=== PATIENT | female | born 1945 | race Caucasian/White ===

== ENCOUNTER 2025-01-26 15:32 | Inpatient (IN) | payer MEDICARE, MEDICAID, SELFPAY ==
[2025-01-26] VITALS (88 sets, daily range): BP systolic 68–176; BP diastolic 39–86; PULSE 76–119; RESP 11–24; TEMP 36.3–37.1; O2SAT 71–100; BMI 31.5
--- NOTE | ~2025-01-26 | CT_ITS ---
EXAMINATION: CT brain wo silke, 01/26/2025 17:35 ANALYTICAL SCIENTIST HISTORY: AMS COMPARISON: No comparisons available. Technique: Axial images obtained of the brain without contrast. One or more of the following dose reduction techniques were used: automated exposure control, adjustment of the mA and/or kV according to patient size, use of iterative reconstruction technique. Findings: Remote left basal ganglial lacunar infarct. Remote left occipital infarct. Remote right cerebellar lacunar infarct. No acute infarct or hemorrhage is identified. No midline shift or mass effect. No extra-axial fluid collections. Mastoid air cells unremarkable. Sinuses and orbits unremarkable. No acute fracture. No significant facial or scalp soft tissue swelling evident. No radiopaque foreign body is seen. Impression: 1.No acute intracranial abnormality. Reviewed, dictated and finalized at location P. YTICAL SCIENTIST Impression: 1.No acute intracranial abnormality.
--- NOTE | ~2025-01-26 | XR_ITS ---
EXAM/PROCEDURE: XR barium swallow modified HISTORY: rule out aspiration COMPARISON: None available. TECHNIQUE: Modified barium swallow DAP: 0.806 cornell per square centimeter Fluoroscopy time: 1 minute Number of images: 1 IMPRESSION: No aspiration observed. See speech therapist's report for complete details. Reviewed, dictated and finalized at location A. ALLER HELPER
--- NOTE | ~2025-01-26 | US_ITS ---
BILATERAL LOWER EXTREMITY VENOUS DUPLEX Clinical History: Leg pain . Comparison: None. Technique: Grayscale, color, duplex/spectral Doppler sonography bilateral lower extremities. Findings: Bilateral common femoral, femoral, popliteal, and calf veins compressible and color Doppler patent. Normal augmentation with distal compression. No internal echoes. IMPRESSION: 1. No DVT either leg. Reviewed, dictated and finalized at location R. ALING OVEN OPERATOR IMPRESSION: 1. No DVT either leg.
--- NOTE | ~2025-01-26 | XR_ITS ---
Examination: XR chest 1V portable Clinical History: evaluate CVC Comparison: Chest x-ray and CT chest one day prior Technique: Portable AP Findings: Right neck central line with catheter retrograde into left innominate vein. Right ICD. Heart size normal. Left basilar atelectasis from leftward mediastinal shift. Small left pleural effusion not excluded. No acute bony abnormality. IMPRESSION: 1. No significant change. 2. Right neck central line with catheter retrogradely into left innominate vein. 3. Left basilar atelectasis. Reviewed, dictated and finalized at location R. E MASTER IMPRESSION: 1. No significant change. 2. Right neck central line with catheter retrogradely into left innominate vei n. 3. Left basilar atelectasis.
--- NOTE | ~2025-01-26 | XR_ITS ---
EXAMINATION: XR chest 1V portable COMPARISON: No comparisons available. HISTORY: pneumonia? low BP, AMS FINDINGS: Moderate pulmonary venous congestion. Moderate left basilar infiltrate and. No pneumothorax. Moderate cardiomegaly. Mediastinal and hilar contours are within normal limits. Bony thorax no acute abnormality. Miscellaneous: Left pacemaker. Impression: CHF. Superimposed probable left lower lobe pneumonia Reviewed, dictated and finalized at location P. TRUCTION ADMINISTRATIVE ASSISTANT Impression: CHF. Superimposed probable left lower lobe pneumonia
--- NOTE | ~2025-01-26 | XR_ITS ---
EXAMINATION: XR chest port-a-cath/central COMPARISON: No comparisons available. HISTORY: central line placement FINDINGS: Moderate pulmonary venous congestion. Basilar infiltrates are noted. Small left effusion. No pneumothorax. Moderate cardiomegaly. Mediastinal and hilar contours are within normal limits. Bony thorax no acute abnormality. Miscellaneous: Endovascular stent noted. There is a right central line, the tip terminates to the left of midline possibly within an internal mammary vein or the proximal left brachiocephalic vein. Impression: CHF. Superimposed probable pneumonia. Central line placement as above. CT suggested to assess exact location as clinically warranted Reviewed, dictated and finalized at location P. TEACHER Impression: CHF. Superimposed probable pneumonia. Central line placement as above. CT sugge sted to assess exact location as clinically warranted
--- NOTE | ~2025-01-26 | US_ITS ---
EXAMINATION: US pelvic complete DATE: 01/28/2025 17:54 INDICATION: Endometrial hyperplasia. TECHNIQUE: Multiple transabdominal sonographic images of the pelvis were obtained. COMPARISON: None. FINDINGS: The uterus and ovaries are not visualized. There is no ascites. IMPRESSION: 1. Uterus and ovaries not visualized. Transvaginal imaging was not performed due to the patient's altered mental status. Reviewed, dictated and finalized at location E. CLOTH EXAMINER IMPRESSION: 1. Uterus and ovaries not visualized. Transvaginal imaging was not performed du e to the patient's altered mental status.
--- NOTE | ~2025-01-26 | XR_ITS ---
Examination: XR chest PICC line Clinical History: PICC line placement. Comparison: 2 hours prior Technique: Portable AP Findings: Right PICC placed but tip not identified. No other change. IMPRESSION: 1. Right PICC placed but tip not identified. 2. Right neck central line unchanged with catheter retrograde into left innominate vein. 3. No cardiopulmonary change. Reviewed, dictated and finalized at location R. DE SALES REPRESENTATIVE IMPRESSION: 1. Right PICC placed but tip not identified. 2. Right neck central line unchanged with catheter retrograde into left innomi cadence vein. 3. No cardiopulmonary change.
--- NOTE | ~2025-01-26 | CT_ITS ---
EXAMINATION: CT chest abdomen pelvis wo con DATE: 01/28/2025 10:09 INDICATION: Abdominal pain. Sepsis. TECHNIQUE: Computed tomography (CT) of the chest, abdomen, and pelvis was performed without intravenous contrast. Automated exposure control and iterative reconstruction technique were employed. The dose-length product was 1335.86 mGy-cm. COMPARISON: CT 01/26/2025 FINDINGS: CHEST CT: The lungs demonstrate mild atelectasis. A calcified left lung nodule and calcified left hilar lymph nodes are consistent with old granulomatous disease. There are small pleural effusions. The heart size is normal. There are coronary artery calcifications. No pericardial effusion. There are changes of aortic valve replacement. There is a left chest pacer with leads in right atrium, right ventricle, and coronary sinus. The central pulmonary arteries are enlarged, consistent with pulmonary arterial hypertension. There is fluid in the esophagus. There is severe cervical and thoracic spondylosis. 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 A right upper extremity peripherally inserted central venous catheter (PICC) is seen with tip in the superior vena cava. ABDOMEN/PELVIS CT: The liver is normal. The gallbladder is distended. Calcifications in the spleen are consistent with old granulomatous disease. The pancreas, adrenal glands, and kidneys are normal. There is no urolithiasis. The bladder is decompressed by a Patterson catheter. The endometrial complex is thickened to 12 mm. There is diverticulosis of the colon without evidence of diverticulitis. There is wall thickening of the distal ileum and right colon. The appendix is normal. There is a gastrostomy tube in expected position. There is a small volume of ascites. There is calcified atherosclerosis of the aorta and many of the other arteries. There are changes of anterior and posterior fusion procedures from L4 to S1 with pedicle screws. There is severe lumbar spondylosis. IMPRESSION: 1. Small pleural effusions. 2. New gallbladder distention, which may be secondary to fasting. Correlate with physical exam to exclude acute cholecystitis. 3. Thickened endometrial complex, which may be secondary to endometrial hyperplasia, polyp, or carcinoma. Consider pelvic ultrasound. 4. Worsened wall thickening of the distal ileum and right colon, consistent with edema versus enterocolitis. 5. Small volume of ascites. Reviewed, dictated and finalized at location E. IC INFORMATION RELATIONS MANAGER IMPRESSION: 1. Small pleural effusions. 2. New gallbladder distention, which may be secondary to fasting. Correlate wit h physical exam to exclude acute cholecystitis. 3. Thickened endometrial complex, which may be secondary to endometrial hyperpl trevin, polyp, or carcinoma. Consider pelvic ultrasound. 4. Worsened wall thickening of the distal ileum and right colon, consistent wit h edema versus enterocolitis. 5. Small volume of ascites.
--- NOTE | ~2025-01-26 | US_ITS ---
EXAMINATION: US arterial ankle brachial ind DATE: 01/27/2025 12:22 INDICATION: Peripheral arterial disease. TECHNIQUE: Segmental pressures and plethysmographic and Doppler waveforms of the brachial and lower extremity arteries were obtained. COMPARISON: None. FINDINGS: The right brachial artery pressure was not measured due to catheters. The left brachial artery pressure is 91 mm Hg. The right ankle-brachial index (HIREN) is 1.19 (normal >= 0.9-1.0). The right great toe-brachial index (TBI) is 0.33 (normal >= 0.65). Arterial Doppler waveforms are biphasic in posterior tibial artery and monophasic in dorsalis pedis. The left HIREN is 0.97. The dorsalis pedis signal is not identified. The left great toe arterial signal is not identified. Arterial Doppler waveforms are monophasic in posterior tibial artery. IMPRESSION: 1. Normal right HIREN and decreased right TBI, consistent with right-sided arterial occlusive disease. 2. Borderline-decreased left HIREN and lack of detectable arterial flow in the left great toe, consistent with left-sided arterial occlusive disease. Reviewed, dictated and finalized at location E. TRICAL TECHNOLOGY INSTRUCTOR IMPRESSION: 1. Normal right HIREN and decreased right TBI, consistent with right-sided arteri al occlusive disease. 2. Borderline-decreased left HIREN and lack of detectable arterial flow in the le ft great toe, consistent with left-sided arterial occlusive disease.
--- NOTE | ~2025-01-26 | US_ITS ---
EXAMINATION: US venous doppler UE , 01/28/2025 15:15 [employer]ING HISTORY: worsening edema Comparison: None Technique: Multiple aguila scale and color Doppler sonographic images were obtained of the internal jugular, subclavian, axillary, brachial, basilar, radial and ulnar veins. Findings: Venous System:Normal flow, augmentation and compressibility. No echogenic thrombus identified. Soft tissues: Soft tissues are unremarkable. Impression: Negative for DVT. Reviewed, dictated and finalized at location P. SCIENCE AND PLANNING Impression: Negative for DVT.
--- NOTE | ~2025-01-26 | CT_ITS ---
EXAMINATION: CT, chest, abdomen and pelvis without contrast: DATE: 01/26/2025. INDICATION: 79 year-old with abdominal pain, nausea vomiting, septic shock. Pneumonia or congestive heart failure. TECHNIQUE: CT scan through chest, abdomen and pelvis were obtained without administration of oral contrast or IV contrast. Radiation dose 993 MG Y C.M. COMPARISON: Portable chest x-ray dated 01/26/2025 FINDINGS: No segmental consolidation or atelectasis of the lungs. Postsurgical changes with severe cardiomegaly and endograft placement of ascending aorta. Pacemaker in place. Prominent central pulmonary arteries due to pulmonary hypertension. No pericardial effusion. Within the upper abdomen, normal size liver and spleen. Gallbladder shows no acute findings. There is evidence small bowel drops of air noted in the peripheral portal veins in the left lobe of the liver. The pancreas shows no acute findings. Kidneys do not show calculi are obstruction. Severe calcific changes at the origin of celiac axis and superior mesenteric artery. No evidence of small bowel obstruction. G-tube is noted in place in the stomach. No free air in the peritoneal cavity. No inflammatory changes in the pelvis. Postoperative changes of lumbar spine. No calculi of the kidneys and bladder. IMPRESSION: 1. No evidence of pulmonary consolidation are atelectasis. Mild vascular congestion of lungs severe cardiomegaly and postoperative changes as described above. 2. Within the abdomen, there is significant finding of small drops of air in the peripheral portal veins within the left lobe of the liver. This would raise a concern for ischemic bowel disease. 3. Significant Calcific changes at the proximal celiac axis and superior mesenteric artery and right renal artery. 4. Normal bowel obstruction or bowel wall thickening. No evidence of fluid or free air in the peritoneal cavity. 5. Critical findings conveyed to attending physician by telephone call at 6:07 PM. Reviewed, dictated and finalized at location T. R IMPRESSION: 1. No evidence of pulmonary consolidation are atelectasis. Mild vascular conges tion of lungs severe cardiomegaly and postoperative changes as described above. 2. Within the abdomen, there is significant finding of small drops of air in th e peripheral portal veins within the left lobe of the liver. This would raise a concern for ischemic bowel disease. 3. Significant Calcific changes at the proximal celiac axis and superior mesent demetria artery and right renal artery. 4. Normal bowel obstruction or bowel wall thickening. No evidence of fluid or f ree air in the peritoneal cavity. 5. Critical findings conveyed to attending physician by telephone call at 6:07 PM.
--- NOTE | 2025-01-26 15:45 | ECG_ITS ---
Test Date: 2025-01-26 16:03:26 Measurements Intervals [place] Rate: 81 P: 0 NE: 0 QRS: -26 QRSD: 140 T: 64 QT: 457 QTc: 533 Interpretive Statements ELECTRONIC VENTRICULAR PACEMAKER WITH PSEUDO FUSION. ABNORMAL RHYTHM ECG No previous ECG available for comparison Electronically Signed On 01-27-2025 08:02:17 PULPING MACHINE OPERATOR by Saman Rivera M.D.
[2025-01-26] MEDS: NOREPINEPHRINE 8 MG/D5W 250 ML 8 MG/250 ML BAG 9.38 MG IV CONT (16:20)
--- NOTE | 2025-01-26 16:48 | ED.AMS ---
HPI - Altered Mental Status General Chief Complaint: Altered Mental Status Stated Complaint: AMS Time Seen by Provider: 01/26/25 15:45 History of Present Illness HPI narrative: Patient presenting here after being diagnosed with pneumonia, started on antibiotics, her custodial found she seemed more confused and tired and sleepy with low blood pressure so sent her to the emergency room. She is reporting she feels terrible, with abdominal pain Related Data Allergies Allergy/AdvReac Type Severity Reaction Status Date / Time No Known Allergies Allergy Verified 01/26/25 15:59 Review of Systems Review of Systems: All systems reviewed & are unremarkable except as noted in HPI and below Exam Narrative: EXAMINATION OF ORGAN SYSTEMS/BODY AREAS: Constitutional: Vital signs per nursing GENERAL: Appears very tired HEAD: Normal with no signs of head trauma. EYES: EOMI, conjunctiva normal ENT: Hearing grossly intact LUNGS: Nonlabored breathing. HEART: [Regular rate and rhythm] ABD: [Soft], some diffuse tenderness to palpation, G-tube in place, non peritonitic EXT: Normal range of motion SKIN: Decubitus ulcer sacrum that does not appear infected NEURO: [Alert. No gross focal sensory or strength deficits.] PSYCH: Normal affect Course Vital Signs Vital signs: Vital Signs Temperature 97.4 F L 01/26/25 15:34 Pulse Rate 82 01/26/25 15:34 Respiratory Rate 18 01/26/25 15:34 Blood Pressure 89/56 L 01/26/25 15:34 Pulse Oximetry 96 01/26/25 15:34 Oxygen Delivery Room Air 01/26/25 15:34 Temperature 97.4 F L 01/26/25 15:34 Pulse Rate 100 01/26/25 18:45 Respiratory Rate 13 01/26/25 18:45 Blood Pressure 94/69 L 01/26/25 18:31 Pulse Oximetry 94 01/26/25 17:05 Oxygen Delivery Room Air 01/26/25 17:05 Procedures Central Line Placement Right IJ: Central Line Date: 01/26/25 Central Line Time: 16:10 Discussed w/ the patient/family/POA,the placement of a central venous catheter, including its clinical necessity/indication & associated potential risks, benifits and alternatives.: Yes The patient/family/POA understand(s) and acknowledge(s) the need to proceed with central venous catheter insertion as an important element of the patient's clinical management.: Yes Time Out Performed: Yes Patient Placed on Monitor/Pulse Ox: Yes Max. Sterile Barrier Technique: Caps, large sterile sheet and hand hygiene Central Line Prep: 2% chlorhexidine scrub and sterile drapes applied Technique: US-Guided Local Anesthetic: lidocaine 1% Amount of anesthesia used (mL): 2 Ultrasound Used for Placement: Yes Central Line Lumen Inserted: triple Post Procedure: sutured in place, good blood return, all ports aspirated, flushed, capped and sterile dressing applied Post Procedure X-Ray: no pneumothorax seen Patient Tolerated Procedure: well and no complications MDM - Altered Mental Status MDM Narrative Medical decision making narrative: Patient presents here from custodial, being treated for pneumonia, found to be hypotensive. On exam here she appears very tired, blood pressure is low, she is complaining of abdominal pain. Abdomen is soft but diffusely tender, not rigid. Full sepsis workup initiated, since she has history of CHF and chest x-ray showing possible fluid overload, I did not order more IV fluids at this time I did feel we needed to start pressors orally. I discussed this with the patient and her daughter, both of whom 1 her to be full code and have everything done. She has had central line before and they would like this done. A central line placed, norepinephrine started, she does have a elevated white count, thankfully negative lactic. Radiologist called me to tell me CT showing possible signs of ischemic bowel. Central line going from right brachiocephalic to left brachiocephalic, still central and safe for use for pressors. I did immediately call General surgery, they will be consulting on the patient. I did discuss this with the ICU, Dr Juares, who will take care for the patient in ICU. Discussed with hospitalist. Updated patient and family on plan Lab Data 01/26/25 18:08 01/26/25 18:08 Labs: Lab Results 01/26/25 Range/Units 18:08 WBC 18.4 H (4.5-10.0) K/mm3 RBC 3.65 L (4.2-5.4) M/mm3 Hgb 10.3 L (12.0-15.0) g/dL Hct 33.4 L (37.0-47.0) % MCV 91.5 (80-100) fl MCH 28.2 (26-34) pg MCHC 30.8 L (32-36) g/dl RDW 17.2 H (11.5-14.5) % Plt Count 438 H (150-375) k/mm3 MPV 9.0 (7.4-10.4) fl Immature Gran % (Auto) Not Reportable Neut % (Auto) Not Reportable Lymph % (Auto) Not Reportable Cherry % (Auto) Not Reportable Eos % (Auto) Not Reportable Baso % (Auto) Not Reportable Lymph # (Auto) Not Reportable Cherry # (Auto) Not Reportable Eos # (Auto) Not Reportable Baso # (Auto) Not Reportable Abs Immat Gran (auto) Not Reportable Absolute Neuts (auto) Not Reportable Absolute Nucleated RBC Not Reportable Total Counted 100 Neutrophils % (Manual) 90 H (46-73) % Band Neutrophils % 0 (0-6) % Lymphocytes % (Manual) 6.0 L (18-44) % Monocytes % (Manual) 4 (3-9) % Nucleated RBC % Not Reportable Abs Neuts (Manual) 16.56 H (1.3-6.7) K/mm3 Abs Lymphs (Manual) 1.10 (1.1-4.5) K/mm3 Abs Monocytes (Manual) 0.73 (0.1-0.90) K/mm3 Platelet Estimate Increased (Adequate) Clumped Platelets Present Hypochromasia 1+ Anisocytosis 2+ Schistocytes None seen PT 18.7 H (11.1-14.7) Seconds INR 1.6 APTT 46.3 H (22.3-36.8) Seconds Sodium 129 L (137-145) mmol/L Potassium 4.0 (3.4-5.0) mmol/L Chloride 95 L (98-107) mmol/L Carbon Dioxide 29 (22-30) mmol/L Anion Gap 5 (4-12) mmol/L BUN 64 H (7-17) mg/dL Creatinine 0.96 (0.7-1.0) mg/dL Estim Creat Clear Calc Not Reportable Estimated GFR 56 L (59 - ) Glucose 184 H (65-110) mg/dL Lactic Acid 1.4 (0.7-2.0) mmol/L Calcium 8.9 (8.4-10.2) mg/dL Total Bilirubin 0.4 (0.2-1.3) mg/dL AST 29 (14-36) U/L ALT 17 (6-35) U/L Alkaline Phosphatase 84 (38-126) U/L C-Reactive Protein 1.0 (<1.0) mg/dL NT-Pro-B Natriuret Pep 1910 H (19.9-100) pg/mL Total Protein 6.3 (6.3-8.2) g/dL Albumin 3.3 L (3.5-5.1) g/dL Critical Care Time Critical Care Time Critical Care Time: Yes Total Critical Care Time: 45 Discharge Plan Discharge Clinical Impression: Altered mental status, Septic shock Patient Disposition: Still a Patient Condition: Serious Patient Language: Ghanaian Follow-up/Referrals: Marquis Ramirez [Other]
[2025-01-26] MEDS: LACTATED RINGERS 1,000 ML 999 ML IV CONT (17:00)
[2025-01-26] MEDS: ONDANSETRON INJ 4 MG/2 ML VIAL IV PUSH (17:11)
--- NOTE | 2025-01-26 17:21 | PC.NURSE ---
multiple attempts made to obtain lab and blood cultures. central line place. Waiting for okay to use order
[2025-01-26 18:16] LABS: Hematocrit 33.4 % (37.0-47.0); Hemoglobin 10.3 g/dL (12.0-15.0); Mean Corpuscular HGB Conc 30.8 g/dl (32-36); Mean Corpuscular Hemoglobin 28.2 pg (26-34); Mean Corpuscular Volume 91.5 fl (80-100); Platelet Count Result 438 k/mm3 (150-375); Red Blood Count 3.65 M/mm3 (4.2-5.4); White Blood Count 18.4 K/mm3 (4.5-10.0)
[2025-01-26 18:27] LABS: INR 1.6; Prothrombin Time 18.7 Seconds (11.1-14.7)
[2025-01-26 18:28] LABS: Partial Thromboplastin Time 46.3 Seconds (22.3-36.8)
[2025-01-26 18:54] LABS: Lymphocytes Absolute Manual 1.10 K/mm3 (1.1-4.5); Lymphocytes Percent Manual 6.0 % (18-44); Monocytes Absolute Manual 0.73 K/mm3 (0.1-0.90); Monocytes Percent Manual 4 % (3-9); Neutrophils Percent Manual 90 % (46-73); Total Cells Counted 100
[2025-01-26 18:55] LABS: Hypochromasia 1+; Schistocytes None Seen
[2025-01-26 18:56] LABS: Anisocytosis 2+
[2025-01-26 19:01] LABS: Alanine Aminotransferase 17 U/L (6-35); Albumin Level 3.3 g/dL (3.5-5.1); Alkaline Phosphatase 84 U/L (38-126); Anion Gap 5 mmol/L (4-12); Aspartate Amino Transferase 29 U/L (14-36); Bilirubin,Total 0.4 mg/dL (0.2-1.3); Blood Urea Nitrogen 64 mg/dL (7-17); CRP 1.0 mg/dL (<1.0); Calcium 8.9 mg/dL (8.4-10.2); Carbon Dioxide 29 mmol/L (22-30); Chloride 95 mmol/L (98-107); Estimated Glomerular Filt Rate 56; Glucose 184 mg/dL (65-110); Potassium 4.0 mmol/L (3.4-5.0); Sodium 129 mmol/L (137-145); Total Protein 6.3 g/dL (6.3-8.2)
[2025-01-26 19:04] LABS: Band Neutrophils Percent 0 % (0-6); Neutrophils Absolute Manual 16.56 K/mm3 (1.3-6.7)
[2025-01-26 19:07] LABS: NT Pro B Type Natriuretic Pept 1910 pg/mL (19.9-100)
[2025-01-26] MEDS: PIPERACILLIN/TAZOBACTAM SOD 3.375 GM in SODIUM CHLORIDE 0.9% IV 50 ML 100 ML IVPB (20:23)
[2025-01-26] MEDS: MORPHINE SULFATE (*CRX) 4 MG/ML INJ 2 MG IV PUSH (20:23)
[2025-01-26 20:26] LABS: Add Urine Microscopic? YES; Appearance Urine Turbid (Clear); Glucose Urine UA Negative (Negative); Leukocyte Esterase Ur 3+ LEU/UL (Negative); Need Manual Microscopic Reviewed; Nitrate Urine Negative (Negative); Non Pathogenic Casts >20; Specific Grav Ur 1.013 (1.001-1.035)
--- NOTE | 2025-01-26 20:39 | WPCEDHO ---
ED Hand Off Checklist All vitals saved:Y IV Site documented:Y All med administrations documented:Y Triage Note Triage Note pt to ed via [facility] 01/26/25 15:34 from [facility] with c/o hypotension, lethargic, altered mental status. pt bs 227, pt being treated for pneumonia. family at bedside states that she was normal and a/o x 3-4 yesterday Allergies No Known Allergies Allergy (Verified 01/26/25 15:59) Active Medications including assessments/comments Norepinephrine Bitartrate (Levophed 8 Mg/D5w 250 Ml) 8 mg in 250 mls @ 11.25 mls/hr IV CONT .[id number] STA; Protocol Stop: 01/27/25 14:23 Last Titration: 01/26/25 20:30 Dose: 6 mcg/min, 11.25 mls/hr Documented By: [facility] Infusion/Titration Document 01/26/25 20:30 [facility] (Rec: 01/26/25 20:30 [facility] [id number]) Intake IV Site Central Catheter, Triple Lumen Right Jugular, Internal Intake 49.8 Cumulative Intake ( 59.7 bag) Cumulative Intake ( 59.7 Rx) Container Volume 190.3 Waste Amount 0 Dosing Dose Rate 6 Infusion Rate 11.25 Cumulative Dose 1.9104 Increase/Decrease Decreased Elapsed Time Elapsed Time ( 4h 10m minutes) Norepinephrine Infusion Assess Document 01/26/25 20:30 [facility] (Rec: 01/26/25 20:30 [facility] [id number]) Infusion Action Norepinephrine Titrated/Rate Changed Infusion Action Pulse Pulse Rate (60-100) 109 H Blood Pressure Blood Pressure (100/ 114/75 60-140/90) Blood Pressure Mean 88 (mmHg) Titration: 01/26/25 17:11 Dose: 8 mcg/min, 15 mls/hr Documented By: PRIMITIVOW Infusion/Titration Document 01/26/25 17:11 AJW (Rec: 01/26/25 17:12 [facility] [id number]) Intake Intake 3.8 Cumulative Intake ( 9.9 bag) Cumulative Intake ( 9.9 Rx) Container Volume 240.1 Waste Amount 0 Dosing Dose Rate 8 Infusion Rate 15 Cumulative Dose 0.3168 Increase/Decrease Decreased Elapsed Time Elapsed Time ( 51m minutes) Norepinephrine Infusion Assess Document 01/26/25 17:11 AJW (Rec: 01/26/25 17:12 AJW [id number]) Infusion Action Norepinephrine Titrated/Rate Changed Infusion Action Pulse Pulse Rate (60-100) 97 Blood Pressure Blood Pressure (100/ 176/81 H 60-140/90) Blood Pressure Mean 112 (mmHg) Titration: 01/26/25 16:59 Dose: 10 mcg/min, 18.75 mls/hr Documented By: NILSON Infusion/Titration Document 01/26/25 16:59 NILSON (Rec: 01/26/25 16:59 NILSON [id number]) Intake Intake 6.1 Cumulative Intake ( 6.1 bag) Cumulative Intake ( 6.1 Rx) Container Volume 243.9 Waste Amount 0 Dosing Dose Rate 10 Infusion Rate 18.75 Cumulative Dose 0.1952 Increase/Decrease Increased Elapsed Time Elapsed Time ( 39m minutes) Norepinephrine Infusion Assess Document 01/26/25 16:59 NILSON (Rec: 01/26/25 16:59 PRIMITIVO [id number]) Infusion Action Norepinephrine Titrated/Rate Changed Infusion Action Pulse Pulse Rate (60-100) 87 Blood Pressure Blood Pressure (100/ 83/61 L 60-140/90) Blood Pressure Mean 68 (mmHg) Admin: 01/26/25 16:20 Dose: 5 mcg/min, 9.38 mls/hr Documented By: NILSON Infusion/Titration Document 01/26/25 16:20 NILSON (Rec: 01/26/25 16:21 NILSON [id number]) Intake IV Site Peripheral Access Right Wrist Container Volume 250 Waste Amount 0 Dosing Dose Rate 5 Infusion Rate 9.38 Increase/Decrease Started Elapsed Time Elapsed Time ( 0m minutes) Norepinephrine Infusion Assess Document 01/26/25 16:20 NILSON (Rec: 01/26/25 16:21 PRIMITIVO [id number]) Infusion Action Norepinephrine Initiated Infusion Action Pulse Pulse Rate (60-100) 86 Blood Pressure Blood Pressure (100/ 71/48 L 60-140/90) Blood Pressure Mean 55 (mmHg) Administered/Completed Medications Discontinued Medications Piperacillin Sod/Tazobactam (Sod 3.375 gm/ Sodium Chloride) 50 mls @ 100 mls/hr IVPB ONCE STA Stop: 01/26/25 16:39 Last Admin: 01/26/25 20:23 Dose: 100 mls/hr Documented By: BOB Norepinephrine Bitartrate (Levophed 8 Mg/D5w 250 Ml) Confirm Administered Dose 8 mg in 250 mls @ as directed .ROUTE .STK-MED ONE Stop: 01/26/25 16:10 Last Admin: 01/26/25 16:17 Dose: Not Given Documented By: NILSON Non-Admin Reason: Duplicate Dose Lactated Ringer's (Lr - Lactated Ringers Iv) 1,000 mls @ 999 mls/hr IV CONT .Q1H1M STA Stop: 01/26/25 17:40 Last Infusion: 01/26/25 19:30 Dose: Infused Documented By: Admin: 01/26/25 17:00 Dose: 999 mls/hr Documented By: NILSON Sodium Chloride (Normal Saline Iv) Confirm Administered Dose 100 mls @ as directed .ROUTE .STK-MED ONE Stop: 01/26/25 20:21 Last Admin: 01/26/25 20:24 Dose: Not Given Documented By: BOB Non-Admin Reason: Removed in Error, Returned to Pyxis Sodium Chloride (Normal Saline Iv) Confirm Administered Dose 50 mls @ as directed .ROUTE .STK-MED ONE Stop: 01/26/25 20:24 Last Admin: 01/26/25 20:31 Dose: Not Given Documented By: BOB Non-Admin Reason: Duplicate Dose Miscellaneous Information (Please Add Drug Allergy Info To Patient Profile.) 1 each XX CLARIFY MERCEDES Stop: 02/25/25 00:00 Last Admin: 01/26/25 16:00 Dose: Not Given Documented By: NILSON Non-Admin Reason: Order Discontinued Morphine Sulfate (Morphine Sulfate (*Crx) 4 Mg/Ml Inj) 2 mg IV PUSH ONCE ONE Stop: 01/26/25 19:45 Last Admin: 01/26/25 20:23 Dose: 2 mg Documented By: BOB Ondansetron HCl (Ondansetron Inj 4 Mg/2 Ml Vial) 4 mg IV PUSH ONCE STA Stop: 01/26/25 16:01 Last Admin: 01/26/25 17:11 Dose: 4 mg Documented By: NILSON Piperacillin Sod/Tazobactam Sod (Piperacillin/Tazobactam Sodium 3.375 Gm Vial) Confirm Administered Dose 3.375 gm .ROUTE .STK-MED ONE Stop: 01/26/25 20:21 Last Admin: 01/26/25 20:24 Dose: Not Given Documented By: BOB Non-Admin Reason: Duplicate Dose Notes 01/26/25 17:21 Nurse Note by Micheline Doe multiple attempts made to obtain lab and blood cultures. central line place. Waiting for okay to use order Initialized on 01/26/25 17:21 - END OF NOTE Interventions/Assessments IV / Saline Lock, Insert Start: 01/26/25 15:46 Freq: STAT Status: Active Protocol: Document 01/26/25 17:05 AJW (Rec: 01/26/25 17:07 [facility] [id number]) IV Assessment Central Catheter, Triple Lumen Right Jugular, Internal IV Catheter Access Initiated IV Insertion Date 01/26/25 IV Insertion Time 14:40 IV Site Assessment WNL IV Care and Access Locked,Dressing Applied, Dated, Timed, and Maintenance Initialed PA: Cardiovascular Assessment Start: 01/26/25 15:46 Freq: Status: Active Protocol: Document 01/26/25 17:05 AJW (Rec: 01/26/25 17:07 AJ [id number]) Cardiovascular Assessment Cardiovascular None Symptoms PA: Neurological Assessment Start: 01/26/25 15:46 Freq: Status: Active Protocol: Document 01/26/25 17:05 AJW (Rec: 01/26/25 17:07 [facility] [id number]) Neurological Assessment Level of Sleeping Consciousness Arousable to Light Pain Orientation Oriented to Person,Disoriented to Place,Disoriented to Time Neurological Confusion,Weakness, General Symptoms Behavior Passive Memory Description Traffic Engineer Intact,Short Term Impaired Ability to Maintain Unable to Assess Balance Facial Symmetry Unable to Assess Speech Pattern Delayed,Garbled [place] Coma Scale Eyes To Pain Verbal Disoriented Motor Localizes Pain [place] Coma Total 11 Score PA: Respiratory Assessment Start: 01/26/25 15:46 Freq: Status: Active Protocol: Document 01/26/25 17:05 AJW (Rec: 01/26/25 17:07 [facility] [id number]) Respiratory Assessment Symptoms None Effort Normal Oxygen Delivery Oxygen Delivery Room Air Pulse Oximetry (90- 94 100) Last Vital Signs Temperature 97.4 F L 01/26/25 15:34 Pulse Rate 94 01/26/25 20:36 Respiratory Rate 14 01/26/25 20:36 Pulse Oximetry 94 01/26/25 20:36 Blood Pressure 79/57 L 01/26/25 20:36 Blood Pressure Mean 65 01/26/25 20:36 Oxygen Delivery Room Air 01/26/25 17:05 Weight 66.3 kg 01/26/25 15:34 Last Result - Abnormals Only WBC 18.4 K/mm3 (4.5-10.0) H 01/26/25 18:08 RBC 3.65 M/mm3 (4.2-5.4) L 01/26/25 18:08 Hgb 10.3 g/dL (12.0-15.0) L 01/26/25 18:08 Hct 33.4 % (37.0-47.0) L 01/26/25 18:08 MCHC 30.8 g/dl (32-36) L 01/26/25 18:08 RDW 17.2 % (11.5-14.5) H 01/26/25 18:08 Plt Count 438 k/mm3 (150-375) H 01/26/25 18:08 Neutrophils % (Manual) 90 % (46-73) H 01/26/25 18:08 Lymphocytes % (Manual) 6.0 % (18-44) L 01/26/25 18:08 Abs Neuts (Manual) 16.56 K/mm3 (1.3-6.7) H 01/26/25 18:08 PT 18.7 Seconds (11.1-14.7) H 01/26/25 18:08 APTT 46.3 Seconds (22.3-36.8) H 01/26/25 18:08 Sodium 129 mmol/L (137-145) L 01/26/25 18:08 Chloride 95 mmol/L (98-107) L 01/26/25 18:08 BUN 64 mg/dL (7-17) H 01/26/25 18:08 Estimated GFR 56 (59-) L 01/26/25 18:08 Glucose 184 mg/dL (65-110) H 01/26/25 18:08 NT-Pro-B Natriuret Pep 1910 pg/mL (19.9-100) H 01/26/25 18:08 Albumin 3.3 g/dL (3.5-5.1) L 01/26/25 18:08 Urine Appearance Turbid (Clear) H 01/26/25 20:03 Urine Protein 1+ mg/dL (Negative) H 01/26/25 20:03 Ur Blood (Man) 2+ (Negative) H 01/26/25 20:03 Leukocyte Esterase Rfl 3+ MADAN/UL (Negative) H 01/26/25 20:03 Urine WBC >100 /hpf (0-3) H 01/26/25 20:03 Urine Bacteria 4+ /hpf H 01/26/25 20:03 Most Recent Suicide Severity Rating Suicide Severity Rating NO RISK INDICATED 01/26/25 15:34
--- NOTE | 2025-01-26 21:07 | PM.IMHP ---
H&P: HPI History of Present Illness Date/Time: 01/26/25 21:07 Chief Complaint: Altered mental status Narrative: This is a 79-year-old female patient who is currently in rehab at [facility]. She was recently diagnosed with pneumonia and has been on oral antibiotics. She also has tube feedings that supplements her oral intake. However the patient was found to be more confused and left the were [place] with a low blood pressure at the rehab facility. The patient was complaining of some abdominal pain. Her white count was noted to be 18.4. Her H&H is 10.4 in 33.4. Her sodium was low at 129. Her glucose is 184. Her BNP was noted to be 1910. Her urine is turbid with 1+ protein, 2+ blood, leukocyte esterase 3+, urine wbc's greater than 100, urine bacteria 4+. MRSA was detected in her nares. Chest abdomen pelvis CT was read as a followingIMPRESSION: 1. No evidence of pulmonary consolidation are atelectasis. Mild vascular congestion of lungs severe cardiomegaly and postoperative changes as described above. 2. Within the abdomen, there is significant finding of small drops of air in the peripheral portal veins within the left lobe of the liver. This would raise a concern for ischemic bowel disease. 3. Significant Calcific changes at the proximal celiac axis and superior mesenteric artery and right renal artery. 4. Normal bowel obstruction or bowel wall thickening. No evidence of fluid or free air in the peritoneal cavity. 5. Critical findings conveyed to attending physician by telephone call at 6:07 PM. Surgery consult was placed per ED provider. The patient was given a dose of zosynin in the er. Head CT was read as no acute and cranial abnormality. Chest x-ray was read as CHF superimposed probable left lower lobe pneumonia. A central line was placed in the emergency room. Repeat chest x-ray shows central line placement. The blood pressures have gotten as low as 70/50 prior to have vasopressors. A Patterson catheter was also placed as well. Surgery has been consulted as well as the general repairer. The patient was admitted to inpatient ICU on the date of service of 01/26/2025. Review of Systems Review of Systems: ROS unobtainable: Yes unobtainable due to medical condition and unobtainable due to mental status [facility] Past Medical History Medical History Generalized anxiety disorder Left bundle branch block Hypertension Spinal stenosis Aortic valve stenosis Gastrointestinal tube in situ Hypothyroidism Chronic kidney disease Anemia DM2 (diabetes mellitus, type 2) Rheumatoid arthritis CAD (coronary artery disease) Depression Dementia CVA (cerebral vascular accident) Per head CT on 01/26/2025 Remote left basal ganglial lacunar infarct. Remote left occipital infarct. Remote right cerebellar lacunar infarct Dysphagia Ischemic bowel disease Congestive heart failure Combined diastolic and systolic. Pneumonia Surgical History Surgical History AICD (automatic cardioverter/defibrillator) present H/O endovascular stent graft for abdominal aortic aneurysm H/O neck surgery Previous back surgery Family History Family History Other Unknown family medical history Social History Social History Social History: She is currently at [facility]. Her daughter Dee was at the bedside stating that she is the durable power family law attorney for healthcare. She is . She is retired. Code status: Full code Smoking status: Never smoker Second hand tobacco smoke exposure: No Alcohol intake: never Substance use: never Lack of Transportation: No Lack of Food: Never True Current Housing: I Have Housing Concerned About Future Housing: No Difficulty Paying Gas/Electric Bills: No Difficulty Paying for Meds: No Currently Unemployed: No Education: Master's Degree or Higher Difficulty w/ Childcare or Family Care: No Spiritual care concerns: No Meds Home Medications and Allergies Home Medications ?Medication ?Instructions ?Recorded ?Confirmed ?Type Saccharomyces boulardii 250 mg 250 mg PO DAILY 01/26/25 01/26/25 History capsule (Daily Probiotic (S. boulardii)) acetaminophen 325 mg capsule 650 mg PO Q8H PRN pain 01/26/25 01/26/25 History amiodarone 200 mg tablet 200 mg feeding tube BID 01/26/25 01/26/25 History arginine 7 gram-glutamine 7 1 ea PO BID 01/26/25 01/26/25 History gram-calcium HMB 1.5 gram oral powder pack (Boris) aspirin 81 mg tablet,delayed 81 mg feeding tube DAILY 01/26/25 01/26/25 History release atorvastatin 80 mg tablet 80 mg PO QPM 01/26/25 01/26/25 History banana [id number] 5 gram-45 1 ml feeding tube BID 01/26/25 01/26/25 History kcal/60 mL tube feed liquid packet bisacodyl 10 mg rectal suppository 10 mg RECTAL DAILY PRN constipation 01/26/25 01/26/25 History buspirone 10 mg tablet 5 mg feeding tube TID 01/26/25 01/26/25 History calcium carbonate (Calcium Antacid) 200 mg PO Q6H PRN indigestion 01/26/25 01/26/25 History conjugated estrogens 0.625 mg/gram 0.3125 mg vaginal DAILY 01/26/25 01/26/25 History vaginal cream (Premarin) dabigatran etexilate 75 mg capsule 75 mg PO BID 01/26/25 01/26/25 History dapagliflozin propanediol 10 mg 10 mg feeding tube DAILY 01/26/25 01/26/25 History tablet (Farxiga) diclofenac sodium 1 % topical gel 2 g topical Q6H PRN pain 01/26/25 01/26/25 History dimethicone 1 %-zinc oxide 10 1 applic topical QSHIFT PRN 01/26/25 01/26/25 History %-vit A and D-aloe vera topical incontinence cream (A and D Diaper Rash Cream) docusate sodium 100 mg capsule 100 mg PO BID 01/26/25 01/26/25 History (Colace) donepezil 5 mg tablet (Aricept) 5 mg PO BID 01/26/25 01/26/25 History ergocalciferol (vitamin D2) 1,250 50,000 unit feeding tube DAILY 01/26/25 01/26/25 History mcg (50,000 unit) capsule famotidine 20 mg tablet 20 mg PO DAILY 01/26/25 01/26/25 History fenofibrate nanocrystallized 48 mg 48 mg PO DAILY 01/26/25 01/26/25 History tablet furosemide 40 mg tablet 40 mg PO BID 01/26/25 01/26/25 History gabapentin 100 mg capsule 100 mg feeding tube BID 01/26/25 01/26/25 History insulin glargine 100 unit/mL (3 25 unit subcut QPM 01/26/25 01/26/25 History mL) subcutaneous pen (Lantus Solostar U-100 Insulin) ketorolac 0.5 % eye drops (Acular) 1 drp EACH EYE Q6H 01/26/25 01/26/25 History levofloxacin 500 mg tablet 500 mg feeding tube DAILY 01/26/25 01/26/25 History levothyroxine 125 mcg tablet 125 mcg feeding tube DAILY 01/26/25 01/26/25 History lidocaine 5 % topical patch 1 patch topical Q24H PRN pain 01/26/25 01/26/25 History (Lidoderm) magnesium citrate (Citroma oral 296 ml PO ONCE PRN constipation 01/26/25 01/26/25 History solution) magnesium hydroxide 400 mg/5 mL 400 mg PO DAILY PRN constipation 01/26/25 01/26/25 History oral suspension (Milk of Magnesia) melatonin 3 mg capsule 6 mg PO HS 01/26/25 01/26/25 History miconazole nitrate 2 % topical 1 applic topical .hourly PRN 01/26/25 01/26/25 History cream (Antifungal (miconazole)) fungal infection mirtazapine 7.5 mg tablet 7.5 mg PO HS 01/26/25 01/26/25 History montelukast 10 mg tablet 10 mg feeding tube QPM 01/26/25 01/26/25 History naloxone 4 mg/actuation nasal 1 spray intranasal ONCE PRN opioid 01/26/25 01/26/25 History spray (Narcan) overdose nystatin 100,000 unit/gram topical 1 applic topical BID 01/26/25 01/26/25 History powder omeprazole 20 mg capsule,delayed 20 mg PO DAILY 01/26/25 01/26/25 History release sacubitril 97 mg-valsartan 103 mg 1 tablet PO BID 01/26/25 01/26/25 History tablet (Entresto) sertraline 50 mg tablet 50 mg feeding tube DAILY 01/26/25 01/26/25 History sodium phosphates 19 gram-7 118 ml RECTAL ONCE PRN constipation 01/26/25 01/26/25 History gram/118 mL enema (Enema) spironolactone 25 mg/5 mL oral 10 mg feeding tube DAILY 01/26/25 01/26/25 History suspension tramadol 50 mg tablet 50 mg feeding tube Q6H PRN pain 01/26/25 01/26/25 History Allergies Allergy/AdvReac Type Severity Reaction Status Date / Time No Known Allergies Allergy Verified 01/26/25 22:05 Vital Signs Vital Signs - 24 hr 01/26/25 15:34 01/26/25 15:43 01/26/25 15:47 Temperature 97.4 F L Pulse Rate 82 86 80 Respiratory Rate 18 16 17 Blood Pressure 89/56 L Pulse Oximetry 96 Oxygen Delivery Room Air 01/26/25 15:56 01/26/25 16:00 01/26/25 16:01 Temperature Pulse Rate 91 77 79 Respiratory Rate 16 17 16 Blood Pressure 81/49 L Pulse Oximetry Oxygen Delivery 01/26/25 16:05 01/26/25 16:07 01/26/25 16:10 Temperature Pulse Rate 85 87 80 Respiratory Rate 17 15 16 Blood Pressure 70/50 L Pulse Oximetry Oxygen Delivery 01/26/25 16:15 01/26/25 16:16 01/26/25 16:20 Temperature Pulse Rate 87 81 86 Respiratory Rate 20 16 Blood Pressure 71/48 L 71/48 L Pulse Oximetry Oxygen Delivery 01/26/25 16:20 01/26/25 16:21 01/26/25 16:25 Temperature Pulse Rate 97 90 80 Respiratory Rate 24 H 19 18 Blood Pressure 73/50 L Pulse Oximetry Oxygen Delivery 01/26/25 16:26 01/26/25 16:30 01/26/25 16:31 Temperature Pulse Rate 99 87 83 Respiratory Rate 16 17 16 Blood Pressure 92/54 L 97/64 L Pulse Oximetry Oxygen Delivery 01/26/25 16:43 01/26/25 16:45 01/26/25 16:46 Temperature Pulse Rate 85 76 82 Respiratory Rate 16 15 16 Blood Pressure 100/57 L Pulse Oximetry Oxygen Delivery 01/26/25 16:59 01/26/25 17:05 01/26/25 17:11 Temperature Pulse Rate 87 97 Respiratory Rate Blood Pressure 83/61 L 176/81 H Pulse Oximetry 94 Oxygen Delivery Room Air 01/26/25 17:21 01/26/25 17:26 01/26/25 17:50 Temperature Pulse Rate 84 86 91 Respiratory Rate 13 13 13 Blood Pressure 120/64 119/64 Pulse Oximetry Oxygen Delivery 01/26/25 17:52 01/26/25 17:55 01/26/25 17:56 Temperature Pulse Rate 86 93 87 Respiratory Rate 14 14 15 Blood Pressure 149/74 H 122/65 Pulse Oximetry Oxygen Delivery 01/26/25 18:00 01/26/25 18:01 01/26/25 18:05 Temperature Pulse Rate 83 83 88 Respiratory Rate 13 15 13 Blood Pressure 158/69 H Pulse Oximetry Oxygen Delivery 01/26/25 18:06 01/26/25 18:10 01/26/25 18:11 Temperature Pulse Rate 96 98 89 Respiratory Rate 15 13 14 Blood Pressure 112/71 130/77 Pulse Oximetry Oxygen Delivery 01/26/25 18:15 01/26/25 18:16 01/26/25 18:20 Temperature Pulse Rate 92 89 89 Respiratory Rate 13 14 15 Blood Pressure 115/86 Pulse Oximetry Oxygen Delivery 01/26/25 18:21 01/26/25 18:25 01/26/25 18:26 Temperature Pulse Rate 90 84 83 Respiratory Rate 14 12 13 Blood Pressure 110/75 119/57 L Pulse Oximetry Oxygen Delivery 01/26/25 18:30 01/26/25 18:31 01/26/25 18:35 Temperature Pulse Rate 87 98 95 Respiratory Rate 16 15 20 Blood Pressure 94/69 L Pulse Oximetry Oxygen Delivery 01/26/25 18:40 01/26/25 18:45 01/26/25 19:20 Temperature Pulse Rate 82 100 93 Respiratory Rate 11 L 13 19 Blood Pressure 92/75 L Pulse Oximetry 71 L Oxygen Delivery 01/26/25 19:37 01/26/25 19:40 01/26/25 19:41 Temperature Pulse Rate Respiratory Rate 18 Blood Pressure 101/84 Pulse Oximetry 93 92 98 Oxygen Delivery 01/26/25 19:45 01/26/25 19:46 01/26/25 19:50 Temperature Pulse Rate Respiratory Rate 15 14 15 Blood Pressure 72/62 L Pulse Oximetry 95 93 Oxygen Delivery 01/26/25 19:51 01/26/25 19:55 01/26/25 19:56 Temperature Pulse Rate 109 H 114 H Respiratory Rate 14 15 16 Blood Pressure 68/39 L 76/50 L Pulse Oximetry 95 93 94 Oxygen Delivery 01/26/25 20:00 01/26/25 20:01 01/26/25 20:05 Temperature Pulse Rate 100 100 119 H Respiratory Rate 13 14 18 Blood Pressure 78/53 L 109/78 Pulse Oximetry 96 95 92 Oxygen Delivery 01/26/25 20:06 01/26/25 20:10 01/26/25 20:11 Temperature Pulse Rate 107 H 109 H 99 Respiratory Rate 15 16 15 Blood Pressure 88/76 L Pulse Oximetry 94 92 92 Oxygen Delivery 01/26/25 20:15 01/26/25 20:16 01/26/25 20:20 Temperature Pulse Rate 108 H 110 H 101 H Respiratory Rate 16 14 13 Blood Pressure 105/65 Pulse Oximetry 95 92 95 Oxygen Delivery 01/26/25 20:21 01/26/25 20:25 01/26/25 20:26 Temperature Pulse Rate 104 H 105 H 95 Respiratory Rate 15 15 14 Blood Pressure 113/72 114/75 Pulse Oximetry 93 95 93 Oxygen Delivery 01/26/25 20:30 01/26/25 20:30 01/26/25 20:31 Temperature Pulse Rate 109 H 104 H 112 H Respiratory Rate 14 14 Blood Pressure 114/75 87/64 L Pulse Oximetry 90 89 L Oxygen Delivery 01/26/25 20:35 01/26/25 20:36 Temperature Pulse Rate 94 94 Respiratory Rate 14 14 Blood Pressure 79/57 L Pulse Oximetry 91 94 Oxygen Delivery Exam Const: General: cooperative, no acute distress, well developed, awake and Physically active Orientation/consciousness: oriented to person HENMT: Head: normal to inspection, No palpable skull fracture present and normocephalic Eyes: General: appearance normal, both eyes and all related structures Alignment and Position: alignment normal Eyelids: eyelids normal Pupils: Equal, round and reactive pupils present Neck: Neck: normal visual inspection, full ROM and no lymphadenopathy Other: Central line to right neck intact. Chest: Chest palpation & inspection: normal inspection of the chest Resp: Effort & Inspection: normal respiratory effort Cardio: Palpation: normal PMI Rate: tachycardic GI: Inspection: normal to inspection Percussion: Yes normal to percussion Auscultation: normal bowel sounds Rectal Exam: deferred Other: G-tube intact to left upper abdomen Urinary Catheter: Urinary Catheter: urine clear Skin: General skin exam: normal color Hair: brittle Other: The patient has multiple bruising all over her body. She has a bruise to her left chin and multiple bruising to her chest. She has several abraded areas of both arms. She has bruises to her abdomen. She has several abraded areas to her lower extremities and the toes on her right foot. Pressure ulcer noted to her sacrum. Please see wound pictures Neuro: General: oriented to person Extrem: General: normal to inspection Right upper extremity: normal to inspection and shoulder/upper arm Left upper extremity: normal to inspection and shoulder/upper arm Right lower extremity: normal to inspection Left lower extremity: normal to inspection Psych: Appearance: grossly normal Mental Status: mental status grossly normal Speech and movement: Normal speech and movement present H&P: Results Labs Labs: Short CBC 01/26/25 Range/Units 18:08 WBC 18.4 H (4.5-10.0) K/mm3 Hgb 10.3 L (12.0-15.0) g/dL Hct 33.4 L (37.0-47.0) % Plt Count 438 H (150-375) k/mm3 BMP 01/26/25 18:08 Sodium 129 L Potassium 4.0 Chloride 95 L Carbon Dioxide 29 BUN 64 H Creatinine 0.96 Glucose 184 H Calcium 8.9 Liver Function 01/26/25 Range/Units 18:08 Total Bilirubin 0.4 (0.2-1.3) mg/dL AST 29 (14-36) U/L ALT 17 (6-35) U/L Alkaline Phosphatase 84 (38-126) U/L Albumin 3.3 L (3.5-5.1) g/dL Urine 01/26/25 Range/Units 20:03 Urine Color Yellow (Yellow) Urine Appearance Turbid H (Clear) Urine pH 5.5 (5.0-9.0) Ur Specific [place] 1.013 (1.001-1.035) Urine Protein 1+ H (Negative) mg/dL Urine Glucose (UA) Negative (Negative) mg/dL ECG Interpretation: ELECTRONIC VENTRICULAR PACEMAKER ABNORMAL RHYTHM ECG No previous ECG available for comparison Imaging CT scan - abdomen: Radiologist's impression: Impressions Chest X-Ray 01/26/25 15:56 Impression: CHF. Superimposed probable left lower lobe pneumonia Chest X-Ray 01/26/25 16:45 Impression: CHF. Superimposed probable pneumonia. Central line placement as above. CT suggested to assess exact location as clinically warranted Head CT 01/26/25 17:46 Impression: 1.No acute intracranial abnormality. Chest/Abdomen/Pelvis CT 01/26/25 17:53 IMPRESSION: 1. No evidence of pulmonary consolidation are atelectasis. Mild vascular congestion of lungs severe cardiomegaly and postoperative changes as described above. 2. Within the abdomen, there is significant finding of small drops of air in the peripheral portal veins within the left lobe of the liver. This would raise a concern for ischemic bowel disease. 3. Significant Calcific changes at the proximal celiac axis and superior mesenteric artery and right renal artery. 4. Normal bowel obstruction or bowel wall thickening. No evidence of fluid or free air in the peritoneal cavity. 5. Critical findings conveyed to attending physician by telephone call at 6:07 PM. Assessment and Plan Assessment and plan (1) Septic shock: Code(s): A41.9 - Sepsis, unspecified organism; R65.21 - Severe sepsis with septic shock Status: Acute Assessment and Plan: -patient is being supported with vasopressors. Titrate vasopressors to keep a map greater than 60 mm Hg. Please adjust accordingly. The patient has a central line and the repeat chest x-ray confirms placement. -the patient possibly has ischemic bowel and pneumonia. -blood cultures are pending -she also has cellulitis to the right toes -she had been on Levaquin outpatient for pneumonia. -she also has multiple wounds including a sacral wound ulcer. -she also has a UTI. -the patient was given a L of IV fluids in the emergency room. -I did continue with IV fluids although at a slower rate because she has a history of congestive heart failure and some mild pulmonary edema. Please monitor closely for fluid overload. -CT of the abdomen was read as a concern for ischemic bowel disease. -surgery and general repairer have been consulted they were both notified in the ER. -her white count was noted to be 18.4. -she also has tachycardia with heart rate in the lower 100s. -monitor daily labs. -check lactic levels - (2) Ischemic bowel disease: Code(s): K55.9 - Vascular disorder of intestine, unspecified Status: Acute Assessment and Plan: -the patient is on Zosyn. -blood cultures are pending. -CT was read asMPRESSION: 1. No evidence of pulmonary consolidation are atelectasis. Mild vascular congestion of lungs severe cardiomegaly and postoperative changes as described above. 2. Within the abdomen, there is significant finding of small drops of air in the peripheral portal veins within the left lobe of the liver. This would raise a concern for ischemic bowel disease. 3. Significant Calcific changes at the proximal celiac axis and superior mesenteric artery and right renal artery. 4. Normal bowel obstruction or bowel wall thickening. No evidence of fluid or free air in the peritoneal cavity. 5. Critical findings conveyed to attending physician by telephone call at 6:07 PM. -surgery has been consulted. (3) Pneumonia: Code(s): J18.9 - Pneumonia, unspecified organism Status: Acute Assessment and Plan: -the patient was on Levaquin outpatient. -blood in sputum cultures are pending. -the patient was placed on vancomycin, and Zosyn. This is possible Hcap. Patient appears to have a failed outpatient antibiotic therapy. -please wean off of antibiotics when feasible. 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 -mupirocin nasal as prescribed (5) CAD (coronary artery disease): Code(s): I25.10 - Atherosclerotic heart disease of [place] coronary artery without angina pectoris Status: Acute Assessment and Plan: -the patient is NPO at this time and no oral medications were started. (6) Congestive heart failure: Code(s): I50.9 - Heart failure, unspecified Status: Acute Assessment and Plan: -diuretics are on hold at this time due to sepsis. -imaging shows mild pulmonary edema. Plus cardiomegaly on the imaging. -BNP is 1910. -per records she has combination diastolic and systolic. (7) Hypertension: Code(s): I10 - Essential (primary) hypertension Status: Acute Assessment and Plan: -all antihypertensive medication are on hold due to sepsis. (8) Depression: Code(s): F32.A - Depression, unspecified Status: Acute Assessment and Plan: The patient is NPO and all home medications are on hold. (9) DM2 (diabetes mellitus, type 2): Code(s): E11.9 - Type 2 diabetes mellitus without complications Status: Acute Assessment and Plan: -Accu-Cheks every 6 hours with sliding scale insulin. -hypoglycemic protocol p.r.n. -check A1c. (10) Hypothyroidism: Code(s): E03.9 - Hypothyroidism, unspecified Status: Acute Assessment and Plan: -the patient is NPO at this time. -if the patient continues to be NPO for any length of time, we will need to decrease the levothyroxine to half the dose and given IV. -checking thyroid levels when she is acutely ill not be accurate. Plan Hyponatremia. Monitor sodium levels closely. May be related to the sepsis and dehydration. This may be related to congestive heart failure. Patient has multiple wounds all over her body including a sacral ulcer, Wound Care has been consulted. She is also on vanco and Zosyn. Quality VTE Prophylaxis VTE prophylaxis: mechanical ordered
--- NOTE | 2025-01-26 21:32 | WNDPHOTO ---
PHOTO ONLY - See Nursing Notes and/ or assessments for documentation.
--- NOTE | 2025-01-26 21:45 | ADMGEN ---
This patient, Keira Baron, was admitted to Intensive Care Unit-3. Patient/family oriented to hospital policies and general routines including ID bracelet, bed and alarms, visiting hours, pain management, procedures, bathroom and other care routines, personal items, smoking policy, room service/diet, and visiting hours. Information on how to activate the Rapid Response Team has been discussed. Patient/Family are encouraged to report perceived risks to care and to ask questions if they do not understand what they are told or what they should do.
[2025-01-26 22:22] LABS: MRSA (PCR) DETECTED (NOT DETECTE)
[2025-01-27] VITALS (95 sets, daily range): BP systolic 53–136; BP diastolic 41–115; PULSE 81–126; RESP 11–21; TEMP 36.6–37.4; O2SAT 88–100
--- NOTE | 2025-01-27 | ECHO_ITS ---
Patient Info Name: Keira Baron Age: 79 years : 1945 Gender: Female Ht: 57 in Wt: 159 lbs BSA: 1.74 m2 HR: 103 bpm BP: 172 / 145 mmHg Heart Rhythm: Atrial Fibrillation Technical Quality: Poor Exam Date: 01/27/2025 8:32 AM Patient Status: I Admit Date: 01/26/2025 Exam Type: CA echo dop color flow w con Complete two-dimensional, color flow and Doppler transthoracic echocardiogram is performed with contrast to opacify the left ventricle and to improve the deliniation of the left ventricle endocardial borders. Staff Referring Physician: Regi Young NP Locks Inspector: Carrie Mathias Attending Provider: Maxx Robb Contrast/Agitated Saline Contrast/Ag. Saline: Definity Amount: 2.00 ml Reason for Poor Study: poor echocardiographic windows Summary 1. Technically difficult exam. 2. Definity contrast utilized to improve visualization. 3. Contrast imaging appears to show preserved left ventricular systolic function. 4. Right ventricular hypertrophy with reduced contractility noted on contrast imaging. 5. Left atrial enlargement. 6. Mild MR. 7. Atrial fibrillation. 8. Pacemaker lead noted. Left Ventricle Left ventricular chamber dimension is normal. Left ventricular systolic function is normal, estimated at 50-55. The left ventricular diastolic function is indeterminate. Right Ventricle Right ventricular chamber dimension is mildly enlarged. Right ventricular systolic function is reduced. Linear artifact in right ventricle suggestive of catheter(s), pacemaker lead(s), or ICD lead(s). Left Atria Left atrial chamber dimension is mildly enlarged. Right Atria Right atrial chamber dimension is mildly enlarged. Aortic Valve The aortic valve is trileaflet. There is mild aortic valve sclerosis. Pulmonic Valve The pulmonic valve is not well visualized. Mitral Valve The mitral valve has normal leaflets. There is mild mitral valve regurgitation. The mitral valve annulus is moderately calcified. Tricuspid Valve The tricuspid valve leaflets are normal. Pericardium/Pleural The pericardium appears normal. Aorta The aortic root size at the sinus of Valsalva is normal. Left Ventricular Outflow Tract Name Value Normal LVOT Doppler LVOT Peak Velocity 70 cm/s LVOT Peak Gradient 2 mmHg LVOT Mean Gradient 1 mmHg LVOT VTI 15 cm LVOT VTI/AV VTI Ratio 0.2 Pulmonic Valve Name Value Normal RVOT Doppler RVOT Peak Velocity 61 cm/s RVOT Peak Gradient 1 mmHg PV Doppler PV Peak Velocity 87 cm/s PV Peak Gradient 3 mmHg Mitral Valve Name Value Normal MV Diastolic Function MV E Peak Velocity 87 cm/s MV A Peak Velocity 26 cm/s MV E/A 3.4 MV Decel Time (PW) 191 ms MV Annular TDI MV E/e' (Septal) 26.4 MV E/e' (Lateral) 9.6 MV E/e' (Average) 18.0 Tricuspid Valve Name Value Normal TV Regurgitation Doppler TR Peak Velocity 340 cm/s TR Peak Gradient 46 mmHg Aortic Valve Name Value Normal AV Doppler AV Peak Velocity 237 cm/s AV Peak Gradient 23 mmHg AV Mean Gradient 13 mmHg AV VTI 63 cm AV DI (Cole) 0.29 Ventricles Name Value Normal LV Dimensions 2D/MM IVS Diastolic Thickness (2D) 0.8 cm 0.6-1.0 LVID Diastole (2D) 3.9 cm 3.8-5.2 LVIW Diastolic Thickness (2D) 1.1 cm 0.6-0.9 LVID Systole (2D) 3.3 cm 2.2-3.5 LV Mass (2D Cubed) 108.71 g 67.00-162.00 LV Mass Index (2D Cubed) 62 g/m2 43-95 Relative Wall Thickness (2D) 0.54 <=0.42 LV Fractional Shortening/Ejection Fraction 2D/MM LV Fractional Shortening (2D) 17 % 27-45 LV EF (2D Teichholz) 35 % LV Diastolic Volume (4C MOD) 61 ml LV EF (4C MOD) 42 % LV Diastolic Volume (2C MOD) 47 ml LV EF (2C MOD) 14 % LV Diastolic Volume (BP MOD) 57 ml 46-106 LV Diastolic Volume Index (BP MOD) 33 ml/m2 29-61 LV Systolic Volume (BP MOD) 37 ml 14-42 LV Systolic Volume Index (BP MOD) 21 ml/m2 8-24 LV EF (BP MOD) 34 % 54-74 LV Diastolic Length (4C) 6.3 cm LV Systolic Length (4C) 6.0 cm LV Stroke Volume (4C MOD) 26 ml Atria Name Value Normal LA Dimensions LA Volume (4C A-L) 68 ml LA Volume (BP A-L) 61 ml RA Dimensions RA Systolic [employer] Length (4C) 4.8 cm 2.2-2.8 RA Area (4C) 14.9 cm2 <=18.0 Report Signatures
[2025-01-27] MEDS: LACTATED RINGERS 1,000 ML 50 ML IV CONT (02:02)
[2025-01-27] MEDS: PIPERACILLIN/TAZOBACTAM SOD 2.25 GM in SODIUM CHLORIDE 0.9% IV 50 ML 100 ML IVPB ×4 (02:19→20:18)
[2025-01-27 02:24] LABS: Sodium 130 mmol/L (137-145)
[2025-01-27] MEDS: VANCOMYCIN 1,750 MG/NS 500 ML 1,750 MG/500 ML BAG 250 MG IVPB (03:49)
[2025-01-27] MEDS: KETOROLAC 0.5% OP SOLN 5 ML BOTTLE 1 DROP EACH EYE ×3 (05:37→17:20)
[2025-01-27] MEDS: ALBUMIN HUMAN 25% 25 GM/100 ML 100 ML IVPB ×3 (09:51→20:17)
[2025-01-27] MEDS: PANTOPRAZOLE SODIUM IV 40 MG VIAL IV PUSH ×2 (09:52→20:18)
[2025-01-27] MEDS: MUPIROCIN 2% OINT 22 GM TUBE 1 APPLIC EACH NARE ×2 (09:52→20:24)
[2025-01-27 09:56] LABS: Hematocrit 32.9 % (37.0-47.0); Hemoglobin 10.1 g/dL (12.0-15.0); Mean Corpuscular HGB Conc 30.7 g/dl (32-36); Mean Corpuscular Hemoglobin 28.5 pg (26-34); Mean Corpuscular Volume 92.7 fl (80-100); Platelet Count Result 324 k/mm3 (150-375); Red Blood Count 3.55 M/mm3 (4.2-5.4); White Blood Count 18.8 K/mm3 (4.5-10.0)
[2025-01-27 10:07] LABS: Alanine Aminotransferase 15 U/L (6-35); Albumin Level 2.9 g/dL (3.5-5.1); Alkaline Phosphatase 64 U/L (38-126); Anion Gap 6 mmol/L (4-12); Aspartate Amino Transferase 21 U/L (14-36); Band Neutrophils Percent 0 % (0-6); Basophils Absolute Manual 0.00 K/mm3 (0.0-0.1); Basophils Percent Manual 0 % (0-1); Bilirubin,Total 0.3 mg/dL (0.2-1.3); Blood Urea Nitrogen 67 mg/dL (7-17); Calcium 8.7 mg/dL (8.4-10.2); Carbon Dioxide 26 mmol/L (22-30); Chloride 99 mmol/L (98-107); Eosinophils Absolute Manual 0.00 K/mm3 (0.02-0.50); Eosinophils Percent Manual 0 % (0-4); Estimated Glomerular Filt Rate 51; Glucose 121 mg/dL (65-110); INR 1.7; Lymphocytes Absolute Manual 2.25 K/mm3 (1.1-4.5); Lymphocytes Percent Manual 12 % (18-44); Magnesium 2.1 mg/dL (1.6-2.3); Monocytes Absolute Manual 0.94 K/mm3 (0.1-0.90); Monocytes Percent Manual 5 % (3-9); Neutrophils Absolute Manual 17.48 K/mm3 (1.3-6.7); Neutrophils Percent Manual 93 % (46-73); Potassium 4.5 mmol/L (3.4-5.0); Prothrombin Time 19.2 Seconds (11.1-14.7); Sodium 131 mmol/L (137-145); Total Cells Counted 100; Total Protein 5.8 g/dL (6.3-8.2)
[2025-01-27 10:08] LABS: Anisocytosis 1+; Hypochromasia 1+; Partial Thromboplastin Time 46.9 Seconds (22.3-36.8)
[2025-01-27 10:09] LABS: Schistocytes None Seen
[2025-01-27] MEDS: LACTATED RINGERS 500 ML 999 ML IV CONT (10:25)
[2025-01-27] MEDS: LIDOCAINE 1% PF INJ 5 ML VIAL INFILTRATE (10:30)
--- NOTE | 2025-01-27 10:49 | PM.CNGS ---
Assessment and Plan Assessment and plan (1) Septic shock: Code(s): A41.9 - Sepsis, unspecified organism; R65.21 - Severe sepsis with septic shock Status: Acute Assessment and Plan: Significant leukocytosis, continue broad-spectrum antibiotics, await cultures, off all pressors at this time (2) Ischemic bowel disease: Code(s): K55.9 - Vascular disorder of intestine, unspecified Status: Acute Assessment and Plan: no overt peritoneal signs on exam, continue serial exams, continue gentle resuscitation, lactic acid within normal limits, extremely poor surgical candidate given comorbid conditions, off all pressors at this time (3) Congestive heart failure: Code(s): I50.9 - Heart failure, unspecified Status: Acute Assessment and Plan: management per salvage engineering technician team, gentle resuscitation History of Present Illness Consult details Consult date: 01/27/25 Reason for consult: abdominal pain Requesting physician: Regi Young APRN Narrative: The patient is a 79-year-old female with multiple medical issues presenting from rehab facility complaining of mental status change, weakness, abdominal pain over the last few days. The patient had recently been admitted for pneumonia and now at rehab. Workup in the emergency department, including imaging, significant for CHF exacerbation, sepsis, bowel ischemia. History is difficult to obtain as patient is somewhat confused. Review of Systems Review of Systems: ROS unobtainable: Yes unobtainable due to medical condition and unobtainable due to mental status PMFSH Past Medical History Medical History Generalized anxiety disorder Left bundle branch block Hypertension Spinal stenosis Aortic valve stenosis Gastrointestinal tube in situ Hypothyroidism Chronic kidney disease Anemia DM2 (diabetes mellitus, type 2) Rheumatoid arthritis CAD (coronary artery disease) Depression Dementia CVA (cerebral vascular accident) Per head CT on 01/26/2025 Remote left basal ganglial lacunar infarct. Remote left occipital infarct. Remote right cerebellar lacunar infarct Dysphagia Ischemic bowel disease Congestive heart failure Combined diastolic and systolic. Pneumonia Surgical History Surgical History AICD (automatic cardioverter/defibrillator) present H/O endovascular stent graft for abdominal aortic aneurysm H/O neck surgery Previous back surgery Family History Family History Other Unknown family medical history Social History Social History Social History: She is currently at [facility]. Her daughter Dee was at the bedside stating that she is the durable power estate planning attorney for healthcare. She is . She is retired. Code status: Full code Smoking status: Never smoker Second hand tobacco smoke exposure: No Alcohol intake: never Substance use: never Lack of Transportation: No Lack of Food: Never True Current Housing: I Have Housing Concerned About Future Housing: No Difficulty Paying Gas/Electric Bills: No Difficulty Paying for Meds: No Currently Unemployed: No Education: Master's Degree or Higher Difficulty w/ Childcare or Family Care: No Spiritual care concerns: No Meds Home Medications and Allergies Home Medications ?Medication ?Instructions ?Recorded ?Confirmed ?Type Saccharomyces boulardii 250 mg 250 mg PO DAILY 01/26/25 01/26/25 History capsule (Daily Probiotic (S. boulardii)) acetaminophen 325 mg capsule 650 mg PO Q8H PRN pain 01/26/25 01/26/25 History amiodarone 200 mg tablet 200 mg feeding tube BID 01/26/25 01/26/25 History arginine 7 gram-glutamine 7 1 ea PO BID 01/26/25 01/26/25 History gram-calcium HMB 1.5 gram oral powder pack (Boris) aspirin 81 mg tablet,delayed 81 mg feeding tube DAILY 01/26/25 01/26/25 History release atorvastatin 80 mg tablet 80 mg PO QPM 01/26/25 01/26/25 History banana [id number]-[id number] 5 gram-45 1 ml feeding tube BID 01/26/25 01/26/25 History kcal/60 mL tube feed liquid packet bisacodyl 10 mg rectal suppository 10 mg RECTAL DAILY PRN constipation 01/26/25 01/26/25 History buspirone 10 mg tablet 5 mg feeding tube TID 01/26/25 01/26/25 History calcium carbonate (Calcium Antacid) 200 mg PO Q6H PRN indigestion 01/26/25 01/26/25 History conjugated estrogens 0.625 mg/gram 0.3125 mg vaginal DAILY 01/26/25 01/26/25 History vaginal cream (Premarin) dabigatran etexilate 75 mg capsule 75 mg PO BID 01/26/25 01/26/25 History dapagliflozin propanediol 10 mg 10 mg feeding tube DAILY 01/26/25 01/26/25 History tablet (Farxiga) diclofenac sodium 1 % topical gel 2 g topical Q6H PRN pain 01/26/25 01/26/25 History dimethicone 1 %-zinc oxide 10 1 applic topical QSHIFT PRN 01/26/25 01/26/25 History %-vit A and D-aloe vera topical incontinence cream (A and D Diaper Rash Cream) docusate sodium 100 mg capsule 100 mg PO BID 01/26/25 01/26/25 History (Colace) donepezil 5 mg tablet (Aricept) 5 mg PO BID 01/26/25 01/26/25 History ergocalciferol (vitamin D2) 1,250 50,000 unit feeding tube DAILY 01/26/25 01/26/25 History mcg (50,000 unit) capsule famotidine 20 mg tablet 20 mg PO DAILY 01/26/25 01/26/25 History fenofibrate nanocrystallized 48 mg 48 mg PO DAILY 01/26/25 01/26/25 History tablet furosemide 40 mg tablet 40 mg PO BID 01/26/25 01/26/25 History gabapentin 100 mg capsule 100 mg feeding tube BID 01/26/25 01/26/25 History insulin glargine 100 unit/mL (3 25 unit subcut QPM 01/26/25 01/26/25 History mL) subcutaneous pen (Lantus Solostar U-100 Insulin) ketorolac 0.5 % eye drops (Acular) 1 drp EACH EYE Q6H 01/26/25 01/26/25 History levofloxacin 500 mg tablet 500 mg feeding tube DAILY 01/26/25 01/26/25 History levothyroxine 125 mcg tablet 125 mcg feeding tube DAILY 01/26/25 01/26/25 History lidocaine 5 % topical patch 1 patch topical Q24H PRN pain 01/26/25 01/26/25 History (Lidoderm) magnesium citrate (Citroma oral 296 ml PO ONCE PRN constipation 01/26/25 01/26/25 History solution) magnesium hydroxide 400 mg/5 mL 400 mg PO DAILY PRN constipation 01/26/25 01/26/25 History oral suspension (Milk of Magnesia) melatonin 3 mg capsule 6 mg PO HS 01/26/25 01/26/25 History miconazole nitrate 2 % topical 1 applic topical .hourly PRN 01/26/25 01/26/25 History cream (Antifungal (miconazole)) fungal infection mirtazapine 7.5 mg tablet 7.5 mg PO HS 01/26/25 01/26/25 History montelukast 10 mg tablet 10 mg feeding tube QPM 01/26/25 01/26/25 History naloxone 4 mg/actuation nasal 1 spray intranasal ONCE PRN opioid 01/26/25 01/26/25 History spray (Narcan) overdose nystatin 100,000 unit/gram topical 1 applic topical BID 01/26/25 01/26/25 History powder omeprazole 20 mg capsule,delayed 20 mg PO DAILY 01/26/25 01/26/25 History release sacubitril 97 mg-valsartan 103 mg 1 tablet PO BID 01/26/25 01/26/25 History tablet (Entresto) sertraline 50 mg tablet 50 mg feeding tube DAILY 01/26/25 01/26/25 History sodium phosphates 19 gram-7 118 ml RECTAL ONCE PRN constipation 01/26/25 01/26/25 History gram/118 mL enema (Enema) spironolactone 25 mg/5 mL oral 10 mg feeding tube DAILY 01/26/25 01/26/25 History suspension tramadol 50 mg tablet 50 mg feeding tube Q6H PRN pain 01/26/25 01/26/25 History Allergies Allergy/AdvReac Type Severity Reaction Status Date / Time No Known Allergies Allergy Verified 01/26/25 22:05 Vital Signs Vital Signs - 24 hr 01/26/25 15:34 01/26/25 15:43 01/26/25 15:47 Temperature 36.3 C L Pulse Rate 82 86 80 Respiratory Rate 18 16 17 Blood Pressure 89/56 L Pulse Oximetry 96 Oxygen Delivery Room Air Oxygen Flow Rate 01/26/25 15:56 01/26/25 16:00 01/26/25 16:01 Temperature Pulse Rate 91 77 79 Respiratory Rate 16 17 16 Blood Pressure 81/49 L Pulse Oximetry Oxygen Delivery Oxygen Flow Rate 01/26/25 16:05 01/26/25 16:07 01/26/25 16:10 Temperature Pulse Rate 85 87 80 Respiratory Rate 17 15 16 Blood Pressure 70/50 L Pulse Oximetry Oxygen Delivery Oxygen Flow Rate 01/26/25 16:15 01/26/25 16:16 01/26/25 16:20 Temperature Pulse Rate 87 81 86 Respiratory Rate 20 16 Blood Pressure 71/48 L 71/48 L Pulse Oximetry Oxygen Delivery Oxygen Flow Rate 01/26/25 16:20 01/26/25 16:21 01/26/25 16:25 Temperature Pulse Rate 97 90 80 Respiratory Rate 24 H 19 18 Blood Pressure 73/50 L Pulse Oximetry Oxygen Delivery Oxygen Flow Rate 01/26/25 16:26 01/26/25 16:30 01/26/25 16:31 Temperature Pulse Rate 99 87 83 Respiratory Rate 16 17 16 Blood Pressure 92/54 L 97/64 L Pulse Oximetry Oxygen Delivery Oxygen Flow Rate 01/26/25 16:43 01/26/25 16:45 01/26/25 16:46 Temperature Pulse Rate 85 76 82 Respiratory Rate 16 15 16 Blood Pressure 100/57 L Pulse Oximetry Oxygen Delivery Oxygen Flow Rate 01/26/25 16:59 01/26/25 17:05 01/26/25 17:11 Temperature Pulse Rate 87 97 Respiratory Rate Blood Pressure 83/61 L 176/81 H Pulse Oximetry 94 Oxygen Delivery Room Air Oxygen Flow Rate 01/26/25 17:21 01/26/25 17:26 01/26/25 17:50 Temperature Pulse Rate 84 86 91 Respiratory Rate 13 13 13 Blood Pressure 120/64 119/64 Pulse Oximetry Oxygen Delivery Oxygen Flow Rate 01/26/25 17:52 01/26/25 17:55 01/26/25 17:56 Temperature Pulse Rate 86 93 87 Respiratory Rate 14 14 15 Blood Pressure 149/74 H 122/65 Pulse Oximetry Oxygen Delivery Oxygen Flow Rate 01/26/25 18:00 01/26/25 18:01 01/26/25 18:05 Temperature Pulse Rate 83 83 88 Respiratory Rate 13 15 13 Blood Pressure 158/69 H Pulse Oximetry Oxygen Delivery Oxygen Flow Rate 01/26/25 18:06 01/26/25 18:10 01/26/25 18:11 Temperature Pulse Rate 96 98 89 Respiratory Rate 15 13 14 Blood Pressure 112/71 130/77 Pulse Oximetry Oxygen Delivery Oxygen Flow Rate 01/26/25 18:15 01/26/25 18:16 01/26/25 18:20 Temperature Pulse Rate 92 89 89 Respiratory Rate 13 14 15 Blood Pressure 115/86 Pulse Oximetry Oxygen Delivery Oxygen Flow Rate 01/26/25 18:21 01/26/25 18:25 01/26/25 18:26 Temperature Pulse Rate 90 84 83 Respiratory Rate 14 12 13 Blood Pressure 110/75 119/57 L Pulse Oximetry Oxygen Delivery Oxygen Flow Rate 01/26/25 18:30 01/26/25 18:31 01/26/25 18:35 Temperature Pulse Rate 87 98 95 Respiratory Rate 16 15 20 Blood Pressure 94/69 L Pulse Oximetry Oxygen Delivery Oxygen Flow Rate 01/26/25 18:40 01/26/25 18:45 01/26/25 19:20 Temperature Pulse Rate 82 100 93 Respiratory Rate 11 L 13 19 Blood Pressure 92/75 L Pulse Oximetry 71 L Oxygen Delivery Oxygen Flow Rate 01/26/25 19:37 01/26/25 19:40 01/26/25 19:41 Temperature Pulse Rate Respiratory Rate 18 Blood Pressure 101/84 Pulse Oximetry 93 92 98 Oxygen Delivery Oxygen Flow Rate 01/26/25 19:45 01/26/25 19:46 01/26/25 19:50 Temperature Pulse Rate Respiratory Rate 15 14 15 Blood Pressure 72/62 L Pulse Oximetry 95 93 Oxygen Delivery Oxygen Flow Rate 01/26/25 19:51 01/26/25 19:55 01/26/25 19:56 Temperature Pulse Rate 109 H 114 H Respiratory Rate 14 15 16 Blood Pressure 68/39 L 76/50 L Pulse Oximetry 95 93 94 Oxygen Delivery Oxygen Flow Rate 01/26/25 20:00 01/26/25 20:01 01/26/25 20:05 Temperature Pulse Rate 100 100 119 H Respiratory Rate 13 14 18 Blood Pressure 78/53 L 109/78 Pulse Oximetry 96 95 92 Oxygen Delivery Oxygen Flow Rate 01/26/25 20:06 01/26/25 20:10 01/26/25 20:11 Temperature Pulse Rate 107 H 109 H 99 Respiratory Rate 15 16 15 Blood Pressure 88/76 L Pulse Oximetry 94 92 92 Oxygen Delivery Oxygen Flow Rate 01/26/25 20:15 01/26/25 20:16 01/26/25 20:20 Temperature Pulse Rate 108 H 110 H 101 H Respiratory Rate 16 14 13 Blood Pressure 105/65 Pulse Oximetry 95 92 95 Oxygen Delivery Oxygen Flow Rate 01/26/25 20:21 01/26/25 20:25 01/26/25 20:26 Temperature Pulse Rate 104 H 105 H 95 Respiratory Rate 15 15 14 Blood Pressure 113/72 114/75 Pulse Oximetry 93 95 93 Oxygen Delivery Oxygen Flow Rate 01/26/25 20:30 01/26/25 20:30 01/26/25 20:31 Temperature Pulse Rate 109 H 104 H 112 H Respiratory Rate 14 14 Blood Pressure 114/75 87/64 L Pulse Oximetry 90 89 L Oxygen Delivery Oxygen Flow Rate 01/26/25 20:35 01/26/25 20:36 01/26/25 20:37 Temperature Pulse Rate 94 94 90 Respiratory Rate 14 14 15 Blood Pressure 79/57 L Pulse Oximetry 91 94 94 Oxygen Delivery Oxygen Flow Rate 01/26/25 20:40 01/26/25 20:41 01/26/25 20:45 Temperature Pulse Rate 100 98 97 Respiratory Rate 14 15 13 Blood Pressure 83/59 L Pulse Oximetry 88 L 89 L 92 Oxygen Delivery Oxygen Flow Rate 01/26/25 20:50 01/26/25 20:51 01/26/25 20:55 Temperature Pulse Rate 97 98 101 H Respiratory Rate 15 14 14 Blood Pressure 72/46 L Pulse Oximetry 86 L 88 L 87 L Oxygen Delivery Oxygen Flow Rate 01/26/25 20:56 01/26/25 21:00 01/26/25 21:01 Temperature Pulse Rate 107 H 89 93 Respiratory Rate 14 14 14 Blood Pressure 78/55 L 82/53 L Pulse Oximetry 88 L 93 91 Oxygen Delivery Oxygen Flow Rate 01/26/25 21:05 01/26/25 21:06 01/26/25 22:00 Temperature Pulse Rate 98 101 H 95 Respiratory Rate 13 15 Blood Pressure 93/62 L Pulse Oximetry 91 92 Oxygen Delivery Oxygen Flow Rate 01/26/25 22:45 01/26/25 22:56 01/26/25 23:00 Temperature 37.1 C Pulse Rate 103 H 103 H 97 Respiratory Rate 16 Blood Pressure 113/85 95/73 L Pulse Oximetry 97 100 Oxygen Delivery Nasal Cannula Oxygen Flow Rate 2 01/27/25 00:00 01/27/25 00:00 01/27/25 00:00 Temperature Pulse Rate 104 H 104 H 102 H Respiratory Rate Blood Pressure 104/57 L Pulse Oximetry 100 Oxygen Delivery Nasal Cannula Oxygen Flow Rate 2 01/27/25 00:00 01/27/25 01:00 01/27/25 02:00 Temperature 36.9 C Pulse Rate 102 H 106 H 101 H Respiratory Rate 20 20 Blood Pressure 92/70 L 87/71 L Pulse Oximetry 99 98 Oxygen Delivery Oxygen Flow Rate 01/27/25 02:00 01/27/25 02:20 01/27/25 03:00 Temperature 37.2 C 37.2 C Pulse Rate 101 H 105 H 106 H Respiratory Rate 20 18 Blood Pressure 99/63 L 99/63 L 109/66 Pulse Oximetry 100 100 Oxygen Delivery Oxygen Flow Rate 01/27/25 03:49 01/27/25 04:00 01/27/25 04:00 Temperature Pulse Rate 97 100 96 Respiratory Rate 18 Blood Pressure 114/89 Pulse Oximetry 100 Oxygen Delivery Nasal Cannula Oxygen Flow Rate 2 01/27/25 04:00 01/27/25 04:10 01/27/25 05:00 Temperature 37.4 C 37.3 C Pulse Rate 96 100 105 H Respiratory Rate 15 14 Blood Pressure 116/97 H 116/90 92/65 L Pulse Oximetry 100 100 Oxygen Delivery Oxygen Flow Rate 01/27/25 06:00 01/27/25 06:00 01/27/25 07:00 Temperature 37.3 C 37.3 C Pulse Rate 92 92 100 Respiratory Rate 15 15 Blood Pressure 89/59 L 85/67 L Pulse Oximetry 100 100 Oxygen Delivery Oxygen Flow Rate 01/27/25 08:00 01/27/25 09:00 01/27/25 10:00 Temperature 37.3 C 37.3 C 37.1 C Pulse Rate 99 100 99 Respiratory Rate 15 14 21 H Blood Pressure 89/55 L 89/73 L 94/77 L Pulse Oximetry 100 100 100 Oxygen Delivery Oxygen Flow Rate Exam Const: General: confusion, ill appearing, uncomfortable and obese HENMT: Head: normal to inspection, normocephalic and atraumatic Eyes: General: appearance normal, both eyes and all related structures Neck: Neck: normal visual inspection, full ROM and no lymphadenopathy Resp: Auscultation: diminished lung sounds Cardio: Rate: tachycardic Rhythm: regular rhythm GI: Inspection: normal to inspection and distended GI Palp: Yes abdominal tenderness, Yes Soft to palpation, Yes Tenderness to palpation present (GI), No Guarding due to palpation present (GI) and No Rigid due to palpation Skin: General skin exam: normal color and no rashes or lesions noted Neuro: General: oriented to person and CN's II-XI intact bilaterally Extrem: General: normal to inspection and full ROM Results Labs 01/27/25 09:47 01/27/25 09:47 Labs: Abnormal lab results 01/26/25 01/26/25 01/26/25 Range/Units 18:08 20:03 20:30 WBC 18.4 H (4.5-10.0) K/mm3 RBC 3.65 L (4.2-5.4) M/mm3 Hgb 10.3 L (12.0-15.0) g/dL Hct 33.4 L (37.0-47.0) % MCHC 30.8 L (32-36) g/dl RDW 17.2 H (11.5-14.5) % Plt Count 438 H (150-375) k/mm3 Neutrophils % (Manual) 90 H (46-73) % Lymphocytes % (Manual) 6.0 L (18-44) % Abs Neuts (Manual) 16.56 H (1.3-6.7) K/mm3 Abs Monocytes (Manual) (0.1-0.90) K/mm3 Absolute Eos (Manual) (0.02-0.50) K/mm3 PT 18.7 H (11.1-14.7) Seconds APTT 46.3 H (22.3-36.8) Seconds Sodium 129 L (137-145) mmol/L Chloride 95 L (98-107) mmol/L BUN 64 H (7-17) mg/dL Creatinine (0.7-1.0) mg/dL Estimated GFR 56 L (59 - ) Glucose 184 H (65-110) mg/dL POC Capillary Glucose (65-105) mg/dl NT-Pro-B Natriuret Pep 1910 H (19.9-100) pg/mL Total Protein (6.3-8.2) g/dL Albumin 3.3 L (3.5-5.1) g/dL Urine Appearance Turbid H (Clear) Urine Protein 1+ H (Negative) mg/dL Ur Blood (Man) 2+ H (Negative) Leukocyte Esterase Rfl 3+ H (Negative) MADAN/UL Urine WBC >100 H (0-3) /hpf Urine Bacteria 4+ H /hpf Nasal MRSA (PCR) Detected A* (NOT DETECTE) 01/27/25 01/27/25 01/27/25 Range/Units 01:59 05:36 09:47 WBC 18.8 H (4.5-10.0) K/mm3 RBC 3.55 L (4.2-5.4) M/mm3 Hgb 10.1 L (12.0-15.0) g/dL Hct 32.9 L (37.0-47.0) % MCHC 30.7 L (32-36) g/dl RDW 17.3 H (11.5-14.5) % Plt Count (150-375) k/mm3 Neutrophils % (Manual) 93 H (46-73) % Lymphocytes % (Manual) 12 L (18-44) % Abs Neuts (Manual) 17.48 H (1.3-6.7) K/mm3 Abs Monocytes (Manual) 0.94 H (0.1-0.90) K/mm3 Absolute Eos (Manual) 0.00 L (0.02-0.50) K/mm3 PT 19.2 H (11.1-14.7) Seconds APTT 46.9 H (22.3-36.8) Seconds Sodium 130 L 131 L (137-145) mmol/L Chloride (98-107) mmol/L BUN 67 H (7-17) mg/dL Creatinine 1.05 H (0.7-1.0) mg/dL Estimated GFR 51 L (59 - ) Glucose 121 H (65-110) mg/dL POC Capillary Glucose 173 H (65-105) mg/dl NT-Pro-B Natriuret Pep (19.9-100) pg/mL Total Protein 5.8 L (6.3-8.2) g/dL Albumin 2.9 L (3.5-5.1) g/dL Urine Appearance (Clear) Urine Protein (Negative) mg/dL Ur Blood (Man) (Negative) Leukocyte Esterase Rfl (Negative) MADAN/UL Urine WBC (0-3) /hpf Urine Bacteria /hpf Nasal MRSA (PCR) (NOT DETECTE) Diabetes panel 01/26/25 01/27/25 01/27/25 Range/Units 18:08 01:59 09:47 Sodium 129 L 130 L 131 L (137-145) mmol/L Potassium 4.0 4.5 (3.4-5.0) mmol/L Chloride 95 L 99 (98-107) mmol/L Carbon Dioxide 29 26 (22-30) mmol/L BUN 64 H 67 H (7-17) mg/dL Creatinine 0.96 1.05 H (0.7-1.0) mg/dL Glucose 184 H 121 H (65-110) mg/dL Calcium 8.9 8.7 (8.4-10.2) mg/dL AST 29 21 (14-36) U/L ALT 17 15 (6-35) U/L Alkaline Phosphatase 84 64 (38-126) U/L Total Protein 6.3 5.8 L (6.3-8.2) g/dL Albumin 3.3 L 2.9 L (3.5-5.1) g/dL Calcium panel 01/26/25 01/27/25 Range/Units 18:08 09:47 Calcium 8.9 8.7 (8.4-10.2) mg/dL Phosphorus 4.2 (2.5-4.5) mg/dL Albumin 3.3 L 2.9 L (3.5-5.1) g/dL Pituitary panel 01/26/25 01/27/25 01/27/25 Range/Units 18:08 01:59 09:47 Sodium 129 L 130 L 131 L (137-145) mmol/L Potassium 4.0 4.5 (3.4-5.0) mmol/L Chloride 95 L 99 (98-107) mmol/L Carbon Dioxide 29 26 (22-30) mmol/L BUN 64 H 67 H (7-17) mg/dL Creatinine 0.96 1.05 H (0.7-1.0) mg/dL Glucose 184 H 121 H (65-110) mg/dL Calcium 8.9 8.7 (8.4-10.2) mg/dL Adrenal panel 01/26/25 01/27/25 01/27/25 Range/Units 18:08 01:59 09:47 Sodium 129 L 130 L 131 L (137-145) mmol/L Potassium 4.0 4.5 (3.4-5.0) mmol/L Chloride 95 L 99 (98-107) mmol/L Carbon Dioxide 29 26 (22-30) mmol/L BUN 64 H 67 H (7-17) mg/dL Creatinine 0.96 1.05 H (0.7-1.0) mg/dL Glucose 184 H 121 H (65-110) mg/dL Calcium 8.9 8.7 (8.4-10.2) mg/dL Total Bilirubin 0.4 0.3 (0.2-1.3) mg/dL AST 29 21 (14-36) U/L ALT 17 15 (6-35) U/L Alkaline Phosphatase 84 64 (38-126) U/L Total Protein 6.3 5.8 L (6.3-8.2) g/dL Albumin 3.3 L 2.9 L (3.5-5.1) g/dL All other labs normal. Imaging Abdomen CT scan report/results: report reviewed and image reviewed
--- NOTE | 2025-01-27 10:55 | WPDCNINT ---
Assessment and Plan Assessment and plan (1) Septic shock: Code(s): A41.9 - Sepsis, unspecified organism; R65.21 - Severe sepsis with septic shock Status: Acute Assessment and Plan: 01/26: Patient presented with altered mental status, hypotension, feeling tired and more sleepy at the [facility] -normal lactic acid at 1.4 -in the ER patient was given 1 L IV fluid bolus since she has a history of CHF -right IJ central line was inserted and started on Levophed, -Levophed was turned off earlier this morning -continue cefepime and vancomycin (01/26) -01/26: Blood cultures have been obtained -01/27: Urine cultures have been obtained -will give additional fluid this morning has patient's mucosa membranes are significant and skin turgor is poor - will also give albumin for intravascular volume expansion 01/27: Bilateral lower extremity venous Dopplers were negative for DVT (2) Ischemic bowel disease: Code(s): K55.9 - Vascular disorder of intestine, unspecified Status: Acute Assessment and Plan: Some concerns for ischemic bowel disease on CT scan is under -lactic acid is 1.4, repeat lactic acid was also 1.4 -appreciate surgery evaluation recommendations, -currently off Levophed, if patient's condition worsens, will obtain another noncontrast CT abdomen and pelvis per surgeon -NPO for now 01/26: CT chest abdomen and pelvis IMPRESSION: 1. No evidence of pulmonary consolidation are atelectasis. Mild vascular congestion of lungs severe cardiomegaly and postoperative changes as described above. 2. Within the abdomen, there is significant finding of small drops of air in the peripheral portal veins within the left lobe of the liver. This would raise a concern for ischemic bowel disease. 3. Significant Calcific changes at the proximal celiac axis and superior mesenteric artery and right renal artery. 4. Normal bowel obstruction or bowel wall thickening. No evidence of fluid or free air in the peritoneal cavity. 5. Critical findings conveyed to attending physician by telephone call at 6:07 PM. (3) Acute UTI: Code(s): N39.0 - Urinary tract infection, site not specified Status: Acute Assessment and Plan: UA reflective of UTI, continue antibiotics, cultures have been obtained (4) Altered mental status: Code(s): R41.82 - Altered mental status, unspecified Status: Acute Assessment and Plan: Altered mental status seems to have resolved, patient is more awake after volume resuscitation and antibiotics (5) Congestive heart failure: Code(s): I50.9 - Heart failure, unspecified Status: Acute Assessment and Plan: History of heart failure -patient does not know where she gets her treatment -no previous notes or echocardiogram in the chart at [facility] -will obtain echocardiogram -patient does take aspirin, Farxiga, furosemide, Entresto, spironolactone, amiodarone, atorvastatin, Dabigatran at home which are all currently on hold (6) Gastrointestinal tube in situ: Code(s): Z93.1 - Gastrostomy status Status: Acute Assessment and Plan: Patient does have a PEG tube, according to the nurses the family states that she does take p.o. diet but the PEG tube is for supplementation (7) Hypothyroidism: Code(s): E03.9 - Hypothyroidism, unspecified Status: Acute Assessment and Plan: Will switch to IV levothyroxine since patient is NPO (8) Hypertension: Code(s): I10 - Essential (primary) hypertension Status: Acute Assessment and Plan: Hold all antihypertensives as above since patient is NPO since patient presented with hypotension/septic shock. Currently off Levophed since early this morning (9) DM2 (diabetes mellitus, type 2): Code(s): E11.9 - Type 2 diabetes mellitus without complications Status: Acute Assessment and Plan: Continue sliding scale insulin and Accu-Chek Plan DVT prophylaxis: Lovenox Stress ulcer prophylaxis: Protonix Nutrition: NPO Code Status: Full code Critical Care Time Spent: 47 minutes Discussed with surgery Due to a high probability of clinically significant, life threatening deterioration, the patient required my highest level of preparedness to intervene emergently and I personally spent this critical care time directly and personally managing the patient. This critical care time included obtaining a history; examining the patient; pulse oximetry; ordering and review of studies; arranging urgent treatment with development of a management plan; evaluation of patient's response to treatment; frequent reassessment; and discussions with other providers. It was exclusive of separately billable procedures and treating other patients and teaching time. Please see Assessment and Plan section and the rest of the note for further information on patient assessment and treatment This dictation may have been done utilizing a voice recognition system. Attempts have been made to correct errors. However, there may be uncorrected grammatical, spelling, and recognitions errors present. [employer] Jump [employer] Consult Note Consult date: 01/27/25 Reason for consult: Altered mental status, septic shock, pneumonia, UTI, abdominal pain, possible ischemic bowel HPI: Keira Baron is a 79 year old female with past medical history of essential hypertension, aortic valve stenosis, spinal stenosis, peg tube in place, hypothyroidism, chronic kidney disease, diabetes type 2, rheumatoid arthritis, coronary artery disease, history of dementia, depression, CVA, congestive heart failure, pneumonia presented the ED on 01/26/2025 with complaints of confusion, more tired and sleepy. She also reported abdominal pain. In the ER, patient was hypotensive, was given 1 L IV fluid bolus given history of CHF, despite that her blood pressures remained low, right IJ central line was inserted and patient was started on norepinephrine. WBC count 18.4, hemoglobin 10.3, platelets 438, sodium 129, potassium 4.0, CO2 29, BUN 64, creatinine 0.96, blood sugars 184. Lactic acid was 1.4, LFTs are within normal limits, proBNP 1910. UA was positive for leukocyte esterase, increased urine wbc's and 4+ bacteria. 01/27: Bilateral lower extremity venous Dopplers were negative for DVT 01/26: CT scan of the chest abdomen and pelvis showed no evidence of pulmonary consolidation, mild vascular congestion of lungs, severe cardiomegaly. Concern for ischemic bowel disease Patient was given cefepime and vancomycin and transferred to the ICU for further management 01/27/2025: Patient seen and examined the ICU, patient is awake, alert common oriented to place and was able to tell me her date of . Has been off Levophed, on 2 L nasal cannula with adequate O2 sats. Patient complains of abdominal pain, denies any nausea, vomiting. Also denies any chest pain, or shortness. Currently hemodynamically stable, low urine output, afebrile Review of Systems Review of Systems: All systems reviewed & are unremarkable except as noted in HPI and below PMFSH Past Medical History Medical History Generalized anxiety disorder Left bundle branch block Hypertension Spinal stenosis Aortic valve stenosis Gastrointestinal tube in situ Hypothyroidism Chronic kidney disease Anemia DM2 (diabetes mellitus, type 2) Rheumatoid arthritis CAD (coronary artery disease) Depression Dementia CVA (cerebral vascular accident) Per head CT on 01/26/2025 Remote left basal ganglial lacunar infarct. Remote left occipital infarct. Remote right cerebellar lacunar infarct Dysphagia Ischemic bowel disease Congestive heart failure Combined diastolic and systolic. Pneumonia Surgical History Surgical History AICD (automatic cardioverter/defibrillator) present H/O endovascular stent graft for abdominal aortic aneurysm H/O neck surgery Previous back surgery Family History Family History Other Unknown family medical history Social History Social History Social History: She [facility]. Her daughter Dee was at the bedside stating that she is the durable power document review attorney for healthcare. She is . She is retired. Code status: Full code Smoking status: Never smoker Second hand tobacco smoke exposure: No Alcohol intake: never Substance use: never Lack of Transportation: No Lack of Food: Never True Current Housing: I Have Housing Concerned About Future Housing: No Difficulty Paying Gas/Electric Bills: No Difficulty Paying for Meds: No Currently Unemployed: No Education: Master's Degree or Higher Difficulty w/ Childcare or Family Care: No Spiritual care concerns: No Meds Home Medications and Allergies Home Medications ?Medication ?Instructions ?Recorded ?Confirmed ?Type Saccharomyces boulardii 250 mg 250 mg PO DAILY 01/26/25 01/26/25 History capsule (Daily Probiotic (S. boulardii)) acetaminophen 325 mg capsule 650 mg PO Q8H PRN pain 01/26/25 01/26/25 History amiodarone 200 mg tablet 200 mg feeding tube BID 01/26/25 01/26/25 History arginine 7 gram-glutamine 7 1 ea PO BID 01/26/25 01/26/25 History gram-calcium HMB 1.5 gram oral powder pack (Boris) aspirin 81 mg tablet,delayed 81 mg feeding tube DAILY 01/26/25 01/26/25 History release atorvastatin 80 mg tablet 80 mg PO QPM 01/26/25 01/26/25 History banana [id number] 5 gram-45 1 ml feeding tube BID 01/26/25 01/26/25 History kcal/60 mL tube feed liquid packet bisacodyl 10 mg rectal suppository 10 mg RECTAL DAILY PRN constipation 01/26/25 01/26/25 History buspirone 10 mg tablet 5 mg feeding tube TID 01/26/25 01/26/25 History calcium carbonate (Calcium Antacid) 200 mg PO Q6H PRN indigestion 01/26/25 01/26/25 History conjugated estrogens 0.625 mg/gram 0.3125 mg vaginal DAILY 01/26/25 01/26/25 History vaginal cream (Premarin) dabigatran etexilate 75 mg capsule 75 mg PO BID 01/26/25 01/26/25 History dapagliflozin propanediol 10 mg 10 mg feeding tube DAILY 01/26/25 01/26/25 History tablet (Farxiga) diclofenac sodium 1 % topical gel 2 g topical Q6H PRN pain 01/26/25 01/26/25 History dimethicone 1 %-zinc oxide 10 1 applic topical QSHIFT PRN 01/26/25 01/26/25 History %-vit A and D-aloe vera topical incontinence cream (A and D Diaper Rash Cream) docusate sodium 100 mg capsule 100 mg PO BID 01/26/25 01/26/25 History (Colace) donepezil 5 mg tablet (Aricept) 5 mg PO BID 01/26/25 01/26/25 History ergocalciferol (vitamin D2) 1,250 50,000 unit feeding tube DAILY 01/26/25 01/26/25 History mcg (50,000 unit) capsule famotidine 20 mg tablet 20 mg PO DAILY 01/26/25 01/26/25 History fenofibrate nanocrystallized 48 mg 48 mg PO DAILY 01/26/25 01/26/25 History tablet furosemide 40 mg tablet 40 mg PO BID 01/26/25 01/26/25 History gabapentin 100 mg capsule 100 mg feeding tube BID 01/26/25 01/26/25 History insulin glargine 100 unit/mL (3 25 unit subcut QPM 01/26/25 01/26/25 History mL) subcutaneous pen (Lantus Solostar U-100 Insulin) ketorolac 0.5 % eye drops (Acular) 1 drp EACH EYE Q6H 01/26/25 01/26/25 History levofloxacin 500 mg tablet 500 mg feeding tube DAILY 01/26/25 01/26/25 History levothyroxine 125 mcg tablet 125 mcg feeding tube DAILY 01/26/25 01/26/25 History lidocaine 5 % topical patch 1 patch topical Q24H PRN pain 01/26/25 01/26/25 History (Lidoderm) magnesium citrate (Citroma oral 296 ml PO ONCE PRN constipation 01/26/25 01/26/25 History solution) magnesium hydroxide 400 mg/5 mL 400 mg PO DAILY PRN constipation 01/26/25 01/26/25 History oral suspension (Milk of Magnesia) melatonin 3 mg capsule 6 mg PO HS 01/26/25 01/26/25 History miconazole nitrate 2 % topical 1 applic topical .hourly PRN 01/26/25 01/26/25 History cream (Antifungal (miconazole)) fungal infection mirtazapine 7.5 mg tablet 7.5 mg PO HS 01/26/25 01/26/25 History montelukast 10 mg tablet 10 mg feeding tube QPM 01/26/25 01/26/25 History naloxone 4 mg/actuation nasal 1 spray intranasal ONCE PRN opioid 01/26/25 01/26/25 History spray (Narcan) overdose nystatin 100,000 unit/gram topical 1 applic topical BID 01/26/25 01/26/25 History powder omeprazole 20 mg capsule,delayed 20 mg PO DAILY 01/26/25 01/26/25 History release sacubitril 97 mg-valsartan 103 mg 1 tablet PO BID 01/26/25 01/26/25 History tablet (Entresto) sertraline 50 mg tablet 50 mg feeding tube DAILY 01/26/25 01/26/25 History sodium phosphates 19 gram-7 118 ml RECTAL ONCE PRN constipation 01/26/25 01/26/25 History gram/118 mL enema (Enema) spironolactone 25 mg/5 mL oral 10 mg feeding tube DAILY 01/26/25 01/26/25 History suspension tramadol 50 mg tablet 50 mg feeding tube Q6H PRN pain 01/26/25 01/26/25 History Allergies Allergy/AdvReac Type Severity Reaction Status Date / Time No Known Allergies Allergy Verified 01/26/25 22:05 Vital Signs Vital Signs - 24 hr 01/26/25 15:34 01/26/25 15:43 01/26/25 15:47 Temperature 97.4 F L Pulse Rate 82 86 80 Respiratory Rate 18 16 17 Blood Pressure 89/56 L Pulse Oximetry 96 Oxygen Delivery Room Air Oxygen Flow Rate 01/26/25 15:56 01/26/25 16:00 01/26/25 16:01 Temperature Pulse Rate 91 77 79 Respiratory Rate 16 17 16 Blood Pressure 81/49 L Pulse Oximetry Oxygen Delivery Oxygen Flow Rate 01/26/25 16:05 01/26/25 16:07 01/26/25 16:10 Temperature Pulse Rate 85 87 80 Respiratory Rate 17 15 16 Blood Pressure 70/50 L Pulse Oximetry Oxygen Delivery Oxygen Flow Rate 01/26/25 16:15 01/26/25 16:16 01/26/25 16:20 Temperature Pulse Rate 87 81 86 Respiratory Rate 20 16 Blood Pressure 71/48 L 71/48 L Pulse Oximetry Oxygen Delivery Oxygen Flow Rate 01/26/25 16:20 01/26/25 16:21 01/26/25 16:25 Temperature Pulse Rate 97 90 80 Respiratory Rate 24 H 19 18 Blood Pressure 73/50 L Pulse Oximetry Oxygen Delivery Oxygen Flow Rate 01/26/25 16:26 01/26/25 16:30 01/26/25 16:31 Temperature Pulse Rate 99 87 83 Respiratory Rate 16 17 16 Blood Pressure 92/54 L 97/64 L Pulse Oximetry Oxygen Delivery Oxygen Flow Rate 01/26/25 16:43 01/26/25 16:45 01/26/25 16:46 Temperature Pulse Rate 85 76 82 Respiratory Rate 16 15 16 Blood Pressure 100/57 L Pulse Oximetry Oxygen Delivery Oxygen Flow Rate 01/26/25 16:59 01/26/25 17:05 01/26/25 17:11 Temperature Pulse Rate 87 97 Respiratory Rate Blood Pressure 83/61 L 176/81 H Pulse Oximetry 94 Oxygen Delivery Room Air Oxygen Flow Rate 01/26/25 17:21 01/26/25 17:26 01/26/25 17:50 Temperature Pulse Rate 84 86 91 Respiratory Rate 13 13 13 Blood Pressure 120/64 119/64 Pulse Oximetry Oxygen Delivery Oxygen Flow Rate 01/26/25 17:52 01/26/25 17:55 01/26/25 17:56 Temperature Pulse Rate 86 93 87 Respiratory Rate 14 14 15 Blood Pressure 149/74 H 122/65 Pulse Oximetry Oxygen Delivery Oxygen Flow Rate 01/26/25 18:00 01/26/25 18:01 01/26/25 18:05 Temperature Pulse Rate 83 83 88 Respiratory Rate 13 15 13 Blood Pressure 158/69 H Pulse Oximetry Oxygen Delivery Oxygen Flow Rate 01/26/25 18:06 01/26/25 18:10 01/26/25 18:11 Temperature Pulse Rate 96 98 89 Respiratory Rate 15 13 14 Blood Pressure 112/71 130/77 Pulse Oximetry Oxygen Delivery Oxygen Flow Rate 01/26/25 18:15 01/26/25 18:16 01/26/25 18:20 Temperature Pulse Rate 92 89 89 Respiratory Rate 13 14 15 Blood Pressure 115/86 Pulse Oximetry Oxygen Delivery Oxygen Flow Rate 01/26/25 18:21 01/26/25 18:25 01/26/25 18:26 Temperature Pulse Rate 90 84 83 Respiratory Rate 14 12 13 Blood Pressure 110/75 119/57 L Pulse Oximetry Oxygen Delivery Oxygen Flow Rate 01/26/25 18:30 01/26/25 18:31 01/26/25 18:35 Temperature Pulse Rate 87 98 95 Respiratory Rate 16 15 20 Blood Pressure 94/69 L Pulse Oximetry Oxygen Delivery Oxygen Flow Rate 01/26/25 18:40 01/26/25 18:45 01/26/25 19:20 Temperature Pulse Rate 82 100 93 Respiratory Rate 11 L 13 19 Blood Pressure 92/75 L Pulse Oximetry 71 L Oxygen Delivery Oxygen Flow Rate 01/26/25 19:37 01/26/25 19:40 01/26/25 19:41 Temperature Pulse Rate Respiratory Rate 18 Blood Pressure 101/84 Pulse Oximetry 93 92 98 Oxygen Delivery Oxygen Flow Rate 01/26/25 19:45 01/26/25 19:46 01/26/25 19:50 Temperature Pulse Rate Respiratory Rate 15 14 15 Blood Pressure 72/62 L Pulse Oximetry 95 93 Oxygen Delivery Oxygen Flow Rate 01/26/25 19:51 01/26/25 19:55 01/26/25 19:56 Temperature Pulse Rate 109 H 114 H Respiratory Rate 14 15 16 Blood Pressure 68/39 L 76/50 L Pulse Oximetry 95 93 94 Oxygen Delivery Oxygen Flow Rate 01/26/25 20:00 01/26/25 20:01 01/26/25 20:05 Temperature Pulse Rate 100 100 119 H Respiratory Rate 13 14 18 Blood Pressure 78/53 L 109/78 Pulse Oximetry 96 95 92 Oxygen Delivery Oxygen Flow Rate 01/26/25 20:06 01/26/25 20:10 01/26/25 20:11 Temperature Pulse Rate 107 H 109 H 99 Respiratory Rate 15 16 15 Blood Pressure 88/76 L Pulse Oximetry 94 92 92 Oxygen Delivery Oxygen Flow Rate 01/26/25 20:15 01/26/25 20:16 01/26/25 20:20 Temperature Pulse Rate 108 H 110 H 101 H Respiratory Rate 16 14 13 Blood Pressure 105/65 Pulse Oximetry 95 92 95 Oxygen Delivery Oxygen Flow Rate 01/26/25 20:21 01/26/25 20:25 01/26/25 20:26 Temperature Pulse Rate 104 H 105 H 95 Respiratory Rate 15 15 14 Blood Pressure 113/72 114/75 Pulse Oximetry 93 95 93 Oxygen Delivery Oxygen Flow Rate 01/26/25 20:30 01/26/25 20:30 01/26/25 20:31 Temperature Pulse Rate 109 H 104 H 112 H Respiratory Rate 14 14 Blood Pressure 114/75 87/64 L Pulse Oximetry 90 89 L Oxygen Delivery Oxygen Flow Rate 01/26/25 20:35 01/26/25 20:36 01/26/25 20:37 Temperature Pulse Rate 94 94 90 Respiratory Rate 14 14 15 Blood Pressure 79/57 L Pulse Oximetry 91 94 94 Oxygen Delivery Oxygen Flow Rate 01/26/25 20:40 01/26/25 20:41 01/26/25 20:45 Temperature Pulse Rate 100 98 97 Respiratory Rate 14 15 13 Blood Pressure 83/59 L Pulse Oximetry 88 L 89 L 92 Oxygen Delivery Oxygen Flow Rate 01/26/25 20:50 01/26/25 20:51 01/26/25 20:55 Temperature Pulse Rate 97 98 101 H Respiratory Rate 15 14 14 Blood Pressure 72/46 L Pulse Oximetry 86 L 88 L 87 L Oxygen Delivery Oxygen Flow Rate 01/26/25 20:56 01/26/25 21:00 01/26/25 21:01 Temperature Pulse Rate 107 H 89 93 Respiratory Rate 14 14 14 Blood Pressure 78/55 L 82/53 L Pulse Oximetry 88 L 93 91 Oxygen Delivery Oxygen Flow Rate 01/26/25 21:05 01/26/25 21:06 01/26/25 22:00 Temperature Pulse Rate 98 101 H 95 Respiratory Rate 13 15 Blood Pressure 93/62 L Pulse Oximetry 91 92 Oxygen Delivery Oxygen Flow Rate 01/26/25 22:45 01/26/25 22:56 01/26/25 23:00 Temperature 98.8 F Pulse Rate 103 H 103 H 97 Respiratory Rate 16 Blood Pressure 113/85 95/73 L Pulse Oximetry 97 100 Oxygen Delivery Nasal Cannula Oxygen Flow Rate 2 01/27/25 00:00 01/27/25 00:00 01/27/25 00:00 Temperature Pulse Rate 104 H 104 H 102 H Respiratory Rate Blood Pressure 104/57 L Pulse Oximetry 100 Oxygen Delivery Nasal Cannula Oxygen Flow Rate 2 01/27/25 00:00 01/27/25 01:00 01/27/25 02:00 Temperature 98.4 F Pulse Rate 102 H 106 H 101 H Respiratory Rate 20 20 Blood Pressure 92/70 L 87/71 L Pulse Oximetry 99 98 Oxygen Delivery Oxygen Flow Rate 01/27/25 02:00 01/27/25 02:20 01/27/25 03:00 Temperature 99 F 99 F Pulse Rate 101 H 105 H 106 H Respiratory Rate 20 18 Blood Pressure 99/63 L 99/63 L 109/66 Pulse Oximetry 100 100 Oxygen Delivery Oxygen Flow Rate 01/27/25 03:49 01/27/25 04:00 01/27/25 04:00 Temperature Pulse Rate 97 100 96 Respiratory Rate 18 Blood Pressure 114/89 Pulse Oximetry 100 Oxygen Delivery Nasal Cannula Oxygen Flow Rate 2 01/27/25 04:00 01/27/25 04:10 01/27/25 05:00 Temperature 99.3 F 99.2 F Pulse Rate 96 100 105 H Respiratory Rate 15 14 Blood Pressure 116/97 H 116/90 92/65 L Pulse Oximetry 100 100 Oxygen Delivery Oxygen Flow Rate 01/27/25 06:00 01/27/25 06:00 01/27/25 07:00 Temperature 99.1 F 99.2 F Pulse Rate 92 92 100 Respiratory Rate 15 15 Blood Pressure 89/59 L 85/67 L Pulse Oximetry 100 100 Oxygen Delivery Oxygen Flow Rate 01/27/25 08:00 01/27/25 09:00 01/27/25 10:00 Temperature 99.2 F 99.2 F 98.8 F Pulse Rate 99 100 99 Respiratory Rate 15 14 21 H Blood Pressure 89/55 L 89/73 L 94/77 L Pulse Oximetry 100 100 100 Oxygen Delivery Oxygen Flow Rate Exam Narrative: General: Awake, alert, no acute distress HEENT:? Pupils equal and reactive, sclera is clear, dry oral mucosa Neck:? Supple Respiratory:? Decreased air entry at bases, otherwise clear to auscultation bilaterally Cardiac:? Irregularly irregular rhythm, rate controlled Abdomen:? Soft, tenderness in the right lower and left lower quadrants, hypoactive bowel sounds, obese, nondistended Extremities:? Bilateral upper and lower extremity edema,. Palpable pedal pulse Neuro:? Patient is awake, alert, oriented to place and date of , has history of dementia, follows simple commands in all extremities, able to answer question Skin:? Multiple bruising noted on bilateral upper and lower extremities, Psych:? Depressed affect Results Labs 01/27/25 09:47 01/27/25 09:47 Labs: Short CBC 01/26/25 01/27/25 Range/Units 18:08 09:47 WBC 18.4 H 18.8 H (4.5-10.0) K/mm3 Hgb 10.3 L 10.1 L (12.0-15.0) g/dL Hct 33.4 L 32.9 L (37.0-47.0) % Plt Count 438 H 324 (150-375) k/mm3 BMP 01/26/25 01/27/25 01/27/25 18:08 01:59 09:47 Sodium 129 L 130 L 131 L Potassium 4.0 4.5 Chloride 95 L 99 Carbon Dioxide 29 26 BUN 64 H 67 H Creatinine 0.96 1.05 H Glucose 184 H 121 H Calcium 8.9 8.7 Liver Function 01/26/25 01/27/25 Range/Units 18:08 09:47 Total Bilirubin 0.4 0.3 (0.2-1.3) mg/dL AST 29 21 (14-36) U/L ALT 17 15 (6-35) U/L Alkaline Phosphatase 84 64 (38-126) U/L Albumin 3.3 L 2.9 L (3.5-5.1) g/dL Urine 01/26/25 Range/Units 20:03 Urine Color Yellow (Yellow) Urine Appearance Turbid H (Clear) Urine pH 5.5 (5.0-9.0) Ur Specific [place] 1.013 (1.001-1.035) Urine Protein 1+ H (Negative) mg/dL Urine Glucose (UA) Negative (Negative) mg/dL Quality VTE Prophylaxis VTE prophylaxis: pharmacologic ordered Hospitalist MIPS Advance Care Plan I have confirmed that the patient's Advanced Care Plan is present, code status is documented, or surrogate decision maker is listed in patient medical record.: Yes Medication Reconciliation I have utilized all available resources to obtain, update and review the patients current medications (includes all prescriptions, OTC, herbals, cannabis, and nutritional supplements).: Yes
[2025-01-27] MEDS: LACTATED RINGERS 250 ML 999 ML IV CONT ×2 (11:27→12:41)
[2025-01-27] MEDS: ENOXAPARIN 40 MG/0.4 ML SYRINGE SUB-Q (11:28)
[2025-01-27] MEDS: PERFLUTREN LIPID MICROSPHERES 1.5 ML VIAL DILUTED TO 10 ML TOTAL VOLUME IV PUSH (11:31)
--- NOTE | 2025-01-27 11:31 | IVDEFINITY ---
Prior to administration of IV Definity the patient was educated on the risks and benefits of the imaging enhancing agent including potential adverse side effects. The patient verbalized understanding. Allergies were verified. No exclusion criteria were identified and at least one of the following inclusion criteria were met: 1) physician request, 2) patient technically difficult to image (per the [place] [employer] guidelines of two or more segments not discernable within the apical view), or 3) questionable left ventricular function. ?
[2025-01-27] MEDS: LEVOTHYROXINE SODIUM INJ 100 MCG/5 ML VIAL 62.5 MCG IV PUSH (12:41)
[2025-01-27] MEDS: CENTRAL LINE FLUSH 10 ML IV PUSH ×4 (13:49→20:20)
[2025-01-27] MEDS: NOREPINEPHRINE 8 MG/D5W 250 ML 8 MG/250 ML BAG 9.38 MG IV CONT (14:56)
[2025-01-27 15:12] LABS: Lipase 26 U/L (23-300)
--- NOTE | 2025-01-27 17:30 | P.PNIM_ITS ---
Progress Note: A&P Assessment and Plan (1) Septic shock: Code(s): A41.9 - Sepsis, unspecified organism; R65.21 - Severe sepsis with septic shock Status: Acute Assessment and Plan: 01/26: Patient presented with altered mental status, hypotension, feeling tired and more sleepy at the [facility] -normal lactic acid at 1.4 -in the ER patient was given 1 L IV fluid bolus since she has a history of CHF -right IJ central line was inserted and started on Levophed, -Levophed was turned off earlier this morning -continue cefepime and vancomycin (01/26) -01/26: Blood cultures have been obtained -01/27: Urine cultures have been obtained -will give additional fluid this morning has patient's mucosa membranes are significant and skin turgor is poor - will also give albumin for intravascular volume expansion 01/27: Bilateral lower extremity venous Dopplers were negative for DVT (2) Ischemic bowel disease: Code(s): K55.9 - Vascular disorder of intestine, unspecified Status: Acute Assessment and Plan: Some concerns for ischemic bowel disease on CT scan -lactic acid is 1.4, repeat lactic acid was also 1.4 -appreciate surgery evaluation recommendations, poor surgical candidate -currently off Levophed, if patient's condition worsens, will obtain another noncontrast CT abdomen and pelvis per surgeon -NPO for now (3) Acute UTI: Code(s): N39.0 - Urinary tract infection, site not specified Status: Acute Assessment and Plan: UA reflective of UTI, continue antibiotics, cultures have been obtained (4) Altered mental status: Code(s): R41.82 - Altered mental status, unspecified Status: Acute Assessment and Plan: Altered mental status seems to have resolved, patient is more awake after volume resuscitation and antibiotics (5) Congestive heart failure: Code(s): I50.9 - Heart failure, unspecified Status: Acute Assessment and Plan: History of heart failure -patient does not know where she gets her treatment -no previous notes or echocardiogram in the chart at [facility] -will obtain echocardiogram -patient does take aspirin, Farxiga, furosemide, Entresto, spironolactone, amiodarone, atorvastatin, Dabigatran at home which are all currently on hold (6) Gastrointestinal tube in situ: Code(s): Z93.1 - Gastrostomy status Status: Acute Assessment and Plan: Patient does have a PEG tube, according to the nurses the family states that she does take p.o. diet but the PEG tube is for supplementation (7) Hypothyroidism: Code(s): E03.9 - Hypothyroidism, unspecified Status: Acute Assessment and Plan: IV levothyroxine since patient is NPO (8) Hypertension: Code(s): I10 - Essential (primary) hypertension Status: Acute Assessment and Plan: Hold all antihypertensives as above since patient is NPO since patient presented with hypotension/septic shock. Currently off Levophed since early this morning (9) DM2 (diabetes mellitus, type 2): Code(s): E11.9 - Type 2 diabetes mellitus without complications Status: Acute Assessment and Plan: Continue sliding scale insulin and Accu-Chek Plan DVT prophylaxis: Lovenox Stress ulcer prophylaxis: Protonix Nutrition: NPO Code Status: Full code Subjective Date/time seen: 01/27/25 17:30 Interval history: This is a 79-year-old female patient who is currently in rehab at [facility]. She was recently diagnosed with pneumonia and has been on oral antibiotics. She also has tube feedings that supplements her oral intake. However the patient was found to be more confused and left the were [place] with a low blood pressure at the rehab facility. The patient was complaining of some abdominal pain. Her white count was noted to be 18.4. Her H&H is 10.4 in 33.4. Her sodium was low at 129. Her glucose is 184. Her BNP was noted to be 1910. Her urine is turbid with 1+ protein, 2+ blood, leukocyte esterase 3+, urine wbc's greater than 100, urine bacteria 4+. MRSA was detected in her nares. Chest abdomen pelvis CT was read as a followin. No evidence of pulmonary consolidation are atelectasis. Mild vascular congestion of lungs severe cardiomegaly and postoperative changes as described above. 2. Within the abdomen, there is significant finding of small drops of air in the peripheral portal veins within the left lobe of the liver. This would raise a concern for ischemic bowel disease. 3. Significant Calcific changes at the proximal celiac axis and superior mesenteric artery and right renal artery. 4. Normal bowel obstruction or bowel wall thickening. No evidence of fluid or free air in the peritoneal cavity. Surgery consult was placed per ED provider. The patient was given a dose of zosyn in the er. Head CT was read as no acute and cranial abnormality. Chest x-ray was read as CHF superimposed probable left lower lobe pneumonia. A central line was placed in the emergency room. Repeat chest x-ray shows central line placement. The blood pressures have gotten as low as 70/50 prior to have vasopressors. A Patterson catheter was also placed as well. Surgery has been consulted as well as the activities coordinator. Review of Systems Review of Systems: All systems reviewed & are unremarkable except as noted in HPI and below Exam Narrative: General: Awake, alert, no acute distress HEENT:? Pupils equal and reactive, sclera is clear, dry oral mucosa Neck:? Supple Respiratory:? Decreased air entry at bases, otherwise clear to auscultation bilaterally Cardiac:? Irregularly irregular rhythm, rate controlled Abdomen:? Soft, tenderness in the right lower and left lower quadrants, hypoactive bowel sounds, obese, nondistended Extremities:? Bilateral upper and lower extremity edema,. Palpable pedal pulse Neuro:? Patient is awake, alert, oriented to place and date of , has history of dementia, follows simple commands in all extremities, able to answer question Skin:? Multiple bruising noted on bilateral upper and lower extremities, Psych:? Depressed affect Objective Data Vital Signs Vital Signs: Vital Signs - 24 hr 01/26/25 17:50 01/26/25 17:52 01/26/25 17:55 Temperature Pulse Rate 91 86 93 Respiratory Rate 13 14 14 Blood Pressure 149/74 H Pulse Oximetry Oxygen Delivery Oxygen Flow Rate 01/26/25 17:56 01/26/25 18:00 01/26/25 18:01 Temperature Pulse Rate 87 83 83 Respiratory Rate 15 13 15 Blood Pressure 122/65 158/69 H Pulse Oximetry Oxygen Delivery Oxygen Flow Rate 01/26/25 18:05 01/26/25 18:06 01/26/25 18:10 Temperature Pulse Rate 88 96 98 Respiratory Rate 13 15 13 Blood Pressure 112/71 Pulse Oximetry Oxygen Delivery Oxygen Flow Rate 01/26/25 18:11 01/26/25 18:15 01/26/25 18:16 Temperature Pulse Rate 89 92 89 Respiratory Rate 14 13 14 Blood Pressure 130/77 115/86 Pulse Oximetry Oxygen Delivery Oxygen Flow Rate 01/26/25 18:20 11/28/25 18:21 01/26/25 18:25 Temperature Pulse Rate 89 90 84 Respiratory Rate 15 14 12 Blood Pressure 110/75 Pulse Oximetry Oxygen Delivery Oxygen Flow Rate 01/26/25 18:26 01/26/25 18:30 01/26/25 18:31 Temperature Pulse Rate 83 87 98 Respiratory Rate 13 16 15 Blood Pressure 119/57 L 94/69 L Pulse Oximetry Oxygen Delivery Oxygen Flow Rate 01/26/25 18:35 01/26/25 18:40 01/26/25 18:45 Temperature Pulse Rate 95 82 100 Respiratory Rate 20 11 L 13 Blood Pressure Pulse Oximetry Oxygen Delivery Oxygen Flow Rate 01/26/25 19:20 01/26/25 19:37 01/26/25 19:40 Temperature Pulse Rate 93 Respiratory Rate 19 Blood Pressure 92/75 L 101/84 Pulse Oximetry 71 L 93 92 Oxygen Delivery Oxygen Flow Rate 01/26/25 19:41 01/26/25 19:45 01/26/25 19:46 Temperature Pulse Rate Respiratory Rate 18 15 14 Blood Pressure 72/62 L Pulse Oximetry 98 95 93 Oxygen Delivery Oxygen Flow Rate 01/26/25 19:50 01/26/25 19:51 01/26/25 19:55 Temperature Pulse Rate 109 H Respiratory Rate 15 14 15 Blood Pressure 68/39 L Pulse Oximetry 95 93 Oxygen Delivery Oxygen Flow Rate 01/26/25 19:56 01/26/25 20:00 01/26/25 20:01 Temperature Pulse Rate 114 H 100 100 Respiratory Rate 16 13 14 Blood Pressure 76/50 L 78/53 L Pulse Oximetry 94 96 95 Oxygen Delivery Oxygen Flow Rate 01/26/25 20:05 01/26/25 20:06 01/26/25 20:10 Temperature Pulse Rate 119 H 107 H 109 H Respiratory Rate 18 15 16 Blood Pressure 109/78 Pulse Oximetry 92 94 92 Oxygen Delivery Oxygen Flow Rate 01/26/25 20:11 01/26/25 20:15 01/26/25 20:16 Temperature Pulse Rate 99 108 H 110 H Respiratory Rate 15 16 14 Blood Pressure 88/76 L 105/65 Pulse Oximetry 92 95 92 Oxygen Delivery Oxygen Flow Rate 01/26/25 20:20 01/26/25 20:21 01/26/25 20:25 Temperature Pulse Rate 101 H 104 H 105 H Respiratory Rate 13 15 15 Blood Pressure 113/72 Pulse Oximetry 95 93 95 Oxygen Delivery Oxygen Flow Rate 01/26/25 20:26 01/26/25 20:30 01/26/25 20:30 Temperature Pulse Rate 95 109 H 104 H Respiratory Rate 14 14 Blood Pressure 114/75 114/75 Pulse Oximetry 93 90 Oxygen Delivery Oxygen Flow Rate 01/26/25 20:31 01/26/25 20:35 01/26/25 20:36 Temperature Pulse Rate 112 H 94 94 Respiratory Rate 14 14 14 Blood Pressure 87/64 L 79/57 L Pulse Oximetry 89 L 91 94 Oxygen Delivery Oxygen Flow Rate 01/26/25 20:37 01/26/25 20:40 01/26/25 20:41 Temperature Pulse Rate 90 100 98 Respiratory Rate 15 14 15 Blood Pressure 83/59 L Pulse Oximetry 94 88 L 89 L Oxygen Delivery Oxygen Flow Rate 01/26/25 20:45 01/26/25 20:50 01/26/25 20:51 Temperature Pulse Rate 97 97 98 Respiratory Rate 13 15 14 Blood Pressure 72/46 L Pulse Oximetry 92 86 L 88 L Oxygen Delivery Oxygen Flow Rate 01/26/25 20:55 01/26/25 20:56 01/26/25 21:00 Temperature Pulse Rate 101 H 107 H 89 Respiratory Rate 14 14 14 Blood Pressure 78/55 L Pulse Oximetry 87 L 88 L 93 Oxygen Delivery Oxygen Flow Rate 01/26/25 21:01 01/26/25 21:05 01/26/25 21:06 Temperature Pulse Rate 93 98 101 H Respiratory Rate 14 13 15 Blood Pressure 82/53 L 93/62 L Pulse Oximetry 91 91 92 Oxygen Delivery Oxygen Flow Rate 01/26/25 22:00 01/26/25 22:45 01/26/25 22:56 Temperature Pulse Rate 95 103 H 103 H Respiratory Rate Blood Pressure 113/85 Pulse Oximetry 97 Oxygen Delivery Nasal Cannula Oxygen Flow Rate 2 01/26/25 23:00 01/27/25 00:00 01/27/25 00:00 Temperature 98.8 F Pulse Rate 97 104 H 104 H Respiratory Rate 16 Blood Pressure 95/73 L 104/57 L Pulse Oximetry 100 100 Oxygen Delivery Nasal Cannula Oxygen Flow Rate 2 01/27/25 00:00 01/27/25 00:00 01/27/25 01:00 Temperature 98.4 F Pulse Rate 102 H 102 H 106 H Respiratory Rate 20 20 Blood Pressure 92/70 L 87/71 L Pulse Oximetry 99 98 Oxygen Delivery Oxygen Flow Rate 01/27/25 02:00 01/27/25 02:00 01/27/25 02:20 Temperature 99 F Pulse Rate 101 H 101 H 105 H Respiratory Rate 20 Blood Pressure 99/63 L 99/63 L Pulse Oximetry 100 Oxygen Delivery Oxygen Flow Rate 01/27/25 03:00 01/27/25 03:49 01/27/25 04:00 Temperature 99 F Pulse Rate 106 H 97 100 Respiratory Rate 18 18 Blood Pressure 109/66 114/89 Pulse Oximetry 100 100 Oxygen Delivery Nasal Cannula Oxygen Flow Rate 2 01/27/25 04:00 01/27/25 04:00 01/27/25 04:10 Temperature 99.3 F Pulse Rate 96 96 100 Respiratory Rate 15 Blood Pressure 116/97 H 116/90 Pulse Oximetry 100 Oxygen Delivery Oxygen Flow Rate 01/27/25 05:00 01/27/25 06:00 01/27/25 06:00 Temperature 99.2 F 99.1 F Pulse Rate 105 H 92 92 Respiratory Rate 14 15 Blood Pressure 92/65 L 89/59 L Pulse Oximetry 100 100 Oxygen Delivery Oxygen Flow Rate 01/27/25 07:00 01/27/25 08:00 01/27/25 08:00 Temperature 99.2 F 99.2 F Pulse Rate 100 99 Respiratory Rate 15 15 Blood Pressure 85/67 L 89/55 L Pulse Oximetry 100 100 100 Oxygen Delivery Nasal Cannula Oxygen Flow Rate 2 01/27/25 08:00 01/27/25 09:00 01/27/25 10:00 Temperature 99.2 F 98.8 F Pulse Rate 88 100 99 Respiratory Rate 14 21 H Blood Pressure 89/73 L 94/77 L Pulse Oximetry 100 100 Oxygen Delivery Oxygen Flow Rate 01/27/25 10:00 01/27/25 11:00 01/27/25 12:00 Temperature 98.7 F 98.4 F Pulse Rate 93 98 94 Respiratory Rate 16 13 Blood Pressure 92/55 L 96/67 L Pulse Oximetry 100 100 Oxygen Delivery Oxygen Flow Rate 01/27/25 12:00 01/27/25 12:00 01/27/25 13:00 Temperature 98.1 F Pulse Rate 96 85 Respiratory Rate 13 Blood Pressure 105/67 Pulse Oximetry 100 100 Oxygen Delivery Nasal Cannula Oxygen Flow Rate 2 01/27/25 14:00 01/27/25 14:00 01/27/25 14:56 Temperature 98.2 F Pulse Rate 81 108 H 93 Respiratory Rate 14 Blood Pressure 78/43 L 77/47 L Pulse Oximetry 100 Oxygen Delivery Oxygen Flow Rate 01/27/25 15:00 01/27/25 15:45 01/27/25 16:00 Temperature 98.1 F 98.2 F Pulse Rate 92 93 94 Respiratory Rate 12 16 Blood Pressure 71/41 L 95/53 L 99/65 L Pulse Oximetry 100 100 Oxygen Delivery Oxygen Flow Rate 01/27/25 16:00 01/27/25 16:00 01/27/25 16:00 Temperature Pulse Rate 94 107 H Respiratory Rate Blood Pressure 99/65 L Pulse Oximetry 100 Oxygen Delivery Room Air Oxygen Flow Rate 01/27/25 16:30 01/27/25 17:00 01/27/25 17:20 Temperature 98.3 F Pulse Rate 102 H 104 H 102 H Respiratory Rate 13 Blood Pressure 126/99 H 119/106 H 119/106 H Pulse Oximetry 95 Oxygen Delivery Oxygen Flow Rate Intake/Output Intake/Output: Intake & Output 01/24/25 01/25/25 01/26/25 01/27/25 23:59 23:59 23:59 23:59 Intake Total 1135.0 403.5 Output Total 575 Balance 1135.0 -171.5 Meds/Results Medications: Active Medications Generic Name Dose Route Start Last Admin Trade Name Freq PRN Reason Stop Dose Admin Dextrose 12.5 gm 01/27/25 01:22 Dextrose 50% 25 Gm/50 Ml Syringe IV PUSH PRN PRN Hypoglycemia Protocol Enoxaparin Sodium 40 mg 01/27/25 10:15 01/27/25 11:28 Enoxaparin 40 Mg/0.4 Ml Syringe SUB-Q 40 mg DAILY MERCEDES Administration Glucagon 1 mg 01/27/25 01:22 Glucagon For Inj 1 Mg Vial IM PRN PRN Hypoglycemia Protocol Lactated Ringer's 1,000 mls @ 50 mls/hr 01/27/25 01:20 01/27/25 02:02 Lr - Lactated Ringers Iv IV CONT 01/27/25 21:19 50 mls/hr .Q20H MERCEDES Administration Dextrose 1,000 mls @ 100 mls/hr 01/27/25 01:22 Dextrose 5% 1,000 Ml IVPB PRN PRN Hypoglycemia Protocol Piperacillin Sod/Tazobactam 50 mls @ 100 mls/hr 01/27/25 03:00 01/27/25 15:26 Sod 2.25 gm/ Sodium Chloride IVPB Infused Q6H MER[facility] Infusion Vancomycin HCl 1,250 mg in 250 mls @ 166.667 mls/hr 01/28/25 15:00 Vancomycin 1,250 Mg/Ns 250 Ml IVPB Q36H MERCEDES Albumin Human 100 mls @ 60 mls/hr 01/27/25 08:00 01/27/25 15:40 Albutein IVPB 01/28/25 03:39 Infused Q6H MERCEDES Infusion Norepinephrine Bitartrate 8 mg in 250 mls @ 1.875 mls/hr 01/27/25 14:55 01/27/25 17:20 Levophed 8 Mg/D5w 250 Ml IV CONT 1 mcg/min .Q24H MERCEDES 1.88 mls/hr Protocol Titration 1 MCG/MIN Insulin Aspart 3 - 6 units 01/27/25 12:00 01/27/25 17:19 Insulin Aspart (*Bkc) 100 Units/Ml SUB-Q Not Given Q6HR [facility] Protocol Ketorolac Tromethamine 1 drop 01/27/25 06:00 01/27/25 17:20 Ketorolac 0.5% Op Soln 5 Ml Bottle EACH EYE 1 drop Q6HR MER[facility]EDES Administration Levothyroxine Sodium 62.5 mcg 01/27/25 11:25 01/27/25 12:41 Levothyroxine Sodium Inj 100 Mcg/5 Ml Vial IV PUSH 62.5 mcg DAILY@0630 [facility] Administration Lidocaine 1 patch 01/27/25 01:24 Lidocaine 5% Patch TOPICAL Q24H PRN Pain Miscellaneous Information 0 each 01/27/25 02:40 Nystatin 100,000 Unit/Gram Powder -Autosub To Miconazole & Is Not A Pharmacy Item. Please XX 01/28/25 02:39 PRN PRN Informational Mupirocin 1 applic 01/27/25 09:00 01/27/25 09:52 Mupirocin 2% Oint 22 Gm Tube EACH NARE 01/31/25 21:01 1 applic Q12HR MER[facility]EDES Administration Arginine-Glutamine- 1 each 01/27/25 08:02 Calcium Hmb [Boris] XX 01/28/25 08:01 PRN PRN PROTOCOL Pantoprazole Sodium 40 mg 01/27/25 09:00 01/27/25 09:52 Pantoprazole Sodium Iv 40 Mg Vial IV PUSH 40 mg Q12HR [facility] Administration Sodium Chloride 10 ml 01/27/25 14:00 01/27/25 13:49 Central Line Flush IV PUSH 10 ml Q8HR [facility] Administration Sodium Chloride 10 ml 01/27/25 11:07 Central Line Flush IV PUSH PRN PRN with TPN bag changes Sodium Chloride 20 ml 01/27/25 11:07 Central Line Flush IV PUSH PRN PRN after blood draws Sodium Chloride 10 ml 01/27/25 14:00 01/27/25 13:49 Central Line Flush IV PUSH 10 ml Q8HR [place] Administration Sodium Chloride 10 ml 01/27/25 11:11 Central Line Flush IV PUSH PRN PRN with TPN bag changes Sodium Chloride 20 ml 01/27/25 11:11 Central Line Flush IV PUSH PRN PRN after blood draws Radiology Results: ITS Impressions Head CT 01/26/25 17:46 Impression: 1.No acute intracranial abnormality. Chest/Abdomen/Pelvis CT 01/26/25 17:53 IMPRESSION: 1. No evidence of pulmonary consolidation are atelectasis. Mild vascular congestion of lungs severe cardiomegaly and postoperative changes as described above. 2. Within the abdomen, there is significant finding of small drops of air in the peripheral portal veins within the left lobe of the liver. This would raise a concern for ischemic bowel disease. 3. Significant Calcific changes at the proximal celiac axis and superior mesenteric artery and right renal artery. 4. Normal bowel obstruction or bowel wall thickening. No evidence of fluid or free air in the peritoneal cavity. 5. Critical findings conveyed to attending physician by telephone call at 6:07 PM. Venous Doppler Study 01/27/25 10:15 IMPRESSION: 1. No DVT either leg. Chest X-Ray 01/27/25 11:19 IMPRESSION: 1. Right PICC placed but tip not identified. 2. Right neck central line unchanged with catheter retrograde into left innominate vein. 3. No cardiopulmonary change. Labs Labs: Laboratory Results - last 24 hr 01/26/25 01/26/25 01/26/25 18:08 20:03 20:30 WBC 18.4 H RBC 3.65 L Hgb 10.3 L Hct 33.4 L MCV 91.5 MCH 28.2 MCHC 30.8 L RDW 17.2 H Plt Count 438 H MPV 9.0 Immature Gran % (Auto) Not Reportable Neut % (Auto) Not Reportable Lymph % (Auto) Not Reportable Peach % (Auto) Not Reportable Eos % (Auto) Not Reportable Baso % (Auto) Not Reportable Lymph # (Auto) Not Reportable Peach # (Auto) Not Reportable Eos # (Auto) Not Reportable Baso # (Auto) Not Reportable Abs Immat Gran (auto) Not Reportable Absolute Neuts (auto) Not Reportable Absolute Nucleated RBC Not Reportable Total Counted 100 Neutrophils % (Manual) 90 H Band Neutrophils % 0 Lymphocytes % (Manual) 6.0 L Monocytes % (Manual) 4 Eosinophils % (Manual) Basophils % (Manual) Nucleated RBC % Not Reportable Abs Neuts (Manual) 16.56 H Abs Lymphs (Manual) 1.10 Abs Monocytes (Manual) 0.73 Absolute Eos (Manual) Abs Basophils (Manual) Atypical Lymphocytes Platelet Estimate Increased Clumped Platelets Present Hypochromasia 1+ Anisocytosis 2+ Schistocytes None seen PT 18.7 H INR 1.6 APTT 46.3 H Sodium 129 L Potassium 4.0 Chloride 95 L Carbon Dioxide 29 Anion Gap 5 BUN 64 H Creatinine 0.96 Estim Creat Clear Calc Not Reportable Estimated GFR 56 L Glucose 184 H POC Capillary Glucose Lactic Acid 1.4 Calcium 8.9 Phosphorus Magnesium Total Bilirubin 0.4 AST 29 ALT 17 Alkaline Phosphatase 84 C-Reactive Protein 1.0 NT-Pro-B Natriuret Pep 1910 H Total Protein 6.3 Albumin 3.3 L Lipase Urine Color Yellow Urine Appearance Turbid H Urine pH 5.5 Ur Specific [place] 1.013 Urine Protein 1+ H Urine Glucose (UA) Negative Urine Ketones Negative Ur Blood (Man) 2+ H Urine Nitrate Negative Urine Bilirubin Negative Urine Urobilinogen 0.2 Add Ur Microanalysis Reviewed Leukocyte Esterase Rfl 3+ H Urine RBC 0-2 Urine WBC >100 H Ur Squamous Epith Cells Few Urine Bacteria 4+ H Urine Casts >20 Ur Random Sodium Nasal MRSA (PCR) Detected A* 01/27/25 01/27/25 01/27/25 01:59 05:36 09:42 WBC RBC Hgb Hct MCV MCH MCHC RDW Plt Count MPV Immature Gran % (Auto) Neut % (Auto) Lymph % (Auto) Peach % (Auto) Eos % (Auto) Baso % (Auto) Lymph # (Auto) Peach # (Auto) Eos # (Auto) Baso # (Auto) Abs Immat Gran (auto) Absolute Neuts (auto) Absolute Nucleated RBC Total Counted Neutrophils % (Manual) Band Neutrophils % Lymphocytes % (Manual) Monocytes % (Manual) Eosinophils % (Manual) Basophils % (Manual) Nucleated RBC % Abs Neuts (Manual) Abs Lymphs (Manual) Abs Monocytes (Manual) Absolute Eos (Manual) Abs Basophils (Manual) Atypical Lymphocytes Platelet Estimate Clumped Platelets Hypochromasia Anisocytosis Schistocytes PT INR APTT Sodium 130 L Potassium Chloride Carbon Dioxide Anion Gap BUN Creatinine Estim Creat Clear Calc Estimated GFR Glucose POC Capillary Glucose 173 H Lactic Acid Calcium Phosphorus Magnesium Total Bilirubin AST ALT Alkaline Phosphatase C-Reactive Protein NT-Pro-B Natriuret Pep Total Protein Albumin Lipase Urine Color Urine Appearance Urine pH Ur Specific [place] Urine Protein Urine Glucose (UA) Urine Ketones Ur Blood (Man) Urine Nitrate Urine Bilirubin Urine Urobilinogen Add Ur Microanalysis Leukocyte Esterase Rfl Urine RBC Urine WBC Ur Squamous Epith Cells Urine Bacteria Urine Casts Ur Random Sodium < 5 Nasal MRSA (PCR) 01/27/25 01/27/25 09:47 11:46 WBC 18.8 H RBC 3.55 L Hgb 10.1 L Hct 32.9 L MCV 92.7 MCH 28.5 MCHC 30.7 L RDW 17.3 H Plt Count 324 MPV 9.0 Immature Gran % (Auto) Not Reportable Neut % (Auto) Not Reportable Lymph % (Auto) Not Reportable Peach % (Auto) Not Reportable Eos % (Auto) Not Reportable Baso % (Auto) Not Reportable Lymph # (Auto) Not Reportable Peach # (Auto) Not Reportable Eos # (Auto) Not Reportable Baso # (Auto) Not Reportable Abs Immat Gran (auto) Not Reportable Absolute Neuts (auto) Not Reportable Absolute Nucleated RBC Not Reportable Total Counted 100 Neutrophils % (Manual) 93 H Band Neutrophils % 0 Lymphocytes % (Manual) 12 L Monocytes % (Manual) 5 Eosinophils % (Manual) 0 Basophils % (Manual) 0 Nucleated RBC % Not Reportable Abs Neuts (Manual) 17.48 H Abs Lymphs (Manual) 2.25 Abs Monocytes (Manual) 0.94 H Absolute Eos (Manual) 0.00 L Abs Basophils (Manual) 0.00 Atypical Lymphocytes Present Platelet Estimate Adequate Clumped Platelets Hypochromasia 1+ Anisocytosis 1+ Schistocytes None seen PT 19.2 H INR 1.7 APTT 46.9 H Sodium 131 L Potassium 4.5 Chloride 99 Carbon Dioxide 26 Anion Gap 6 BUN 67 H Creatinine 1.05 H Estim Creat Clear Calc Not Reportable Estimated GFR 51 L Glucose 121 H POC Capillary Glucose 114 H Lactic Acid 1.4 Calcium 8.7 Phosphorus 4.2 Magnesium 2.1 Total Bilirubin 0.3 AST 21 ALT 15 Alkaline Phosphatase 64 C-Reactive Protein NT-Pro-B Natriuret Pep Total Protein 5.8 L Albumin 2.9 L Lipase 26 Urine Color Urine Appearance Urine pH Ur Specific [place] Urine Protein Urine Glucose (UA) Urine Ketones Ur Blood (Man) Urine Nitrate Urine Bilirubin Urine Urobilinogen Add Ur Microanalysis Leukocyte Esterase Rfl Urine RBC Urine WBC Ur Squamous Epith Cells Urine Bacteria Urine Casts Ur Random Sodium Nasal MRSA (PCR) Hospitalist MIPS Advance Care Plan I have confirmed that the patient's Advanced Care Plan is present, code status is documented, or surrogate decision maker is listed in patient medical record.: Yes Medication Reconciliation I have utilized all available resources to obtain, update and review the patients current medications (includes all prescriptions, OTC, herbals, cannabis, and nutritional supplements).: Yes
[2025-01-28] VITALS (134 sets, daily range): BP systolic 82–148; BP diastolic 54–113; PULSE 75–116; RESP 11–27; TEMP 35.7–36.8; O2SAT 83–100
[2025-01-28] MEDS: ALBUMIN HUMAN 25% 25 GM/100 ML 100 ML IVPB (01:15)
[2025-01-28] MEDS: PIPERACILLIN/TAZOBACTAM SOD 2.25 GM in SODIUM CHLORIDE 0.9% IV 50 ML 100 ML IVPB ×4 (02:56→20:36)
[2025-01-28 05:10] LABS: Hematocrit 27.8 % (37.0-47.0); Hemoglobin 8.5 g/dL (12.0-15.0); Immature Granulocyte Percent A 0.4 % (0-0.5); Lymphocytes Absolute Auto 0.96 K/mm3 (0.9-3.2); Mean Corpuscular HGB Conc 30.6 g/dl (32-36); Mean Corpuscular Hemoglobin 28.1 pg (26-34); Mean Corpuscular Volume 92.1 fl (80-100); Nucleated Red Blood Cells Absolute Auto 0.000 K/mm3 (0.0-0.012); Nucleated Red Blood Cells Perc 0.0 % (0.0-0.2); Platelet Count Result 242 k/mm3 (150-375); Red Blood Count 3.02 M/mm3 (4.2-5.4); White Blood Count 14.7 K/mm3 (4.5-10.0)
[2025-01-28 05:27] LABS: Alanine Aminotransferase 12 U/L (6-35); Albumin Level 3.0 g/dL (3.5-5.1); Alkaline Phosphatase 55 U/L (38-126); Anion Gap 5 mmol/L (4-12); Aspartate Amino Transferase 20 U/L (14-36); Bilirubin,Total 0.5 mg/dL (0.2-1.3); Blood Urea Nitrogen 48 mg/dL (7-17); Calcium 8.8 mg/dL (8.4-10.2); Carbon Dioxide 27 mmol/L (22-30); Chloride 104 mmol/L (98-107); Estimated Glomerular Filt Rate > 60; Glucose 96 mg/dL (65-110); Magnesium 1.9 mg/dL (1.6-2.3); Potassium 3.5 mmol/L (3.4-5.0); Sodium 136 mmol/L (137-145); Total Protein 5.7 g/dL (6.3-8.2)
[2025-01-28 05:41] LABS: CRP 19.6 mg/dL (<1.0)
[2025-01-28] MEDS: LEVOTHYROXINE SODIUM INJ 100 MCG/5 ML VIAL 62.5 MCG IV PUSH (05:55)
[2025-01-28] MEDS: CENTRAL LINE FLUSH 10 ML IV PUSH ×6 (05:56→20:35)
--- NOTE | 2025-01-28 06:07 | PC.NURSE ---
0600 am 01/28/25 dose of Acular given to patient.
--- NOTE | 2025-01-28 09:02 | P.PNINT_ITS ---
Progress Note: A&P Assessment and Plan (1) Septic shock: Code(s): A41.9 - Sepsis, unspecified organism; R65.21 - Severe sepsis with septic shock Status: Acute Assessment and Plan: 01/26: Patient presented with altered mental status, hypotension, feeling tired and more sleepy at the [facility] -normal lactic acid at 1.4 -in the ER patient was given 1 L IV fluid bolus since she has a history of CHF -right IJ central line was inserted and started on Levophed, Vasopressors weaned off He was suggestive UTI. Cultures are negative at this time Continue Zosyn but will discontinue vancomycin depending on the repeat CT scan results -01/26: Blood cultures have been obtained -01/27: Urine cultures have been obtained 01/27: Bilateral lower extremity venous Dopplers were negative for DVT CT scan admission concerning of seeming bowel disease. Will repeat CT scan of the abdomen without contrast (2) Ischemic bowel disease: Code(s): K55.9 - Vascular disorder of intestine, unspecified Status: Acute Assessment and Plan: Some concerns for ischemic bowel disease on CT scan is under -lactic acid is 1.4 lactic acid level has normalized -appreciate surgery evaluation recommendations, -currently off Levophed, if patient's condition worsens, will obtain another noncontrast CT abdomen and pelvis per surgeon -NPO for now 01/26: CT chest abdomen and pelvis IMPRESSION: 1. No evidence of pulmonary consolidation are atelectasis. Mild vascular congestion of lungs severe cardiomegaly and postoperative changes as described above. 2. Within the abdomen, there is significant finding of small drops of air in the peripheral portal veins within the left lobe of the liver. This would raise a concern for ischemic bowel disease. 3. Significant Calcific changes at the proximal celiac axis and superior mesenteric artery and right renal artery. 4. Normal bowel obstruction or bowel wall thickening. No evidence of fluid or free air in the peritoneal cavity. 5. Critical findings conveyed to attending physician by telephone call at 6:07 PM. Due to abdominal tenderness and unreliable history will obtain CT scan of the abdomen pelvis and chest contrast (3) Acute UTI: Code(s): N39.0 - Urinary tract infection, site not specified Status: Acute Assessment and Plan: UA reflective of UTI, continue antibiotics, cultures have been obtained (4) Altered mental status: Code(s): R41.82 - Altered mental status, unspecified Status: Acute Assessment and Plan: Altered mental status seems to have resolved, patient is more awake after volume resuscitation and antibiotics She appears to be at baseline. She is alert awake but not oriented (5) Congestive heart failure: Code(s): I50.9 - Heart failure, unspecified Status: Acute Assessment and Plan: History of heart failure -patient does not know where she gets her treatment -no previous notes or echocardiogram in the chart at [facility] Echocardiogram shows Summary 1. Technically difficult exam. 2. Definity contrast utilized to improve visualization. 3. Contrast imaging appears to show preserved left ventricular systolic function. 4. Right ventricular hypertrophy with reduced contractility noted on contrast imaging. 5. Left atrial enlargement. 6. Mild MR. 7. Atrial fibrillation. 8. Pacemaker lead noted. -patient does take aspirin, Farxiga, furosemide, Entresto, spironolactone, amiodarone, atorvastatin, Dabigatran at home which are all currently on hold (6) Gastrointestinal tube in situ: Code(s): Z93.1 - Gastrostomy status Status: Acute Assessment and Plan: Patient does have a PEG tube, according to the nurses the family states that she does take p.o. diet but the PEG tube is for supplementation (7) Hypothyroidism: Code(s): E03.9 - Hypothyroidism, unspecified Status: Acute Assessment and Plan: Continue IV levothyroxine since patient is NPO (8) Hypertension: Code(s): I10 - Essential (primary) hypertension Status: Acute Assessment and Plan: Hold all antihypertensives as above since patient is NPO since patient presented with hypotension/septic shock. Currently off Levophed since early this morning (9) DM2 (diabetes mellitus, type 2): Code(s): E11.9 - Type 2 diabetes mellitus without complications Status: Acute Assessment and Plan: Continue sliding scale insulin and Accu-Chek (10) Electrolyte abnormality: Code(s): E87.8 - Other disorders of electrolyte and fluid balance, not elsewhere classified Status: Acute Assessment and Plan: Potassium replacement ordered (11) Atrial fibrillation: Code(s): I48.91 - Unspecified atrial fibrillation Status: Acute Assessment and Plan: Permanent AFib. Patient is currently rate controlled. Systemic therapeutic Anticoagulation is on hold Plan DVT prophylaxis: Lovenox Stress ulcer prophylaxis: Protonix Nutrition: NPO Code Status: Full code Critical Care Time Spent: 30 minutes Due to a high probability of clinically significant, life threatening deterioration, the patient required my highest level of preparedness to intervene emergently and I personally spent this critical care time directly and personally managing the patient. This critical care time included obtaining a history; examining the patient; pulse oximetry; ordering and review of studies; arranging urgent treatment with development of a management plan; evaluation of patient's response to treatment; frequent reassessment; and discussions with other providers. It was exclusive of separately billable procedures and treating other patients and teaching time. Please see Assessment and Plan section and the rest of the note for further information on patient assessment and treatment This dictation may have been done utilizing a voice recognition system. Attempts have been made to correct errors. However, there may be uncorrected grammatical, spelling, and recognitions errors present. Subjective Date/time seen: 01/28/25 Overnight events reviewed. Patient afebrile. Levophed weaned off. Patient is pleasantly confused. History is limited. She complains of pain in her bottom from laying. When asked if she was having abdominal pain she said on and off. She was not able to tell me exactly whether she was having any abdominal pain at this time. She denied any nausea vomiting chest pain shortness a breath. She was alert but not oriented. She did follow commands. She is off of all IV infusions. Urine output is marginal. She is NPO. Interval history: This is a 79-year-old female patient who is currently in rehab at [facility]. She was recently diagnosed with pneumonia and has been on oral antibiotics. She also has tube feedings that supplements her oral intake. However the patient was found to be more confused and left the were [place] with a low blood pressure at the rehab facility. The patient was complaining of some abdominal pain. Her white count was noted to be 18.4. Her H&H is 10.4 in 33.4. Her sodium was low at 129. Her glucose is 184. Her BNP was noted to be 1910. Her urine is turbid with 1+ protein, 2+ blood, leukocyte esterase 3+, urine wbc's greater than 100, urine bacteria 4+. MRSA was detected in her nares. Chest abdomen pelvis CT was read as a followin. No evidence of pulmonary consolidation are atelectasis. Mild vascular congestion of lungs severe cardiomegaly and postoperative changes as described above. 2. Within the abdomen, there is significant finding of small drops of air in the peripheral portal veins within the left lobe of the liver. This would raise a concern for ischemic bowel disease. 3. Significant Calcific changes at the proximal celiac axis and superior mesenteric artery and right renal artery. 4. Normal bowel obstruction or bowel wall thickening. No evidence of fluid or free air in the peritoneal cavity. Surgery consult was placed per ED provider. The patient was given a dose of zosyn in the er. Head CT was read as no acute and cranial abnormality. Chest x-ray was read as CHF superimposed probable left lower lobe pneumonia. A central line was placed in the emergency room. PICC line placed in the ICU Review of Systems Review of Systems: All systems reviewed & are unremarkable except as noted in HPI and below Exam Narrative: General: Awake, alert, no acute distress HEENT:? Pupils equal and reactive, sclera is clear, dry oral mucosa Neck:? Supple Respiratory:? Decreased air entry at bases, otherwise clear to auscultation bilaterally Cardiac:? Irregularly irregular rhythm, rate controlled Abdomen:? Soft, diffuse mild tenderness, no guarding rigidity, hypoactive bowel sounds, obese, nondistended Extremities:? Bilateral upper and lower extremity edema,. Palpable pedal pulse Neuro:? Patient is awake, alert, oriented to place and date of , has history of dementia, follows simple commands in all extremities, able to answer question Skin:? Multiple bruising noted on bilateral upper and lower extremities, Psych:? Depressed affect Objective Data Vital Signs Vital Signs: Vital Signs - 24 hr 01/27/25 10:00 01/27/25 10:00 01/27/25 11:00 Temperature 37.1 C 37.1 C Pulse Rate 99 93 98 Respiratory Rate 21 H 16 Blood Pressure 94/77 L 92/55 L Pulse Oximetry 100 100 Oxygen Delivery Oxygen Flow Rate 01/27/25 12:00 01/27/25 12:00 01/27/25 12:00 Temperature 36.9 C Pulse Rate 94 96 Respiratory Rate 13 Blood Pressure 96/67 L Pulse Oximetry 100 100 Oxygen Delivery Nasal Cannula Oxygen Flow Rate 2 01/27/25 13:00 01/27/25 14:00 01/27/25 14:00 Temperature 36.7 C 36.8 C Pulse Rate 85 81 108 H Respiratory Rate 13 14 Blood Pressure 105/67 78/43 L Pulse Oximetry 100 100 Oxygen Delivery Oxygen Flow Rate 01/27/25 14:56 01/27/25 15:00 01/27/25 15:45 Temperature 36.7 C Pulse Rate 93 92 93 Respiratory Rate 12 Blood Pressure 77/47 L 71/41 L 95/53 L Pulse Oximetry 100 Oxygen Delivery Oxygen Flow Rate 01/27/25 16:00 01/27/25 16:00 01/27/25 16:00 Temperature 36.8 C Pulse Rate 94 94 Respiratory Rate 16 Blood Pressure 99/65 L 99/65 L Pulse Oximetry 100 100 Oxygen Delivery Room Air Oxygen Flow Rate 01/27/25 16:00 01/27/25 16:30 01/27/25 17:00 Temperature 36.8 C Pulse Rate 107 H 102 H 104 H Respiratory Rate 13 Blood Pressure 126/99 H 119/106 H Pulse Oximetry 95 Oxygen Delivery Oxygen Flow Rate 01/27/25 17:20 01/27/25 17:38 01/27/25 18:00 Temperature Pulse Rate 102 H 100 107 H Respiratory Rate Blood Pressure 119/106 H 81/42 L Pulse Oximetry Oxygen Delivery Oxygen Flow Rate 01/27/25 18:00 01/27/25 18:07 01/27/25 19:00 Temperature 36.9 C Pulse Rate 103 H 98 95 Respiratory Rate 14 13 Blood Pressure 92/56 L 76/50 L 74/53 L Pulse Oximetry 98 93 Oxygen Delivery Oxygen Flow Rate 01/27/25 19:00 01/27/25 19:01 01/27/25 19:15 Temperature 36.9 C 36.9 C 37.0 C Pulse Rate 104 H 96 94 Respiratory Rate 13 13 12 Blood Pressure 95/53 L Pulse Oximetry 92 88 L 94 Oxygen Delivery Oxygen Flow Rate 01/27/25 19:20 01/27/25 19:23 01/27/25 19:30 Temperature 37.0 C 37.0 C Pulse Rate 97 95 100 Respiratory Rate 13 13 Blood Pressure 74/53 L 74/53 L 86/47 L Pulse Oximetry 95 94 Oxygen Delivery Oxygen Flow Rate 01/27/25 19:31 01/27/25 19:45 01/27/25 19:46 Temperature 37.0 C 36.9 C 36.9 C Pulse Rate 92 89 98 Respiratory Rate 13 12 12 Blood Pressure 87/50 L Pulse Oximetry 94 95 95 Oxygen Delivery Oxygen Flow Rate 01/27/25 20:00 01/27/25 20:00 01/27/25 20:00 Temperature 36.9 C Pulse Rate 102 H 96 Respiratory Rate 12 Blood Pressure 131/96 H Pulse Oximetry 96 Oxygen Delivery Room Air Oxygen Flow Rate 01/27/25 20:01 01/27/25 20:15 01/27/25 20:16 Temperature 36.9 C 36.9 C 36.9 C Pulse Rate 100 118 H 109 H Respiratory Rate 13 13 11 L Blood Pressure 121/99 H Pulse Oximetry 94 97 97 Oxygen Delivery Oxygen Flow Rate 01/27/25 20:20 01/27/25 20:30 01/27/25 20:31 Temperature 36.9 C 36.9 C Pulse Rate 111 H 121 H 110 H Respiratory Rate 13 18 Blood Pressure 121/99 H 136/115 H 53/43 L Pulse Oximetry 95 97 Oxygen Delivery Oxygen Flow Rate 01/27/25 20:32 01/27/25 20:36 01/27/25 20:45 Temperature 36.9 C 36.9 C 36.9 C Pulse Rate 110 H 126 H 117 H Respiratory Rate 15 14 15 Blood Pressure 93/77 L 131/86 Pulse Oximetry 96 97 97 Oxygen Delivery Oxygen Flow Rate 01/27/25 20:46 01/27/25 20:58 01/27/25 21:00 Temperature 36.9 C 36.9 C Pulse Rate 108 H 103 H Respiratory Rate 16 12 Blood Pressure 117/88 Pulse Oximetry 94 96 95 Oxygen Delivery Room Air Oxygen Flow Rate 01/27/25 21:01 01/27/25 21:15 01/27/25 21:16 Temperature 36.9 C 36.9 C 36.9 C Pulse Rate 104 H 99 93 Respiratory Rate 12 11 L 12 Blood Pressure 107/93 H Pulse Oximetry 95 95 94 Oxygen Delivery Oxygen Flow Rate 01/27/25 21:30 01/27/25 21:30 01/27/25 21:31 Temperature 36.9 C 36.9 C Pulse Rate 109 H 95 95 Respiratory Rate 12 13 Blood Pressure 120/104 H 120/104 H Pulse Oximetry 95 93 Oxygen Delivery Oxygen Flow Rate 01/27/25 21:35 01/27/25 21:40 01/27/25 21:45 Temperature 36.9 C 36.9 C 36.9 C Pulse Rate 100 108 H 103 H Respiratory Rate 12 12 13 Blood Pressure Pulse Oximetry 93 94 97 Oxygen Delivery Oxygen Flow Rate 01/27/25 21:46 01/27/25 21:50 01/27/25 21:55 Temperature 36.9 C 36.9 C 36.8 C Pulse Rate 95 105 H 95 Respiratory Rate 11 L 12 12 Blood Pressure 136/109 H Pulse Oximetry 98 93 93 Oxygen Delivery Oxygen Flow Rate 01/27/25 22:00 01/27/25 22:00 01/27/25 22:00 Temperature 36.8 C Pulse Rate 97 97 96 Respiratory Rate 15 Blood Pressure 130/90 Pulse Oximetry 96 Oxygen Delivery Oxygen Flow Rate 01/27/25 22:01 01/27/25 22:05 01/27/25 22:10 Temperature 36.8 C 36.8 C 36.8 C Pulse Rate 93 95 104 H Respiratory Rate 12 12 15 Blood Pressure 130/90 Pulse Oximetry 94 95 96 Oxygen Delivery Oxygen Flow Rate 01/27/25 22:15 01/27/25 22:16 01/27/25 22:20 Temperature 36.8 C 36.8 C 36.8 C Pulse Rate 97 96 95 Respiratory Rate 12 12 12 Blood Pressure 129/73 Pulse Oximetry 97 95 95 Oxygen Delivery Oxygen Flow Rate 01/27/25 22:25 01/27/25 22:30 01/27/25 22:31 Temperature 36.8 C 36.8 C 36.8 C Pulse Rate 88 95 93 Respiratory Rate 12 12 12 Blood Pressure 126/82 Pulse Oximetry 94 96 95 Oxygen Delivery Oxygen Flow Rate 01/27/25 22:35 01/27/25 22:40 01/27/25 22:45 Temperature 36.8 C 36.8 C 36.7 C Pulse Rate 105 H 92 101 H Respiratory Rate 13 13 12 Blood Pressure 112/94 H Pulse Oximetry 96 96 96 Oxygen Delivery Oxygen Flow Rate 01/27/25 22:46 01/27/25 22:50 01/27/25 22:55 Temperature 36.7 C 36.7 C 36.7 C Pulse Rate 93 101 H 89 Respiratory Rate 12 12 12 Blood Pressure Pulse Oximetry 97 97 96 Oxygen Delivery Oxygen Flow Rate 01/27/25 23:00 01/27/25 23:01 01/27/25 23:05 Temperature 36.7 C 36.7 C 36.7 C Pulse Rate 97 91 100 Respiratory Rate 12 11 L 12 Blood Pressure 107/62 Pulse Oximetry 97 Oxygen Delivery Oxygen Flow Rate 01/27/25 23:10 01/27/25 23:15 01/27/25 23:16 Temperature 36.7 C 36.7 C 36.7 C Pulse Rate 92 90 102 H Respiratory Rate 12 12 14 Blood Pressure 67/46 L Pulse Oximetry 97 97 98 Oxygen Delivery Oxygen Flow Rate 01/27/25 23:17 01/27/25 23:20 01/27/25 23:25 Temperature 36.7 C 36.7 C 36.7 C Pulse Rate 95 98 83 Respiratory Rate 12 12 12 Blood Pressure 106/67 Pulse Oximetry 97 97 97 Oxygen Delivery Oxygen Flow Rate 01/27/25 23:30 01/27/25 23:31 01/27/25 23:35 Temperature 36.7 C 36.7 C 36.7 C Pulse Rate 107 H 97 96 Respiratory Rate 12 11 L 11 L Blood Pressure 116/102 H Pulse Oximetry 99 97 95 Oxygen Delivery Oxygen Flow Rate 01/27/25 23:39 01/27/25 23:40 01/27/25 23:45 Temperature 36.7 C 36.6 C Pulse Rate 109 H 93 91 Respiratory Rate 15 12 Blood Pressure 116/102 H 112/80 Pulse Oximetry 97 99 Oxygen Delivery Oxygen Flow Rate 01/27/25 23:46 01/27/25 23:50 01/27/25 23:55 Temperature 36.6 C 36.6 C 36.6 C Pulse Rate 93 93 94 Respiratory Rate 12 12 12 Blood Pressure Pulse Oximetry 97 97 98 Oxygen Delivery Oxygen Flow Rate 01/28/25 00:00 01/28/25 00:00 01/28/25 00:00 Temperature 36.6 C Pulse Rate 114 H 97 Respiratory Rate 12 Blood Pressure 91/70 L Pulse Oximetry 96 Oxygen Delivery Room Air Oxygen Flow Rate 01/28/25 00:01 01/28/25 00:05 01/28/25 00:10 Temperature 36.6 C 36.6 C 36.6 C Pulse Rate 103 H 104 H 113 H Respiratory Rate 14 13 13 Blood Pressure Pulse Oximetry 97 Oxygen Delivery Oxygen Flow Rate 01/28/25 00:15 01/28/25 00:16 01/28/25 00:20 Temperature 36.6 C 36.6 C 36.6 C Pulse Rate 106 H 110 H 115 H Respiratory Rate 27 H 23 H 20 Blood Pressure 129/83 Pulse Oximetry 94 83 L Oxygen Delivery Oxygen Flow Rate 01/28/25 00:22 01/28/25 00:25 01/28/25 00:30 Temperature 36.6 C 36.6 C Pulse Rate 105 H 101 H 116 H Respiratory Rate 12 15 Blood Pressure 129/83 Pulse Oximetry 98 98 Oxygen Delivery Oxygen Flow Rate 01/28/25 00:31 01/28/25 00:35 01/28/25 00:40 Temperature 36.6 C 36.6 C 36.6 C Pulse Rate 101 H 105 H 94 Respiratory Rate 12 20 17 Blood Pressure 102/74 Pulse Oximetry 96 98 94 Oxygen Delivery Oxygen Flow Rate 01/28/25 00:45 01/28/25 00:47 01/28/25 00:50 Temperature 36.6 C 36.6 C 36.6 C Pulse Rate 96 101 H 98 Respiratory Rate 17 14 12 Blood Pressure 108/93 H Pulse Oximetry 97 96 Oxygen Delivery Oxygen Flow Rate 01/28/25 00:55 01/28/25 01:00 01/28/25 01:01 Temperature 36.6 C 36.6 C 36.6 C Pulse Rate 105 H 97 94 Respiratory Rate 12 13 13 Blood Pressure 92/76 L Pulse Oximetry 97 96 95 Oxygen Delivery Oxygen Flow Rate 01/28/25 01:05 01/28/25 01:10 01/28/25 01:15 Temperature 36.6 C 36.6 C 36.6 C Pulse Rate 92 101 H 100 Respiratory Rate 13 13 13 Blood Pressure 98/69 L Pulse Oximetry 95 97 96 Oxygen Delivery Oxygen Flow Rate 01/28/25 01:16 01/28/25 01:20 01/28/25 01:25 Temperature 36.6 C 36.6 C 36.5 C Pulse Rate 95 107 H 97 Respiratory Rate 17 13 13 Blood Pressure Pulse Oximetry 93 95 Oxygen Delivery Oxygen Flow Rate 01/28/25 01:30 01/28/25 01:31 01/28/25 01:35 Temperature 36.5 C 36.5 C 36.5 C Pulse Rate 96 96 89 Respiratory Rate 13 13 14 Blood Pressure 82/55 L Pulse Oximetry 97 97 96 Oxygen Delivery Oxygen Flow Rate 01/28/25 01:40 01/28/25 01:45 01/28/25 01:46 Temperature 36.5 C 36.5 C 36.5 C Pulse Rate 98 90 81 Respiratory Rate 13 13 14 Blood Pressure 83/67 L 100/67 Pulse Oximetry 95 98 96 Oxygen Delivery Oxygen Flow Rate 01/28/25 01:47 01/28/25 01:50 01/28/25 01:55 Temperature 36.5 C 36.5 C 36.5 C Pulse Rate 93 87 87 Respiratory Rate 13 14 13 Blood Pressure Pulse Oximetry 98 96 Oxygen Delivery Oxygen Flow Rate 01/28/25 02:00 01/28/25 02:00 01/28/25 02:00 Temperature 36.5 C Pulse Rate 88 91 89 Respiratory Rate 13 Blood Pressure 104/65 91/70 L Pulse Oximetry Oxygen Delivery Oxygen Flow Rate 01/28/25 02:01 01/28/25 02:05 01/28/25 02:10 Temperature 36.5 C 36.5 C 36.5 C Pulse Rate 91 85 88 Respiratory Rate 14 13 13 Blood Pressure Pulse Oximetry 98 97 Oxygen Delivery Oxygen Flow Rate 01/28/25 02:15 01/28/25 02:16 01/28/25 02:20 Temperature 36.5 C 36.5 C 36.5 C Pulse Rate 87 81 86 Respiratory Rate 12 12 14 Blood Pressure 108/66 Pulse Oximetry 97 Oxygen Delivery Oxygen Flow Rate 01/28/25 02:25 01/28/25 02:30 01/28/25 02:31 Temperature 36.5 C 36.5 C 36.5 C Pulse Rate 90 99 89 Respiratory Rate 14 13 13 Blood Pressure 93/54 L Pulse Oximetry 100 99 Oxygen Delivery Oxygen Flow Rate 01/28/25 02:35 01/28/25 02:40 01/28/25 02:45 Temperature 36.5 C 36.5 C 36.5 C Pulse Rate 87 91 91 Respiratory Rate 13 14 14 Blood Pressure 102/60 Pulse Oximetry 96 Oxygen Delivery Oxygen Flow Rate 01/28/25 02:46 01/28/25 02:50 01/28/25 02:55 Temperature 36.5 C 36.5 C 36.5 C Pulse Rate 79 84 103 H Respiratory Rate 13 13 12 Blood Pressure Pulse Oximetry 98 Oxygen Delivery Oxygen Flow Rate 01/28/25 03:00 01/28/25 03:01 01/28/25 03:05 Temperature 36.5 C 36.5 C 36.5 C Pulse Rate 86 96 92 Respiratory Rate 14 15 16 Blood Pressure 111/73 Pulse Oximetry 97 99 Oxygen Delivery Oxygen Flow Rate 01/28/25 03:10 01/28/25 03:15 01/28/25 03:16 Temperature 36.5 C 36.5 C 36.5 C Pulse Rate 89 89 85 Respiratory Rate 13 13 13 Blood Pressure 105/74 Pulse Oximetry 98 98 Oxygen Delivery Oxygen Flow Rate 01/28/25 03:20 01/28/25 03:25 01/28/25 03:30 Temperature 36.5 C 36.5 C 36.5 C Pulse Rate 94 80 90 Respiratory Rate 15 13 25 H Blood Pressure 91/72 L Pulse Oximetry 95 91 Oxygen Delivery Oxygen Flow Rate 01/28/25 03:31 01/28/25 03:35 01/28/25 03:40 Temperature 36.5 C 36.5 C 36.5 C Pulse Rate 96 80 110 H Respiratory Rate 22 H 19 14 Blood Pressure Pulse Oximetry Oxygen Delivery Oxygen Flow Rate 01/28/25 03:45 01/28/25 03:46 01/28/25 03:50 Temperature 36.5 C 36.5 C 36.5 C Pulse Rate 90 93 98 Respiratory Rate 17 14 18 Blood Pressure 106/94 H Pulse Oximetry 97 Oxygen Delivery Oxygen Flow Rate 01/28/25 03:55 01/28/25 04:00 01/28/25 04:00 Temperature 36.5 C Pulse Rate 94 107 H 96 Respiratory Rate 18 Blood Pressure 115/75 Pulse Oximetry 96 Oxygen Delivery Oxygen Flow Rate 01/28/25 04:00 01/28/25 04:00 01/28/25 04:01 Temperature 36.6 C 36.6 C Pulse Rate 95 95 Respiratory Rate 17 16 Blood Pressure 115/75 Pulse Oximetry 94 93 Oxygen Delivery Room Air Oxygen Flow Rate 01/28/25 04:05 01/28/25 04:10 01/28/25 04:15 Temperature 36.6 C 36.6 C 36.6 C Pulse Rate 92 104 H 104 H Respiratory Rate 14 17 12 Blood Pressure 137/113 H Pulse Oximetry 99 Oxygen Delivery Oxygen Flow Rate 01/28/25 04:16 01/28/25 04:20 01/28/25 04:25 Temperature 36.6 C 36.6 C 36.6 C Pulse Rate 89 92 104 H Respiratory Rate 14 20 17 Blood Pressure Pulse Oximetry 100 Oxygen Delivery Oxygen Flow Rate 01/28/25 04:30 01/28/25 04:30 01/28/25 04:31 Temperature 36.6 C 36.6 C Pulse Rate 101 H 114 H 91 Respiratory Rate 14 15 Blood Pressure 122/100 H 125/100 H Pulse Oximetry 98 95 Oxygen Delivery Oxygen Flow Rate 01/28/25 04:35 01/28/25 04:40 01/28/25 04:45 Temperature 36.7 C 36.7 C 36.7 C Pulse Rate 94 85 98 Respiratory Rate 15 15 18 Blood Pressure Pulse Oximetry 100 98 Oxygen Delivery Oxygen Flow Rate 01/28/25 04:47 01/28/25 04:50 01/28/25 04:55 Temperature 36.7 C 36.7 C 36.7 C Pulse Rate 100 100 92 Respiratory Rate 20 16 16 Blood Pressure 141/105 H Pulse Oximetry 99 98 100 Oxygen Delivery Oxygen Flow Rate 01/28/25 05:00 01/28/25 05:01 01/28/25 05:05 Temperature 36.7 C 36.7 C 36.7 C Pulse Rate 86 98 97 Respiratory Rate 16 14 14 Blood Pressure 113/74 Pulse Oximetry 95 95 94 Oxygen Delivery Oxygen Flow Rate 01/28/25 05:10 01/28/25 05:15 01/28/25 05:16 Temperature 36.7 C 36.7 C 36.7 C Pulse Rate 91 92 92 Respiratory Rate 13 18 14 Blood Pressure 100/87 Pulse Oximetry 94 100 93 Oxygen Delivery Oxygen Flow Rate 01/28/25 05:20 01/28/25 05:25 01/28/25 05:30 Temperature 36.7 C 36.7 C 36.7 C Pulse Rate 87 98 94 Respiratory Rate 13 14 15 Blood Pressure Pulse Oximetry 96 95 Oxygen Delivery Oxygen Flow Rate 01/28/25 05:32 01/28/25 05:35 01/28/25 05:40 Temperature 36.7 C 36.7 C 36.7 C Pulse Rate 87 96 96 Respiratory Rate 13 12 14 Blood Pressure 112/83 Pulse Oximetry 100 96 100 Oxygen Delivery Oxygen Flow Rate 01/28/25 05:45 01/28/25 05:49 01/28/25 05:50 Temperature 36.7 C 36.7 C 36.7 C Pulse Rate 83 90 87 Respiratory Rate 13 15 13 Blood Pressure 116/65 Pulse Oximetry 97 99 95 Oxygen Delivery Oxygen Flow Rate 01/28/25 05:55 01/28/25 06:00 01/28/25 06:00 Temperature 36.7 C 36.7 C Pulse Rate 97 86 91 Respiratory Rate 12 13 Blood Pressure Pulse Oximetry 95 99 Oxygen Delivery Oxygen Flow Rate 01/28/25 06:02 01/28/25 06:03 01/28/25 06:05 Temperature 36.7 C 36.7 C Pulse Rate 85 85 92 Respiratory Rate 13 13 Blood Pressure 134/109 H 117/54 L Pulse Oximetry 97 99 Oxygen Delivery Oxygen Flow Rate 01/28/25 06:05 01/28/25 06:06 01/28/25 06:10 Temperature 36.7 C 36.7 C 36.7 C Pulse Rate 92 94 85 Respiratory Rate 13 16 13 Blood Pressure 117/54 L Pulse Oximetry 97 93 99 Oxygen Delivery Oxygen Flow Rate 01/28/25 06:15 01/28/25 06:17 01/28/25 06:20 Temperature 36.7 C 36.7 C 36.7 C Pulse Rate 109 H 100 89 Respiratory Rate 18 16 14 Blood Pressure 129/60 Pulse Oximetry 93 Oxygen Delivery Oxygen Flow Rate 01/28/25 06:25 01/28/25 06:30 01/28/25 06:35 Temperature 36.7 C 36.7 C 36.8 C Pulse Rate 100 101 H 85 Respiratory Rate 14 14 17 Blood Pressure Pulse Oximetry Oxygen Delivery Oxygen Flow Rate 01/28/25 06:42 01/28/25 06:45 01/28/25 07:00 Temperature 36.8 C 36.8 C 36.8 C Pulse Rate 91 92 84 Respiratory Rate 12 11 L 14 Blood Pressure 135/75 122/54 L Pulse Oximetry 97 100 97 Oxygen Delivery Oxygen Flow Rate 01/28/25 08:00 Temperature 36.8 C Pulse Rate 80 Respiratory Rate 13 Blood Pressure 125/66 Pulse Oximetry 99 Oxygen Delivery Oxygen Flow Rate Intake/Output Intake/Output: Intake & Output 01/25/25 01/26/25 01/27/25 01/28/25 23:59 23:59 23:59 23:59 Intake Total 1135.0 609.2 60.5 Output Total 575 425 Balance 1135.0 34.2 -364.5 Meds/Results Medications: Active Medications Generic Name Dose Route Start Last Admin Trade Name Freq PRN Reason Stop Dose Admin Dextrose 12.5 gm 01/27/25 01:22 Dextrose 50% 25 Gm/50 Ml Syringe IV PUSH PRN PRN Hypoglycemia Protocol Enoxaparin Sodium 40 mg 01/27/25 10:15 01/27/25 11:28 Enoxaparin 40 Mg/0.4 Ml Syringe SUB-Q 40 mg DAILY [facility] Administration Glucagon 1 mg 01/27/25 01:22 Glucagon For Inj 1 Mg Vial IM PRN PRN Hypoglycemia Protocol Dextrose 1,000 mls @ 100 mls/hr 01/27/25 01:22 Dextrose 5% 1,000 Ml IVPB PRN PRN Hypoglycemia Protocol Piperacillin Sod/Tazobactam 50 mls @ 100 mls/hr 01/27/25 03:00 01/28/25 05:14 Sod 2.25 gm/ Sodium Chloride IVPB Infused Q6H [facility] Infusion Vancomycin HCl 1,250 mg in 250 mls @ 166.667 mls/hr 01/28/25 15:00 Vancomycin 1,250 Mg/Ns 250 Ml IVPB Q36H [facility] Norepinephrine Bitartrate 8 mg in 250 mls @ 0 mls/hr 01/27/25 14:55 01/28/25 06:05 Levophed 8 Mg/D5w 250 Ml IV CONT 0 mcg/min .Q0M [facility] 0 mls/hr Protocol Titration 0 MCG/MIN Potassium Chloride 100 mls @ 25 mls/hr 01/28/25 08:15 Kcl 40 Meq/Water 100 Ml IVPB 01/28/25 12:14 ONCE ONE Insulin Aspart 3 - 6 units 01/27/25 12:00 01/28/25 05:48 Insulin Aspart (*Bkc) 100 Units/Ml SUB-Q Not Given Q6HR [facility] Protocol Ketorolac Tromethamine 1 drop 01/27/25 06:00 01/28/25 05:56 Ketorolac 0.5% Op Soln 5 Ml Bottle EACH EYE Not Given Q6HR [facility] Levothyroxine Sodium 62.5 mcg 01/27/25 11:25 01/28/25 05:55 Levothyroxine Sodium Inj 100 Mcg/5 Ml Vial IV PUSH 62.5 mcg DAILY@0630 [facility] Administration Lidocaine 1 patch 01/27/25 01:24 Lidocaine 5% Patch TOPICAL Q24H PRN Pain Mupirocin 1 applic 01/27/25 09:00 01/27/25 20:24 Mupirocin 2% Oint 22 Gm Tube EACH NARE 01/31/25 21:01 1 applic Q12HR [facility] Administration Pantoprazole Sodium 40 mg 01/27/25 09:00 01/27/25 20:18 Pantoprazole Sodium Iv 40 Mg Vial IV PUSH 40 mg Q12HR [facility] Administration Sodium Chloride 10 ml 01/27/25 14:00 01/28/25 05:56 Central Line Flush IV PUSH 10 ml Q8HR [facility] Administration Sodium Chloride 10 ml 01/27/25 11:07 Central Line Flush IV PUSH PRN PRN with TPN bag changes Sodium Chloride 20 ml 01/27/25 11:07 Central Line Flush IV PUSH PRN PRN after blood draws Sodium Chloride 10 ml 01/27/25 14:00 01/28/25 05:56 Central Line Flush IV PUSH 10 ml Q8HR [facility] Administration Sodium Chloride 10 ml 01/27/25 11:11 Central Line Flush IV PUSH PRN PRN with TPN bag changes Sodium Chloride 20 ml 01/27/25 11:11 Central Line Flush IV PUSH PRN PRN after blood draws Radiology Results: ITS Impressions Head CT 01/26/25 17:46 Impression: 1.No acute intracranial abnormality. Chest/Abdomen/Pelvis CT 01/26/25 17:53 IMPRESSION: 1. No evidence of pulmonary consolidation are atelectasis. Mild vascular congestion of lungs severe cardiomegaly and postoperative changes as described above. 2. Within the abdomen, there is significant finding of small drops of air in the peripheral portal veins within the left lobe of the liver. This would raise a concern for ischemic bowel disease. 3. Significant Calcific changes at the proximal celiac axis and superior mesenteric artery and right renal artery. 4. Normal bowel obstruction or bowel wall thickening. No evidence of fluid or free air in the peritoneal cavity. 5. Critical findings conveyed to attending physician by telephone call at 6:07 PM. Venous Doppler Study 01/27/25 10:15 IMPRESSION: 1. No DVT either leg. Chest X-Ray 01/27/25 11:19 IMPRESSION: 1. Right PICC placed but tip not identified. 2. Right neck central line unchanged with catheter retrograde into left innominate vein. 3. No cardiopulmonary change. Labs Labs: Laboratory Results - last 24 hr 01/27/25 01/27/25 01/27/25 09:42 09:47 11:46 WBC 18.8 H RBC 3.55 L Hgb 10.1 L Hct 32.9 L MCV 92.7 MCH 28.5 MCHC 30.7 L RDW 17.3 H Plt Count 324 MPV 9.0 Immature Gran % (Auto) Not Reportable Neut % (Auto) Not Reportable Lymph % (Auto) Not Reportable Mineral % (Auto) Not Reportable Eos % (Auto) Not Reportable Baso % (Auto) Not Reportable Lymph # (Auto) Not Reportable Mineral # (Auto) Not Reportable Eos # (Auto) Not Reportable Baso # (Auto) Not Reportable Abs Immat Gran (auto) Not Reportable Absolute Neuts (auto) Not Reportable Absolute Nucleated RBC Not Reportable Total Counted 100 Neutrophils % (Manual) 93 H Band Neutrophils % 0 Lymphocytes % (Manual) 12 L Monocytes % (Manual) 5 Eosinophils % (Manual) 0 Basophils % (Manual) 0 Nucleated RBC % Not Reportable Abs Neuts (Manual) 17.48 H Abs Lymphs (Manual) 2.25 Abs Monocytes (Manual) 0.94 H Absolute Eos (Manual) 0.00 L Abs Basophils (Manual) 0.00 Atypical Lymphocytes Present Platelet Estimate Adequate Hypochromasia 1+ Anisocytosis 1+ Schistocytes None seen PT 19.2 H INR 1.7 APTT 46.9 H Sodium 131 L Potassium 4.5 Chloride 99 Carbon Dioxide 26 Anion Gap 6 BUN 67 H Creatinine 1.05 H Estim Creat Clear Calc Not Reportable Estimated GFR 51 L Glucose 121 H POC Capillary Glucose 114 H Lactic Acid 1.4 Calcium 8.7 Phosphorus 4.2 Magnesium 2.1 Total Bilirubin 0.3 AST 21 ALT 15 Alkaline Phosphatase 64 C-Reactive Protein Total Protein 5.8 L Albumin 2.9 L Lipase 26 Ur Random Sodium < 5 01/27/25 01/28/25 01/28/25 17:17 00:03 04:51 WBC 14.7 H RBC 3.02 L Hgb 8.5 L Hct 27.8 L MCV 92.1 MCH 28.1 MCHC 30.6 L RDW 17.3 H Plt Count 242 MPV 8.8 Immature Gran % (Auto) 0.4 Neut % (Auto) 88.3 H Lymph % (Auto) 6.5 L Mineral % (Auto) 4.3 Eos % (Auto) 0.3 Baso % (Auto) 0.2 Lymph # (Auto) 0.96 Mineral # (Auto) 0.6 Eos # (Auto) 0.1 Baso # (Auto) 0.0 Abs Immat Gran (auto) 0.06 H Absolute Neuts (auto) 13.0 H Absolute Nucleated RBC 0.000 Total Counted Neutrophils % (Manual) Band Neutrophils % Lymphocytes % (Manual) Monocytes % (Manual) Eosinophils % (Manual) Basophils % (Manual) Nucleated RBC % 0.0 Abs Neuts (Manual) Abs Lymphs (Manual) Abs Monocytes (Manual) Absolute Eos (Manual) Abs Basophils (Manual) Atypical Lymphocytes Platelet Estimate Hypochromasia Anisocytosis Schistocytes PT INR APTT Sodium 136 L Potassium 3.5 Chloride 104 Carbon Dioxide 27 Anion Gap 5 BUN 48 H D Creatinine 0.82 Estim Creat Clear Calc Not Reportable Estimated GFR > 60 Glucose 96 POC Capillary Glucose 110 H 118 H Lactic Acid 0.8 Calcium 8.8 Phosphorus 3.0 Magnesium 1.9 Total Bilirubin 0.5 AST 20 ALT 12 Alkaline Phosphatase 55 C-Reactive Protein 19.6 H Total Protein 5.7 L Albumin 3.0 L Lipase Ur Random Sodium Quality VTE Prophylaxis VTE prophylaxis: pharmacologic ordered
[2025-01-28] MEDS: ENOXAPARIN 40 MG/0.4 ML SYRINGE SUB-Q (09:27)
[2025-01-28] MEDS: KCL 40 MEQ/WATER 100 ML 100 ML 25 ML IVPB (09:27)
[2025-01-28] MEDS: PANTOPRAZOLE SODIUM IV 40 MG VIAL IV PUSH ×2 (09:27→20:35)
[2025-01-28] MEDS: MUPIROCIN 2% OINT 22 GM TUBE 1 APPLIC EACH NARE ×2 (10:00→20:35)
--- NOTE | 2025-01-28 10:23 | P.PNGS_ITS ---
Progress Note: A&P Assessment and Plan (1) Septic shock: Code(s): A41.9 - Sepsis, unspecified organism; R65.21 - Severe sepsis with septic shock Status: Acute Assessment and Plan: seems to be improving, continue broad-spectrum antibiotics, off all pressors this morning, leukocytosis improving (2) Ischemic bowel disease: Code(s): K55.9 - Vascular disorder of intestine, unspecified Status: Acute Assessment and Plan: no peritoneal signs on exam, repeat CT ordered for today, lactate continues to be normal Subjective Subjective Date/Time Seen: 01/28/25 10:23 Interval history: no acute issues overnight, seems to be a little bit more coherent today Review of Systems Review of Systems: ROS unobtainable: Yes unobtainable due to medical condition and unobtainable due to mental status Exam Const: General: cooperative, no acute distress, ill appearing and uncomfortable Resp: Auscultation: diminished lung sounds Cardio: Rate: tachycardic Rhythm: regular rhythm GI: Inspection: normal to inspection and distended GI Palp: Yes abdominal tenderness, Yes Soft to palpation, Yes Tenderness to palpation present (GI), No Guarding due to palpation present (GI) and No Rigid due to palpation Objective Data Vital Signs Vital Signs: Vital Signs - 24 hr 01/27/25 11:00 01/27/25 12:00 01/27/25 12:00 Temperature 37.1 C 36.9 C Pulse Rate 98 94 Respiratory Rate 16 13 Blood Pressure 92/55 L 96/67 L Pulse Oximetry 100 100 100 Oxygen Delivery Nasal Cannula Oxygen Flow Rate 2 01/27/25 12:00 01/27/25 13:00 01/27/25 14:00 Temperature 36.7 C Pulse Rate 96 85 81 Respiratory Rate 13 Blood Pressure 105/67 Pulse Oximetry 100 Oxygen Delivery Oxygen Flow Rate 01/27/25 14:00 01/27/25 14:56 01/27/25 15:00 Temperature 36.8 C 36.7 C Pulse Rate 108 H 93 92 Respiratory Rate 14 12 Blood Pressure 78/43 L 77/47 L 71/41 L Pulse Oximetry 100 100 Oxygen Delivery Oxygen Flow Rate 01/27/25 15:45 01/27/25 16:00 01/27/25 16:00 Temperature 36.8 C Pulse Rate 93 94 94 Respiratory Rate 16 Blood Pressure 95/53 L 99/65 L 99/65 L Pulse Oximetry 100 Oxygen Delivery Oxygen Flow Rate 01/27/25 16:00 01/27/25 16:00 01/27/25 16:30 Temperature Pulse Rate 107 H 102 H Respiratory Rate Blood Pressure 126/99 H Pulse Oximetry 100 Oxygen Delivery Room Air Oxygen Flow Rate 01/27/25 17:00 01/27/25 17:20 01/27/25 17:38 Temperature 36.8 C Pulse Rate 104 H 102 H 100 Respiratory Rate 13 Blood Pressure 119/106 H 119/106 H 81/42 L Pulse Oximetry 95 Oxygen Delivery Oxygen Flow Rate 01/27/25 18:00 01/27/25 18:00 01/27/25 18:07 Temperature 36.9 C Pulse Rate 107 H 103 H 98 Respiratory Rate 14 Blood Pressure 92/56 L 76/50 L Pulse Oximetry 98 Oxygen Delivery Oxygen Flow Rate 01/27/25 19:00 01/27/25 19:00 01/27/25 19:01 Temperature 36.9 C 36.9 C Pulse Rate 95 104 H 96 Respiratory Rate 13 13 13 Blood Pressure 74/53 L 95/53 L Pulse Oximetry 93 92 88 L Oxygen Delivery Oxygen Flow Rate 01/27/25 19:15 01/27/25 19:20 01/27/25 19:23 Temperature 37.0 C 37.0 C Pulse Rate 94 97 95 Respiratory Rate 12 13 Blood Pressure 74/53 L 74/53 L Pulse Oximetry 94 95 Oxygen Delivery Oxygen Flow Rate 01/27/25 19:30 01/27/25 19:31 01/27/25 19:45 Temperature 37.0 C 37.0 C 36.9 C Pulse Rate 100 92 89 Respiratory Rate 13 13 12 Blood Pressure 86/47 L 87/50 L Pulse Oximetry 94 94 95 Oxygen Delivery Oxygen Flow Rate 01/27/25 19:46 01/27/25 20:00 01/27/25 20:00 Temperature 36.9 C Pulse Rate 98 102 H Respiratory Rate 12 Blood Pressure Pulse Oximetry 95 Oxygen Delivery Room Air Oxygen Flow Rate 01/27/25 20:00 01/27/25 20:01 01/27/25 20:15 Temperature 36.9 C 36.9 C 36.9 C Pulse Rate 96 100 118 H Respiratory Rate 12 13 13 Blood Pressure 131/96 H 121/99 H Pulse Oximetry 96 94 97 Oxygen Delivery Oxygen Flow Rate 01/27/25 20:16 01/27/25 20:20 01/27/25 20:30 Temperature 36.9 C 36.9 C Pulse Rate 109 H 111 H 121 H Respiratory Rate 11 L 13 Blood Pressure 121/99 H 136/115 H Pulse Oximetry 97 95 Oxygen Delivery Oxygen Flow Rate 01/27/25 20:31 01/27/25 20:32 01/27/25 20:36 Temperature 36.9 C 36.9 C 36.9 C Pulse Rate 110 H 110 H 126 H Respiratory Rate 18 15 14 Blood Pressure 53/43 L 93/77 L Pulse Oximetry 97 96 97 Oxygen Delivery Oxygen Flow Rate 01/27/25 20:45 01/27/25 20:46 01/27/25 20:58 Temperature 36.9 C 36.9 C Pulse Rate 117 H 108 H Respiratory Rate 15 16 Blood Pressure 131/86 Pulse Oximetry 97 94 96 Oxygen Delivery Room Air Oxygen Flow Rate 01/27/25 21:00 01/27/25 21:01 01/27/25 21:15 Temperature 36.9 C 36.9 C 36.9 C Pulse Rate 103 H 104 H 99 Respiratory Rate 12 12 11 L Blood Pressure 117/88 107/93 H Pulse Oximetry 95 95 95 Oxygen Delivery Oxygen Flow Rate 01/27/25 21:16 01/27/25 21:30 01/27/25 21:30 Temperature 36.9 C 36.9 C Pulse Rate 93 109 H 95 Respiratory Rate 12 12 Blood Pressure 120/104 H 120/104 H Pulse Oximetry 94 95 Oxygen Delivery Oxygen Flow Rate 01/27/25 21:31 01/27/25 21:35 01/27/25 21:40 Temperature 36.9 C 36.9 C 36.9 C Pulse Rate 95 100 108 H Respiratory Rate 13 12 12 Blood Pressure Pulse Oximetry 93 93 94 Oxygen Delivery Oxygen Flow Rate 01/27/25 21:45 01/27/25 21:46 01/27/25 21:50 Temperature 36.9 C 36.9 C 36.9 C Pulse Rate 103 H 95 105 H Respiratory Rate 13 11 L 12 Blood Pressure 136/109 H Pulse Oximetry 97 98 93 Oxygen Delivery Oxygen Flow Rate 01/27/25 21:55 01/27/25 22:00 01/27/25 22:00 Temperature 36.8 C Pulse Rate 95 97 97 Respiratory Rate 12 Blood Pressure 130/90 Pulse Oximetry 93 Oxygen Delivery Oxygen Flow Rate 01/27/25 22:00 01/27/25 22:01 01/27/25 22:05 Temperature 36.8 C 36.8 C 36.8 C Pulse Rate 96 93 95 Respiratory Rate 15 12 12 Blood Pressure 130/90 Pulse Oximetry 96 94 95 Oxygen Delivery Oxygen Flow Rate 01/27/25 22:10 01/27/25 22:15 01/27/25 22:16 Temperature 36.8 C 36.8 C 36.8 C Pulse Rate 104 H 97 96 Respiratory Rate 15 12 12 Blood Pressure 129/73 Pulse Oximetry 96 97 95 Oxygen Delivery Oxygen Flow Rate 01/27/25 22:20 01/27/25 22:25 01/27/25 22:30 Temperature 36.8 C 36.8 C 36.8 C Pulse Rate 95 88 95 Respiratory Rate 12 12 12 Blood Pressure 126/82 Pulse Oximetry 95 94 96 Oxygen Delivery Oxygen Flow Rate 01/27/25 22:31 01/27/25 22:35 01/27/25 22:40 Temperature 36.8 C 36.8 C 36.8 C Pulse Rate 93 105 H 92 Respiratory Rate 12 13 13 Blood Pressure Pulse Oximetry 95 96 96 Oxygen Delivery Oxygen Flow Rate 01/27/25 22:45 01/27/25 22:46 01/27/25 22:50 Temperature 36.7 C 36.7 C 36.7 C Pulse Rate 101 H 93 101 H Respiratory Rate 12 12 12 Blood Pressure 112/94 H Pulse Oximetry 96 97 97 Oxygen Delivery Oxygen Flow Rate 01/27/25 22:55 01/27/25 23:00 01/27/25 23:01 Temperature 36.7 C 36.7 C 36.7 C Pulse Rate 89 97 91 Respiratory Rate 12 12 11 L Blood Pressure 107/62 Pulse Oximetry 96 Oxygen Delivery Oxygen Flow Rate 01/27/25 23:05 01/27/25 23:10 01/27/25 23:15 Temperature 36.7 C 36.7 C 36.7 C Pulse Rate 100 92 90 Respiratory Rate 12 12 12 Blood Pressure Pulse Oximetry 97 97 97 Oxygen Delivery Oxygen Flow Rate 01/27/25 23:16 01/27/25 23:17 01/27/25 23:20 Temperature 36.7 C 36.7 C 36.7 C Pulse Rate 102 H 95 98 Respiratory Rate 14 12 12 Blood Pressure 67/46 L 106/67 Pulse Oximetry 98 97 97 Oxygen Delivery Oxygen Flow Rate 01/27/25 23:25 01/27/25 23:30 01/27/25 23:31 Temperature 36.7 C 36.7 C 36.7 C Pulse Rate 83 107 H 97 Respiratory Rate 12 12 11 L Blood Pressure 116/102 H Pulse Oximetry 97 99 97 Oxygen Delivery Oxygen Flow Rate 01/27/25 23:35 01/27/25 23:39 01/27/25 23:40 Temperature 36.7 C 36.7 C Pulse Rate 96 109 H 93 Respiratory Rate 11 L 15 Blood Pressure 116/102 H Pulse Oximetry 95 97 Oxygen Delivery Oxygen Flow Rate 01/27/25 23:45 01/27/25 23:46 01/27/25 23:50 Temperature 36.6 C 36.6 C 36.6 C Pulse Rate 91 93 93 Respiratory Rate 12 12 12 Blood Pressure 112/80 Pulse Oximetry 99 97 97 Oxygen Delivery Oxygen Flow Rate 01/27/25 23:55 01/28/25 00:00 01/28/25 00:00 Temperature 36.6 C Pulse Rate 94 114 H Respiratory Rate 12 Blood Pressure Pulse Oximetry 98 Oxygen Delivery Room Air Oxygen Flow Rate 01/28/25 00:00 01/28/25 00:01 01/28/25 00:05 Temperature 36.6 C 36.6 C 36.6 C Pulse Rate 97 103 H 104 H Respiratory Rate 12 14 13 Blood Pressure 91/70 L Pulse Oximetry 96 97 Oxygen Delivery Oxygen Flow Rate 01/28/25 00:10 01/28/25 00:15 01/28/25 00:16 Temperature 36.6 C 36.6 C 36.6 C Pulse Rate 113 H 106 H 110 H Respiratory Rate 13 27 H 23 H Blood Pressure 129/83 Pulse Oximetry 94 83 L Oxygen Delivery Oxygen Flow Rate 01/28/25 00:20 01/28/25 00:22 01/28/25 00:25 Temperature 36.6 C 36.6 C Pulse Rate 115 H 105 H 101 H Respiratory Rate 20 12 Blood Pressure 129/83 Pulse Oximetry 98 Oxygen Delivery Oxygen Flow Rate 01/28/25 00:30 01/28/25 00:31 01/28/25 00:35 Temperature 36.6 C 36.6 C 36.6 C Pulse Rate 116 H 101 H 105 H Respiratory Rate 15 12 20 Blood Pressure 102/74 Pulse Oximetry 98 96 98 Oxygen Delivery Oxygen Flow Rate 01/28/25 00:40 01/28/25 00:45 01/28/25 00:47 Temperature 36.6 C 36.6 C 36.6 C Pulse Rate 94 96 101 H Respiratory Rate 17 17 14 Blood Pressure 108/93 H Pulse Oximetry 94 97 Oxygen Delivery Oxygen Flow Rate 01/28/25 00:50 01/28/25 00:55 01/28/25 01:00 Temperature 36.6 C 36.6 C 36.6 C Pulse Rate 98 105 H 97 Respiratory Rate 12 12 13 Blood Pressure 92/76 L Pulse Oximetry 96 97 96 Oxygen Delivery Oxygen Flow Rate 01/28/25 01:01 01/28/25 01:05 01/28/25 01:10 Temperature 36.6 C 36.6 C 36.6 C Pulse Rate 94 92 101 H Respiratory Rate 13 13 13 Blood Pressure Pulse Oximetry 95 95 97 Oxygen Delivery Oxygen Flow Rate 01/28/25 01:15 01/28/25 01:16 01/28/25 01:20 Temperature 36.6 C 36.6 C 36.6 C Pulse Rate 100 95 107 H Respiratory Rate 13 17 13 Blood Pressure 98/69 L Pulse Oximetry 96 93 Oxygen Delivery Oxygen Flow Rate 01/28/25 01:25 01/28/25 01:30 01/28/25 01:31 Temperature 36.5 C 36.5 C 36.5 C Pulse Rate 97 96 96 Respiratory Rate 13 13 13 Blood Pressure 82/55 L Pulse Oximetry 95 97 97 Oxygen Delivery Oxygen Flow Rate 01/28/25 01:35 01/28/25 01:40 01/28/25 01:45 Temperature 36.5 C 36.5 C 36.5 C Pulse Rate 89 98 90 Respiratory Rate 14 13 13 Blood Pressure 83/67 L Pulse Oximetry 96 95 98 Oxygen Delivery Oxygen Flow Rate 01/28/25 01:46 01/28/25 01:47 01/28/25 01:50 Temperature 36.5 C 36.5 C 36.5 C Pulse Rate 81 93 87 Respiratory Rate 14 13 14 Blood Pressure 100/67 Pulse Oximetry 96 98 Oxygen Delivery Oxygen Flow Rate 01/28/25 01:55 01/28/25 02:00 01/28/25 02:00 Temperature 36.5 C 36.5 C Pulse Rate 87 88 91 Respiratory Rate 13 13 Blood Pressure 104/65 Pulse Oximetry 96 Oxygen Delivery Oxygen Flow Rate 01/28/25 02:00 01/28/25 02:01 01/28/25 02:05 Temperature 36.5 C 36.5 C Pulse Rate 89 91 85 Respiratory Rate 14 13 Blood Pressure 91/70 L Pulse Oximetry 98 97 Oxygen Delivery Oxygen Flow Rate 01/28/25 02:10 01/28/25 02:15 01/28/25 02:16 Temperature 36.5 C 36.5 C 36.5 C Pulse Rate 88 87 81 Respiratory Rate 13 12 12 Blood Pressure 108/66 Pulse Oximetry 97 Oxygen Delivery Oxygen Flow Rate 01/28/25 02:20 01/28/25 02:25 01/28/25 02:30 Temperature 36.5 C 36.5 C 36.5 C Pulse Rate 86 90 99 Respiratory Rate 14 14 13 Blood Pressure 93/54 L Pulse Oximetry 100 Oxygen Delivery Oxygen Flow Rate 01/28/25 02:31 01/28/25 02:35 01/28/25 02:40 Temperature 36.5 C 36.5 C 36.5 C Pulse Rate 89 87 91 Respiratory Rate 13 13 14 Blood Pressure Pulse Oximetry 99 96 Oxygen Delivery Oxygen Flow Rate 01/28/25 02:45 01/28/25 02:46 01/28/25 02:50 Temperature 36.5 C 36.5 C 36.5 C Pulse Rate 91 79 84 Respiratory Rate 14 13 13 Blood Pressure 102/60 Pulse Oximetry 98 Oxygen Delivery Oxygen Flow Rate 01/28/25 02:55 01/28/25 03:00 01/28/25 03:01 Temperature 36.5 C 36.5 C 36.5 C Pulse Rate 103 H 86 96 Respiratory Rate 12 14 15 Blood Pressure 111/73 Pulse Oximetry 97 Oxygen Delivery Oxygen Flow Rate 01/28/25 03:05 01/28/25 03:10 01/28/25 03:15 Temperature 36.5 C 36.5 C 36.5 C Pulse Rate 92 89 89 Respiratory Rate 16 13 13 Blood Pressure 105/74 Pulse Oximetry 99 98 Oxygen Delivery Oxygen Flow Rate 01/28/25 03:16 01/28/25 03:20 01/28/25 03:25 Temperature 36.5 C 36.5 C 36.5 C Pulse Rate 85 94 80 Respiratory Rate 13 15 13 Blood Pressure Pulse Oximetry 98 95 Oxygen Delivery Oxygen Flow Rate 01/28/25 03:30 01/28/25 03:31 01/28/25 03:35 Temperature 36.5 C 36.5 C 36.5 C Pulse Rate 90 96 80 Respiratory Rate 25 H 22 H 19 Blood Pressure 91/72 L Pulse Oximetry 91 Oxygen Delivery Oxygen Flow Rate 01/28/25 03:40 01/28/25 03:45 01/28/25 03:46 Temperature 36.5 C 36.5 C 36.5 C Pulse Rate 110 H 90 93 Respiratory Rate 14 17 14 Blood Pressure 106/94 H Pulse Oximetry Oxygen Delivery Oxygen Flow Rate 01/28/25 03:50 01/28/25 03:55 01/28/25 04:00 Temperature 36.5 C 36.5 C Pulse Rate 98 94 107 H Respiratory Rate 18 18 Blood Pressure 115/75 Pulse Oximetry 97 96 Oxygen Delivery Oxygen Flow Rate 01/28/25 04:00 01/28/25 04:00 01/28/25 04:00 Temperature 36.6 C Pulse Rate 96 95 Respiratory Rate 17 Blood Pressure 115/75 Pulse Oximetry 94 93 Oxygen Delivery Room Air Oxygen Flow Rate 01/28/25 04:01 01/28/25 04:05 01/28/25 04:10 Temperature 36.6 C 36.6 C 36.6 C Pulse Rate 95 92 104 H Respiratory Rate 16 14 17 Blood Pressure Pulse Oximetry 99 Oxygen Delivery Oxygen Flow Rate 01/28/25 04:15 01/28/25 04:16 01/28/25 04:20 Temperature 36.6 C 36.6 C 36.6 C Pulse Rate 104 H 89 92 Respiratory Rate 12 14 20 Blood Pressure 137/113 H Pulse Oximetry Oxygen Delivery Oxygen Flow Rate 01/28/25 04:25 01/28/25 04:30 01/28/25 04:30 Temperature 36.6 C 36.6 C Pulse Rate 104 H 101 H 114 H Respiratory Rate 17 14 Blood Pressure 122/100 H Pulse Oximetry 100 98 Oxygen Delivery Oxygen Flow Rate 01/28/25 04:31 01/28/25 04:35 01/28/25 04:40 Temperature 36.6 C 36.7 C 36.7 C Pulse Rate 91 94 85 Respiratory Rate 15 15 15 Blood Pressure 125/100 H Pulse Oximetry 95 100 98 Oxygen Delivery Oxygen Flow Rate 01/28/25 04:45 01/28/25 04:47 01/28/25 04:50 Temperature 36.7 C 36.7 C 36.7 C Pulse Rate 98 100 100 Respiratory Rate 18 20 16 Blood Pressure 141/105 H Pulse Oximetry 99 98 Oxygen Delivery Oxygen Flow Rate 01/28/25 04:55 01/28/25 05:00 01/28/25 05:01 Temperature 36.7 C 36.7 C 36.7 C Pulse Rate 92 86 98 Respiratory Rate 16 16 14 Blood Pressure 113/74 Pulse Oximetry 100 95 95 Oxygen Delivery Oxygen Flow Rate 01/28/25 05:05 01/28/25 05:10 01/28/25 05:15 Temperature 36.7 C 36.7 C 36.7 C Pulse Rate 97 91 92 Respiratory Rate 14 13 18 Blood Pressure Pulse Oximetry 94 94 100 Oxygen Delivery Oxygen Flow Rate 01/28/25 05:16 01/28/25 05:20 01/28/25 05:25 Temperature 36.7 C 36.7 C 36.7 C Pulse Rate 92 87 98 Respiratory Rate 14 13 14 Blood Pressure 100/87 Pulse Oximetry 93 96 Oxygen Delivery Oxygen Flow Rate 01/28/25 05:30 01/28/25 05:32 01/28/25 05:35 Temperature 36.7 C 36.7 C 36.7 C Pulse Rate 94 87 96 Respiratory Rate 15 13 12 Blood Pressure 112/83 Pulse Oximetry 95 100 96 Oxygen Delivery Oxygen Flow Rate 01/28/25 05:40 01/28/25 05:45 01/28/25 05:49 Temperature 36.7 C 36.7 C 36.7 C Pulse Rate 96 83 90 Respiratory Rate 14 13 15 Blood Pressure 116/65 Pulse Oximetry 100 97 99 Oxygen Delivery Oxygen Flow Rate 01/28/25 05:50 01/28/25 05:55 01/28/25 06:00 Temperature 36.7 C 36.7 C Pulse Rate 87 97 86 Respiratory Rate 13 12 Blood Pressure Pulse Oximetry 95 95 Oxygen Delivery Oxygen Flow Rate 01/28/25 06:00 01/28/25 06:02 01/28/25 06:03 Temperature 36.7 C 36.7 C 36.7 C Pulse Rate 91 85 85 Respiratory Rate 13 13 13 Blood Pressure 134/109 H Pulse Oximetry 99 97 99 Oxygen Delivery Oxygen Flow Rate 01/28/25 06:05 01/28/25 06:05 01/28/25 06:06 Temperature 36.7 C 36.7 C Pulse Rate 92 92 94 Respiratory Rate 13 16 Blood Pressure 117/54 L 117/54 L Pulse Oximetry 97 93 Oxygen Delivery Oxygen Flow Rate 01/28/25 06:10 01/28/25 06:15 01/28/25 06:17 Temperature 36.7 C 36.7 C 36.7 C Pulse Rate 85 109 H 100 Respiratory Rate 13 18 16 Blood Pressure 129/60 Pulse Oximetry 99 93 Oxygen Delivery Oxygen Flow Rate 01/28/25 06:20 01/28/25 06:25 01/28/25 06:30 Temperature 36.7 C 36.7 C 36.7 C Pulse Rate 89 100 101 H Respiratory Rate 14 14 14 Blood Pressure Pulse Oximetry Oxygen Delivery Oxygen Flow Rate 01/28/25 06:35 01/28/25 06:42 01/28/25 06:45 Temperature 36.8 C 36.8 C 36.8 C Pulse Rate 85 91 92 Respiratory Rate 17 12 11 L Blood Pressure 135/75 Pulse Oximetry 97 100 Oxygen Delivery Oxygen Flow Rate 01/28/25 07:00 01/28/25 08:00 01/28/25 08:00 Temperature 36.8 C 36.8 C Pulse Rate 84 80 98 Respiratory Rate 14 13 Blood Pressure 122/54 L 125/66 125/66 Pulse Oximetry 97 99 Oxygen Delivery Oxygen Flow Rate 01/28/25 09:00 01/28/25 10:00 01/28/25 10:00 Temperature 36.8 C 36.6 C Pulse Rate 83 94 105 H Respiratory Rate 14 15 Blood Pressure 143/105 H 148/69 H Pulse Oximetry 100 90 Oxygen Delivery Oxygen Flow Rate Intake/Output Intake/Output: Intake & Output 01/25/25 01/26/25 01/27/25 01/28/25 23:59 23:59 23:59 23:59 Intake Total 1135.0 609.2 60.5 Output Total 575 425 Balance 1135.0 34.2 -364.5 Meds/Results Medications: Active Medications Generic Name Dose Route Start Last Admin Trade Name Freq PRN Reason Stop Dose Admin Dextrose 12.5 gm 01/27/25 01:22 Dextrose 50% 25 Gm/50 Ml Syringe IV PUSH PRN PRN Hypoglycemia Protocol Enoxaparin Sodium 40 mg 01/27/25 10:15 01/28/25 09:27 Enoxaparin 40 Mg/0.4 Ml Syringe SUB-Q 40 mg DAILY [facility] Administration Glucagon 1 mg 01/27/25 01:22 Glucagon For Inj 1 Mg Vial IM PRN PRN Hypoglycemia Protocol Dextrose 1,000 mls @ 100 mls/hr 01/27/25 01:22 Dextrose 5% 1,000 Ml IVPB PRN PRN Hypoglycemia Protocol Piperacillin Sod/Tazobactam 50 mls @ 100 mls/hr 01/27/25 03:00 01/28/25 09:27 Sod 2.25 gm/ Sodium Chloride IVPB 100 mls/hr Q6H [facility] Administration Vancomycin HCl 1,250 mg in 250 mls @ 166.667 mls/hr 01/28/25 15:00 Vancomycin 1,250 Mg/Ns 250 Ml IVPB Q36H [facility] Norepinephrine Bitartrate 8 mg in 250 mls @ 0 mls/hr 01/27/25 14:55 01/28/25 10:00 Levophed 8 Mg/D5w 250 Ml IV CONT 0 mcg/min .Q0M [facility] 0 mls/hr Protocol Titration 0 MCG/MIN Potassium Chloride 100 mls @ 25 mls/hr 01/28/25 08:15 01/28/25 09:27 Kcl 40 Meq/Water 100 Ml IVPB 01/28/25 12:14 25 mls/hr ONCE ONE Administration Insulin Aspart 3 - 6 units 01/27/25 12:00 01/28/25 05:48 Insulin Aspart (*Bkc) 100 Units/Ml SUB-Q Not Given Q6HR [facility] Protocol Ketorolac Tromethamine 1 drop 01/27/25 06:00 01/28/25 05:56 Ketorolac 0.5% Op Soln 5 Ml Bottle EACH EYE Not Given Q6HR [facility] Levothyroxine Sodium 62.5 mcg 01/27/25 11:25 01/28/25 05:55 Levothyroxine Sodium Inj 100 Mcg/5 Ml Vial IV PUSH 62.5 mcg DAILY@0630 [facility] Administration Lidocaine 1 patch 01/27/25 01:24 Lidocaine 5% Patch TOPICAL Q24H PRN Pain Mupirocin 1 applic 01/27/25 09:00 01/27/25 20:24 Mupirocin 2% Oint 22 Gm Tube EACH NARE 01/31/25 21:01 1 applic Q12HR [facility] Administration Pantoprazole Sodium 40 mg 01/27/25 09:00 01/28/25 09:27 Pantoprazole Sodium Iv 40 Mg Vial IV PUSH 40 mg Q12HR [facility] Administration Sodium Chloride 10 ml 01/27/25 14:00 01/28/25 05:56 Central Line Flush IV PUSH 10 ml Q8HR [facility] Administration Sodium Chloride 10 ml 01/27/25 11:07 Central Line Flush IV PUSH PRN PRN with TPN bag changes Sodium Chloride 20 ml 01/27/25 11:07 Central Line Flush IV PUSH PRN PRN after blood draws Sodium Chloride 10 ml 01/27/25 14:00 01/28/25 05:56 Central Line Flush IV PUSH 10 ml Q8HR [facility] Administration Sodium Chloride 10 ml 01/27/25 11:11 Central Line Flush IV PUSH PRN PRN with TPN bag changes Sodium Chloride 20 ml 01/27/25 11:11 Central Line Flush IV PUSH PRN PRN after blood draws Radiology Results: ITS Impressions Head CT 01/26/25 17:46 Impression: 1.No acute intracranial abnormality. Venous Doppler Study 01/27/25 10:15 IMPRESSION: 1. No DVT either leg. Chest X-Ray 01/27/25 11:19 IMPRESSION: 1. Right PICC placed but tip not identified. 2. Right neck central line unchanged with catheter retrograde into left innominate vein. 3. No cardiopulmonary change. Labs Labs: Laboratory Results - last 24 hr 01/27/25 01/27/25 01/27/25 09:42 09:47 11:46 WBC RBC Hgb Hct MCV MCH MCHC RDW Plt Count MPV Immature Gran % (Auto) Neut % (Auto) Lymph % (Auto) [place] % (Auto) Eos % (Auto) Baso % (Auto) Lymph # (Auto) [place] # (Auto) Eos # (Auto) Baso # (Auto) Abs Immat Gran (auto) Absolute Neuts (auto) Absolute Nucleated RBC Nucleated RBC % Sodium Potassium Chloride Carbon Dioxide Anion Gap BUN Creatinine Estim Creat Clear Calc Estimated GFR Glucose POC Capillary Glucose 114 H Lactic Acid Calcium Phosphorus Magnesium Total Bilirubin AST ALT Alkaline Phosphatase C-Reactive Protein Total Protein Albumin Lipase 26 Ur Random Sodium < 5 01/27/25 01/28/25 01/28/25 17:17 00:03 04:51 WBC 14.7 H RBC 3.02 L Hgb 8.5 L Hct 27.8 L MCV 92.1 MCH 28.1 MCHC 30.6 L RDW 17.3 H Plt Count 242 MPV 8.8 Immature Gran % (Auto) 0.4 Neut % (Auto) 88.3 H Lymph % (Auto) 6.5 L [place] % (Auto) 4.3 Eos % (Auto) 0.3 Baso % (Auto) 0.2 Lymph # (Auto) 0.96 [place] # (Auto) 0.6 Eos # (Auto) 0.1 Baso # (Auto) 0.0 Abs Immat Gran (auto) 0.06 H Absolute Neuts (auto) 13.0 H Absolute Nucleated RBC 0.000 Nucleated RBC % 0.0 Sodium 136 L Potassium 3.5 Chloride 104 Carbon Dioxide 27 Anion Gap 5 BUN 48 H D Creatinine 0.82 Estim Creat Clear Calc Not Reportable Estimated GFR > 60 Glucose 96 POC Capillary Glucose 110 H 118 H Lactic Acid 0.8 Calcium 8.8 Phosphorus 3.0 Magnesium 1.9 Total Bilirubin 0.5 AST 20 ALT 12 Alkaline Phosphatase 55 C-Reactive Protein 19.6 H Total Protein 5.7 L Albumin 3.0 L Lipase Ur Random Sodium
[2025-01-28] MEDS: KETOROLAC 0.5% OP SOLN 5 ML BOTTLE 1 DROP EACH EYE ×3 (13:00→18:42)
[2025-01-28] MEDS: VANCOMYCIN 1,250 MG/NS 250 ML 1,250 MG/250 ML BAG 166.67 MG IVPB (15:57)
--- NOTE | 2025-01-28 17:20 | P.PNIM_ITS ---
Progress Note: A&P Assessment and Plan (1) Septic shock: Code(s): A41.9 - Sepsis, unspecified organism; R65.21 - Severe sepsis with septic shock Status: Acute Assessment and Plan: 01/26: Patient presented with altered mental status, hypotension, feeling tired and more sleepy at the correction -normal lactic acid at 1.4 -in the ER patient was given 1 L IV fluid bolus since she has a history of CHF -right IJ central line was inserted and started on Levophed, -Levophed was turned off earlier this morning -continue cefepime and vancomycin (01/26) -01/26: Blood cultures have been obtained -01/27: Urine cultures have been obtained -will give additional fluid this morning has patient's mucosa membranes are significant and skin turgor is poor - will also give albumin for intravascular volume expansion - Bilateral lower extremity venous Dopplers were negative for DVT 01/28: CT Abdomen repeated: thickened endometrial complex, which may be secondary to endometrial hyperplasia, polyp, or carcinoma; Consider pelvic ultrasound; Worsened wall thickening of the distal ileum and right colon, consistent with edema versus enterocolitis; Small volume of ascites. Pelvic US ordered. Patient also having new onset diarrhea, concerning for C Diff given she has history of same. Testing has been ordered. HIREN positive for PAD of lower extremities. (2) Ischemic bowel disease: Code(s): K55.9 - Vascular disorder of intestine, unspecified Status: Acute Assessment and Plan: Some concerns for ischemic bowel disease on CT scan -lactic acid is 1.4, repeat lactic acid was also 1.4 -appreciate surgery evaluation recommendations, poor surgical candidate -currently off Levophed, if patient's condition worsens, will obtain another noncontrast CT abdomen and pelvis per surgeon -NPO for now -CT Abdomen repeated: thickened endometrial complex, which may be secondary to endometrial hyperplasia, polyp, or carcinoma; Consider pelvic ultrasound; Worsened wall thickening of the distal ileum and right colon, consistent with edema versus enterocolitis; Small volume of ascites. (3) Acute UTI: Code(s): N39.0 - Urinary tract infection, site not specified Status: Acute Assessment and Plan: UA reflective of UTI, continue antibiotics, cultures have been obtained (4) Altered mental status: Code(s): R41.82 - Altered mental status, unspecified Status: Acute Assessment and Plan: Altered mental status seems to have resolved, patient is more awake after volume resuscitation and antibiotics (5) Congestive heart failure: Code(s): I50.9 - Heart failure, unspecified Status: Acute Assessment and Plan: History of heart failure -patient does not know where she gets her treatment -no previous notes or echocardiogram in the chart at [facility] -will obtain echocardiogram -patient does take aspirin, Farxiga, furosemide, Entresto, spironolactone, amiodarone, atorvastatin, Dabigatran at home which are all currently on hold -Resume cautiously as tolerated (6) Gastrointestinal tube in situ: Code(s): Z93.1 - Gastrostomy status Status: Acute Assessment and Plan: Patient does have a PEG tube, according to the nurses the family states that she does take p.o. diet but the PEG tube is for supplementation (7) Hypothyroidism: Code(s): E03.9 - Hypothyroidism, unspecified Status: Acute Assessment and Plan: IV levothyroxine since patient is NPO (8) Hypertension: Code(s): I10 - Essential (primary) hypertension Status: Acute Assessment and Plan: Hold all antihypertensives as above since patient is NPO since patient presented with hypotension/septic shock. Currently off Levophed since early this morning (9) DM2 (diabetes mellitus, type 2): Code(s): E11.9 - Type 2 diabetes mellitus without complications Status: Acute Assessment and Plan: Continue sliding scale insulin and Accu-Chek Plan Patient for tranfer to IMU. DVT prophylaxis: Lovenox Stress ulcer prophylaxis: Protonix Nutrition: NPO Code Status: Full code Subjective Date/time seen: 01/28/25 17:20 Interval history: This is a 79-year-old female patient who is currently in rehab at [facility]. She was recently diagnosed with pneumonia and has been on oral antibiotics. She also has tube feedings that supplements her oral intake. However the patient was found to be more confused and left the were [place] with a low blood pressure at the rehab facility. The patient was complaining of some abdominal pain. Her white count was noted to be 18.4. Her H&H is 10.4 in 33.4. Her sodium was low at 129. Her glucose is 184. Her BNP was noted to be 1910. Her urine is turbid with 1+ protein, 2+ blood, leukocyte esterase 3+, urine wbc's greater than 100, urine bacteria 4+. MRSA was detected in her nares. Chest abdomen pelvis CT was read as a followin. No evidence of pulmonary consolidation are atelectasis. Mild vascular congestion of lungs severe cardiomegaly and postoperative changes as described above. 2. Within the abdomen, there is significant finding of small drops of air in the peripheral portal veins within the left lobe of the liver. This would raise a concern for ischemic bowel disease. 3. Significant Calcific changes at the proximal celiac axis and superior mesenteric artery and right renal artery. 4. Normal bowel obstruction or bowel wall thickening. No evidence of fluid or free air in the peritoneal cavity. Surgery consult was placed per ED provider. The patient was given a dose of zosyn in the er. Head CT was read as no acute and cranial abnormality. Chest x-ray was read as CHF superimposed probable left lower lobe pneumonia. A central line was placed in the emergency room. Repeat chest x-ray shows central line placement. The blood pressures have gotten as low as 70/50 prior to have vasopressors. A Patterson catheter was also placed as well. Surgery has been consulted as well as the level vial sealer. Review of Systems Review of Systems: All systems reviewed & are unremarkable except as noted in HPI and below Exam Narrative: General: Awake, alert, no acute distress HEENT:? Pupils equal and reactive, sclera is clear, dry oral mucosa Neck:? Supple Respiratory:? Decreased air entry at bases, otherwise clear to auscultation bilaterally Cardiac:? Irregularly irregular rhythm, rate controlled Abdomen:? Soft, diffuse mild tenderness, no guarding rigidity, hypoactive bowel sounds, obese, nondistended Extremities:? Bilateral upper and lower extremity edema,. Palpable pedal pulse Neuro:? Patient is awake, alert, oriented to place and date of , has history of dementia, follows simple commands in all extremities, able to answer question Skin:? Multiple bruising noted on bilateral upper and lower extremities, Psych:? Depressed affect Objective Data Vital Signs Vital Signs: Vital Signs - 24 hr 01/27/25 17:38 01/27/25 18:00 01/27/25 18:00 Temperature 98.4 F Pulse Rate 100 107 H 103 H Respiratory Rate 14 Blood Pressure 81/42 L 92/56 L Pulse Oximetry 98 Oxygen Delivery 01/27/25 18:07 01/27/25 19:00 01/27/25 19:00 Temperature 98.5 F Pulse Rate 98 95 104 H Respiratory Rate 13 13 Blood Pressure 76/50 L 74/53 L Pulse Oximetry 93 92 Oxygen Delivery 01/27/25 19:01 01/27/25 19:15 01/27/25 19:20 Temperature 98.5 F 98.6 F 98.6 F Pulse Rate 96 94 97 Respiratory Rate 13 12 13 Blood Pressure 95/53 L 74/53 L Pulse Oximetry 88 L 94 95 Oxygen Delivery 01/27/25 19:23 01/27/25 19:30 01/27/25 19:31 Temperature 98.6 F 98.6 F Pulse Rate 95 100 92 Respiratory Rate 13 13 Blood Pressure 74/53 L 86/47 L Pulse Oximetry 94 94 Oxygen Delivery 01/27/25 19:45 01/27/25 19:46 01/27/25 20:00 Temperature 98.5 F 98.5 F Pulse Rate 89 98 102 H Respiratory Rate 12 12 Blood Pressure 87/50 L Pulse Oximetry 95 95 Oxygen Delivery 01/27/25 20:00 01/27/25 20:00 01/27/25 20:01 Temperature 98.5 F 98.5 F Pulse Rate 96 100 Respiratory Rate 12 13 Blood Pressure 131/96 H Pulse Oximetry 96 94 Oxygen Delivery Room Air 01/27/25 20:15 01/27/25 20:16 01/27/25 20:20 Temperature 98.4 F 98.4 F Pulse Rate 118 H 109 H 111 H Respiratory Rate 13 11 L Blood Pressure 121/99 H 121/99 H Pulse Oximetry 97 97 Oxygen Delivery 01/27/25 20:30 01/27/25 20:31 01/27/25 20:32 Temperature 98.4 F 98.4 F 98.4 F Pulse Rate 121 H 110 H 110 H Respiratory Rate 13 18 15 Blood Pressure 136/115 H 53/43 L Pulse Oximetry 95 97 96 Oxygen Delivery 01/27/25 20:36 01/27/25 20:45 01/27/25 20:46 Temperature 98.4 F 98.4 F 98.4 F Pulse Rate 126 H 117 H 108 H Respiratory Rate 14 15 16 Blood Pressure 93/77 L 131/86 Pulse Oximetry 97 97 94 Oxygen Delivery 01/27/25 20:58 01/27/25 21:00 01/27/25 21:01 Temperature 98.4 F 98.4 F Pulse Rate 103 H 104 H Respiratory Rate 12 12 Blood Pressure 117/88 Pulse Oximetry 96 95 95 Oxygen Delivery Room Air 01/27/25 21:15 01/27/25 21:16 01/27/25 21:30 Temperature 98.4 F 98.4 F Pulse Rate 99 93 109 H Respiratory Rate 11 L 12 Blood Pressure 107/93 H 120/104 H Pulse Oximetry 95 94 Oxygen Delivery 01/27/25 21:30 01/27/25 21:31 01/27/25 21:35 Temperature 98.4 F 98.4 F 98.4 F Pulse Rate 95 95 100 Respiratory Rate 12 13 12 Blood Pressure 120/104 H Pulse Oximetry 95 93 93 Oxygen Delivery 01/27/25 21:40 01/27/25 21:45 01/27/25 21:46 Temperature 98.4 F 98.4 F 98.4 F Pulse Rate 108 H 103 H 95 Respiratory Rate 12 13 11 L Blood Pressure 136/109 H Pulse Oximetry 94 97 98 Oxygen Delivery 01/27/25 21:50 01/27/25 21:55 01/27/25 22:00 Temperature 98.4 F 98.3 F Pulse Rate 105 H 95 97 Respiratory Rate 12 12 Blood Pressure 130/90 Pulse Oximetry 93 93 Oxygen Delivery 01/27/25 22:00 01/27/25 22:00 01/27/25 22:01 Temperature 98.3 F 98.3 F Pulse Rate 97 96 93 Respiratory Rate 15 12 Blood Pressure 130/90 Pulse Oximetry 96 94 Oxygen Delivery 01/27/25 22:05 01/27/25 22:10 01/27/25 22:15 Temperature 98.3 F 98.3 F 98.2 F Pulse Rate 95 104 H 97 Respiratory Rate 12 15 12 Blood Pressure 129/73 Pulse Oximetry 95 96 97 Oxygen Delivery 01/27/25 22:16 01/27/25 22:20 01/27/25 22:25 Temperature 98.3 F 98.2 F 98.2 F Pulse Rate 96 95 88 Respiratory Rate 12 12 12 Blood Pressure Pulse Oximetry 95 95 94 Oxygen Delivery 01/27/25 22:30 01/27/25 22:31 01/27/25 22:35 Temperature 98.2 F 98.2 F 98.2 F Pulse Rate 95 93 105 H Respiratory Rate 12 12 13 Blood Pressure 126/82 Pulse Oximetry 96 95 96 Oxygen Delivery 01/27/25 22:40 01/27/25 22:45 01/27/25 22:46 Temperature 98.2 F 98.1 F 98.1 F Pulse Rate 92 101 H 93 Respiratory Rate 13 12 12 Blood Pressure 112/94 H Pulse Oximetry 96 96 97 Oxygen Delivery 01/27/25 22:50 01/27/25 22:55 01/27/25 23:00 Temperature 98.1 F 98.1 F 98.1 F Pulse Rate 101 H 89 97 Respiratory Rate 12 12 12 Blood Pressure 107/62 Pulse Oximetry 97 96 Oxygen Delivery 01/27/25 23:01 01/27/25 23:05 01/27/25 23:10 Temperature 98.1 F 98.1 F 98.0 F Pulse Rate 91 100 92 Respiratory Rate 11 L 12 12 Blood Pressure Pulse Oximetry 97 97 Oxygen Delivery 01/27/25 23:15 01/27/25 23:16 01/27/25 23:17 Temperature 98.0 F 98.0 F 98.0 F Pulse Rate 90 102 H 95 Respiratory Rate 12 14 12 Blood Pressure 67/46 L 106/67 Pulse Oximetry 97 98 97 Oxygen Delivery 01/27/25 23:20 01/27/25 23:25 01/27/25 23:30 Temperature 98.0 F 98.0 F 98.0 F Pulse Rate 98 83 107 H Respiratory Rate 12 12 12 Blood Pressure 116/102 H Pulse Oximetry 97 97 99 Oxygen Delivery 01/27/25 23:31 01/27/25 23:35 01/27/25 23:39 Temperature 98.0 F 98.0 F Pulse Rate 97 96 109 H Respiratory Rate 11 L 11 L Blood Pressure 116/102 H Pulse Oximetry 97 95 Oxygen Delivery 01/27/25 23:40 01/27/25 23:45 01/27/25 23:46 Temperature 98.0 F 97.9 F 97.9 F Pulse Rate 93 91 93 Respiratory Rate 15 12 12 Blood Pressure 112/80 Pulse Oximetry 97 99 97 Oxygen Delivery 01/27/25 23:50 01/27/25 23:55 01/28/25 00:00 Temperature 97.9 F 97.9 F Pulse Rate 93 94 114 H Respiratory Rate 12 12 Blood Pressure Pulse Oximetry 97 98 Oxygen Delivery 01/28/25 00:00 01/28/25 00:00 01/28/25 00:01 Temperature 97.9 F 97.9 F Pulse Rate 97 103 H Respiratory Rate 12 14 Blood Pressure 91/70 L Pulse Oximetry 96 97 Oxygen Delivery Room Air 01/28/25 00:05 01/28/25 00:10 01/28/25 00:15 Temperature 97.9 F 97.9 F 97.9 F Pulse Rate 104 H 113 H 106 H Respiratory Rate 13 13 27 H Blood Pressure 129/83 Pulse Oximetry 94 Oxygen Delivery 01/28/25 00:16 01/28/25 00:20 01/28/25 00:22 Temperature 97.9 F 97.9 F Pulse Rate 110 H 115 H 105 H Respiratory Rate 23 H 20 Blood Pressure 129/83 Pulse Oximetry 83 L Oxygen Delivery 01/28/25 00:25 01/28/25 00:30 01/28/25 00:31 Temperature 97.9 F 97.9 F 97.9 F Pulse Rate 101 H 116 H 101 H Respiratory Rate 12 15 12 Blood Pressure 102/74 Pulse Oximetry 98 98 96 Oxygen Delivery 01/28/25 00:35 01/28/25 00:40 01/28/25 00:45 Temperature 97.9 F 97.9 F 97.9 F Pulse Rate 105 H 94 96 Respiratory Rate 20 17 17 Blood Pressure Pulse Oximetry 98 94 Oxygen Delivery 01/28/25 00:47 01/28/25 00:50 01/28/25 00:55 Temperature 97.8 F 97.9 F 97.8 F Pulse Rate 101 H 98 105 H Respiratory Rate 14 12 12 Blood Pressure 108/93 H Pulse Oximetry 97 96 97 Oxygen Delivery 01/28/25 01:00 01/28/25 01:01 01/28/25 01:05 Temperature 97.8 F 97.8 F 97.8 F Pulse Rate 97 94 92 Respiratory Rate 13 13 13 Blood Pressure 92/76 L Pulse Oximetry 96 95 95 Oxygen Delivery 01/28/25 01:10 01/28/25 01:15 01/28/25 01:16 Temperature 97.8 F 97.8 F 97.8 F Pulse Rate 101 H 100 95 Respiratory Rate 13 13 17 Blood Pressure 98/69 L Pulse Oximetry 97 96 93 Oxygen Delivery 01/28/25 01:20 01/28/25 01:25 01/28/25 01:30 Temperature 97.8 F 97.7 F 97.7 F Pulse Rate 107 H 97 96 Respiratory Rate 13 13 13 Blood Pressure 82/55 L Pulse Oximetry 95 97 Oxygen Delivery 01/28/25 01:31 01/28/25 01:35 01/28/25 01:40 Temperature 97.7 F 97.7 F 97.7 F Pulse Rate 96 89 98 Respiratory Rate 13 14 13 Blood Pressure Pulse Oximetry 97 96 95 Oxygen Delivery 01/28/25 01:45 01/28/25 01:46 01/28/25 01:47 Temperature 97.7 F 97.7 F 97.7 F Pulse Rate 90 81 93 Respiratory Rate 13 14 13 Blood Pressure 83/67 L 100/67 Pulse Oximetry 98 96 98 Oxygen Delivery 01/28/25 01:50 01/28/25 01:55 01/28/25 02:00 Temperature 97.7 F 97.7 F Pulse Rate 87 87 88 Respiratory Rate 14 13 Blood Pressure Pulse Oximetry 96 Oxygen Delivery 01/28/25 02:00 01/28/25 02:00 01/28/25 02:01 Temperature 97.7 F 97.7 F Pulse Rate 91 89 91 Respiratory Rate 13 14 Blood Pressure 104/65 91/70 L Pulse Oximetry 98 Oxygen Delivery 01/28/25 02:05 01/28/25 02:10 01/28/25 02:15 Temperature 97.7 F 97.7 F 97.7 F Pulse Rate 85 88 87 Respiratory Rate 13 13 12 Blood Pressure 108/66 Pulse Oximetry 97 Oxygen Delivery 01/28/25 02:16 01/28/25 02:20 01/28/25 02:25 Temperature 97.7 F 97.7 F 97.7 F Pulse Rate 81 86 90 Respiratory Rate 12 14 14 Blood Pressure Pulse Oximetry 97 Oxygen Delivery 01/28/25 02:30 01/28/25 02:31 01/28/25 02:35 Temperature 97.7 F 97.7 F 97.7 F Pulse Rate 99 89 87 Respiratory Rate 13 13 13 Blood Pressure 93/54 L Pulse Oximetry 100 99 Oxygen Delivery 01/28/25 02:40 01/28/25 02:45 01/28/25 02:46 Temperature 97.7 F 97.7 F 97.7 F Pulse Rate 91 91 79 Respiratory Rate 14 14 13 Blood Pressure 102/60 Pulse Oximetry 96 98 Oxygen Delivery 01/28/25 02:50 01/28/25 02:55 01/28/25 03:00 Temperature 97.7 F 97.7 F 97.7 F Pulse Rate 84 103 H 86 Respiratory Rate 13 12 14 Blood Pressure 111/73 Pulse Oximetry 97 Oxygen Delivery 01/28/25 03:01 01/28/25 03:05 01/28/25 03:10 Temperature 97.7 F 97.7 F 97.7 F Pulse Rate 96 92 89 Respiratory Rate 15 16 13 Blood Pressure Pulse Oximetry 99 98 Oxygen Delivery 01/28/25 03:15 01/28/25 03:16 01/28/25 03:20 Temperature 97.7 F 97.7 F 97.7 F Pulse Rate 89 85 94 Respiratory Rate 13 13 15 Blood Pressure 105/74 Pulse Oximetry 98 Oxygen Delivery 01/28/25 03:25 01/28/25 03:30 01/28/25 03:31 Temperature 97.7 F 97.7 F 97.7 F Pulse Rate 80 90 96 Respiratory Rate 13 25 H 22 H Blood Pressure 91/72 L Pulse Oximetry 95 91 Oxygen Delivery 01/28/25 03:35 01/28/25 03:40 01/28/25 03:45 Temperature 97.7 F 97.7 F 97.7 F Pulse Rate 80 110 H 90 Respiratory Rate 19 14 17 Blood Pressure 106/94 H Pulse Oximetry Oxygen Delivery 01/28/25 03:46 01/28/25 03:50 01/28/25 03:55 Temperature 97.7 F 97.7 F 97.7 F Pulse Rate 93 98 94 Respiratory Rate 14 18 18 Blood Pressure Pulse Oximetry 97 96 Oxygen Delivery 01/28/25 04:00 01/28/25 04:00 01/28/25 04:00 Temperature Pulse Rate 107 H 96 Respiratory Rate Blood Pressure 115/75 Pulse Oximetry 94 Oxygen Delivery Room Air 01/28/25 04:00 01/28/25 04:01 01/28/25 04:05 Temperature 97.8 F 97.8 F 97.8 F Pulse Rate 95 95 92 Respiratory Rate 17 16 14 Blood Pressure 115/75 Pulse Oximetry 93 99 Oxygen Delivery 01/28/25 04:10 01/28/25 04:15 01/28/25 04:16 Temperature 97.8 F 97.9 F 97.9 F Pulse Rate 104 H 104 H 89 Respiratory Rate 17 12 14 Blood Pressure 137/113 H Pulse Oximetry Oxygen Delivery 01/28/25 04:20 01/28/25 04:25 01/28/25 04:30 Temperature 97.9 F 97.9 F Pulse Rate 92 104 H 101 H Respiratory Rate 20 17 Blood Pressure 122/100 H Pulse Oximetry 100 Oxygen Delivery 01/28/25 04:30 01/28/25 04:31 01/28/25 04:35 Temperature 97.9 F 97.9 F 98.0 F Pulse Rate 114 H 91 94 Respiratory Rate 14 15 15 Blood Pressure 125/100 H Pulse Oximetry 98 95 100 Oxygen Delivery 01/28/25 04:40 01/28/25 04:45 01/28/25 04:47 Temperature 98.0 F 98.0 F 98.0 F Pulse Rate 85 98 100 Respiratory Rate 15 18 20 Blood Pressure 141/105 H Pulse Oximetry 98 99 Oxygen Delivery 01/28/25 04:50 01/28/25 04:55 01/28/25 05:00 Temperature 98.1 F 98.1 F 98.1 F Pulse Rate 100 92 86 Respiratory Rate 16 16 16 Blood Pressure 113/74 Pulse Oximetry 98 100 95 Oxygen Delivery 01/28/25 05:01 01/28/25 05:05 01/28/25 05:10 Temperature 98.1 F 98.0 F 98.1 F Pulse Rate 98 97 91 Respiratory Rate 14 14 13 Blood Pressure Pulse Oximetry 95 94 94 Oxygen Delivery 01/28/25 05:15 01/28/25 05:16 01/28/25 05:20 Temperature 98.1 F 98.1 F 98.1 F Pulse Rate 92 92 87 Respiratory Rate 18 14 13 Blood Pressure 100/87 Pulse Oximetry 100 93 96 Oxygen Delivery 01/28/25 05:25 01/28/25 05:30 01/28/25 05:32 Temperature 98.1 F 98.1 F 98.1 F Pulse Rate 98 94 87 Respiratory Rate 14 15 13 Blood Pressure 112/83 Pulse Oximetry 95 100 Oxygen Delivery 01/28/25 05:35 01/28/25 05:40 01/28/25 05:45 Temperature 98.1 F 98.1 F 98.1 F Pulse Rate 96 96 83 Respiratory Rate 12 14 13 Blood Pressure Pulse Oximetry 96 100 97 Oxygen Delivery 01/28/25 05:49 01/28/25 05:50 01/28/25 05:55 Temperature 98.1 F 98.1 F 98.1 F Pulse Rate 90 87 97 Respiratory Rate 15 13 12 Blood Pressure 116/65 Pulse Oximetry 99 95 95 Oxygen Delivery 01/28/25 06:00 01/28/25 06:00 01/28/25 06:02 Temperature 98.1 F 98.1 F Pulse Rate 86 91 85 Respiratory Rate 13 13 Blood Pressure 134/109 H Pulse Oximetry 99 97 Oxygen Delivery 01/28/25 06:03 01/28/25 06:05 01/28/25 06:05 Temperature 98.1 F 98.1 F Pulse Rate 85 92 92 Respiratory Rate 13 13 Blood Pressure 117/54 L Pulse Oximetry 99 97 Oxygen Delivery 01/28/25 06:06 01/28/25 06:10 01/28/25 06:15 Temperature 98.1 F 98.1 F 98.1 F Pulse Rate 94 85 109 H Respiratory Rate 16 13 18 Blood Pressure 117/54 L Pulse Oximetry 93 99 Oxygen Delivery 01/28/25 06:17 01/28/25 06:20 01/28/25 06:25 Temperature 98.1 F 98.1 F 98.1 F Pulse Rate 100 89 100 Respiratory Rate 16 14 14 Blood Pressure 129/60 Pulse Oximetry 93 Oxygen Delivery 01/28/25 06:30 01/28/25 06:35 01/28/25 06:42 Temperature 98.1 F 98.2 F 98.2 F Pulse Rate 101 H 85 91 Respiratory Rate 14 17 12 Blood Pressure Pulse Oximetry 97 Oxygen Delivery 01/28/25 06:45 01/28/25 07:00 01/28/25 08:00 Temperature 98.2 F 98.2 F 98.3 F Pulse Rate 92 84 80 Respiratory Rate 11 L 14 13 Blood Pressure 135/75 122/54 L 125/66 Pulse Oximetry 100 97 99 Oxygen Delivery 01/28/25 08:00 01/28/25 08:00 01/28/25 08:00 Temperature Pulse Rate 98 93 Respiratory Rate Blood Pressure 125/66 Pulse Oximetry 99 Oxygen Delivery Room Air 01/28/25 09:00 01/28/25 10:00 01/28/25 10:00 Temperature 98.3 F Pulse Rate 83 94 94 Respiratory Rate 14 Blood Pressure 143/105 H 148/69 H Pulse Oximetry 100 Oxygen Delivery 01/28/25 10:00 01/28/25 11:00 01/28/25 11:58 Temperature 97.9 F 97.4 F L Pulse Rate 105 H 102 H 87 Respiratory Rate 15 11 L Blood Pressure 134/76 143/82 H Pulse Oximetry 90 100 Oxygen Delivery 01/28/25 12:00 01/28/25 12:00 01/28/25 12:00 Temperature 97.2 F L Pulse Rate 83 84 Respiratory Rate 14 Blood Pressure 135/69 Pulse Oximetry 98 98 Oxygen Delivery Room Air 01/28/25 13:00 01/28/25 14:00 01/28/25 14:00 Temperature 97.4 F L 97.5 F L Pulse Rate 91 100 99 Respiratory Rate 14 12 Blood Pressure 122/84 142/93 H Pulse Oximetry 92 100 Oxygen Delivery 01/28/25 15:00 01/28/25 16:00 Temperature 97.3 F L 96.3 F L Pulse Rate 97 102 H Respiratory Rate 14 16 Blood Pressure 143/93 H 126/77 Pulse Oximetry 97 99 Oxygen Delivery Intake/Output Intake/Output: Intake & Output 01/25/25 01/26/25 01/27/25 01/28/25 23:59 23:59 23:59 23:59 Intake Total 1135.0 609.2 110.5 Output Total 575 425 Balance 1135.0 34.2 -314.5 Meds/Results Medications: Active Medications Generic Name Dose Route Start Last Admin Trade Name Freq PRN Reason Stop Dose Admin Dextrose 12.5 gm 01/27/25 01:22 Dextrose 50% 25 Gm/50 Ml Syringe IV PUSH PRN PRN Hypoglycemia Protocol Enoxaparin Sodium 40 mg 01/27/25 10:15 01/28/25 09:27 Enoxaparin 40 Mg/0.4 Ml Syringe SUB-Q 40 mg DAILY [facility]CED[facility] Administration Glucagon 1 mg 01/27/25 01:22 Glucagon For Inj 1 Mg Vial IM PRN PRN Hypoglycemia Protocol Dextrose 1,000 mls @ 100 mls/hr 01/27/25 01:22 Dextrose 5% 1,000 Ml IVPB PRN PRN Hypoglycemia Protocol Piperacillin Sod/Tazobactam 50 mls @ 100 mls/hr 01/27/25 03:00 01/28/25 14:01 Sod 2.25 gm/ Sodium Chloride IVPB 100 mls/hr Q6H [facility] Administration Vancomycin HCl 1,250 mg in 250 mls @ 166.667 mls/hr 01/28/25 15:00 01/28/25 15:57 Vancomycin 1,250 Mg/Ns 250 Ml IVPB 166.67 mls/hr Q36H [facility]ED[facility] Administration Insulin Aspart 3 - 6 units 01/27/25 12:00 01/28/25 11:59 Insulin Aspart (*Bkc) 100 Units/Ml SUB-Q Not Given Q6HR [facility] Protocol Ketorolac Tromethamine 1 drop 01/27/25 06:00 01/28/25 13:00 Ketorolac 0.5% Op Soln 5 Ml Bottle EACH EYE 1 drop Q6HR [facility] Administration Levothyroxine Sodium 62.5 mcg 01/27/25 11:25 01/28/25 05:55 Levothyroxine Sodium Inj 100 Mcg/5 Ml Vial IV PUSH 62.5 mcg DAILY@0630 [facility] Administration Lidocaine 1 patch 01/27/25 01:24 Lidocaine 5% Patch TOPICAL Q24H PRN Pain Mupirocin 1 applic 01/27/25 09:00 01/28/25 10:00 Mupirocin 2% Oint 22 Gm Tube EACH NARE 01/31/25 21:01 1 applic Q12HR [facility] Administration Pantoprazole Sodium 40 mg 01/27/25 09:00 01/28/25 09:27 Pantoprazole Sodium Iv 40 Mg Vial IV PUSH 40 mg Q12HR [facility] Administration Sodium Chloride 10 ml 01/27/25 14:00 01/28/25 13:31 Central Line Flush IV PUSH 10 ml Q8HR [facility] Administration Sodium Chloride 10 ml 01/27/25 11:07 Central Line Flush IV PUSH PRN PRN with TPN bag changes Sodium Chloride 20 ml 01/27/25 11:07 Central Line Flush IV PUSH PRN PRN after blood draws Sodium Chloride 10 ml 01/27/25 14:00 01/28/25 13:31 Central Line Flush IV PUSH 10 ml Q8HR [facility] Administration Sodium Chloride 10 ml 01/27/25 11:11 Central Line Flush IV PUSH PRN PRN with TPN bag changes Sodium Chloride 20 ml 01/27/25 11:11 Central Line Flush IV PUSH PRN PRN after blood draws Radiology Results: ITS Impressions Head CT 01/26/25 17:46 Impression: 1.No acute intracranial abnormality. Chest X-Ray 01/27/25 11:19 IMPRESSION: 1. Right PICC placed but tip not identified. 2. Right neck central line unchanged with catheter retrograde into left innominate vein. 3. No cardiopulmonary change. Ankle Brachial Index 01/28/25 13:02 IMPRESSION: 1. Normal right HIREN and decreased right TBI, consistent with right-sided arterial occlusive disease. 2. Borderline-decreased left HIREN and lack of detectable arterial flow in the left great toe, consistent with left-sided arterial occlusive disease. Chest/Abdomen/Pelvis CT 01/28/25 16:08 IMPRESSION: 1. Small pleural effusions. 2. New gallbladder distention, which may be secondary to fasting. Correlate with physical exam to exclude acute cholecystitis. 3. Thickened endometrial complex, which may be secondary to endometrial hyperplasia, polyp, or carcinoma. Consider pelvic ultrasound. 4. Worsened wall thickening of the distal ileum and right colon, consistent with edema versus enterocolitis. 5. Small volume of ascites. Venous Doppler Study 01/28/25 16:08 Impression: Negative for DVT. Labs Labs: Laboratory Results - last 24 hr 01/27/25 01/28/25 01/28/25 17:17 00:03 04:51 WBC 14.7 H RBC 3.02 L Hgb 8.5 L Hct 27.8 L MCV 92.1 MCH 28.1 MCHC 30.6 L RDW 17.3 H Plt Count 242 MPV 8.8 Immature Gran % (Auto) 0.4 Neut % (Auto) 88.3 H Lymph % (Auto) 6.5 L [place] % (Auto) 4.3 Eos % (Auto) 0.3 Baso % (Auto) 0.2 Lymph # (Auto) 0.96 [place] # (Auto) 0.6 Eos # (Auto) 0.1 Baso # (Auto) 0.0 Abs Immat Gran (auto) 0.06 H Absolute Neuts (auto) 13.0 H Absolute Nucleated RBC 0.000 Nucleated RBC % 0.0 Sodium 136 L Potassium 3.5 Chloride 104 Carbon Dioxide 27 Anion Gap 5 BUN 48 H D Creatinine 0.82 Estim Creat Clear Calc Not Reportable Estimated GFR > 60 Glucose 96 POC Capillary Glucose 110 H 118 H Lactic Acid 0.8 Calcium 8.8 Phosphorus 3.0 Magnesium 1.9 Total Bilirubin 0.5 AST 20 ALT 12 Alkaline Phosphatase 55 C-Reactive Protein 19.6 H Total Protein 5.7 L Albumin 3.0 L 01/28/25 11:21 WBC RBC Hgb Hct MCV MCH MCHC RDW Plt Count MPV Immature Gran % (Auto) Neut % (Auto) Lymph % (Auto) [place] % (Auto) Eos % (Auto) Baso % (Auto) Lymph # (Auto) [place] # (Auto) Eos # (Auto) Baso # (Auto) Abs Immat Gran (auto) Absolute Neuts (auto) Absolute Nucleated RBC Nucleated RBC % Sodium Potassium Chloride Carbon Dioxide Anion Gap BUN Creatinine Estim Creat Clear Calc Estimated GFR Glucose POC Capillary Glucose 93 Lactic Acid Calcium Phosphorus Magnesium Total Bilirubin AST ALT Alkaline Phosphatase C-Reactive Protein Total Protein Albumin Hospitalist MIPS Advance Care Plan I have confirmed that the patient's Advanced Care Plan is present, code status is documented, or surrogate decision maker is listed in patient medical record.: Yes Medication Reconciliation I have utilized all available resources to obtain, update and review the patients current medications (includes all prescriptions, OTC, herbals, cannabis, and nutritional supplements).: Yes
[2025-01-28] MEDS: ACETAMINOPHEN ELIXIR 325 MG/10.15 ML UDC 650 MG FEED TUBE (20:58)
[2025-01-29] VITALS (24 sets, daily range): BP systolic 124–169; BP diastolic 73–109; PULSE 78–114; RESP 11–18; TEMP 36.8–37.2; O2SAT 95–100; BMI 36.6
[2025-01-29] MEDS: KETOROLAC 0.5% OP SOLN 5 ML BOTTLE 1 DROP EACH EYE ×5 (00:01→23:20)
[2025-01-29] MEDS: PIPERACILLIN/TAZOBACTAM SOD 2.25 GM in SODIUM CHLORIDE 0.9% IV 50 ML 100 ML IVPB ×4 (02:36→21:08)
[2025-01-29] MEDS: LEVOTHYROXINE SODIUM INJ 100 MCG/5 ML VIAL 62.5 MCG IV PUSH (05:45)
[2025-01-29] MEDS: CENTRAL LINE FLUSH 10 ML IV PUSH ×6 (05:48→21:09)
[2025-01-29 06:20] LABS: Hematocrit 25.9 % (37.0-47.0); Hemoglobin 8.0 g/dL (12.0-15.0); Mean Corpuscular HGB Conc 30.9 g/dl (32-36); Mean Corpuscular Hemoglobin 28.4 pg (26-34); Mean Corpuscular Volume 91.8 fl (80-100); Platelet Count Result 257 k/mm3 (150-375); Red Blood Count 2.82 M/mm3 (4.2-5.4); White Blood Count 11.2 K/mm3 (4.5-10.0)
[2025-01-29] MEDS: ACETAMINOPHEN ELIXIR 325 MG/10.15 ML UDC 650 MG FEED TUBE ×2 (06:30→12:02)
[2025-01-29 06:36] LABS: Alanine Aminotransferase 15 U/L (6-35); Albumin Level 2.9 g/dL (3.5-5.1); Alkaline Phosphatase 63 U/L (38-126); Anion Gap 4 mmol/L (4-12); Aspartate Amino Transferase 31 U/L (14-36); Bilirubin,Total 0.6 mg/dL (0.2-1.3); Blood Urea Nitrogen 33 mg/dL (7-17); Calcium 9.0 mg/dL (8.4-10.2); Carbon Dioxide 25 mmol/L (22-30); Chloride 102 mmol/L (98-107); Estimated Glomerular Filt Rate > 60; Glucose 79 mg/dL (65-110); Magnesium 1.8 mg/dL (1.6-2.3); Potassium 3.9 mmol/L (3.4-5.0); Sodium 131 mmol/L (137-145); Total Protein 5.5 g/dL (6.3-8.2)
[2025-01-29] MEDS: PANTOPRAZOLE SODIUM IV 40 MG VIAL IV PUSH ×2 (09:16→21:07)
[2025-01-29] MEDS: ENOXAPARIN 40 MG/0.4 ML SYRINGE SUB-Q (09:16)
[2025-01-29] MEDS: MUPIROCIN 2% OINT 22 GM TUBE 1 APPLIC EACH NARE ×2 (09:21→21:08)
--- NOTE | 2025-01-29 11:16 | P.PNGS_ITS ---
Progress Note: A&P Assessment and Plan (1) Septic shock: Code(s): A41.9 - Sepsis, unspecified organism; R65.21 - Severe sepsis with septic shock Status: Acute Assessment and Plan: * Source UTI vs enterocolitis vs possible bowel ischemia. * Continues to improve with current management. No longer on vasopressors. WBC trending down, lactic acid normal. Cdiff being sent by staff. Downgraded to IMU status. * Continue IV antibiotics (2) Ischemic bowel disease: Code(s): K55.9 - Vascular disorder of intestine, unspecified Status: Acute Assessment and Plan: * Initial CT showed findings of possible portal venous gas. Repeat CT yesterday showed wall thickening of the distal ileum and right colon c/w edema vs enterocolitis, no findings of pneumatosis or portal venous gas. WBC trending down, lactic acid still normal. Abd exam benign and bowels are moving. * Will start a diet. Ok to start clear liquids if NH confirms that she was on an oral diet, otherwise we can start trickle tube feedings through her G-tube. * Continue to monitor serial abd exams and labs Plan I have discussed the patient's case, recommendations, and treatment plan with Dr. Castro. Subjective Subjective Date/Time Seen: 01/29/25 11:16 Patient reports: no new complaints Interval history: Patient confused with no family at the bedside. She can answer questions appropriately, but is only oriented x 1-2. She denies any abdominal pain or nausea. Per nursing, she has had at least 4-5 BMs since yesterday that are loose. No blood in stool noted by staff. Patient is still NPO. Exam Const: General: comfortable and no acute distress Orientation/consciousness: confusion GI: Inspection: non-distended GI Palp: Yes Soft to palpation, Yes Tenderness to palpation present (GI) (very mild tenderness in the RLQ and suprap ubic area), No Guarding due to palpation present (GI) and No Rebound tenderness present Auscultation: normal bowel sounds Other: Brown liquid stool noted in the bed Objective Data Vital Signs Vital Signs: Vital Signs - 24 hr 01/28/25 11:58 01/28/25 12:00 01/28/25 12:00 Temperature 97.2 F L Pulse Rate 87 83 Respiratory Rate 14 Blood Pressure 143/82 H 135/69 Pulse Oximetry 98 98 Oxygen Delivery Room Air Fraction of Inspired Oxygen 01/28/25 12:00 01/28/25 13:00 01/28/25 14:00 Temperature 97.4 F L 97.5 F L Pulse Rate 84 91 100 Respiratory Rate 14 12 Blood Pressure 122/84 142/93 H Pulse Oximetry 92 100 Oxygen Delivery Fraction of Inspired Oxygen 01/28/25 14:00 01/28/25 15:00 01/28/25 16:00 Temperature 97.3 F L 96.3 F L Pulse Rate 99 97 102 H Respiratory Rate 14 16 Blood Pressure 143/93 H 126/77 Pulse Oximetry 97 99 Oxygen Delivery Fraction of Inspired Oxygen 01/28/25 16:00 01/28/25 16:00 01/28/25 17:00 Temperature 97.4 F L Pulse Rate 100 93 Respiratory Rate 18 Blood Pressure 127/87 Pulse Oximetry 99 100 Oxygen Delivery Room Air Fraction of Inspired Oxygen 01/28/25 18:00 01/28/25 18:00 01/28/25 19:00 Temperature 97.3 F L 97.3 F L Pulse Rate 93 91 93 Respiratory Rate 14 14 Blood Pressure 146/102 H 142/97 H Pulse Oximetry 99 100 Oxygen Delivery Fraction of Inspired Oxygen 01/28/25 19:01 01/28/25 20:00 01/28/25 20:00 Temperature 97.3 F L Pulse Rate 101 H 103 H Respiratory Rate 15 Blood Pressure Pulse Oximetry 100 Oxygen Delivery Room Air Fraction of Inspired Oxygen 01/28/25 20:00 01/28/25 20:01 01/28/25 20:05 Temperature 97.5 F L 97.5 F L Pulse Rate 110 H 89 93 Respiratory Rate 13 14 20 Blood Pressure 145/81 H Pulse Oximetry 100 100 100 Oxygen Delivery Room Air Fraction of Inspired Oxygen 21 01/28/25 21:00 01/28/25 22:00 01/28/25 22:00 Temperature 97.6 F 97.7 F Pulse Rate 94 82 78 Respiratory Rate 14 11 L Blood Pressure 123/72 Pulse Oximetry 100 100 Oxygen Delivery Fraction of Inspired Oxygen 01/28/25 22:01 01/28/25 23:00 01/29/25 00:00 Temperature 97.7 F 98.1 F Pulse Rate 75 87 103 H Respiratory Rate 13 18 Blood Pressure Pulse Oximetry 100 Oxygen Delivery Fraction of Inspired Oxygen 01/29/25 00:00 01/29/25 00:00 01/29/25 00:01 Temperature 98.3 F 98.3 F Pulse Rate 89 94 Respiratory Rate 13 14 Blood Pressure 124/90 Pulse Oximetry Oxygen Delivery Room Air Fraction of Inspired Oxygen 01/29/25 01:00 01/29/25 02:00 01/29/25 02:00 Temperature 98.2 F 98.3 F Pulse Rate 93 93 90 Respiratory Rate 15 13 Blood Pressure 133/73 Pulse Oximetry 100 95 Oxygen Delivery Fraction of Inspired Oxygen 01/29/25 02:01 01/29/25 03:00 01/29/25 04:00 Temperature 98.3 F 98.4 F Pulse Rate 91 78 79 Respiratory Rate 13 11 L Blood Pressure Pulse Oximetry 99 100 Oxygen Delivery Fraction of Inspired Oxygen 01/29/25 04:00 01/29/25 04:00 01/29/25 04:01 Temperature 98.5 F 98.5 F Pulse Rate 84 83 Respiratory Rate 11 L 13 Blood Pressure 131/75 Pulse Oximetry 100 99 Oxygen Delivery Room Air Fraction of Inspired Oxygen 01/29/25 05:00 01/29/25 06:00 01/29/25 06:00 Temperature 98.5 F 98.4 F Pulse Rate 95 100 104 H Respiratory Rate 11 L 14 Blood Pressure Pulse Oximetry 99 100 Oxygen Delivery Fraction of Inspired Oxygen 01/29/25 06:01 01/29/25 07:00 01/29/25 11:08 Temperature 98.4 F 98.3 F Pulse Rate 102 H 85 112 H Respiratory Rate 13 14 18 Blood Pressure 169/107 H Pulse Oximetry 100 100 100 Oxygen Delivery Room Air Fraction of Inspired Oxygen Intake/Output Intake/Output: Intake & Output 01/26/25 01/27/25 01/28/25 01/29/25 23:59 23:59 23:59 23:59 Intake Total 1135.0 609.2 460.5 150 Output Total 575 775 300 Balance 1135.0 34.2 -314.5 -150 Meds/Results Medications: Active Medications Generic Name Dose Route Start Last Admin Trade Name Freq PRN Reason Stop Dose Admin Acetaminophen 650 mg 01/28/25 20:45 01/29/25 06:30 Acetaminophen Elixir 325 Mg/10.15 Ml Udc FEED TUBE 650 mg Q6H PRN Administration Mild Pain (1-3) or Fever Amiodarone HCl 200 mg 12/01/25 10:00 Amiodarone Hcl 200 Mg Tablet PO Q12HR [facility] Enoxaparin Sodium 40 mg 01/27/25 10:15 01/29/25 09:16 Enoxaparin 40 Mg/0.4 Ml Syringe SUB-Q 40 mg DAILY [facility] Administration Glucagon 1 mg 01/27/25 01:22 Glucagon For Inj 1 Mg Vial IM PRN PRN Hypoglycemia Protocol Piperacillin Sod/Tazobactam 50 mls @ 100 mls/hr 01/27/25 03:00 01/29/25 10:06 Sod 2.25 gm/ Sodium Chloride IVPB Infused Q6H [facility] Infusion Vancomycin HCl 1,250 mg in 250 mls @ 166.667 mls/hr 01/28/25 15:00 01/28/25 17:27 Vancomycin 1,250 Mg/Ns 250 Ml IVPB Infused Q36H [facility] Insulin Aspart 3 - 6 units 01/27/25 12:00 01/29/25 06:49 Insulin Aspart (*Bkc) 100 Units/Ml SUB-Q Not Given Q6HR [facility] Protocol Ketorolac Tromethamine 1 drop 01/27/25 06:00 01/29/25 05:46 Ketorolac 0.5% Op Soln 5 Ml Bottle EACH EYE 1 drop Q6HR [facility] Administration Levothyroxine Sodium 62.5 mcg 01/27/25 11:25 01/29/25 05:45 Levothyroxine Sodium Inj 100 Mcg/5 Ml Vial IV PUSH 62.5 mcg DAILY@0630 [facility] Administration Lidocaine 1 patch 01/27/25 01:24 Lidocaine 5% Patch TOPICAL Q24H PRN Pain Mupirocin 1 applic 01/27/25 09:00 01/29/25 09:21 Mupirocin 2% Oint 22 Gm Tube EACH NARE 01/31/25 21:01 1 applic Q12HR [facility] Administration Pantoprazole Sodium 40 mg 01/27/25 09:00 01/29/25 09:16 Pantoprazole Sodium Iv 40 Mg Vial IV PUSH 40 mg Q12HR [facility] Administration Sodium Chloride 10 ml 01/27/25 14:00 01/29/25 05:48 Central Line Flush IV PUSH 10 ml Q8HR [facility] Administration Sodium Chloride 10 ml 01/27/25 11:07 Central Line Flush IV PUSH PRN PRN with TPN bag changes Sodium Chloride 20 ml 01/27/25 11:07 Central Line Flush IV PUSH PRN PRN after blood draws Sodium Chloride 10 ml 01/27/25 14:00 01/29/25 05:48 Central Line Flush IV PUSH 10 ml Q8HR [place] Administration Sodium Chloride 10 ml 01/27/25 11:11 Central Line Flush IV PUSH PRN PRN with TPN bag changes Sodium Chloride 20 ml 01/27/25 11:11 Central Line Flush IV PUSH PRN PRN after blood draws Spironolactone 12.5 mg 01/29/25 09:00 Spironolactone 12.5 Mg Tablet FEED TUBE DAILY [facility] Radiology Results: ITS Impressions Head CT 01/26/25 17:46 Impression: 1.No acute intracranial abnormality. Chest X-Ray 01/27/25 11:19 IMPRESSION: 1. Right PICC placed but tip not identified. 2. Right neck central line unchanged with catheter retrograde into left innominate vein. 3. No cardiopulmonary change. Ankle Brachial Index 01/28/25 13:02 IMPRESSION: 1. Normal right HIREN and decreased right TBI, consistent with right-sided arterial occlusive disease. 2. Borderline-decreased left HIREN and lack of detectable arterial flow in the left great toe, consistent with left-sided arterial occlusive disease. Chest/Abdomen/Pelvis CT 01/28/25 16:08 IMPRESSION: 1. Small pleural effusions. 2. New gallbladder distention, which may be secondary to fasting. Correlate with physical exam to exclude acute cholecystitis. 3. Thickened endometrial complex, which may be secondary to endometrial hyperplasia, polyp, or carcinoma. Consider pelvic ultrasound. 4. Worsened wall thickening of the distal ileum and right colon, consistent with edema versus enterocolitis. 5. Small volume of ascites. Venous Doppler Study 01/28/25 16:08 Impression: Negative for DVT. Pelvis Ultrasound 01/29/25 10:11 IMPRESSION: 1. Uterus and ovaries not visualized. Transvaginal imaging was not performed due to the patient's altered mental status. Labs Labs: Laboratory Results - last 24 hr 01/28/25 01/28/25 01/28/25 11:21 17:51 23:58 WBC RBC Hgb Hct MCV MCH MCHC RDW Plt Count MPV Sodium Potassium Chloride Carbon Dioxide Anion Gap BUN Creatinine Estim Creat Clear Calc Estimated GFR Glucose POC Capillary Glucose 93 81 83 Lactic Acid Calcium Phosphorus Magnesium Total Bilirubin AST ALT Alkaline Phosphatase Total Protein Albumin 01/29/25 05:55 WBC 11.2 H RBC 2.82 L Hgb 8.0 L Hct 25.9 L MCV 91.8 MCH 28.4 MCHC 30.9 L RDW 16.9 H Plt Count 257 MPV 9.2 Sodium 131 L Potassium 3.9 Chloride 102 Carbon Dioxide 25 Anion Gap 4 BUN 33 H D Creatinine 0.74 Estim Creat Clear Calc Not Reportable Estimated GFR > 60 Glucose 79 POC Capillary Glucose Lactic Acid 0.8 Calcium 9.0 Phosphorus 2.5 Magnesium 1.8 Total Bilirubin 0.6 AST 31 ALT 15 Alkaline Phosphatase 63 Total Protein 5.5 L Albumin 2.9 L
[2025-01-29] MEDS: AMIODARONE HCL 200 MG TABLET PO ×2 (11:54→21:07)
[2025-01-29 13:06] LABS: Toxigenic C. Diff POSITIVE (NEGATIVE)
[2025-01-29 13:45] LABS: CDiff Toxin A&B Ag Negative (Negative); Clostridium Difficile GDH Ag Positive (Negative)
--- NOTE | 2025-01-29 14:17 | P.PNIM_ITS ---
Subjective Date/time seen: 01/29/25 14:17 Interval history: This is a 79-year-old female patient who is currently in rehab at [facility]. She was recently diagnosed with pneumonia and has been on oral antibiotics. She also has tube feedings that supplements her oral intake. However the patient was found to be more confused and left the were [place] with a low blood pressure at the rehab facility. The patient was complaining of some abdominal pain. Her white count was noted to be 18.4. Her H&H is 10.4 in 33.4. Her sodium was low at 129. Her glucose is 184. Her BNP was noted to be 1910. Her urine is turbid with 1+ protein, 2+ blood, leukocyte esterase 3+, urine wbc's greater than 100, urine bacteria 4+. MRSA was detected in her nares. Chest abdomen pelvis CT was read as a followin. No evidence of pulmonary consolidation are atelectasis. Mild vascular congestion of lungs severe cardiomegaly and postoperative changes as described above. 2. Within the abdomen, there is significant finding of small drops of air in the peripheral portal veins within the left lobe of the liver. This would raise a concern for ischemic bowel disease. 3. Significant Calcific changes at the proximal celiac axis and superior mesenteric artery and right renal artery. 4. Normal bowel obstruction or bowel wall thickening. No evidence of fluid or free air in the peritoneal cavity. Surgery consult was placed per ED provider. The patient was given a dose of zosyn in the er. Head CT was read as no acute and cranial abnormality. Chest x-ray was read as CHF superimposed probable left lower lobe pneumonia. A central line was placed in the emergency room. Repeat chest x-ray shows central line placement. The blood pressures have gotten as low as 70/50 prior to have vasopressors. A Patterson catheter was also placed as well. 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 Review of Systems Review of Systems: All systems reviewed & are unremarkable except as noted in HPI and below Exam Narrative: General: Awake, alert, no acute distress HEENT:? Pupils equal and reactive, sclera is clear, dry oral mucosa Neck:? Supple Respiratory:? Decreased air entry at bases, otherwise clear to auscultation bilaterally Cardiac:? Irregularly irregular rhythm, rate controlled Abdomen:? Soft, diffuse mild tenderness, no guarding rigidity, hypoactive bowel sounds, obese, nondistended Extremities:? Bilateral upper and lower extremity edema,. Palpable pedal pulse Neuro:? Patient is awake, alert, oriented to place and date of , has history of dementia, follows simple commands in all extremities, able to answer question Skin:? Multiple bruising noted on bilateral upper and lower extremities, Psych:? Depressed affect Objective Data Vital Signs Vital Signs: Vital Signs - 24 hr 01/28/25 15:00 01/28/25 16:00 01/28/25 16:00 Temperature 97.3 F L 96.3 F L Pulse Rate 97 102 H Respiratory Rate 14 16 Blood Pressure 143/93 H 126/77 Pulse Oximetry 97 99 99 Oxygen Delivery Room Air Fraction of Inspired Oxygen 01/28/25 16:00 01/28/25 17:00 01/28/25 18:00 Temperature 97.4 F L Pulse Rate 100 93 93 Respiratory Rate 18 Blood Pressure 127/87 Pulse Oximetry 100 Oxygen Delivery Fraction of Inspired Oxygen 01/28/25 18:00 01/28/25 19:00 01/28/25 19:01 Temperature 97.3 F L 97.3 F L 97.3 F L Pulse Rate 91 93 101 H Respiratory Rate 14 14 15 Blood Pressure 146/102 H 142/97 H Pulse Oximetry 99 100 100 Oxygen Delivery Fraction of Inspired Oxygen 01/28/25 20:00 01/28/25 20:00 01/28/25 20:00 Temperature 97.5 F L Pulse Rate 103 H 110 H Respiratory Rate 13 Blood Pressure 145/81 H Pulse Oximetry 100 Oxygen Delivery Room Air Fraction of Inspired Oxygen 01/28/25 20:01 01/28/25 20:05 01/28/25 21:00 Temperature 97.5 F L 97.6 F Pulse Rate 89 93 94 Respiratory Rate 14 20 14 Blood Pressure Pulse Oximetry 100 100 100 Oxygen Delivery Room Air Fraction of Inspired Oxygen 21 01/28/25 22:00 01/28/25 22:00 01/28/25 22:01 Temperature 97.7 F 97.7 F Pulse Rate 82 78 75 Respiratory Rate 11 L 13 Blood Pressure 123/72 Pulse Oximetry 100 100 Oxygen Delivery Fraction of Inspired Oxygen 01/28/25 23:00 01/29/25 00:00 01/29/25 00:00 Temperature 98.1 F Pulse Rate 87 103 H Respiratory Rate 18 Blood Pressure Pulse Oximetry Oxygen Delivery Room Air Fraction of Inspired Oxygen 01/29/25 00:00 01/29/25 00:01 01/29/25 01:00 Temperature 98.3 F 98.3 F 98.2 F Pulse Rate 89 94 93 Respiratory Rate 13 14 15 Blood Pressure 124/90 Pulse Oximetry 100 Oxygen Delivery Fraction of Inspired Oxygen 01/29/25 02:00 01/29/25 02:00 01/29/25 02:01 Temperature 98.3 F 98.3 F Pulse Rate 93 90 91 Respiratory Rate 13 13 Blood Pressure 133/73 Pulse Oximetry 95 99 Oxygen Delivery Fraction of Inspired Oxygen 01/29/25 03:00 01/29/25 04:00 01/29/25 04:00 Temperature 98.4 F Pulse Rate 78 79 Respiratory Rate 11 L Blood Pressure Pulse Oximetry 100 Oxygen Delivery Room Air Fraction of Inspired Oxygen 01/29/25 04:00 01/29/25 04:01 01/29/25 05:00 Temperature 98.5 F 98.5 F 98.5 F Pulse Rate 84 83 95 Respiratory Rate 11 L 13 11 L Blood Pressure 131/75 Pulse Oximetry 100 99 99 Oxygen Delivery Fraction of Inspired Oxygen 01/29/25 06:00 01/29/25 06:00 01/29/25 06:01 Temperature 98.4 F 98.4 F Pulse Rate 100 104 H 102 H Respiratory Rate 14 13 Blood Pressure 169/107 H Pulse Oximetry 100 100 Oxygen Delivery Fraction of Inspired Oxygen 01/29/25 07:00 01/29/25 08:00 01/29/25 08:00 Temperature 98.3 F 98.6 F Pulse Rate 85 90 Respiratory Rate 14 13 Blood Pressure 142/89 H Pulse Oximetry 100 100 Oxygen Delivery Room Air Fraction of Inspired Oxygen 01/29/25 08:00 01/29/25 10:00 01/29/25 11:08 Temperature Pulse Rate 97 91 112 H Respiratory Rate 18 Blood Pressure Pulse Oximetry 100 Oxygen Delivery Room Air Fraction of Inspired Oxygen 01/29/25 11:54 01/29/25 12:00 01/29/25 12:00 Temperature 98.9 F Pulse Rate 114 H 92 Respiratory Rate 14 Blood Pressure 146/88 H Pulse Oximetry 99 Oxygen Delivery Room Air Fraction of Inspired Oxygen 01/29/25 12:00 Temperature Pulse Rate 114 H Respiratory Rate Blood Pressure Pulse Oximetry Oxygen Delivery Fraction of Inspired Oxygen Intake/Output Intake/Output: Intake & Output 01/26/25 01/27/25 01/28/25 01/29/25 23:59 23:59 23:59 23:59 Intake Total 1135.0 609.2 460.5 150 Output Total 575 775 300 Balance 1135.0 34.2 -314.5 -150 Meds/Results Medications: Active Medications Generic Name Dose Route Start Last Admin Trade Name Freq PRN Reason Stop Dose Admin Acetaminophen 650 mg 01/28/25 20:45 01/29/25 12:02 Acetaminophen Elixir 325 Mg/10.15 Ml Udc FEED TUBE 650 mg Q6H PRN Administration Mild Pain (1-3) or Fever Amiodarone HCl 200 mg 01/29/25 10:00 01/29/25 11:54 Amiodarone Hcl 200 Mg Tablet PO 200 mg Q12HR [facility] Administration Enoxaparin Sodium 40 mg 01/27/25 10:15 01/29/25 09:16 Enoxaparin 40 Mg/0.4 Ml Syringe SUB-Q 40 mg DAILY [facility] Administration Glucagon 1 mg 01/27/25 01:22 Glucagon For Inj 1 Mg Vial IM PRN PRN Hypoglycemia Protocol Piperacillin Sod/Tazobactam 50 mls @ 100 mls/hr 01/27/25 03:00 01/29/25 10:06 Sod 2.25 gm/ Sodium Chloride IVPB Infused Q6H [facility] Infusion Insulin Aspart 3 - 6 units 01/27/25 12:00 01/29/25 12:02 Insulin Aspart (*Bkc) 100 Units/Ml SUB-Q Not Given Q6HR [facility] Protocol Ketorolac Tromethamine 1 drop 01/27/25 06:00 01/29/25 12:03 Ketorolac 0.5% Op Soln 5 Ml Bottle EACH EYE 1 drop Q6HR [facility] Administration Levothyroxine Sodium 62.5 mcg 01/27/25 11:25 01/29/25 05:45 Levothyroxine Sodium Inj 100 Mcg/5 Ml Vial IV PUSH 62.5 mcg DAILY@0630 [facility] Administration Lidocaine 1 patch 01/27/25 01:24 Lidocaine 5% Patch TOPICAL Q24H PRN Pain Mupirocin 1 applic 01/27/25 09:00 01/29/25 09:21 Mupirocin 2% Oint 22 Gm Tube EACH NARE 12/03/25 21:01 1 applic Q12HR [facility] Administration Pantoprazole Sodium 40 mg 01/27/25 09:00 01/29/25 09:16 Pantoprazole Sodium Iv 40 Mg Vial IV PUSH 40 mg Q12HR [facility] Administration Sodium Chloride 10 ml 01/27/25 14:00 01/29/25 05:48 Central Line Flush IV PUSH 10 ml Q8HR [facility] Administration Sodium Chloride 10 ml 01/27/25 11:07 Central Line Flush IV PUSH PRN PRN with TPN bag changes Sodium Chloride 20 ml 01/27/25 11:07 Central Line Flush IV PUSH PRN PRN after blood draws Sodium Chloride 10 ml 01/27/25 14:00 01/29/25 05:48 Central Line Flush IV PUSH 10 ml Q8HR [facility] Administration Sodium Chloride 10 ml 01/27/25 11:11 Central Line Flush IV PUSH PRN PRN with TPN bag changes Sodium Chloride 20 ml 01/27/25 11:11 Central Line Flush IV PUSH PRN PRN after blood draws Spironolactone 12.5 mg 01/29/25 09:00 01/29/25 11:54 Spironolactone 12.5 Mg Tablet FEED TUBE 12.5 mg DAILY [facility] Administration Vancomycin HCl 125 mg 01/29/25 13:45 Vancomycin Oral 125 Mg/2.5 Ml Syrup PO 02/08/25 06:01 Q6HR [facility] Radiology Results: ITS Impressions Head CT 01/26/25 17:46 Impression: 1.No acute intracranial abnormality. Chest X-Ray 01/27/25 11:19 IMPRESSION: 1. Right PICC placed but tip not identified. 2. Right neck central line unchanged with catheter retrograde into left innominate vein. 3. No cardiopulmonary change. Ankle Brachial Index 01/28/25 13:02 IMPRESSION: 1. Normal right HIREN and decreased right TBI, consistent with right-sided arterial occlusive disease. 2. Borderline-decreased left HIREN and lack of detectable arterial flow in the l eft great toe, consistent with left-sided arterial occlusive disease. Chest/Abdomen/Pelvis CT 01/28/25 16:08 IMPRESSION: 1. Small pleural effusions. 2. New gallbladder distention, which may be secondary to fasting. Correlate with physical exam to exclude acute cholecystitis. 3. Thickened endometrial complex, which may be secondary to endometrial hyperplasia, polyp, or carcinoma. Consider pelvic ultrasound. 4. Worsened wall thickening of the distal ileum and right colon, consistent with edema versus enterocolitis. 5. Small volume of ascites. Venous Doppler Study 01/28/25 16:08 Impression: Negative for DVT. Pelvis Ultrasound 01/29/25 10:11 IMPRESSION: 1. Uterus and ovaries not visualized. Transvaginal imaging was not performed due to the patient's altered mental status. Labs Labs: Laboratory Results - last 24 hr 01/28/25 01/28/25 01/29/25 17:51 23:58 05:55 WBC 11.2 H RBC 2.82 L Hgb 8.0 L Hct 25.9 L MCV 91.8 MCH 28.4 MCHC 30.9 L RDW 16.9 H Plt Count 257 MPV 9.2 Sodium 131 L Potassium 3.9 Chloride 102 Carbon Dioxide 25 Anion Gap 4 BUN 33 H D Creatinine 0.74 Estim Creat Clear Calc Not Reportable Estimated GFR > 60 Glucose 79 POC Capillary Glucose 81 83 Lactic Acid 0.8 Calcium 9.0 Phosphorus 2.5 Magnesium 1.8 Total Bilirubin 0.6 AST 31 ALT 15 Alkaline Phosphatase 63 Total Protein 5.5 L Albumin 2.9 L C. difficile (PCR) C. difficile Ag & Toxin C. difficile GDH Ag 01/29/25 01/29/25 11:40 11:56 WBC RBC Hgb Hct MCV MCH MCHC RDW Plt Count MPV Sodium Potassium Chloride Carbon Dioxide Anion Gap BUN Creatinine Estim Creat Clear Calc Estimated GFR Glucose POC Capillary Glucose 98 Lactic Acid Calcium Phosphorus Magnesium Total Bilirubin AST ALT Alkaline Phosphatase Total Protein Albumin C. difficile (PCR) Positive A* C. difficile Ag & Toxin Negative C. difficile GDH Ag Positive A Assessment and Plan Assessment and Plan (1) Septic shock: Code(s): A41.9 - Sepsis, unspecified organism; R65.21 - Severe sepsis with septic shock Status: Resolved Assessment and Plan: 01/26: Patient presented with altered mental status, hypotension, [facility] -normal lactic acid at 1.4 -in the ER patient was given 1 L IV fluid bolus since she has a history of CHF -right IJ central line was inserted and started on Levophed, -Levophed was turned off earlier this morning -continue cefepime and vancomycin (01/26) -01/26: Blood cultures have been obtained: NGTD -01/27: Urine cultures have been obtained: Gram neg bacilli 10-25k -will give additional fluid this morning has patient's mucosa membranes are significant and skin turgor is poor - will also give albumin for intravascular volume expansion - Bilateral lower extremity venous Dopplers were negative for DVT 01/28: CT Abdomen repeated: thickened endometrial complex, which may be secondary to endometrial hyperplasia, polyp, or carcinoma; Consider pelvic ultrasound; Worsened wall thickening of the distal ileum and right colon, consistent with edema versus enterocolitis; Small volume of ascites. Pelvic US ordered. Patient also having new onset diarrhea, concerning for C Diff given she has history of same. Testing has been ordered. HIREN positive for PAD of lower extremities. 01/29: C Difficile is positive. Oral vancomycin has been started. Patient is out of shock at this time, BP improving. ID on board and aware. (2) Ischemic bowel disease: Code(s): K55.9 - Vascular disorder of intestine, unspecified Status: Acute Assessment and Plan: Some concerns for ischemic bowel disease on CT scan -lactic acid is 1.4, repeat lactic acid was also 1.4 -appreciate surgery evaluation recommendations, poor surgical candidate -currently off Levophed, if patient's condition worsens, will obtain another noncontrast CT abdomen and pelvis per surgeon -NPO for now -CT Abdomen repeated: thickened endometrial complex, which may be secondary to endometrial hyperplasia, polyp, or carcinoma; Consider pelvic ultrasound; Worsened wall thickening of the distal ileum and right colon, consistent with edema versus enterocolitis; Small volume of ascites. -Surgery on board, CT reviewed, no further intervention at this time, continue antibiotics and monitor (3) C. difficile colitis: Code(s): A04.72 - Enterocolitis due to Clostridium difficile, not specified as recurrent Status: Acute Assessment and Plan: C Difficile + Enterocolitis on Ct likely secondary to this. Oral vancomycin has been started. ID is on board. (4) Acute UTI: Code(s): N39.0 - Urinary tract infection, site not specified Status: Acute Assessment and Plan: UA reflective of UTI, continue antibiotics, cultures have been obtained UCx 01/27: 10-25k Gram neg bacilli (5) Altered mental status: Code(s): R41.82 - Altered mental status, unspecified Status: Acute Assessment and Plan: Altered mental status seems to have resolved, patient is more awake after volume resuscitation and antibiotics. Likely secondary to sepsis. (6) Congestive heart failure: Code(s): I50.9 - Heart failure, unspecified Status: Acute Assessment and Plan: History of heart failure -patient does not know where she gets her treatment -no previous notes or echocardiogram in the chart at [facility] -will obtain echocardiogram -patient does take aspirin, Farxiga, furosemide, Entresto, amiodarone, atorvastatin, Dabigatran at home which are all currently on hold -spironolactone resumed. (7) Gastrointestinal tube in situ: Code(s): Z93.1 - Gastrostomy status Status: Acute Assessment and Plan: Patient does have a PEG tube, according to the nurses the family states that she does take p.o. diet but the PEG tube is for supplementation (8) Hypothyroidism: Code(s): E03.9 - Hypothyroidism, unspecified Status: Acute Assessment and Plan: Switch to oral levothyroxine via tube - home dose is 125mcg, was getting 62.5 mcg IV, will start with 100mcg oral and titrate up to home dose as tolerated Will need to repeat TFTs 6 weeks after discharge (9) Hypertension: Code(s): I10 - Essential (primary) hypertension Status: Acute Assessment and Plan: Hold all antihypertensives as above since patient is NPO since patient presented with hypotension/septic shock. Currently off Levophed since early this morning -Spironolactone resumed. Rest of meds to be resumed as tolerated. (10) DM2 (diabetes mellitus, type 2): Code(s): E11.9 - Type 2 diabetes mellitus without complications Status: Acute Assessment and Plan: Continue sliding scale insulin and Accu-Chek Plan ID on board for sepsis/C Difficile management. Will follow recommendations. DVT prophylaxis: Lovenox Stress ulcer prophylaxis: Protonix Nutrition: Tube feeds Consultations Consultations: I have discussed the care of this pt with the consulting providers. Hospitalist MIPS Advance Care Plan I have confirmed that the patient's Advanced Care Plan is present, code status is documented, or surrogate decision maker is listed in patient medical record.: Yes Medication Reconciliation I have utilized all available resources to obtain, update and review the patients current medications (includes all prescriptions, OTC, herbals, cannabis, and nutritional supplements).: Yes
[2025-01-29] MEDS: VANCOMYCIN ORAL 125 MG/2.5 ML SYRUP PO ×3 (15:32→23:23)
[2025-01-29] MEDS: traMADol HCL (*CRX) 50 MG TABLET FEED TUBE ×2 (17:49→23:20)
--- NOTE | 2025-01-29 17:57 | WPDIDCN ---
Assessment and Plan Assessment and plan (1) C. difficile colitis: Code(s): A04.72 - Enterocolitis due to Clostridium difficile, not specified as recurrent Status: Acute Assessment and Plan: ASSESSMENT: 1. Klebsiella UTI 2. C. diff colitis 3. possible ischemic bowel 4. 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 HTN, hypothyroid, CKD, DM, CAD, RA, stroke, dementia, s/p PEG RECOMMENATIONS: -f/u on blood cxs-->NGTD -change abx to po vanco, zosyn -stop IV vanco--doubt pneumonia at this time d/w pharmacy staff Pt was seen via video telehealth consultation with the assistance of staff. Chart, data and patient info reviewed. Patient was located at [facility] while I was in my [place] office. Pt gave consent. HPI Data of Consult Date/Time: 01/29/25 17:57 Requesting Physician: Maxx Robb MD Primary Care Provider: Marquis Ramirez Consult Narrative Reason for consult: shock Narrative: Keira Baron is a 79 year old female with pmhx/o HTN, hypothyroid, CKD, RA, DM, CAD, depression, dementia, stroke s/p PEG, presented to ED with confusion, abd pain, leukocytosis. She was being given levaquin for pneumonia. Imaging with gas in portal vein concerning for ischemia. C. diff also positive. UCx with pyuria and UCx with klebsiella. Pt in ICU. no pressors. FOR[facility]LY [facility] Past Medical History Medical History Generalized anxiety disorder Left bundle branch block Hypertension Spinal stenosis Aortic valve stenosis Gastrointestinal tube in situ Hypothyroidism Chronic kidney disease Anemia DM2 (diabetes mellitus, type 2) Rheumatoid arthritis CAD (coronary artery disease) Depression Dementia CVA (cerebral vascular accident) Per head CT on 01/26/2025 Remote left basal ganglial lacunar infarct. Remote left occipital infarct. Remote right cerebellar lacunar infarct Dysphagia Ischemic bowel disease Congestive heart failure Combined diastolic and systolic. Pneumonia Surgical History Surgical History AICD (automatic cardioverter/defibrillator) present H/O endovascular stent graft for abdominal aortic aneurysm H/O neck surgery Previous back surgery Family History Family History Other Unknown family medical history Social History Social History Social History: She is currently at [facility]. Her daughter Dee was at the bedside stating that she is the durable power prosecuting attorney for healthcare. She is . She is retired. Code status: Full code Smoking status: Never smoker Second hand tobacco smoke exposure: No Alcohol intake: never Substance use: never Lack of Transportation: No Lack of Food: Never True Current Housing: I Have Housing Concerned About Future Housing: No Difficulty Paying Gas/Electric Bills: No Difficulty Paying for Meds: No Currently Unemployed: No Education: Master's Degree or Higher Difficulty w/ Childcare or Family Care: No Spiritual care concerns: No Meds Home Medications and Allergies Home Medications ?Medication ?Instructions ?Recorded ?Confirmed ?Type Saccharomyces boulardii 250 mg 250 mg PO DAILY 01/26/25 01/26/25 History capsule (Daily Probiotic (S. boulardii)) acetaminophen 325 mg capsule 650 mg PO Q8H PRN pain 01/26/25 01/26/25 History amiodarone 200 mg tablet 200 mg feeding tube BID 01/26/25 01/26/25 History arginine 7 gram-glutamine 7 1 ea PO BID 01/26/25 01/26/25 History gram-calcium HMB 1.5 gram oral powder pack (Boris) aspirin 81 mg tablet,delayed 81 mg feeding tube DAILY 01/26/25 01/26/25 History release atorvastatin 80 mg tablet 80 mg PO QPM 01/26/25 01/26/25 History banana [id number] 5 gram-45 1 ml feeding tube BID 01/26/25 01/26/25 History kcal/60 mL tube feed liquid packet bisacodyl 10 mg rectal suppository 10 mg RECTAL DAILY PRN constipation 01/26/25 01/26/25 History buspirone 10 mg tablet 5 mg feeding tube TID 01/26/25 01/26/25 History calcium carbonate (Calcium Antacid) 200 mg PO Q6H PRN indigestion 01/26/25 01/26/25 History conjugated estrogens 0.625 mg/gram 0.3125 mg vaginal DAILY 01/26/25 01/26/25 History vaginal cream (Premarin) dabigatran etexilate 75 mg capsule 75 mg PO BID 01/26/25 01/26/25 History dapagliflozin propanediol 10 mg 10 mg feeding tube DAILY 01/26/25 01/26/25 History tablet (Farxiga) diclofenac sodium 1 % topical gel 2 g topical Q6H PRN pain 01/26/25 01/26/25 History dimethicone 1 %-zinc oxide 10 1 applic topical QSHIFT PRN 01/26/25 01/26/25 History %-vit A and D-aloe vera topical incontinence cream (A and D Diaper Rash Cream) docusate sodium 100 mg capsule 100 mg PO BID 01/26/25 01/26/25 History (Colace) donepezil 5 mg tablet (Aricept) 5 mg PO BID 01/26/25 01/26/25 History ergocalciferol (vitamin D2) 1,250 50,000 unit feeding tube DAILY 01/26/25 01/26/25 History mcg (50,000 unit) capsule famotidine 20 mg tablet 20 mg PO DAILY 01/26/25 01/26/25 History fenofibrate nanocrystallized 48 mg 48 mg PO DAILY 01/26/25 01/26/25 History tablet furosemide 40 mg tablet 40 mg PO BID 01/26/25 01/26/25 History gabapentin 100 mg capsule 100 mg feeding tube BID 01/26/25 01/26/25 History insulin glargine 100 unit/mL (3 25 unit subcut QPM 01/26/25 01/26/25 History mL) subcutaneous pen (Lantus Solostar U-100 Insulin) ketorolac 0.5 % eye drops (Acular) 1 drp EACH EYE Q6H 01/26/25 01/26/25 History levofloxacin 500 mg tablet 500 mg feeding tube DAILY 01/26/25 01/26/25 History levothyroxine 125 mcg tablet 125 mcg feeding tube DAILY 01/26/25 01/26/25 History lidocaine 5 % topical patch 1 patch topical Q24H PRN pain 01/26/25 01/26/25 History (Lidoderm) magnesium citrate (Citroma oral 296 ml PO ONCE PRN constipation 01/26/25 01/26/25 History solution) magnesium hydroxide 400 mg/5 mL 400 mg PO DAILY PRN constipation 01/26/25 01/26/25 History oral suspension (Milk of Magnesia) melatonin 3 mg capsule 6 mg PO HS 01/26/25 01/26/25 History miconazole nitrate 2 % topical 1 applic topical .hourly PRN 01/26/25 01/26/25 History cream (Antifungal (miconazole)) fungal infection mirtazapine 7.5 mg tablet 7.5 mg PO HS 01/26/25 01/26/25 History montelukast 10 mg tablet 10 mg feeding tube QPM 01/26/25 01/26/25 History naloxone 4 mg/actuation nasal 1 spray intranasal ONCE PRN opioid 01/26/25 01/26/25 History spray (Narcan) overdose nystatin 100,000 unit/gram topical 1 applic topical BID 01/26/25 01/26/25 History powder omeprazole 20 mg capsule,delayed 20 mg PO DAILY 01/26/25 01/26/25 History release sacubitril 97 mg-valsartan 103 mg 1 tablet PO BID 01/26/25 01/26/25 History tablet (Entresto) sertraline 50 mg tablet 50 mg feeding tube DAILY 01/26/25 01/26/25 History sodium phosphates 19 gram-7 118 ml RECTAL ONCE PRN constipation 01/26/25 01/26/25 History gram/118 mL enema (Enema) spironolactone 25 mg/5 mL oral 10 mg feeding tube DAILY 01/26/25 01/26/25 History suspension tramadol 50 mg tablet 50 mg feeding tube Q6H PRN pain 01/26/25 01/26/25 History Allergies Allergy/AdvReac Type Severity Reaction Status Date / Time No Known Allergies Allergy Verified 01/26/25 22:05 Vital Signs Vital Signs - 24 hr 01/28/25 18:00 01/28/25 18:00 01/28/25 19:00 Temperature 97.3 F L 97.3 F L Pulse Rate 93 91 93 Respiratory Rate 14 14 Blood Pressure 146/102 H 142/97 H Pulse Oximetry 99 100 Oxygen Delivery Fraction of Inspired Oxygen 01/28/25 19:01 01/28/25 20:00 01/28/25 20:00 Temperature 97.3 F L Pulse Rate 101 H 103 H Respiratory Rate 15 Blood Pressure Pulse Oximetry 100 Oxygen Delivery Room Air Fraction of Inspired Oxygen 01/28/25 20:00 01/28/25 20:01 01/28/25 20:05 Temperature 97.5 F L 97.5 F L Pulse Rate 110 H 89 93 Respiratory Rate 13 14 20 Blood Pressure 145/81 H Pulse Oximetry 100 100 100 Oxygen Delivery Room Air Fraction of Inspired Oxygen 21 01/28/25 21:00 01/28/25 22:00 01/28/25 22:00 Temperature 97.6 F 97.7 F Pulse Rate 94 82 78 Respiratory Rate 14 11 L Blood Pressure 123/72 Pulse Oximetry 100 100 Oxygen Delivery Fraction of Inspired Oxygen 01/28/25 22:01 01/28/25 23:00 01/29/25 00:00 Temperature 97.7 F 98.1 F Pulse Rate 75 87 103 H Respiratory Rate 13 18 Blood Pressure Pulse Oximetry 100 Oxygen Delivery Fraction of Inspired Oxygen 01/29/25 00:00 01/29/25 00:00 01/29/25 00:01 Temperature 98.3 F 98.3 F Pulse Rate 89 94 Respiratory Rate 13 14 Blood Pressure 124/90 Pulse Oximetry Oxygen Delivery Room Air Fraction of Inspired Oxygen 01/29/25 01:00 01/29/25 02:00 01/29/25 02:00 Temperature 98.2 F 98.3 F Pulse Rate 93 93 90 Respiratory Rate 15 13 Blood Pressure 133/73 Pulse Oximetry 100 95 Oxygen Delivery Fraction of Inspired Oxygen 01/29/25 02:01 01/29/25 03:00 01/29/25 04:00 Temperature 98.3 F 98.4 F Pulse Rate 91 78 79 Respiratory Rate 13 11 L Blood Pressure Pulse Oximetry 99 100 Oxygen Delivery Fraction of Inspired Oxygen 01/29/25 04:00 01/29/25 04:00 01/29/25 04:01 Temperature 98.5 F 98.5 F Pulse Rate 84 83 Respiratory Rate 11 L 13 Blood Pressure 131/75 Pulse Oximetry 100 99 Oxygen Delivery Room Air Fraction of Inspired Oxygen 01/29/25 05:00 01/29/25 06:00 01/29/25 06:00 Temperature 98.5 F 98.4 F Pulse Rate 95 100 104 H Respiratory Rate 11 L 14 Blood Pressure Pulse Oximetry 99 100 Oxygen Delivery Fraction of Inspired Oxygen 01/29/25 06:01 01/29/25 07:00 01/29/25 08:00 Temperature 98.4 F 98.3 F Pulse Rate 102 H 85 Respiratory Rate 13 14 Blood Pressure 169/107 H Pulse Oximetry 100 100 Oxygen Delivery Room Air Fraction of Inspired Oxygen 01/29/25 08:00 01/29/25 08:00 01/29/25 10:00 Temperature 98.6 F Pulse Rate 90 97 91 Respiratory Rate 13 Blood Pressure 142/89 H Pulse Oximetry 100 Oxygen Delivery Fraction of Inspired Oxygen 01/29/25 11:08 01/29/25 11:54 01/29/25 12:00 Temperature Pulse Rate 112 H 114 H Respiratory Rate 18 Blood Pressure Pulse Oximetry 100 Oxygen Delivery Room Air Room Air Fraction of Inspired Oxygen 01/29/25 12:00 01/29/25 12:00 01/29/25 14:00 Temperature 98.9 F Pulse Rate 92 114 H 92 Respiratory Rate 14 Blood Pressure 146/88 H Pulse Oximetry 99 Oxygen Delivery Fraction of Inspired Oxygen Exam Narrative: on room air, lethargic abd soft +tender and guarding Results Labs 01/29/25 05:55 01/29/25 05:55 Labs: Short CBC 01/29/25 Range/Units 05:55 WBC 11.2 H (4.5-10.0) K/mm3 Hgb 8.0 L (12.0-15.0) g/dL Hct 25.9 L (37.0-47.0) % Plt Count 257 (150-375) k/mm3 [facility] 01/29/25 05:55 Sodium 131 L Potassium 3.9 Chloride 102 Carbon Dioxide 25 BUN 33 H D Creatinine 0.74 Glucose 79 Calcium 9.0 Liver Function 01/29/25 Range/Units 05:55 Total Bilirubin 0.6 (0.2-1.3) mg/dL AST 31 (14-36) U/L ALT 15 (6-35) U/L Alkaline Phosphatase 63 (38-126) U/L Albumin 2.9 L (3.5-5.1) g/dL
[2025-01-30] VITALS (14 sets, daily range): BP systolic 121–148; BP diastolic 74–95; PULSE 92–129; RESP 18–20; TEMP 36.4–36.9; O2SAT 91–100
[2025-01-30] MEDS: PIPERACILLIN/TAZOBACTAM SOD 2.25 GM in SODIUM CHLORIDE 0.9% IV 50 ML IVPB (02:41)
--- NOTE | 2025-01-30 03:51 | ADMGEN ---
This patient, Keira Baron, was admitted to IMU Room 203-01. Patient/family oriented to hospital policies and general routines including ID bracelet, bed and alarms, visiting hours, pain management, procedures, bathroom and other care routines, personal items, smoking policy, room service/diet, and visiting hours. Information on how to activate the Rapid Response Team has been discussed. Patient/Family are encouraged to report perceived risks to care and to ask questions if they do not understand what they are told or what they should do. This patient, Keira Baron, was transferred to [ ] on 01/30/25 at 0351. Personal belongings sent with patient. Report given to [ ]. Appropriate documentation sent with patient.
--- NOTE | 2025-01-30 03:57 | PC.NURSE ---
This patient, Keira Baron, was received from ICU 3 on 01/30/25 at 0345. Patient/family oriented to unit policies and routines report recieved from Brianne Acosta RN
[2025-01-30 04:25] LABS: Hematocrit 26.7 % (37.0-47.0); Hemoglobin 8.2 g/dL (12.0-15.0); Mean Corpuscular HGB Conc 30.7 g/dl (32-36); Mean Corpuscular Hemoglobin 27.8 pg (26-34); Mean Corpuscular Volume 90.5 fl (80-100); Platelet Count Result 280 k/mm3 (150-375); Red Blood Count 2.95 M/mm3 (4.2-5.4); White Blood Count 9.7 K/mm3 (4.5-10.0)
[2025-01-30 04:44] LABS: Alanine Aminotransferase 17 U/L (6-35); Albumin Level 3.1 g/dL (3.5-5.1); Alkaline Phosphatase 64 U/L (38-126); Anion Gap 5 mmol/L (4-12); Aspartate Amino Transferase 26 U/L (14-36); Bilirubin,Total 0.5 mg/dL (0.2-1.3); Blood Urea Nitrogen 26 mg/dL (7-17); Calcium 8.7 mg/dL (8.4-10.2); Carbon Dioxide 24 mmol/L (22-30); Chloride 100 mmol/L (98-107); Estimated Glomerular Filt Rate > 60; Glucose 143 mg/dL (65-110); Magnesium 1.7 mg/dL (1.6-2.3); Potassium 3.5 mmol/L (3.4-5.0); Sodium 129 mmol/L (137-145); Total Protein 6.0 g/dL (6.3-8.2)
[2025-01-30] MEDS: KETOROLAC 0.5% OP SOLN 5 ML BOTTLE 1 DROP EACH EYE ×4 (06:26→23:26)
[2025-01-30] MEDS: VANCOMYCIN ORAL 125 MG/2.5 ML SYRUP PO ×4 (06:27→23:31)
[2025-01-30] MEDS: CENTRAL LINE FLUSH 10 ML IV PUSH ×5 (06:27→21:07)
[2025-01-30] MEDS: LEVOTHYROXINE SODIUM 100 MCG TABLET PO (06:27)
[2025-01-30] MEDS: traMADol HCL (*CRX) 50 MG TABLET FEED TUBE ×3 (09:25→23:37)
[2025-01-30] MEDS: PANTOPRAZOLE SODIUM IV 40 MG VIAL IV PUSH ×2 (09:25→21:06)
[2025-01-30] MEDS: AMIODARONE HCL 200 MG TABLET PO ×2 (09:25→21:06)
[2025-01-30] MEDS: ENOXAPARIN 40 MG/0.4 ML SYRINGE SUB-Q (09:26)
[2025-01-30] MEDS: PIPERACILLIN/TAZOBACTAM SOD 2.25 GM in SODIUM CHLORIDE 0.9% IV 50 ML 100 ML IVPB (09:26)
[2025-01-30] MEDS: MUPIROCIN 2% OINT 22 GM TUBE 1 APPLIC EACH NARE ×2 (09:26→21:06)
--- NOTE | 2025-01-30 11:50 | PCNFU ---
Nutrition Follow-Up Complete: Inadequate energy intake related to altered GI function as evidenced by need for supplemental tube feedings Goal:Tolerate tube feedings Oral intake as tolerated, with diet advancement per MD Pt meeting goal, continue with same goal Pt current nutrition is Clear liquids, Tube feeding: Jevity 1.5 @ 20ml/hr. Nutrition recommendation: Advance tube feeding to goal rate of 50ml/hr Last recorded weight is 75.3 kg. Bowel Motility: +BM / Labs Reviewed:Hgb:8.2, HCT:26.7, Alb:3.1, Na:129, BUN:26, Glu:143 Meds Noted: protonix, novolog, lovenox Skin: Stage III to buttocks Additional Notes: Pt started on clear liquids and tolerating, minimal po intake. Tube feeding started and pt tolerating that as well. Recommend to advance to goal rate of 50ml/hr to provide 1650kcals, 70g protein, 836ml free water, waiting for ok from surgery per nursing. Recommend to add SHRUTI BID via tube for wound healing. Recommend flushes at 150ml q 4 hrs for free water needs. Monitoring tube feeding orders, diet orders, PO intake, weights, labs, plan of care Follow up Wednesday/Wednesday
--- NOTE | 2025-01-30 12:50 | P.PNGS_ITS ---
Progress Note: A&P Assessment and Plan (1) Septic shock: Code(s): A41.9 - Sepsis, unspecified organism; R65.21 - Severe sepsis with septic shock Status: Resolved Assessment and Plan: * Source UTI vs enterocolitis vs possible bowel ischemia. * Continues to improve with current management. No longer on vasopressors. WBC normalized. Cdiff positive. Continue IV antibiotics. (2) Ischemic bowel disease: Code(s): K55.9 - Vascular disorder of intestine, unspecified Status: Acute Assessment and Plan: * Initial CT showed findings of possible portal venous gas. Repeat CT showed wall thickening of the distal ileum and right colon c/w edema vs enterocolitis, no findings of pneumatosis or portal venous gas. WBC trending down, lactic acid still normal. H/H stable. Abd exam benign and bowels are moving. * Patient tolerating tube feedings. Oral diet ordered, but reportedly patient is not eating much by mouth. Consider increasing tube feeding rate. * General surgery team will sign off at this time. Please call with any questions or concerns. Plan I have discussed the patient's case, recommendations, and treatment plan with Dr. Castro. Subjective Subjective Date/Time Seen: 01/30/25 12:50 Patient reports: no new complaints and afebrile Interval history: No acute events overnight. Patient notes some mid abdominal pain. Reportedly, patient has not been wanting to eat anything by mouth. Tolerating tube feedings. WBC normalized. Exam GI: Inspection: non-distended GI Palp: Yes Soft to palpation, No Tenderness to palpation present (GI) and No Guarding due to palpation present (GI) Auscultation: normal bowel sounds Other: Greenish-brown liquid stool noted in the rectal tube bag Objective Data Vital Signs Vital Signs: Vital Signs - 24 hr 01/29/25 14:00 01/29/25 16:00 01/29/25 16:00 Temperature 98.7 F Pulse Rate 92 95 Respiratory Rate 16 Blood Pressure 154/109 H Pulse Oximetry 100 Oxygen Delivery Room Air Fraction of Inspired Oxygen 01/29/25 16:00 01/29/25 18:00 01/29/25 20:00 Temperature Pulse Rate 109 H 102 H 94 Respiratory Rate 16 Blood Pressure Pulse Oximetry 100 Oxygen Delivery Room Air Fraction of Inspired Oxygen 21 01/29/25 20:00 01/29/25 20:00 01/29/25 21:07 Temperature 98.9 F Pulse Rate 98 98 108 H Respiratory Rate 16 Blood Pressure 147/109 H Pulse Oximetry 100 Oxygen Delivery Fraction of Inspired Oxygen 01/29/25 22:00 01/29/25 23:49 01/29/25 23:49 Temperature Pulse Rate 95 114 H 114 H Respiratory Rate 16 Blood Pressure Pulse Oximetry 100 Oxygen Delivery Room Air Fraction of Inspired Oxygen 21 01/29/25 23:49 01/30/25 01:57 01/30/25 04:00 Temperature 98.7 F 97.5 F L Pulse Rate 114 H 92 119 H Respiratory Rate 16 20 Blood Pressure 133/98 H 130/85 Pulse Oximetry 96 100 Oxygen Delivery Fraction of Inspired Oxygen 01/30/25 04:00 01/30/25 05:59 01/30/25 06:00 Temperature Pulse Rate 109 H 108 H 106 H Respiratory Rate Blood Pressure Pulse Oximetry Oxygen Delivery Fraction of Inspired Oxygen 01/30/25 08:00 01/30/25 08:00 01/30/25 08:00 Temperature 98.1 F Pulse Rate 112 H 118 H Respiratory Rate 18 Blood Pressure 148/95 H Pulse Oximetry 91 Oxygen Delivery Room Air Fraction of Inspired Oxygen 01/30/25 09:25 01/30/25 10:00 01/30/25 12:00 Temperature 98.4 F Pulse Rate 114 H 108 H 102 H Respiratory Rate 18 Blood Pressure 125/80 Pulse Oximetry 100 Oxygen Delivery Fraction of Inspired Oxygen Intake/Output Intake/Output: Intake & Output 01/27/25 01/28/25 01/29/25 01/30/25 23:59 23:59 23:59 23:59 Intake Total 609.2 460.5 540 50 Output Total 079 150 3567 950 Balance 34.2 -314.5 -660 -900 Meds/Results Medications: Active Medications Generic Name Dose Route Start Last Admin Trade Name Freq PRN Reason Stop Dose Admin Acetaminophen 650 mg 01/28/25 20:45 01/29/25 12:02 Acetaminophen Elixir 325 Mg/10.15 Ml Udc FEED TUBE 650 mg Q6H PRN Administration Mild Pain (1-3) or Fever Amiodarone HCl 200 mg 01/29/25 10:00 01/30/25 09:25 Amiodarone Hcl 200 Mg Tablet PO 200 mg Q12HR MERCEDES Administration Enoxaparin Sodium 40 mg 01/27/25 10:15 01/30/25 09:26 Enoxaparin 40 Mg/0.4 Ml Syringe SUB-Q 40 mg DAILY MERCEDES Administration Glucagon 1 mg 01/27/25 01:22 Glucagon For Inj 1 Mg Vial IM PRN PRN Hypoglycemia Protocol Piperacillin Sod/Tazobactam 50 mls @ 100 mls/hr 01/27/25 03:00 01/30/25 09:26 Sod 2.25 gm/ Sodium Chloride IVPB 100 mls/hr Q6H MERCEDES Administration Insulin Aspart 3 - 6 units 01/27/25 12:00 01/30/25 12:26 Insulin Aspart (*Bkc) 100 Units/Ml SUB-Q Not Given Q6HR MERCEDES Protocol Ketorolac Tromethamine 1 drop 01/27/25 06:00 01/30/25 12:29 Ketorolac 0.5% Op Soln 5 Ml Bottle EACH EYE 1 drop Q6HR MERCEDES Administration Levothyroxine Sodium 100 mcg 01/30/25 06:30 01/30/25 06:27 Levothyroxine Sodium 100 Mcg Tablet PO 100 mcg DAILY@0630 MERCEDES Administration Lidocaine 1 patch 01/27/25 01:24 Lidocaine 5% Patch TOPICAL Q24H PRN Pain Mupirocin 1 applic 01/27/25 09:00 01/30/25 09:26 Mupirocin 2% Oint 22 Gm Tube EACH NARE 01/31/25 21:01 1 applic Q12HR MERCEDES Administration Pantoprazole Sodium 40 mg 01/27/25 09:00 01/30/25 09:25 Pantoprazole Sodium Iv 40 Mg Vial IV PUSH 40 mg Q12HR MERCEDES Administration Sodium Chloride 10 ml 01/27/25 14:00 01/30/25 06:27 Central Line Flush IV PUSH 10 ml Q8HR MERCEDES Administration Sodium Chloride 10 ml 01/27/25 11:07 Central Line Flush IV PUSH PRN PRN with TPN bag changes Sodium Chloride 20 ml 01/27/25 11:07 Central Line Flush IV PUSH PRN PRN after blood draws Sodium Chloride 10 ml 01/27/25 14:00 01/30/25 06:28 Central Line Flush IV PUSH 10 ml Q8HR MERCEDES Administration Sodium Chloride 10 ml 01/27/25 11:11 Central Line Flush IV PUSH PRN PRN with TPN bag changes Sodium Chloride 20 ml 01/27/25 11:11 Central Line Flush IV PUSH PRN PRN after blood draws Spironolactone 12.5 mg 01/29/25 09:00 01/30/25 09:25 Spironolactone 12.5 Mg Tablet FEED TUBE 12.5 mg DAILY MERCEDES Administration Tramadol HCl 50 mg 01/29/25 17:28 01/30/25 09:25 Tramadol Hcl (*Crx) 50 Mg Tablet FEED TUBE 50 mg Q6H PRN Administration Pain Rated 4-6 Vancomycin HCl 125 mg 01/29/25 13:45 01/30/25 12:29 Vancomycin Oral 125 Mg/2.5 Ml Syrup PO 02/08/25 06:01 125 mg Q6HR MERCEDES Administration Radiology Results: ITS Impressions Head CT 01/26/25 17:46 Impression: 1.No acute intracranial abnormality. Chest X-Ray 01/27/25 11:19 IMPRESSION: 1. Right PICC placed but tip not identified. 2. Right neck central line unchanged with catheter retrograde into left innominate vein. 3. No cardiopulmonary change. Ankle Brachial Index 01/28/25 13:02 IMPRESSION: 1. Normal right HIREN and decreased right TBI, consistent with right-sided arterial occlusive disease. 2. Borderline-decreased left HIREN and lack of detectable arterial flow in the left great toe, consistent with left-sided arterial occlusive disease. Chest/Abdomen/Pelvis CT 01/28/25 16:08 IMPRESSION: 1. Small pleural effusions. 2. New gallbladder distention, which may be secondary to fasting. Correlate with physical exam to exclude acute cholecystitis. 3. Thickened endometrial complex, which may be secondary to endometrial hyperplasia, polyp, or carcinoma. Consider pelvic ultrasound. 4. Worsened wall thickening of the distal ileum and right colon, consistent with edema versus enterocolitis. 5. Small volume of ascites. Venous Doppler Study 01/28/25 16:08 Impression: Negative for DVT. Pelvis Ultrasound 01/29/25 10:11 IMPRESSION: 1. Uterus and ovaries not visualized. Transvaginal imaging was not performed due to the patient's altered mental status. Labs Labs: Laboratory Results - last 24 hr 01/29/25 01/29/25 01/29/25 11:40 17:51 23:18 WBC RBC Hgb Hct MCV MCH MCHC RDW Plt Count MPV Sodium Potassium Chloride Carbon Dioxide Anion Gap BUN Creatinine Estim Creat Clear Calc Estimated GFR Glucose POC Capillary Glucose 134 H 158 H Lactic Acid Calcium Phosphorus Magnesium Total Bilirubin AST ALT Alkaline Phosphatase Total Protein Albumin C. difficile (PCR) Positive A* C. difficile Ag & Toxin Negative C. difficile GDH Ag Positive A 01/30/25 01/30/25 01/30/25 04:11 04:12 12:17 WBC 9.7 RBC 2.95 L Hgb 8.2 L Hct 26.7 L MCV 90.5 MCH 27.8 MCHC 30.7 L RDW 17.1 H Plt Count 280 MPV 8.8 Sodium 129 L Potassium 3.5 Chloride 100 Carbon Dioxide 24 Anion Gap 5 BUN 26 H Creatinine 0.72 Estim Creat Clear Calc Not Reportable Estimated GFR > 60 Glucose 143 H POC Capillary Glucose 187 H Lactic Acid 0.9 Calcium 8.7 Phosphorus 2.6 Magnesium 1.7 Total Bilirubin 0.5 AST 26 ALT 17 Alkaline Phosphatase 64 Total Protein 6.0 L Albumin 3.1 L C. difficile (PCR) C. difficile Ag & Toxin C. difficile GDH Ag
--- NOTE | 2025-01-30 12:55 | WPDINFPN2 ---
Progress Note: A&P Assessment and Plan (1) C. difficile colitis: Code(s): A04.72 - Enterocolitis due to Clostridium difficile, not specified as recurrent Status: Acute Assessment and Plan: ASSESSMENT: 1. Klebsiella ESBL UTI 2. C. diff colitis 3. possible ischemic bowel 4. 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 HTN, hypothyroid, CKD, DM, CAD, RA, stroke, dementia, s/p PEG RECOMMENATIONS: -f/u on blood cxs-->NGTD -continue po vanco -change xosyn to meropenem -stop IV vanco--doubt pneumonia at this time d/w pharmacy staff Pt was seen via video telehealth consultation with the assistance of staff. Chart, data and patient info reviewed. Patient was located at [facility] while I was in my [place] office. Pt gave consent. Subjective Date/time seen: 01/30/25 12:55 Interval history: no fever no leukocytosis Exam Narrative: Non-toxic, on room air pale more alert abd exam better today; +PEG +ecchymoses Objective Data Vital Signs Vital Signs: Vital Signs - 24 hr 01/29/25 14:00 01/29/25 16:00 01/29/25 16:00 Temperature 98.7 F Pulse Rate 92 95 Respiratory Rate 16 Blood Pressure 154/109 H Pulse Oximetry 100 Oxygen Delivery Room Air Fraction of Inspired Oxygen 01/29/25 16:00 01/29/25 18:00 01/29/25 20:00 Temperature Pulse Rate 109 H 102 H 94 Respiratory Rate 16 Blood Pressure Pulse Oximetry 100 Oxygen Delivery Room Air Fraction of Inspired Oxygen 21 01/29/25 20:00 01/29/25 20:00 01/29/25 21:07 Temperature 98.9 F Pulse Rate 98 98 108 H Respiratory Rate 16 Blood Pressure 147/109 H Pulse Oximetry 100 Oxygen Delivery Fraction of Inspired Oxygen 01/29/25 22:00 01/29/25 23:49 01/29/25 23:49 Temperature Pulse Rate 95 114 H 114 H Respiratory Rate 16 Blood Pressure Pulse Oximetry 100 Oxygen Delivery Room Air Fraction of Inspired Oxygen 21 01/29/25 23:49 01/30/25 01:57 01/30/25 04:00 Temperature 98.7 F 97.5 F L Pulse Rate 114 H 92 119 H Respiratory Rate 16 20 Blood Pressure 133/98 H 130/85 Pulse Oximetry 96 100 Oxygen Delivery Fraction of Inspired Oxygen 01/30/25 04:00 01/30/25 05:59 01/30/25 06:00 Temperature Pulse Rate 109 H 108 H 106 H Respiratory Rate Blood Pressure Pulse Oximetry Oxygen Delivery Fraction of Inspired Oxygen 01/30/25 08:00 01/30/25 08:00 01/30/25 08:00 Temperature 98.1 F Pulse Rate 112 H 118 H Respiratory Rate 18 Blood Pressure 148/95 H Pulse Oximetry 91 Oxygen Delivery Room Air Fraction of Inspired Oxygen 01/30/25 09:25 01/30/25 10:00 01/30/25 12:00 Temperature 98.4 F Pulse Rate 114 H 108 H 102 H Respiratory Rate 18 Blood Pressure 125/80 Pulse Oximetry 100 Oxygen Delivery Fraction of Inspired Oxygen Intake/Output Intake/Output: Intake & Output 01/27/25 01/28/25 01/29/25 01/30/25 23:59 23:59 23:59 23:59 Intake Total 609.2 460.5 540 50 Output Total 049 572 6196 950 Balance 34.2 -314.5 -660 -900 Meds/Results Medications: Active Medications Generic Name Dose Route Start Last Admin Trade Name Freq PRN Reason Stop Dose Admin Acetaminophen 650 mg 01/28/25 20:45 01/29/25 12:02 Acetaminophen Elixir 325 Mg/10.15 Ml Udc FEED TUBE 650 mg Q6H PRN Administration Mild Pain (1-3) or Fever Amiodarone HCl 200 mg 01/29/25 10:00 01/30/25 09:25 Amiodarone Hcl 200 Mg Tablet PO 200 mg Q12HR [facility] Administration Enoxaparin Sodium 40 mg 01/27/25 10:15 01/30/25 09:26 Enoxaparin 40 Mg/0.4 Ml Syringe SUB-Q 40 mg DAILY [facility] Administration Glucagon 1 mg 01/27/25 01:22 Glucagon For Inj 1 Mg Vial IM PRN PRN Hypoglycemia Protocol Piperacillin Sod/Tazobactam 50 mls @ 100 mls/hr 01/27/25 03:00 01/30/25 09:26 Sod 2.25 gm/ Sodium Chloride IVPB 100 mls/hr Q6H [facility] Administration Insulin Aspart 3 - 6 units 01/27/25 12:00 01/30/25 12:26 Insulin Aspart (*Bkc) 100 Units/Ml SUB-Q Not Given Q6HR [facility] Protocol Ketorolac Tromethamine 1 drop 01/27/25 06:00 01/30/25 12:29 Ketorolac 0.5% Op Soln 5 Ml Bottle EACH EYE 1 drop Q6HR [facility]CED[facility] Administration Levothyroxine Sodium 100 mcg 01/30/25 06:30 01/30/25 06:27 Levothyroxine Sodium 100 Mcg Tablet PO 100 mcg DAILY@0630 MERCED[facility] Administration Lidocaine 1 patch 01/27/25 01:24 Lidocaine 5% Patch TOPICAL Q24H PRN Pain Mupirocin 1 applic 01/27/25 09:00 01/30/25 09:26 Mupirocin 2% Oint 22 Gm Tube EACH NARE 01/31/25 21:01 1 applic Q12HR MERCEDES Administration Pantoprazole Sodium 40 mg 01/27/25 09:00 01/30/25 09:25 Pantoprazole Sodium Iv 40 Mg Vial IV PUSH 40 mg Q12HR [facility]CEDES Administration Sodium Chloride 10 ml 01/27/25 14:00 01/30/25 06:27 Central Line Flush IV PUSH 10 ml Q8HR [facility]CED[facility] Administration Sodium Chloride 10 ml 01/27/25 11:07 Central Line Flush IV PUSH PRN PRN with TPN bag changes Sodium Chloride 20 ml 01/27/25 11:07 Central Line Flush IV PUSH PRN PRN after blood draws Sodium Chloride 10 ml 01/27/25 14:00 01/30/25 06:28 Central Line Flush IV PUSH 10 ml Q8HR [facility] Administration Sodium Chloride 10 ml 01/27/25 11:11 Central Line Flush IV PUSH PRN PRN with TPN bag changes Sodium Chloride 20 ml 01/27/25 11:11 Central Line Flush IV PUSH PRN PRN after blood draws Spironolactone 12.5 mg 01/29/25 09:00 01/30/25 09:25 Spironolactone 12.5 Mg Tablet FEED TUBE 12.5 mg DAILY [facility] Administration Tramadol HCl 50 mg 01/29/25 17:28 01/30/25 09:25 Tramadol Hcl (*Crx) 50 Mg Tablet FEED TUBE 50 mg Q6H PRN Administration Pain Rated 4-6 Vancomycin HCl 125 mg 01/29/25 13:45 01/30/25 12:29 Vancomycin Oral 125 Mg/2.5 Ml Syrup PO 02/08/25 06:01 125 mg Q6HR [facility] Administration Radiology Results: ITS Impressions Head CT 01/26/25 17:46 Impression: 1.No acute intracranial abnormality. Chest X-Ray 01/27/25 11:19 IMPRESSION: 1. Right PICC placed but tip not identified. 2. Right neck central line unchanged with catheter retrograde into left innominate vein. 3. No cardiopulmonary change. Ankle Brachial Index 01/28/25 13:02 IMPRESSION: 1. Normal right HIREN and decreased right TBI, consistent with right-sided arterial occlusive disease. 2. Borderline-decreased left HIREN and lack of detectable arterial flow in the left great toe, consistent with left-sided arterial occlusive disease. Chest/Abdomen/Pelvis CT 01/28/25 16:08 IMPRESSION: 1. Small pleural effusions. 2. New gallbladder distention, which may be secondary to fasting. Correlate with physical exam to exclude acute cholecystitis. 3. Thickened endometrial complex, which may be secondary to endometrial hyperplasia, polyp, or carcinoma. Consider pelvic ultrasound. 4. Worsened wall thickening of the distal ileum and right colon, consistent with edema versus enterocolitis. 5. Small volume of ascites. Venous Doppler Study 01/28/25 16:08 Impression: Negative for DVT. Pelvis Ultrasound 01/29/25 10:11 IMPRESSION: 1. Uterus and ovaries not visualized. Transvaginal imaging was not performed due to the patient's altered mental status. Labs Labs: Laboratory Results - last 24 hr 01/29/25 01/29/25 01/29/25 11:40 17:51 23:18 WBC RBC Hgb Hct MCV MCH MCHC RDW Plt Count MPV Sodium Potassium Chloride Carbon Dioxide Anion Gap BUN Creatinine Estim Creat Clear Calc Estimated GFR Glucose POC Capillary Glucose 134 H 158 H Lactic Acid Calcium Phosphorus Magnesium Total Bilirubin AST ALT Alkaline Phosphatase Total Protein Albumin C. difficile (PCR) Positive A* C. difficile Ag & Toxin Negative C. difficile GDH Ag Positive A 01/30/25 01/30/25 01/30/25 04:11 04:12 12:17 WBC 9.7 RBC 2.95 L Hgb 8.2 L Hct 26.7 L MCV 90.5 MCH 27.8 MCHC 30.7 L RDW 17.1 H Plt Count 280 MPV 8.8 Sodium 129 L Potassium 3.5 Chloride 100 Carbon Dioxide 24 Anion Gap 5 BUN 26 H Creatinine 0.72 Estim Creat Clear Calc Not Reportable Estimated GFR > 60 Glucose 143 H POC Capillary Glucose 187 H Lactic Acid 0.9 Calcium 8.7 Phosphorus 2.6 Magnesium 1.7 Total Bilirubin 0.5 AST 26 ALT 17 Alkaline Phosphatase 64 Total Protein 6.0 L Albumin 3.1 L C. difficile (PCR) C. difficile Ag & Toxin C. difficile [facility] Ag
[2025-01-30 13:08] LABS: Osmolality, Urine 444 mOsmol/kg (.)
[2025-01-30] MEDS: MEROPENEM 1 GM in SODIUM CHLORIDE 0.9% IV 100 ML 200 ML IVPB ×2 (14:42→23:31)
--- NOTE | 2025-01-30 17:46 | PM.IMPN2 ---
Assessment and Plan Assessment and Plan (1) Septic shock: Code(s): A41.9 - Sepsis, unspecified organism; R65.21 - Severe sepsis with septic shock Status: Resolved Assessment and Plan: 01/26: Patient presented with altered mental status, hypotension, feeling tired and more sleepy at the shelter -normal lactic acid at 1.4 -in the ER patient was given 1 L IV fluid bolus since she has a history of CHF -right IJ central line was inserted and started on Levophed, -Levophed was turned off earlier this morning -continue cefepime and vancomycin (01/26) -01/26: Blood cultures have been obtained: NGTD -01/27: Urine cultures have been obtained: Klebsiella ESBL -will give additional fluid this morning has patient's mucosa membranes are significant and skin turgor is poor - will also give albumin for intravascular volume expansion - Bilateral lower extremity venous Dopplers were negative for DVT 01/28: CT Abdomen repeated: thickened endometrial complex, which may be secondary to endometrial hyperplasia, polyp, or carcinoma; Consider pelvic ultrasound; Worsened wall thickening of the distal ileum and right colon, consistent with edema versus enterocolitis; Small volume of ascites. Pelvic US ordered. Patient also having new onset diarrhea, concerning for C Diff given she has history of same. Testing has been ordered. HIREN positive for PAD of lower extremities. 01/29: C Difficile is positive. Oral vancomycin has been started. Patient is out of shock at this time, BP improving. ID on board and aware. 01/30: IV Vancomycin switched to Meropenem per ID given klebsiella UTI. BCx NGTD. (2) Ischemic bowel disease: Code(s): K55.9 - Vascular disorder of intestine, unspecified Status: Acute Assessment and Plan: Some concerns for ischemic bowel disease on CT scan -lactic acid is 1.4, repeat lactic acid was also 1.4 -appreciate surgery evaluation recommendations, poor surgical candidate -currently off Levophed, if patient's condition worsens, will obtain another noncontrast CT abdomen and pelvis per surgeon -NPO for now -CT Abdomen repeated: thickened endometrial complex, which may be secondary to endometrial hyperplasia, polyp, or carcinoma; Consider pelvic ultrasound; Worsened wall thickening of the distal ileum and right colon, consistent with edema versus enterocolitis; Small volume of ascites. -Surgery on board, CT reviewed, no further intervention at this time, continue antibiotics and monitor -Can advance tube feeds, increased water intake from 30cc to 75cc qid. Limiting water administration as Na is 129 and want to prevent further worsening of hyponatremia. (3) C. difficile colitis: Code(s): A04.72 - Enterocolitis due to Clostridium difficile, not specified as recurrent Status: Acute Assessment and Plan: C Difficile + Enterocolitis on Ct likely secondary to this. Oral vancomycin has been started. ID is on board. Stools somewhat hardening per patient but still soft. Contact isolation precautions in place. (4) Acute UTI: Code(s): N39.0 - Urinary tract infection, site not specified Status: Acute Assessment and Plan: UA reflective of UTI, continue antibiotics, cultures have been obtained UCx 01/27: Klebsiella ESBL -IV Vancomycin switched to Meropenem per ID (5) Altered mental status: Code(s): R41.82 - Altered mental status, unspecified Status: Acute Assessment and Plan: Altered mental status seems to have resolved, patient is more awake after volume resuscitation and antibiotics. Likely secondary to sepsis. (6) Congestive heart failure: Code(s): I50.9 - Heart failure, unspecified Status: Acute Assessment and Plan: History of heart failure -patient does not know where she gets her treatment -no previous notes or echocardiogram in the chart at [facility] -will obtain echocardiogram -patient does take aspirin, Farxiga, furosemide, Entresto, Dabigatran at home which are all currently on hold. Amiodarone, atorvastatin and spironolactone resumed. (7) Gastrointestinal tube in situ: Code(s): Z93.1 - Gastrostomy status Status: Acute Assessment and Plan: Patient does have a PEG tube, according to the nurses the family states that she does take p.o. diet but the PEG tube is for supplementation (8) Hypothyroidism: Code(s): E03.9 - Hypothyroidism, unspecified Status: Acute Assessment and Plan: Switch to oral levothyroxine via tube - home dose is 125mcg, was getting 62.5 mcg IV, will start with 100mcg oral and titrate up to home dose as tolerated Will need to repeat TFTs 6 weeks after discharge (9) Hypertension: Code(s): I10 - Essential (primary) hypertension Status: Acute Assessment and Plan: Spironolactone resumed. Rest of meds to be resumed as tolerated. (10) DM2 (diabetes mellitus, type 2): Code(s): E11.9 - Type 2 diabetes mellitus without complications Status: Acute Assessment and Plan: Continue sliding scale insulin and Accu-Chek Plan ID on board for sepsis/C Difficile management. Will follow recommendations. DVT prophylaxis: Lovenox Stress ulcer prophylaxis: Protonix Nutrition: Tube feeds Consultations Consultations: I have discussed the care of this pt with the consulting providers. Subjective Date/time seen: 01/30/25 17:46 Interval history: This is a 79-year-old female patient who is currently in rehab at [facility]. She was recently diagnosed with pneumonia and has been on oral antibiotics. She also has tube feedings that supplements her oral intake. However the patient was found to be more confused and left the were [place] with a low blood pressure at the rehab facility. The patient was complaining of some abdominal pain. Her white count was noted to be 18.4. Her H&H is 10.4 in 33.4. Her sodium was low at 129. Her glucose is 184. Her BNP was noted to be 1910. Her urine is turbid with 1+ protein, 2+ blood, leukocyte esterase 3+, urine wbc's greater than 100, urine bacteria 4+. MRSA was detected in her nares. Chest abdomen pelvis CT was read as a followin. No evidence of pulmonary consolidation are atelectasis. Mild vascular congestion of lungs severe cardiomegaly and postoperative changes as described above. 2. Within the abdomen, there is significant finding of small drops of air in the peripheral portal veins within the left lobe of the liver. This would raise a concern for ischemic bowel disease. 3. Significant Calcific changes at the proximal celiac axis and superior mesenteric artery and right renal artery. 4. Normal bowel obstruction or bowel wall thickening. No evidence of fluid or free air in the peritoneal cavity. Surgery consult was placed per ED provider. The patient was given a dose of zosyn in the er. Head CT was read as no acute and cranial abnormality. Chest x-ray was read as CHF superimposed probable left lower lobe pneumonia. A central line was placed in the emergency room. Repeat chest x-ray shows central line placement. The blood pressures have gotten as low as 70/50 prior to have vasopressors. A Patterson catheter was also placed as well. Surgery has been consulted as well as the porcelain buildup assistant. Review of Systems Review of Systems: All systems reviewed & are unremarkable except as noted in HPI and below Exam Narrative: General: Awake, alert, no acute distress HEENT:? Pupils equal and reactive, sclera is clear, dry oral mucosa Neck:? Supple Respiratory:? Decreased air entry at bases, otherwise clear to auscultation bilaterally Cardiac:? Irregularly irregular rhythm, rate controlled Abdomen:? Soft, diffuse mild tenderness, no guarding rigidity, hypoactive bowel sounds, obese, nondistended Extremities:? Bilateral upper and lower extremity edema,. Palpable pedal pulse Neuro:? Patient is awake, alert, oriented to place and date of , has history of dementia, follows simple commands in all extremities, able to answer question Skin:? Multiple bruising noted on bilateral upper and lower extremities, Psych:? Depressed affect Objective Data Vital Signs Vital Signs: Vital Signs - 24 hr 01/29/25 18:00 01/29/25 20:00 01/29/25 20:00 Temperature Pulse Rate 102 H 94 98 Respiratory Rate 16 Blood Pressure Pulse Oximetry 100 Oxygen Delivery Room Air Fraction of Inspired Oxygen 21 01/29/25 20:00 01/29/25 21:07 01/29/25 22:00 Temperature 98.9 F Pulse Rate 98 108 H 95 Respiratory Rate 16 Blood Pressure 147/109 H Pulse Oximetry 100 Oxygen Delivery Fraction of Inspired Oxygen 01/29/25 23:49 01/29/25 23:49 01/29/25 23:49 Temperature 98.7 F Pulse Rate 114 H 114 H 114 H Respiratory Rate 16 16 Blood Pressure 133/98 H Pulse Oximetry 100 96 Oxygen Delivery Room Air Fraction of Inspired Oxygen 21 01/30/25 01:57 01/30/25 04:00 01/30/25 04:00 Temperature 97.5 F L Pulse Rate 92 119 H 109 H Respiratory Rate 20 Blood Pressure 130/85 Pulse Oximetry 100 Oxygen Delivery Fraction of Inspired Oxygen 01/30/25 05:59 01/30/25 06:00 01/30/25 08:00 Temperature 98.1 F Pulse Rate 108 H 106 H 112 H Respiratory Rate 18 Blood Pressure 148/95 H Pulse Oximetry 91 Oxygen Delivery Fraction of Inspired Oxygen 01/30/25 08:00 01/30/25 08:00 01/30/25 09:25 Temperature Pulse Rate 118 H 114 H Respiratory Rate Blood Pressure Pulse Oximetry Oxygen Delivery Room Air Fraction of Inspired Oxygen 01/30/25 10:00 01/30/25 12:00 01/30/25 12:00 Temperature 98.4 F Pulse Rate 108 H 102 H Respiratory Rate 18 Blood Pressure 125/80 Pulse Oximetry 100 Oxygen Delivery Room Air Fraction of Inspired Oxygen 01/30/25 12:00 01/30/25 14:00 01/30/25 15:46 Temperature 97.9 F Pulse Rate 102 H 106 H 116 H Respiratory Rate 20 Blood Pressure 121/74 Pulse Oximetry 92 Oxygen Delivery Fraction of Inspired Oxygen 01/30/25 15:59 01/30/25 16:00 Temperature Pulse Rate 129 H Respiratory Rate Blood Pressure Pulse Oximetry Oxygen Delivery Room Air Fraction of Inspired Oxygen Intake/Output Intake/Output: Intake & Output 01/27/25 01/28/25 01/29/25 01/30/25 23:59 23:59 23:59 23:59 Intake Total 609.2 460.5 540 150 Output Total 661 938 4144 1600 Balance 34.2 -314.5 -660 -1450 Meds/Results Medications: Active Medications Generic Name Dose Route Start Last Admin Trade Name Freq PRN Reason Stop Dose Admin Acetaminophen 650 mg 01/28/25 20:45 01/29/25 12:02 Acetaminophen Elixir 325 Mg/10.15 Ml Udc FEED TUBE 650 mg Q6H PRN Administration Mild Pain (1-3) or Fever Amiodarone HCl 200 mg 01/29/25 10:00 01/30/25 09:25 Amiodarone Hcl 200 Mg Tablet PO 200 mg Q12HR [facility] Administration Enoxaparin Sodium 40 mg 01/27/25 10:15 01/30/25 09:26 Enoxaparin 40 Mg/0.4 Ml Syringe SUB-Q 40 mg DAILY [facility]ES Administration Glucagon 1 mg 01/27/25 01:22 Glucagon For Inj 1 Mg Vial IM PRN PRN Hypoglycemia Protocol Meropenem 1 gm/ Sodium 100 mls @ 200 mls/hr 01/30/25 14:00 01/30/25 15:15 Chloride IVPB Infused Q12HR MERCEDES Infusion Insulin Aspart 3 - 6 units 01/27/25 12:00 01/30/25 12:26 Insulin Aspart (*Bkc) 100 Units/Ml SUB-Q Not Given Q6HR [facility] Protocol Ketorolac Tromethamine 1 drop 01/27/25 06:00 01/30/25 17:35 Ketorolac 0.5% Op Soln 5 Ml Bottle EACH EYE 1 drop Q6HR [facility] Administration Levothyroxine Sodium 100 mcg 01/30/25 06:30 01/30/25 06:27 Levothyroxine Sodium 100 Mcg Tablet PO 100 mcg DAILY@0630 [facility] Administration Lidocaine 1 patch 01/27/25 01:24 Lidocaine 5% Patch TOPICAL Q24H PRN Pain Mupirocin 1 applic 01/27/25 09:00 01/30/25 09:26 Mupirocin 2% Oint 22 Gm Tube EACH NARE 01/31/25 21:01 1 applic Q12HR [facility] Administration Pantoprazole Sodium 40 mg 01/27/25 09:00 01/30/25 09:25 Pantoprazole Sodium Iv 40 Mg Vial IV PUSH 40 mg Q12HR [facility] Administration Sodium Chloride 10 ml 01/27/25 14:00 01/30/25 14:42 Central Line Flush IV PUSH 10 ml Q8HR [facility] Administration Sodium Chloride 10 ml 01/27/25 11:07 Central Line Flush IV PUSH PRN PRN with TPN bag changes Sodium Chloride 20 ml 01/27/25 11:07 Central Line Flush IV PUSH PRN PRN after blood draws Sodium Chloride 10 ml 01/27/25 14:00 01/30/25 14:42 Central Line Flush IV PUSH 10 ml Q8HR [facility] Administration Sodium Chloride 10 ml 01/27/25 11:11 Central Line Flush IV PUSH PRN PRN with TPN bag changes Sodium Chloride 20 ml 01/27/25 11:11 Central Line Flush IV PUSH PRN PRN after blood draws Spironolactone 12.5 mg 01/29/25 09:00 01/30/25 09:25 Spironolactone 12.5 Mg Tablet FEED TUBE 12.5 mg DAILY MERCEDES Administration Tramadol HCl 50 mg 01/29/25 17:28 01/30/25 17:35 Tramadol Hcl (*Crx) 50 Mg Tablet FEED TUBE 50 mg Q6H PRN Administration Pain Rated 4-6 Vancomycin HCl 125 mg 01/29/25 13:45 01/30/25 17:35 Vancomycin Oral 125 Mg/2.5 Ml Syrup PO 02/08/25 06:01 125 mg Q6HR MERCEDES Administration Radiology Results: ITS Impressions Head CT 01/26/25 17:46 Impression: 1.No acute intracranial abnormality. Chest X-Ray 01/27/25 11:19 IMPRESSION: 1. Right PICC placed but tip not identified. 2. Right neck central line unchanged with catheter retrograde into left innominate vein. 3. No cardiopulmonary change. Ankle Brachial Index 01/28/25 13:02 IMPRESSION: 1. Normal right HIREN and decreased right TBI, consistent with right-sided arterial occlusive disease. 2. Borderline-decreased left HIREN and lack of detectable arterial flow in the left great toe, consistent with left-sided arterial occlusive disease. Chest/Abdomen/Pelvis CT 01/28/25 16:08 IMPRESSION: 1. Small pleural effusions. 2. New gallbladder distention, which may be secondary to fasting. Correlate with physical exam to exclude acute cholecystitis. 3. Thickened endometrial complex, which may be secondary to endometrial hyperplasia, polyp, or carcinoma. Consider pelvic ultrasound. 4. Worsened wall thickening of the distal ileum and right colon, consistent with edema versus enterocolitis. 5. Small volume of ascites. Venous Doppler Study 01/28/25 16:08 Impression: Negative for DVT. Pelvis Ultrasound 01/29/25 10:11 IMPRESSION: 1. Uterus and ovaries not visualized. Transvaginal imaging was not performed due to the patient's altered mental status. Labs Labs: Laboratory Results - last 24 hr 01/27/25 01/29/25 01/29/25 09:42 17:51 23:18 WBC RBC Hgb Hct MCV MCH MCHC RDW Plt Count MPV Sodium Potassium Chloride Carbon Dioxide Anion Gap BUN Creatinine Estim Creat Clear Calc Estimated GFR Glucose POC Capillary Glucose 134 H 158 H Lactic Acid Calcium Phosphorus Magnesium Total Bilirubin AST ALT Alkaline Phosphatase Total Protein Albumin Urine Osmolality 444 01/30/25 01/30/25 01/30/25 04:11 04:12 12:17 WBC 9.7 RBC 2.95 L Hgb 8.2 L Hct 26.7 L MCV 90.5 MCH 27.8 MCHC 30.7 L RDW 17.1 H Plt Count 280 MPV 8.8 Sodium 129 L Potassium 3.5 Chloride 100 Carbon Dioxide 24 Anion Gap 5 BUN 26 H Creatinine 0.72 Estim Creat Clear Calc Not Reportable Estimated GFR > 60 Glucose 143 H POC Capillary Glucose 187 H Lactic Acid 0.9 Calcium 8.7 Phosphorus 2.6 Magnesium 1.7 Total Bilirubin 0.5 AST 26 ALT 17 Alkaline Phosphatase 64 Total Protein 6.0 L Albumin 3.1 L Urine Osmolality 01/30/25 17:40 WBC RBC Hgb Hct MCV MCH MCHC RDW Plt Count MPV Sodium Potassium Chloride Carbon Dioxide Anion Gap BUN Creatinine Estim Creat Clear Calc Estimated GFR Glucose POC Capillary Glucose 195 H Lactic Acid Calcium Phosphorus Magnesium Total Bilirubin AST ALT Alkaline Phosphatase Total Protein Albumin Urine Osmolality Hospitalist MIPS Advance Care Plan I have confirmed that the patient's Advanced Care Plan is present, code status is documented, or surrogate decision maker is listed in patient medical record.: Yes Medication Reconciliation I have utilized all available resources to obtain, update and review the patients current medications (includes all prescriptions, OTC, herbals, cannabis, and nutritional supplements).: Yes
--- NOTE | 2025-01-30 22:31 | PC.NURSE ---
This patient, Keira Baron, was transferred to [ 259] on 01/30/25 at 2231. Personal belongings sent with patient. Report given to [Allie perales ]. Appropriate documentation sent with patient.
[2025-01-31] VITALS (9 sets, daily range): BP systolic 116–117; BP diastolic 74–89; PULSE 87–132; RESP 18–20; TEMP 36–36.6; O2SAT 94–98
[2025-01-31] MEDS: INSULIN ASPART (*BKC) 100 UNITS/ML SUB-Q (00:12)
[2025-01-31] MEDS: VANCOMYCIN ORAL 125 MG/2.5 ML SYRUP PO (05:27)
[2025-01-31] MEDS: KETOROLAC 0.5% OP SOLN 5 ML BOTTLE 1 DROP EACH EYE ×4 (05:27→23:20)
[2025-01-31] MEDS: CENTRAL LINE FLUSH 10 ML IV PUSH ×6 (05:27→21:02)
[2025-01-31] MEDS: LEVOTHYROXINE SODIUM 100 MCG TABLET PO (05:28)
[2025-01-31 07:07] LABS: Hematocrit 26.6 % (37.0-47.0); Hemoglobin 8.3 g/dL (12.0-15.0); Mean Corpuscular HGB Conc 31.2 g/dl (32-36); Mean Corpuscular Hemoglobin 28.1 pg (26-34); Mean Corpuscular Volume 90.2 fl (80-100); Platelet Count Result 280 k/mm3 (150-375); Red Blood Count 2.95 M/mm3 (4.2-5.4); White Blood Count 11.6 K/mm3 (4.5-10.0)
[2025-01-31 07:30] LABS: Alanine Aminotransferase 15 U/L (6-35); Albumin Level 2.9 g/dL (3.5-5.1); Alkaline Phosphatase 63 U/L (38-126); Anion Gap 4 mmol/L (4-12); Aspartate Amino Transferase 19 U/L (14-36); Bilirubin,Total 0.4 mg/dL (0.2-1.3); Blood Urea Nitrogen 32 mg/dL (7-17); Calcium 8.6 mg/dL (8.4-10.2); Carbon Dioxide 23 mmol/L (22-30); Chloride 101 mmol/L (98-107); Estimated Glomerular Filt Rate > 60; Glucose 195 mg/dL (65-110); Magnesium 1.7 mg/dL (1.6-2.3); Potassium 3.6 mmol/L (3.4-5.0); Sodium 128 mmol/L (137-145); Total Protein 5.6 g/dL (6.3-8.2)
[2025-01-31] MEDS: AMIODARONE HCL 200 MG TABLET PO ×2 (09:53→21:01)
[2025-01-31] MEDS: ATORVASTATIN 40 MG TABLET 80 MG PO (09:53)
[2025-01-31] MEDS: MEROPENEM 1 GM in SODIUM CHLORIDE 0.9% IV 100 ML 200 ML IVPB ×2 (09:54→14:58)
[2025-01-31] MEDS: ENOXAPARIN 40 MG/0.4 ML SYRINGE SUB-Q (09:54)
[2025-01-31] MEDS: PANTOPRAZOLE SODIUM IV 40 MG VIAL IV PUSH (09:54)
[2025-01-31] MEDS: MUPIROCIN 2% OINT 22 GM TUBE 1 APPLIC EACH NARE ×2 (09:55→21:02)
[2025-01-31] MEDS: traMADol HCL (*CRX) 50 MG TABLET FEED TUBE ×2 (10:33→21:01)
[2025-01-31] MEDS: VANCOMYCIN HCL 250 MG ORAL CAPSULE 500 MG PO ×3 (12:25→23:20)
--- NOTE | 2025-01-31 13:59 | P.PNIM_ITS ---
Assessment and Plan Assessment and Plan (1) Septic shock: Code(s): A41.9 - Sepsis, unspecified organism; R65.21 - Severe sepsis with septic shock Status: Resolved Assessment and Plan: 01/26: Patient presented with altered mental status, hypotension, feeling tired and more sleepy at the retirement -normal lactic acid at 1.4 -in the ER patient was given 1 L IV fluid bolus since she has a history of CHF -right IJ central line was inserted and started on Levophed, -Levophed was turned off earlier this morning -Blood cultures have been obtained: NGTD -continue cefepime and vancomycin (01/26) 01/27: Urine cultures have been obtained: Klebsiella ESBL -will give additional fluid this morning has patient's mucosa membranes are significant and skin turgor is poor - will also give albumin for intravascular volume expansion - Bilateral lower extremity venous Dopplers were negative for DVT 01/28: CT Abdomen repeated: thickened endometrial complex, which may be secondary to endometrial hyperplasia, polyp, or carcinoma; Consider pelvic ultrasound; Worsened wall thickening of the distal ileum and right colon, consistent with edema versus enterocolitis; Small volume of ascites. Pelvic US ordered. Patient also having new onset diarrhea, concerning for C Diff given she has history of same. Testing has been ordered. HIREN positive for PAD of lower extremities. 01/29: C Difficile is positive. Oral vancomycin has been started. Patient is out of shock at this time, BP improving. ID on board and aware. 01/30: IV Vancomycin switched to Meropenem per ID given klebsiella UTI. BCx NGTD. 01/31: Continuing antibiotics per ID recommendations. Stool remains liquid in rectal tube. (2) Ischemic bowel disease: Code(s): K55.9 - Vascular disorder of intestine, unspecified Status: Ruled-out Assessment and Plan: Some concerns for ischemic bowel disease on CT scan -lactic acid is 1.4, repeat lactic acid was also 1.4 -appreciate surgery evaluation recommendations, poor surgical candidate -currently off Levophed, if patient's condition worsens, will obtain another noncontrast CT abdomen and pelvis per surgeon -CT Abdomen repeated: thickened endometrial complex, which may be secondary to endometrial hyperplasia, polyp, or carcinoma; Consider pelvic ultrasound; Worsened wall thickening of the distal ileum and right colon, consistent with edema versus enterocolitis; Small volume of ascites. -Surgery on board, CT reviewed, no further intervention at this time, not likely ischemic bowel, continue antibiotics and monitor -Can advance tube feeds, increased water intake from 30cc to 75cc qid. Limiting water administration as Na is 129 and want to prevent further worsening of hyponatremia. (3) C. difficile colitis: Code(s): A04.72 - Enterocolitis due to Clostridium difficile, not specified as recurrent Status: Acute Assessment and Plan: C Difficile + Enterocolitis on Ct likely secondary to this. ID is on board. -PO vancomycin 500mg q6h -Contact isolation precautions in place. (4) Acute UTI: Code(s): N39.0 - Urinary tract infection, site not specified Status: Acute Assessment and Plan: UA reflective of UTI, continue antibiotics, cultures have been obtained UCx 01/27: Klebsiella ESBL -IV Vancomycin switched to Meropenem per ID (5) Altered mental status: Code(s): R41.82 - Altered mental status, unspecified Status: Acute Assessment and Plan: Altered mental status seems to have resolved, patient is more awake after volume resuscitation and antibiotics. Likely secondary to sepsis. -Continue monitoring mental status (6) Congestive heart failure: Code(s): I50.9 - Heart failure, unspecified Status: Acute Assessment and Plan: History of heart failure -patient does not know where she gets her treatment -no previous notes or echocardiogram in the chart at [facility] -echocardiogram: EF 55-60% -patient does take aspirin, Farxiga, furosemide, Entresto, Dabigatran at home which are all currently on hold. Hold farxiga during active ESBL UTI. -Amiodarone, atorvastatin and spironolactone resumed. (7) Gastrointestinal tube in situ: Code(s): Z93.1 - Gastrostomy status Status: Acute Assessment and Plan: Patient does have a PEG tube, according to the nurses the family states that she does take p.o. diet but the PEG tube is for supplementation (8) Hypothyroidism: Code(s): E03.9 - Hypothyroidism, unspecified Status: Acute Assessment and Plan: Switch to oral levothyroxine via tube - home dose is 125mcg, was getting 62.5 mcg IV, will start with 100mcg oral and titrate up to home dose as tolerated Will need to repeat TFTs 6 weeks after discharge (9) Hypertension: Code(s): I10 - Essential (primary) hypertension Status: Acute Assessment and Plan: Spironolactone resumed. Rest of meds to be resumed as tolerated. (10) DM2 (diabetes mellitus, type 2): Code(s): E11.9 - Type 2 diabetes mellitus without complications Status: Acute Assessment and Plan: Continue sliding scale insulin and Accu-Chek Plan ID on board for sepsis/C Difficile management. Will follow recommendations. DVT prophylaxis: Lovenox Stress ulcer prophylaxis: Protonix Nutrition: Tube feeds Consultations Consultations: I have discussed the care of this pt with the consulting providers. Subjective Date/time seen: 01/31/25 13:59 Interval history: This is a 79-year-old female patient who is currently in rehab at [facility]. She was recently diagnosed with pneumonia and has been on oral antibiotics. She also has tube feedings that supplements her oral intake. However the patient was found to be more confused and left the were [place] with a low blood pressure at the rehab facility. The patient was complaining of some abdominal pain. Her white count was noted to be 18.4. Her H&H is 10.4 in 33.4. Her sodium was low at 129. Her glucose is 184. Her BNP was noted to be 1910. Her urine is turbid with 1+ protein, 2+ blood, leukocyte esterase 3+, urine wbc's greater than 100, urine bacteria 4+. MRSA was detected in her nares. Chest abdomen pelvis CT was read as a followin. No evidence of pulmonary consolidation are atelectasis. Mild vascular congestion of lungs severe cardiomegaly and postoperative changes as described above. 2. Within the abdomen, there is significant finding of small drops of air in the peripheral portal veins within the left lobe of the liver. This would raise a concern for ischemic bowel disease. 3. Significant Calcific changes at the proximal celiac axis and superior mesenteric artery and right renal artery. 4. Normal bowel obstruction or bowel wall thickening. No evidence of fluid or free air in the peritoneal cavity. Surgery consult was placed per ED provider. The patient was given a dose of zosyn in the er. Head CT was read as no acute and cranial abnormality. Chest x-ray was read as CHF superimposed probable left lower lobe pneumonia. A central line was placed in the emergency room. Repeat chest x-ray shows central line placement. The blood pressures have gotten as low as 70/50 prior to have vasopressors. A Patterson catheter was also placed as well. Surgery has been consulted as well as the enterprise project manager. Review of Systems Review of Systems: All systems reviewed & are unremarkable except as noted in HPI and below Exam Narrative: General: Awake, alert, no acute distress. rectal tube placed. HEENT:? Pupils equal and reactive, sclera is clear, dry oral mucosa Neck:? Supple Respiratory:? Decreased air entry at bases, otherwise clear to auscultation bilaterally Cardiac:? Irregularly irregular rhythm, rate controlled Abdomen:? Soft, diffuse mild tenderness, no guarding rigidity, bowel sounds+, obese, nondistended Extremities:? Bilateral upper and lower extremity edema,. Palpable pedal pulse Neuro:? Patient is awake, alert, oriented to place and date of , has history of dementia, follows simple commands in all extremities, able to answer question Skin:? Multiple bruising noted on bilateral upper and lower extremities, Psych:? Depressed affect Objective Data Vital Signs Vital Signs: Vital Signs - 24 hr 01/30/25 14:00 01/30/25 15:46 01/30/25 15:59 Temperature 97.9 F Pulse Rate 106 H 116 H Respiratory Rate 20 Blood Pressure 121/74 Pulse Oximetry 92 Oxygen Delivery Room Air Fraction of Inspired Oxygen 01/30/25 16:00 01/30/25 20:00 01/30/25 20:00 Temperature Pulse Rate 129 H 113 H 113 H Respiratory Rate 20 Blood Pressure Pulse Oximetry 94 Oxygen Delivery Room Air Fraction of Inspired Oxygen 21 01/30/25 21:06 01/30/25 23:53 01/31/25 00:00 Temperature Pulse Rate 113 H 119 H Respiratory Rate 20 Blood Pressure Pulse Oximetry Oxygen Delivery Fraction of Inspired Oxygen 01/31/25 04:00 01/31/25 04:28 01/31/25 09:53 Temperature 96.8 F L Pulse Rate 132 H 90 90 Respiratory Rate 18 Blood Pressure 117/89 Pulse Oximetry 98 Oxygen Delivery Fraction of Inspired Oxygen Intake/Output Intake/Output: Intake & Output 01/28/25 01/29/25 01/30/25 01/31/25 23:59 23:59 23:59 23:59 Intake Total 460.5 540 613 530 Output Total 775 1200 1600 875 Balance -314.5 -660 -987 -345 Meds/Results Medications: Active Medications Generic Name Dose Route Start Last Admin Trade Name Freq PRN Reason Stop Dose Admin Acetaminophen 650 mg 01/28/25 20:45 01/29/25 12:02 Acetaminophen Elixir 325 Mg/10.15 Ml Udc FEED TUBE 650 mg Q6H PRN Administration Mild Pain (1-3) or Fever Amiodarone HCl 200 mg 01/29/25 10:00 01/31/25 09:53 Amiodarone Hcl 200 Mg Tablet PO 200 mg Q12HR [facility] Administration Atorvastatin Calcium 80 mg 01/31/25 09:00 01/31/25 09:53 Atorvastatin 40 Mg Tablet PO 80 mg DAILY [facility] Administration Enoxaparin Sodium 40 mg 01/27/25 10:15 01/31/25 09:54 Enoxaparin 40 Mg/0.4 Ml Syringe SUB-Q 40 mg DAILY [facility] Administration Glucagon 1 mg 01/27/25 01:22 Glucagon For Inj 1 Mg Vial IM PRN PRN Hypoglycemia Protocol Meropenem 1 gm/ Sodium 100 mls @ 200 mls/hr 01/31/25 14:00 Chloride IVPB Q8HR [facility] Insulin Aspart 3 - 6 units 01/27/25 12:00 01/31/25 12:08 Insulin Aspart (*Bkc) 100 Units/Ml SUB-Q Not Given Q6HR [facility] Protocol Ketorolac Tromethamine 1 drop 01/27/25 06:00 01/31/25 12:25 Ketorolac 0.5% Op Soln 5 Ml Bottle EACH EYE 1 drop Q6HR [facility] Administration Levothyroxine Sodium 100 mcg 01/30/25 06:30 01/31/25 05:28 Levothyroxine Sodium 100 Mcg Tablet PO 100 mcg DAILY@0630 [facility] Administration Lidocaine 1 patch 01/27/25 01:24 Lidocaine 5% Patch TOPICAL Q24H PRN Pain Mupirocin 1 applic 01/27/25 09:00 01/31/25 09:55 Mupirocin 2% Oint 22 Gm Tube EACH NARE 01/31/25 21:01 1 applic Q12HR [facility] Administration Pantoprazole Sodium 40 mg 01/27/25 09:00 01/31/25 09:54 Pantoprazole Sodium Iv 40 Mg Vial IV PUSH 40 mg Q12HR [facility] Administration Sodium Chloride 10 ml 01/27/25 14:00 01/31/25 05:27 Central Line Flush IV PUSH 10 ml Q8HR [facility] Administration Sodium Chloride 10 ml 01/27/25 11:07 Central Line Flush IV PUSH PRN PRN with TPN bag changes Sodium Chloride 20 ml 01/27/25 11:07 Central Line Flush IV PUSH PRN PRN after blood draws Sodium Chloride 10 ml 01/27/25 14:00 01/31/25 05:28 Central Line Flush IV PUSH 10 ml Q8HR [facility] Administration Sodium Chloride 10 ml 01/27/25 11:11 Central Line Flush IV PUSH PRN PRN with TPN bag changes Sodium Chloride 20 ml 01/27/25 11:11 Central Line Flush IV PUSH PRN PRN after blood draws Spironolactone 12.5 mg 01/29/25 09:00 01/31/25 09:53 Spironolactone 12.5 Mg Tablet FEED TUBE 12.5 mg DAILY [facility] Administration Tramadol HCl 50 mg 01/29/25 17:28 01/31/25 10:33 Tramadol Hcl (*Crx) 50 Mg Tablet FEED TUBE 50 mg Q6H PRN Administration Pain Rated 4-6 Vancomycin HCl 500 mg 01/31/25 12:00 01/31/25 12:25 Vancomycin Hcl 250 Mg Oral Capsule PO 500 mg Q6HR [facility] Administration Radiology Results: ITS Impressions Head CT 01/26/25 17:46 Impression: 1.No acute intracranial abnormality. Chest X-Ray 01/27/25 11:19 IMPRESSION: 1. Right PICC placed but tip not identified. 2. Right neck central line unchanged with catheter retrograde into left innominate vein. 3. No cardiopulmonary change. Ankle Brachial Index 01/28/25 13:02 IMPRESSION: 1. Normal right HIREN and decreased right TBI, consistent with right-sided arterial occlusive disease. 2. Borderline-decreased left HIREN and lack of detectable arterial flow in the left great toe, consistent with left-sided arterial occlusive disease. Chest/Abdomen/Pelvis CT 01/28/25 16:08 IMPRESSION: 1. Small pleural effusions. 2. New gallbladder distention, which may be secondary to fasting. Correlate with physical exam to exclude acute cholecystitis. 3. Thickened endometrial complex, which may be secondary to endometrial hyperplasia, polyp, or carcinoma. Consider pelvic ultrasound. 4. Worsened wall thickening of the distal ileum and right colon, consistent with edema versus enterocolitis. 5. Small volume of ascites. Venous Doppler Study 01/28/25 16:08 Impression: Negative for DVT. Pelvis Ultrasound 01/29/25 10:11 IMPRESSION: 1. Uterus and ovaries not visualized. Transvaginal imaging was not performed due to the patient's altered mental status. Labs Labs: Laboratory Results - last 24 hr 01/30/25 01/30/25 01/31/25 17:40 23:56 04:34 WBC RBC Hgb Hct MCV MCH MCHC RDW Plt Count MPV Sodium Potassium Chloride Carbon Dioxide Anion Gap BUN Creatinine Estim Creat Clear Calc Estimated GFR Glucose POC Capillary Glucose 195 H 201 H 187 H Lactic Acid Calcium Phosphorus Magnesium Total Bilirubin AST ALT Alkaline Phosphatase Total Protein Albumin 01/31/25 01/31/25 05:44 11:38 WBC 11.6 H RBC 2.95 L Hgb 8.3 L Hct 26.6 L MCV 90.2 MCH 28.1 MCHC 31.2 L RDW 17.2 H Plt Count 280 MPV 9.3 Sodium 128 L Potassium 3.6 Chloride 101 Carbon Dioxide 23 Anion Gap 4 BUN 32 H Creatinine 0.61 L Estim Creat Clear Calc Not Reportable Estimated GFR > 60 Glucose 195 H POC Capillary Glucose 190 H Lactic Acid 1.2 Calcium 8.6 Phosphorus 2.1 L Magnesium 1.7 Total Bilirubin 0.4 AST 19 ALT 15 Alkaline Phosphatase 63 Total Protein 5.6 L Albumin 2.9 L Hospitalist MIPS Advance Care Plan I have confirmed that the patient's Advanced Care Plan is present, code status is documented, or surrogate decision maker is listed in patient medical record.: Yes Medication Reconciliation I have utilized all available resources to obtain, update and review the patients current medications (includes all prescriptions, OTC, herbals, cannabis, and nutritional supplements).: Yes
--- NOTE | 2025-01-31 18:31 | WPDINFPN2 ---
Progress Note: A&P Assessment and Plan (1) C. difficile colitis: Code(s): A04.72 - Enterocolitis due to Clostridium difficile, not specified as recurrent Status: Acute Assessment and Plan: ASSESSMENT: 1. Klebsiella ESBL UTI 2. C. diff colitis 3. possible ischemic bowel 4. 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 HTN, hypothyroid, CKD, DM, CAD, RA, stroke, dementia, s/p PEG RECOMMENATIONS: -f/u on blood cxs-->NGTD -continue po vanco--dose increased today -meropenem day2--adjust for renal function d/w pharmacy staff Pt was seen via video telehealth consultation with the assistance of staff. Chart, data and patient info reviewed. Patient was located at [facility] while I was in my [place] office. Pt gave consent. Subjective Date/time seen: 01/31/25 18:31 Interval history: no high temps not much leukocytosis po vanco dose increased Exam Narrative: NAND, non-toxic, on room air pale abd soft NT, +PEG +newman, +rectal tube Objective Data Vital Signs Vital Signs: Vital Signs - 24 hr 01/30/25 20:00 01/30/25 20:00 01/30/25 21:06 Temperature Pulse Rate 113 H 113 H 113 H Respiratory Rate 20 Blood Pressure Pulse Oximetry 94 Oxygen Delivery Room Air Fraction of Inspired Oxygen 21 01/30/25 23:53 01/31/25 00:00 01/31/25 04:00 Temperature Pulse Rate 119 H 132 H Respiratory Rate 20 Blood Pressure Pulse Oximetry Oxygen Delivery Fraction of Inspired Oxygen 01/31/25 04:28 01/31/25 08:00 01/31/25 09:30 Temperature 96.8 F L Pulse Rate 90 102 H Respiratory Rate 18 Blood Pressure 117/89 Pulse Oximetry 98 Oxygen Delivery Room Air Fraction of Inspired Oxygen 01/31/25 09:53 01/31/25 12:00 01/31/25 14:25 Temperature Pulse Rate 90 103 H Respiratory Rate Blood Pressure Pulse Oximetry Oxygen Delivery Room Air Fraction of Inspired Oxygen 01/31/25 14:37 01/31/25 16:00 Temperature Pulse Rate 102 H Respiratory Rate Blood Pressure Pulse Oximetry Oxygen Delivery Room Air Fraction of Inspired Oxygen Intake/Output Intake/Output: Intake & Output 01/28/25 01/29/25 01/30/2525 23:59 23:59 23:59 23:59 Intake Total 460.5 858 215 4989 Output Total 205 0373 3122 7961 [facility]314.5 -660 -987 -345 Meds/Results Medications: Active Medications Generic Name Dose Route Start Last Admin Trade Name Freq PRN Reason Stop Dose Admin Acetaminophen 650 mg 01/28/25 20:45 01/29/25 12:02 Acetaminophen Elixir 325 Mg/10.15 Ml Udc FEED TUBE 650 mg Q6H PRN Administration Mild Pain (1-3) or Fever Amiodarone HCl 200 mg 01/29/25 10:00 01/31/25 09:53 Amiodarone Hcl 200 Mg Tablet PO 200 mg Q12HR [facility] Administration Atorvastatin Calcium 80 mg 01/31/25 09:00 01/31/25 09:53 Atorvastatin 40 Mg Tablet PO 80 mg DAILY [facility] Administration Enoxaparin Sodium 40 mg 01/27/25 10:15 01/31/25 09:54 Enoxaparin 40 Mg/0.4 Ml Syringe SUB-Q 40 mg DAILY [facility] Administration Glucagon 1 mg 01/27/25 01:22 Glucagon For Inj 1 Mg Vial IM PRN PRN Hypoglycemia Protocol Meropenem 1 gm/ Sodium 100 mls @ 200 mls/hr 01/31/25 14:00 01/31/25 14:58 Chloride IVPB 200 mls/hr Q8HR [facility] Administration Insulin Aspart 3 - 6 units 01/27/25 12:00 01/31/25 18:14 Insulin Aspart (*Bkc) 100 Units/Ml SUB-Q Not Given Q6HR [facility] Protocol Ketorolac Tromethamine 1 drop 01/27/25 06:00 01/31/25 17:20 Ketorolac 0.5% Op Soln 5 Ml Bottle EACH EYE 1 drop Q6HR [facility] Administration Levothyroxine Sodium 100 mcg 01/30/25 06:30 01/31/25 05:28 Levothyroxine Sodium 100 Mcg Tablet PO 100 mcg DAILY@0630 [facility] Administration Lidocaine 1 patch 01/27/25 01:24 Lidocaine 5% Patch TOPICAL Q24H PRN Pain Mupirocin 1 applic 01/27/25 09:00 01/31/25 09:55 Mupirocin 2% Oint 22 Gm Tube EACH NARE 01/31/25 21:01 1 applic Q12HR [facility] Administration Pantoprazole Sodium 40 mg 02/01/25 09:00 Pantoprazole 40 Mg Tablet PO QAM [facility] Sodium Chloride 10 ml 01/27/25 14:00 01/31/25 14:59 Central Line Flush IV PUSH 10 ml Q8HR [facility] Administration Sodium Chloride 10 ml 01/27/25 11:07 Central Line Flush IV PUSH PRN PRN with TPN bag changes Sodium Chloride 20 ml 01/27/25 11:07 Central Line Flush IV PUSH PRN PRN after blood draws Sodium Chloride 10 ml 01/27/25 14:00 01/31/25 14:59 Central Line Flush IV PUSH 10 ml Q8HR [facility] Administration Sodium Chloride 10 ml 01/27/25 11:11 Central Line Flush IV PUSH PRN PRN with TPN bag changes Sodium Chloride 20 ml 01/27/25 11:11 Central Line Flush IV PUSH PRN PRN after blood draws Spironolactone 12.5 mg 01/29/25 09:00 01/31/25 09:53 Spironolactone 12.5 Mg Tablet FEED TUBE 12.5 mg DAILY [facility] Administration Tramadol HCl 50 mg 01/29/25 17:28 01/31/25 10:33 Tramadol Hcl (*Crx) 50 Mg Tablet FEED TUBE 50 mg Q6H PRN Administration Pain Rated 4-6 Vancomycin HCl 500 mg 01/31/25 12:00 01/31/25 17:20 Vancomycin Hcl 250 Mg Oral Capsule PO 500 mg Q6HR [facility] Administration Radiology Results: ITS Impressions Head CT 01/26/25 17:46 Impression: 1.No acute intracranial abnormality. Chest X-Ray 01/27/25 11:19 IMPRESSION: 1. Right PICC placed but tip not identified. 2. Right neck central line unchanged with catheter retrograde into left innominate vein. 3. No cardiopulmonary change. Ankle Brachial Index 01/28/25 13:02 IMPRESSION: 1. Normal right HIREN and decreased right TBI, consistent with right-sided arterial occlusive disease. 2. Borderline-decreased left HIREN and lack of detectable arterial flow in the left great toe, consistent with left-sided arterial occlusive disease. Chest/Abdomen/Pelvis CT 01/28/25 16:08 IMPRESSION: 1. Small pleural effusions. 2. New gallbladder distention, which may be secondary to fasting. Correlate with physical exam to exclude acute cholecystitis. 3. Thickened endometrial complex, which may be secondary to endometrial hyperplasia, polyp, or carcinoma. Consider pelvic ultrasound. 4. Worsened wall thickening of the distal ileum and right colon, consistent with edema versus enterocolitis. 5. Small volume of ascites. Venous Doppler Study 01/28/25 16:08 Impression: Negative for DVT. Pelvis Ultrasound 01/29/25 10:11 IMPRESSION: 1. Uterus and ovaries not visualized. Transvaginal imaging was not performed due to the patient's altered mental status. Labs Labs: Laboratory Results - last 24 hr 01/30/25 01/31/25 01/31/25 23:56 04:34 05:44 WBC 11.6 H RBC 2.95 L Hgb 8.3 L Hct 26.6 L MCV 90.2 MCH 28.1 MCHC 31.2 L RDW 17.2 H Plt Count 280 MPV 9.3 Sodium 128 L Potassium 3.6 Chloride 101 Carbon Dioxide 23 Anion Gap 4 BUN 32 H Creatinine 0.61 L Estim Creat Clear Calc Not Reportable Estimated GFR > 60 Glucose 195 H POC Capillary Glucose 201 H 187 H Lactic Acid 1.2 Calcium 8.6 Phosphorus 2.1 L Magnesium 1.7 Total Bilirubin 0.4 AST 19 ALT 15 Alkaline Phosphatase 63 Total Protein 5.6 L Albumin 2.9 L 01/31/25 01/31/25 11:38 17:24 WBC RBC Hgb Hct MCV MCH MCHC RDW Plt Count MPV Sodium Potassium Chloride Carbon Dioxide Anion Gap BUN Creatinine Estim Creat Clear Calc Estimated GFR Glucose POC Capillary Glucose 190 H 196 H Lactic Acid Calcium Phosphorus Magnesium Total Bilirubin AST ALT Alkaline Phosphatase Total Protein Albumin
[2025-01-31] MEDS: MEROPENEM 1 GM in SODIUM CHLORIDE 0.9% IV 100 ML IVPB (21:01)
[2025-02-01] VITALS (15 sets, daily range): BP systolic 124–157; BP diastolic 65–82; PULSE 56–118; RESP 20; TEMP 36.3–37.3; O2SAT 84–100
[2025-02-01] MEDS: traMADol HCL (*CRX) 50 MG TABLET FEED TUBE ×3 (03:15→21:46)
[2025-02-01] MEDS: MEROPENEM 1 GM in SODIUM CHLORIDE 0.9% IV 100 ML IVPB ×3 (05:06→21:31)
[2025-02-01] MEDS: KETOROLAC 0.5% OP SOLN 5 ML BOTTLE 1 DROP EACH EYE ×3 (05:07→17:01)
[2025-02-01] MEDS: VANCOMYCIN HCL 250 MG ORAL CAPSULE 500 MG PO ×3 (05:07→17:01)
[2025-02-01] MEDS: CENTRAL LINE FLUSH 10 ML IV PUSH ×6 (05:07→21:32)
[2025-02-01] MEDS: LEVOTHYROXINE SODIUM 100 MCG TABLET PO (05:07)
[2025-02-01 05:10] LABS: Hematocrit 25.1 % (37.0-47.0); Hemoglobin 7.8 g/dL (12.0-15.0); Mean Corpuscular HGB Conc 31.1 g/dl (32-36); Mean Corpuscular Hemoglobin 28.3 pg (26-34); Mean Corpuscular Volume 90.9 fl (80-100); Platelet Count Result 239 k/mm3 (150-375); Red Blood Count 2.76 M/mm3 (4.2-5.4); White Blood Count 11.4 K/mm3 (4.5-10.0)
[2025-02-01] MEDS: INSULIN ASPART (*BKC) 100 UNITS/ML SUB-Q (05:18)
[2025-02-01 05:30] LABS: Alanine Aminotransferase 15 U/L (6-35); Albumin Level 2.7 g/dL (3.5-5.1); Alkaline Phosphatase 64 U/L (38-126); Anion Gap 2 mmol/L (4-12); Aspartate Amino Transferase 20 U/L (14-36); Bilirubin,Total 0.3 mg/dL (0.2-1.3); Blood Urea Nitrogen 40 mg/dL (7-17); Calcium 8.4 mg/dL (8.4-10.2); Carbon Dioxide 26 mmol/L (22-30); Chloride 100 mmol/L (98-107); Estimated Glomerular Filt Rate > 60; Glucose 231 mg/dL (65-110); Magnesium 1.6 mg/dL (1.6-2.3); Potassium 4.0 mmol/L (3.4-5.0); Sodium 128 mmol/L (137-145); Total Protein 5.2 g/dL (6.3-8.2)
[2025-02-01] MEDS: AMIODARONE HCL 200 MG TABLET PO ×2 (08:52→21:31)
[2025-02-01] MEDS: PANTOPRAZOLE 40 MG TABLET PO (08:52)
[2025-02-01] MEDS: ATORVASTATIN 40 MG TABLET 80 MG PO (08:52)
[2025-02-01] MEDS: ENOXAPARIN 40 MG/0.4 ML SYRINGE SUB-Q (09:05)
--- NOTE | 2025-02-01 09:09 | PC.NURSE ---
Patient's daughter, Dee, called nurse's station to give information regarding pacemaker, defibrillator, and conductor. RN expressed concerns of patient's code status and current state. RN explained the patient's level of mobility, mental orientation, lab work, and pain is of concern. Patient's daughter was upset with RN stating this and said it was their first time ever hearing this and every day since they have been here they have thought she was making large improvements and would get to go home.
--- NOTE | 2025-02-01 12:09 | PC.NURSE ---
RN called Dr. Benitez about patient's HR on telemetry. is coming from IMU to assess patient.
--- NOTE | 2025-02-01 12:38 | ECG_ITS ---
Test Date: 2025-02-01 12:57:32 Measurements Intervals [place] Rate: 104 P: 0 MD: 0 QRS: -27 QRSD: 140 T: 45 QT: 390 QTc: 515 Interpretive Statements ELECTRONIC VENTRICULAR PACEMAKER UNDERLYING PROBABLY ATRIAL FIBRILLATION BASELINE ARTIFACT- I, II, III, AVR, AVL, AVF NO FURTHER INTERPRETATION IS POSSIBLE ABNORMAL ECG Compared to ECG 01/26/2025 16:03:26 HEART RATE HAS INCREASED Electronically Signed On 02-01-2025 13:05:17 [employer]IRS[employer]ING II INSPECTOR by Kimo Aragon D.O.
[2025-02-01] MEDS: POTASSIUM PHOS,M-BASIC-D-BASIC 15 MMOL in SODIUM CHLORIDE 0.9% IV 250 ML 63.75 MMOL IVPB (13:18)
--- NOTE | 2025-02-01 14:18 | PM.CNCAR ---
Assessment and Plan Assessment and plan (1) Congestive heart failure: Code(s): I50.9 - Heart failure, unspecified Status: Acute (2) Aortic valve stenosis: Code(s): I35.0 - Nonrheumatic aortic (valve) stenosis Status: Acute (3) Atrial fibrillation: Code(s): I48.91 - Unspecified atrial fibrillation Status: Acute (4) AICD (automatic cardioverter/defibrillator) present: Code(s): Z95.810 - Presence of automatic (implantable) cardiac defibrillator Status: Acute Plan 79-year-old woman with severe aortic stenosis status post self expanding TAVR, permanent atrial fibrillation, and chronic systolic heart failure 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 daily -Farxiga on hold due to ESBL UTI -can resume Entresto 24-26 mg p.o. b.i.d. -upon discharge, she should be resumed on Lasix 40 mg p.o. 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 She apparently had is the classic right. She denies any orthopnea. Denies any syncopal events recently. She denies palpitations. She is currently bed ridden. Her daughter who she lives with takes care of all her needs. Review of Systems Cardiovascular: Cardiovascular: Reports as per HPI Respiratory: Respiratory: Reports as per HPI [facility] Past Medical History Medical History Generalized anxiety disorder Left bundle branch block Hypertension Spinal stenosis Aortic valve stenosis Gastrointestinal tube in situ Hypothyroidism Chronic kidney disease Anemia DM2 (diabetes mellitus, type 2) Rheumatoid arthritis CAD (coronary artery disease) Depression Dementia CVA (cerebral vascular accident) Per head CT on 01/26/2025 Remote left basal ganglial lacunar infarct. Remote left occipital infarct. Remote right cerebellar lacunar infarct Dysphagia Ischemic bowel disease Congestive heart failure Combined diastolic and systolic. Pneumonia Surgical History Surgical History AICD (automatic cardioverter/defibrillator) present H/O endovascular stent graft for abdominal aortic aneurysm H/O neck surgery Previous back surgery Family History Family History Other Unknown family medical history Social History Social History Social History: She is currently at [facility]. Her daughter Dee was at the bedside stating that she is the durable power chaser apprentice for healthcare. She is . She is retired. Code status: Full code Smoking status: Never smoker Second hand tobacco smoke exposure: No Alcohol intake: never Substance use: never Lack of Transportation: No Lack of Food: Never True Current Housing: I Have Housing Concerned About Future Housing: No Difficulty Paying Gas/Electric Bills: No Difficulty Paying for Meds: No Currently Unemployed: No Education: Master's Degree or Higher Difficulty w/ Childcare or Family Care: No Spiritual care concerns: No Meds Home Medications and Allergies Home Medications ?Medication ?Instructions ?Recorded ?Confirmed ?Type Saccharomyces boulardii 250 mg 250 mg PO DAILY 01/26/25 01/26/25 History capsule (Daily Probiotic (S. boulardii)) acetaminophen 325 mg capsule 650 mg PO Q8H PRN pain 01/26/25 01/26/25 History amiodarone 200 mg tablet 200 mg feeding tube BID 01/26/25 01/26/25 History arginine 7 gram-glutamine 7 1 ea PO BID 01/26/25 01/26/25 History gram-calcium HMB 1.5 gram oral powder pack (Boris) aspirin 81 mg tablet,delayed 81 mg feeding tube DAILY 01/26/25 01/26/25 History release atorvastatin 80 mg tablet 80 mg PO QPM 01/26/25 01/26/25 History banana [id number] 5 gram-45 1 ml feeding tube BID 01/26/25 01/26/25 History kcal/60 mL tube feed liquid packet bisacodyl 10 mg rectal suppository 10 mg RECTAL DAILY PRN constipation 01/26/25 01/26/25 History buspirone 10 mg tablet 5 mg feeding tube TID 01/26/25 01/26/25 History calcium carbonate (Calcium Antacid) 200 mg PO Q6H PRN indigestion 01/26/25 01/26/25 History conjugated estrogens 0.625 mg/gram 0.3125 mg vaginal DAILY 01/26/25 01/26/25 History vaginal cream (Premarin) dabigatran etexilate 75 mg capsule 75 mg PO BID 01/26/25 01/26/25 History dapagliflozin propanediol 10 mg 10 mg feeding tube DAILY 01/26/25 01/26/25 History tablet (Farxiga) diclofenac sodium 1 % topical gel 2 g topical Q6H PRN pain 01/26/25 01/26/25 History dimethicone 1 %-zinc oxide 10 1 applic topical QSHIFT PRN 01/26/25 01/26/25 History %-vit A and D-aloe vera topical incontinence cream (A and D Diaper Rash Cream) docusate sodium 100 mg capsule 100 mg PO BID 01/26/25 01/26/25 History (Colace) donepezil 5 mg tablet (Aricept) 5 mg PO BID 01/26/25 01/26/25 History ergocalciferol (vitamin D2) 1,250 50,000 unit feeding tube DAILY 01/26/25 01/26/25 History mcg (50,000 unit) capsule famotidine 20 mg tablet 20 mg PO DAILY 01/26/25 01/26/25 History fenofibrate nanocrystallized 48 mg 48 mg PO DAILY 01/26/25 01/26/25 History tablet furosemide 40 mg tablet 40 mg PO BID 01/26/25 01/26/25 History gabapentin 100 mg capsule 100 mg feeding tube BID 01/26/25 01/26/25 History insulin glargine 100 unit/mL (3 25 unit subcut QPM 01/26/25 01/26/25 History mL) subcutaneous pen (Lantus Solostar U-100 Insulin) ketorolac 0.5 % eye drops (Acular) 1 drp EACH EYE Q6H 01/26/25 01/26/25 History levofloxacin 500 mg tablet 500 mg feeding tube DAILY 01/26/25 01/26/25 History levothyroxine 125 mcg tablet 125 mcg feeding tube DAILY 01/26/25 01/26/25 History lidocaine 5 % topical patch 1 patch topical Q24H PRN pain 01/26/25 01/26/25 History (Lidoderm) magnesium citrate (Citroma oral 296 ml PO ONCE PRN constipation 01/26/25 01/26/25 History solution) magnesium hydroxide 400 mg/5 mL 400 mg PO DAILY PRN constipation 01/26/25 01/26/25 History oral suspension (Milk of Magnesia) melatonin 3 mg capsule 6 mg PO HS 01/26/25 01/26/25 History miconazole nitrate 2 % topical 1 applic topical .hourly PRN 01/26/25 01/26/25 History cream (Antifungal (miconazole)) fungal infection mirtazapine 7.5 mg tablet 7.5 mg PO HS 01/26/25 01/26/25 History montelukast 10 mg tablet 10 mg feeding tube QPM 01/26/25 01/26/25 History naloxone 4 mg/actuation nasal 1 spray intranasal ONCE PRN opioid 01/26/25 01/26/25 History spray (Narcan) overdose nystatin 100,000 unit/gram topical 1 applic topical BID 01/26/25 01/26/25 History powder omeprazole 20 mg capsule,delayed 20 mg PO DAILY 01/26/25 01/26/25 History release sacubitril 97 mg-valsartan 103 mg 1 tablet PO BID 01/26/25 01/26/25 History tablet (Entresto) sertraline 50 mg tablet 50 mg feeding tube DAILY 01/26/25 01/26/25 History sodium phosphates 19 gram-7 118 ml RECTAL ONCE PRN constipation 01/26/25 01/26/25 History gram/118 mL enema (Enema) spironolactone 25 mg/5 mL oral 10 mg feeding tube DAILY 01/26/25 01/26/25 History suspension tramadol 50 mg tablet 50 mg feeding tube Q6H PRN pain 01/26/25 01/26/25 History Allergies Allergy/AdvReac Type Severity Reaction Status Date / Time No Known Allergies Allergy Verified 01/26/25 22:05 Vital Signs Vital Signs - 24 hr 01/31/25 14:25 01/31/25 14:37 01/31/25 16:00 Temperature Pulse Rate 102 H Respiratory Rate Blood Pressure Pulse Oximetry Oxygen Delivery Room Air Room Air 01/31/25 20:00 01/31/25 20:55 02/01/25 00:00 Temperature 36.6 C Pulse Rate 97 87 104 H Respiratory Rate 20 Blood Pressure 116/74 Pulse Oximetry 94 Oxygen Delivery 02/01/25 04:00 02/01/25 06:00 02/01/25 08:00 Temperature 36.3 C L Pulse Rate 104 H 100 105 H Respiratory Rate 20 Blood Pressure 157/65 H Pulse Oximetry 94 Oxygen Delivery 02/01/25 08:52 02/01/25 08:55 02/01/25 09:03 Temperature 37.3 C Pulse Rate 118 H 118 H Respiratory Rate 20 Blood Pressure 142/72 H Pulse Oximetry 100 100 Oxygen Delivery Room Air 02/01/25 12:00 Temperature Pulse Rate 90 Respiratory Rate Blood Pressure Pulse Oximetry Oxygen Delivery Exam Const: General: comfortable HENMT: Mouth: Yes dry mucous membranes Eyes: EOM: EOMs intact bilaterally Neck: Neck: no JVD Resp: Effort & Inspection: normal respiratory effort Auscultation: clear to auscultation bilaterally Cardio: Rate: regular rate Rhythm: abnormal rhythm Results Labs and Meds 02/01/25 05:00 02/01/25 05:00 Lab results: Cardiac Enzymes 02/01/25 Range/Units 05:00 AST 20 (14-36) U/L CBC 02/01/25 Range/Units 05:00 WBC 11.4 H (4.5-10.0) K/mm3 RBC 2.76 L (4.2-5.4) M/mm3 Hgb 7.8 L (12.0-15.0) g/dL Hct 25.1 L (37.0-47.0) % Plt Count 239 (150-375) k/mm3 Comprehensive Metabolic Panel 12/04/25 Range/Units 05:00 Sodium 128 L (137-145) mmol/L Potassium 4.0 (3.4-5.0) mmol/L Chloride 100 (98-107) mmol/L Carbon Dioxide 26 (22-30) mmol/L BUN 40 H (7-17) mg/dL Creatinine 0.54 L (0.7-1.0) mg/dL Glucose 231 H (65-110) mg/dL Calcium 8.4 (8.4-10.2) mg/dL AST 20 (14-36) U/L ALT 15 (6-35) U/L Alkaline Phosphatase 64 (38-126) U/L Total Protein 5.2 L (6.3-8.2) g/dL Albumin 2.7 L (3.5-5.1) g/dL Intake and Output 01/31/25 02/01/25 02/01/25 23:59 07:59 15:59 Intake Total 650 829 Output Total 550 Balance 100 829 Intake: IV 100 Meropenem 1 gm In Sodium 100 Chloride 0.9% IV 100 ml @ 200 mls/hr IVPB Q8HR [facility] Rx#: [id number] Tube Feeding 475 604 Tube Flush 75 225 Output: Catheter Urine 325 Urethral Catheter 325 Stool 225 Other: Number of Bowel Movements Today 1 Patient Weight 02/01/25 23:59 Weight 80.6 kg
--- NOTE | 2025-02-01 18:15 | P.PNIM_ITS ---
Assessment and Plan Assessment and Plan (1) Septic shock: Code(s): A41.9 - Sepsis, unspecified organism; R65.21 - Severe sepsis with septic shock Status: Resolved Assessment and Plan: 01/26: Patient presented with altered mental status, hypotension, feeling tired and more sleepy at the alf -normal lactic acid at 1.4 -in the ER patient was given 1 L IV fluid bolus since she has a history of CHF -right IJ central line was inserted and started on Levophed, -Levophed was turned off earlier this morning -Blood cultures have been obtained: NGTD -continue cefepime and vancomycin (01/26) 01/27: Urine cultures have been obtained: Klebsiella ESBL -will give additional fluid this morning has patient's mucosa membranes are significant and skin turgor is poor - will also give albumin for intravascular volume expansion - Bilateral lower extremity venous Dopplers were negative for DVT 01/28: CT Abdomen repeated: thickened endometrial complex, which may be secondary to endometrial hyperplasia, polyp, or carcinoma; Consider pelvic ultrasound; Worsened wall thickening of the distal ileum and right colon, consistent with edema versus enterocolitis; Small volume of ascites. Pelvic US ordered. Patient also having new onset diarrhea, concerning for C Diff given she has history of same. Testing has been ordered. HIREN positive for PAD of lower extremities. 01/29: C Difficile is positive. Oral vancomycin has been started. Patient is out of shock at this time, BP improving. ID on board and aware. 01/30: IV Vancomycin switched to Meropenem per ID given klebsiella UTI. BCx NGTD. 01/31: Continuing antibiotics per ID recommendations. Stool remains liquid in rectal tube. (2) Ischemic bowel disease: Code(s): K55.9 - Vascular disorder of intestine, unspecified Status: Ruled-out Assessment and Plan: Some concerns for ischemic bowel disease on CT scan -lactic acid is 1.4, repeat lactic acid was also 1.4 -appreciate surgery evaluation recommendations, poor surgical candidate -currently off Levophed, if patient's condition worsens, will obtain another noncontrast CT abdomen and pelvis per surgeon -CT Abdomen repeated: thickened endometrial complex, which may be secondary to endometrial hyperplasia, polyp, or carcinoma; Consider pelvic ultrasound; Worsened wall thickening of the distal ileum and right colon, consistent with edema versus enterocolitis; Small volume of ascites. -Surgery on board, CT reviewed, no further intervention at this time, not likely ischemic bowel, continue antibiotics and monitor -Can advance tube feeds, increased water intake from 30cc to 75cc qid. Limiting water administration as Na is 129 and want to prevent further worsening of hyponatremia. (3) C. difficile colitis: Code(s): A04.72 - Enterocolitis due to Clostridium difficile, not specified as recurrent Status: Acute Assessment and Plan: C Difficile + Enterocolitis on Ct likely secondary to this. ID is on board. -PO vancomycin 500mg q6h -Contact isolation precautions in place. (4) Acute UTI: Code(s): N39.0 - Urinary tract infection, site not specified Status: Acute Assessment and Plan: UA reflective of UTI, continue antibiotics, cultures have been obtained UCx 01/27: Klebsiella ESBL -IV Vancomycin switched to Meropenem per ID (5) Altered mental status: Code(s): R41.82 - Altered mental status, unspecified Status: Acute Assessment and Plan: Altered mental status seems to have resolved, patient is more awake after volume resuscitation and antibiotics. Likely secondary to sepsis. -Continue monitoring mental status (6) Congestive heart failure: Code(s): I50.9 - Heart failure, unspecified Status: Acute Assessment and Plan: History of heart failure -patient does not know where she gets her treatment -no previous notes or echocardiogram in the chart at [facility] -echocardiogram: EF 55-60% -patient does take aspirin, Farxiga, furosemide, Entresto, Dabigatran at home which are all currently on hold. Hold farxiga during active ESBL UTI. -Amiodarone, atorvastatin and spironolactone resumed. -blood pressure appears to be holding, will resume Entresto -02/01: Increased oxygen requirement today holding steady on 2 L nasal cannula. IV Lasix 20 mg given (7) Gastrointestinal tube in situ: Code(s): Z93.1 - Gastrostomy status Status: Acute Assessment and Plan: Patient does have a PEG tube, according to the nurses the family states that she does take p.o. diet but the PEG tube is for supplementation (8) Hypothyroidism: Code(s): E03.9 - Hypothyroidism, unspecified Status: Acute Assessment and Plan: Switch to oral levothyroxine via tube - home dose is 125mcg, was getting 62.5 mcg IV, will start with 100mcg oral and titrate up to home dose as tolerated Will need to repeat TFTs 6 weeks after discharge (9) Hypertension: Code(s): I10 - Essential (primary) hypertension Status: Acute Assessment and Plan: Spironolactone resumed. Rest of meds to be resumed as tolerated. (10) DM2 (diabetes mellitus, type 2): Code(s): E11.9 - Type 2 diabetes mellitus without complications Status: Acute Assessment and Plan: Continue sliding scale insulin and Accu-Chek (11) Atrial fibrillation: Code(s): I48.91 - Unspecified atrial fibrillation Status: Acute Assessment and Plan: History of atrial fibrillation on dabigatran 75 mg b.i.d. and amiodarone -appreciate cardiology recommendation, will resume dabigatran and continue amiodarone at this time (12) Ventricular ectopy: Code(s): I49.3 - Ventricular premature depolarization Status: Acute Assessment and Plan: Runs of V-tach noted on monitor. Cardiology was consulted in regards to this and pacemaker management. Pacemaker been interrogated, found to be functioning normally. No further intervention was recommended by Cardiology at this time. She can follow palpation on discharge. Appreciate cardiology recommendations. Plan ID on board for sepsis/C Difficile management. Will follow recommendations. DVT prophylaxis: Dabigatran Stress ulcer prophylaxis: Protonix Nutrition: Tube feeds Consultations Consultations: I have discussed the care of this pt with the consulting providers. Subjective Date/time seen: 02/01/25 18:15 Interval history: This is a 79-year-old female patient who is currently in rehab at [facility]. She was recently diagnosed with pneumonia and has been on oral antibiotics. She also has tube feedings that supplements her oral intake. However the patient was found to be more confused and left the were [place] with a low blood pressure at the rehab facility. The patient was complaining of some abdominal pain. Her white count was noted to be 18.4. Her H&H is 10.4 in 33.4. Her sodium was low at 129. Her glucose is 184. Her BNP was noted to be 1910. Her urine is turbid with 1+ protein, 2+ blood, leukocyte esterase 3+, urine wbc's greater than 100, urine bacteria 4+. MRSA was detected in her nares. Chest abdomen pelvis CT was read as a followin. No evidence of pulmonary consolidation are atelectasis. Mild vascular congestion of lungs severe cardiomegaly and postoperative changes as described above. 2. Within the abdomen, there is significant finding of small drops of air in the peripheral portal veins within the left lobe of the liver. This would raise a concern for ischemic bowel disease. 3. Significant Calcific changes at the proximal celiac axis and superior mesenteric artery and right renal artery. 4. Normal bowel obstruction or bowel wall thickening. No evidence of fluid or free air in the peritoneal cavity. Surgery consult was placed per ED provider. The patient was given a dose of zosyn in the er. Head CT was read as no acute and cranial abnormality. Chest x-ray was read as CHF superimposed probable left lower lobe pneumonia. A central line was placed in the emergency room. Repeat chest x-ray shows central line placement. The blood pressures have gotten as low as 70/50 prior to have vasopressors. A Patterson catheter was also placed as well. Surgery has been consulted as well as the data consultant. Review of Systems Review of Systems: All systems reviewed & are unremarkable except as noted in HPI and below Exam Narrative: General: Awake, alert, no acute distress. rectal tube placed. HEENT:? Pupils equal and reactive, sclera is clear, dry oral mucosa Neck:? Supple Respiratory:? Decreased air entry at bases, otherwise clear to auscultation bilaterally Cardiac:? Irregularly irregular rhythm, rate controlled Abdomen:? Soft, diffuse mild tenderness, no guarding rigidity, bowel sounds+, obese, nondistended Extremities:? Bilateral upper and lower extremity edema,. Palpable pedal pulse Neuro:? Patient is awake, alert, oriented to place and date of , has history of dementia, follows simple commands in all extremities, able to answer question Skin:? Multiple bruising noted on bilateral upper and lower extremities, Psych:? Depressed affect Objective Data Vital Signs Vital Signs: Vital Signs - 24 hr 01/31/25 20:00 01/31/25 20:55 02/01/25 00:00 Temperature 97.9 F Pulse Rate 97 87 104 H Respiratory Rate 20 Blood Pressure 116/74 Pulse Oximetry 94 Oxygen Delivery Oxygen Flow Rate 02/01/25 04:00 02/01/25 06:00 02/01/25 08:00 Temperature 97.3 F L Pulse Rate 104 H 100 105 H Respiratory Rate 20 Blood Pressure 157/65 H Pulse Oximetry 94 Oxygen Delivery Oxygen Flow Rate 02/01/25 08:52 02/01/25 08:55 02/01/25 09:03 Temperature 99.1 F Pulse Rate 118 H 118 H Respiratory Rate 20 Blood Pressure 142/72 H Pulse Oximetry 100 100 Oxygen Delivery Room Air Oxygen Flow Rate 02/01/25 12:00 02/01/25 14:00 02/01/25 14:26 Temperature 97.7 F Pulse Rate 90 56 L Respiratory Rate 20 Blood Pressure 132/82 Pulse Oximetry 84 L 94 Oxygen Delivery Nasal Cannula Oxygen Flow Rate 2 02/01/25 14:28 02/01/25 16:00 Temperature Pulse Rate 85 Respiratory Rate Blood Pressure Pulse Oximetry 94 Oxygen Delivery Oxygen Flow Rate Intake/Output Intake/Output: Intake & Output 01/29/25 01/30/25 01/31/25 02/01/25 23:59 23:59 23:59 23:59 Intake Total 218 559 8522 929 Output Total 1200 1600 1425 1250 Balance -660 -987 -145 -321 Meds/Results Medications: Active Medications Generic Name Dose Route Start Last Admin Trade Name Freq PRN Reason Stop Dose Admin Acetaminophen 650 mg 01/28/25 20:45 01/29/25 12:02 Acetaminophen Elixir 325 Mg/10.15 Ml Udc FEED TUBE 650 mg Q6H PRN Administration Mild Pain (1-3) or Fever Amiodarone HCl 200 mg 01/29/25 10:00 02/01/25 08:52 Amiodarone Hcl 200 Mg Tablet PO 200 mg Q12HR MERCEDES Administration Atorvastatin Calcium 80 mg 01/31/25 09:00 02/01/25 08:52 Atorvastatin 40 Mg Tablet PO 80 mg DAILY MERCEDES Administration Enoxaparin Sodium 40 mg 01/27/25 10:15 02/01/25 09:05 Enoxaparin 40 Mg/0.4 Ml Syringe SUB-Q 40 mg DAILY MERCEDES Administration Glucagon 1 mg 01/27/25 01:22 Glucagon For Inj 1 Mg Vial IM PRN PRN Hypoglycemia Protocol Meropenem 1 gm/ Sodium 100 mls @ 200 mls/hr 01/31/25 14:00 02/01/25 17:00 Chloride IVPB 100 mls/hr Q8HR MERCEDES Administration Insulin Aspart 3 - 6 units 01/27/25 12:00 02/01/25 13:19 Insulin Aspart (*Bkc) 100 Units/Ml SUB-Q Not Given Q6HR [facility] Protocol Ketorolac Tromethamine 1 drop 01/27/25 06:00 02/01/25 17:01 Ketorolac 0.5% Op Soln 5 Ml Bottle EACH EYE 1 drop Q6HR MERCEDES Administration Levothyroxine Sodium 100 mcg 01/30/25 06:30 02/01/25 05:07 Levothyroxine Sodium 100 Mcg Tablet PO 100 mcg DAILY@0630 MERCEDES Administration Lidocaine 1 patch 01/27/25 01:24 Lidocaine 5% Patch TOPICAL Q24H PRN Pain Pantoprazole Sodium 40 mg 02/01/25 09:00 02/01/25 08:52 Pantoprazole 40 Mg Tablet PO 40 mg QAM [facility]CED[facility] Administration Sodium Chloride 10 ml 01/27/25 14:00 02/01/25 13:19 Central Line Flush IV PUSH 10 ml Q8HR MERCEDES Administration Sodium Chloride 10 ml 01/27/25 11:07 Central Line Flush IV PUSH PRN PRN with TPN bag changes Sodium Chloride 20 ml 01/27/25 11:07 Central Line Flush IV PUSH PRN PRN after blood draws Sodium Chloride 10 ml 01/27/25 14:00 02/01/25 17:01 Central Line Flush IV PUSH 10 ml Q8HR [facility] Administration Sodium Chloride 10 ml 01/27/25 11:11 Central Line Flush IV PUSH PRN PRN with TPN bag changes Sodium Chloride 20 ml 01/27/25 11:11 Central Line Flush IV PUSH PRN PRN after blood draws Spironolactone 12.5 mg 01/29/25 09:00 02/01/25 08:52 Spironolactone 12.5 Mg Tablet FEED TUBE 12.5 mg DAILY [facility] Administration Tramadol HCl 50 mg 01/29/25 17:28 02/01/25 08:53 Tramadol Hcl (*Crx) 50 Mg Tablet FEED TUBE 50 mg Q6H PRN Administration Pain Rated 4-6 Vancomycin HCl 500 mg 01/31/25 12:00 02/01/25 17:01 Vancomycin Hcl 250 Mg Oral Capsule PO 500 mg Q6HR [facility]ES Administration Radiology Results: ITS Impressions Head CT 01/26/25 17:46 Impression: 1.No acute intracranial abnormality. Chest X-Ray 01/27/25 11:19 IMPRESSION: 1. Right PICC placed but tip not identified. 2. Right neck central line unchanged with catheter retrograde into left innominate vein. 3. No cardiopulmonary change. Ankle Brachial Index 01/28/25 13:02 IMPRESSION: 1. Normal right HIREN and decreased right TBI, consistent with right-sided arterial occlusive disease. 2. Borderline-decreased left HIREN and lack of detectable arterial flow in the left great toe, consistent with left-sided arterial occlusive disease. Chest/Abdomen/Pelvis CT 01/28/25 16:08 IMPRESSION: 1. Small pleural effusions. 2. New gallbladder distention, which may be secondary to fasting. Correlate with physical exam to exclude acute cholecystitis. 3. Thickened endometrial complex, which may be secondary to endometrial hyperplasia, polyp, or carcinoma. Consider pelvic ultrasound. 4. Worsened wall thickening of the distal ileum and right colon, consistent with edema versus enterocolitis. 5. Small volume of ascites. Venous Doppler Study 01/28/25 16:08 Impression: Negative for DVT. Pelvis Ultrasound 01/29/25 10:11 IMPRESSION: 1. Uterus and ovaries not visualized. Transvaginal imaging was not performed due to the patient's altered mental status. Labs Labs: Laboratory Results - last 24 hr 01/31/25 02/01/25 02/01/25 23:29 05:00 05:16 WBC 11.4 H RBC 2.76 L Hgb 7.8 L Hct 25.1 L MCV 90.9 MCH 28.3 MCHC 31.1 L RDW 17.5 H Plt Count 239 MPV 8.7 Sodium 128 L Potassium 4.0 Chloride 100 Carbon Dioxide 26 Anion Gap 2 L BUN 40 H Creatinine 0.54 L Estim Creat Clear Calc Not Reportable Estimated GFR > 60 Glucose 231 H POC Capillary Glucose 171 H 235 H Calcium 8.4 Phosphorus 1.4 L Magnesium 1.6 Total Bilirubin 0.3 AST 20 ALT 15 Alkaline Phosphatase 64 Total Protein 5.2 L Albumin 2.7 L 02/01/25 02/01/25 11:26 18:06 WBC RBC Hgb Hct MCV MCH MCHC RDW Plt Count MPV Sodium Potassium Chloride Carbon Dioxide Anion Gap BUN Creatinine Estim Creat Clear Calc Estimated GFR Glucose POC Capillary Glucose 197 H 175 H Calcium Phosphorus Magnesium Total Bilirubin AST ALT Alkaline Phosphatase Total Protein Albumin
[2025-02-01] MEDS: FUROSEMIDE INJ 40 MG/4 ML VIAL 20 MG IV PUSH (21:30)
[2025-02-01] MEDS: SACUBITRIL/VALSARTAN 24-26 MG TABLET 1 TAB PO (21:30)
[2025-02-01] MEDS: DABIGATRAN ETEXILATE 75 MG CAPSULE PO (21:30)
[2025-02-02] VITALS (15 sets, daily range): BP systolic 111–130; BP diastolic 55–74; PULSE 78–114; RESP 16–22; TEMP 36.3–36.6; O2SAT 70–96; BMI 10.0
[2025-02-02] MEDS: VANCOMYCIN HCL 250 MG ORAL CAPSULE 500 MG PO ×2 (00:37→05:43)
[2025-02-02] MEDS: HYDROcodone/acetaminophen (*CRX) 10-325 MG TABLET 1 TAB PO ×3 (00:37→15:27)
[2025-02-02] MEDS: KETOROLAC 0.5% OP SOLN 5 ML BOTTLE 1 DROP EACH EYE ×4 (00:40→18:07)
[2025-02-02] MEDS: LEVOTHYROXINE SODIUM 100 MCG TABLET PO (05:43)
[2025-02-02] MEDS: CENTRAL LINE FLUSH 10 ML IV PUSH ×6 (05:44→21:58)
[2025-02-02] MEDS: MEROPENEM 1 GM in SODIUM CHLORIDE 0.9% IV 100 ML IVPB ×3 (05:44→21:58)
[2025-02-02 06:54] LABS: Hematocrit 27.9 % (37.0-47.0); Hemoglobin 8.4 g/dL (12.0-15.0); Mean Corpuscular HGB Conc 30.1 g/dl (32-36); Mean Corpuscular Hemoglobin 27.5 pg (26-34); Mean Corpuscular Volume 91.2 fl (80-100); Platelet Count Result 284 k/mm3 (150-375); Red Blood Count 3.06 M/mm3 (4.2-5.4); White Blood Count 13.7 K/mm3 (4.5-10.0)
[2025-02-02 07:14] LABS: Alanine Aminotransferase 14 U/L (6-35); Albumin Level 2.9 g/dL (3.5-5.1); Alkaline Phosphatase 69 U/L (38-126); Anion Gap 2 mmol/L (4-12); Aspartate Amino Transferase 20 U/L (14-36); Bilirubin,Total 0.3 mg/dL (0.2-1.3); Blood Urea Nitrogen 31 mg/dL (7-17); Calcium 8.2 mg/dL (8.4-10.2); Carbon Dioxide 27 mmol/L (22-30); Chloride 102 mmol/L (98-107); Estimated Glomerular Filt Rate > 60; Glucose 203 mg/dL (65-110); Magnesium 1.5 mg/dL (1.6-2.3); Potassium 4.4 mmol/L (3.4-5.0); Sodium 131 mmol/L (137-145); Total Protein 5.6 g/dL (6.3-8.2)
--- NOTE | 2025-02-02 09:31 | ECG_ITS ---
Test Date: 2025-02-02 09:52:19 Measurements Intervals [place] Rate: 96 P: 0 MA: 0 QRS: -2 QRSD: 136 T: 17 QT: 411 QTc: 521 Interpretive Statements ELECTRONIC VENTRICULAR PACEMAKER UNDERLYING PROBABLY ATRIAL FIBRILLATION BASELINE ARTIFACT- II, III, AVF, V3, V6 NO FURTHER INTERPRETATION IS POSSIBLE ABNORMAL ECG Compared to ECG 02/01/2025 12:57:32 HEART RATE HAS DECREASED Electronically Signed On 02-02-2025 10:04:22 CUSTOMER MARKETING MANAGER by Kimo Aragon D.O.
[2025-02-02] MEDS: PANTOPRAZOLE 40 MG TABLET PO (09:38)
[2025-02-02] MEDS: SACUBITRIL/VALSARTAN 24-26 MG TABLET 1 TAB PO ×2 (09:38→20:00)
[2025-02-02] MEDS: DABIGATRAN ETEXILATE 75 MG CAPSULE PO ×2 (09:39→20:00)
[2025-02-02] MEDS: traMADol HCL (*CRX) 50 MG TABLET FEED TUBE ×2 (09:39→20:03)
[2025-02-02] MEDS: AMIODARONE HCL 200 MG TABLET PO ×2 (09:39→20:00)
[2025-02-02] MEDS: ATORVASTATIN 40 MG TABLET 80 MG PO (09:39)
[2025-02-02] MEDS: ENOXAPARIN 40 MG/0.4 ML SYRINGE SUB-Q (09:40)
--- NOTE | 2025-02-02 09:41 | WPDINFPN2 ---
Progress Note: A&P Assessment and Plan (1) C. difficile colitis: Code(s): A04.72 - Enterocolitis due to Clostridium difficile, not specified as recurrent Status: Acute Assessment and Plan: ASSESSMENT: 1. Klebsiella ESBL UTI 2. C. diff colitis 3. possible ischemic bowel 4. 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 HTN, hypothyroid, CKD, DM, CAD, RA, stroke, dementia, s/p PEG RECOMMENATIONS: -f/u on blood cxs-->NGTD -meropenem day4 of 5-->stop tomorrow after doses -po vanco stopped and changed to dificid-->plan to d/c eventually on po vanco taper -consider FMT as outpatient?? -once C. diff resolved, if patient requires abx in the future, would place on po vanco 125 mg bid prophylactically while on abx to prevent C. diff recurrence d/w pharmacy staff and daughter at length Pt was seen via video telehealth consultation with the assistance of staff. Chart, data and patient info reviewed. Patient was located at [facility] while I was in my [place] office. Pt gave consent. Subjective Date/time seen: 02/02/25 09:41 Interval history: no high temps +leukocytosis Exam Narrative: alert, on 4L O2 NC abd soft NT +flexiseal Objective Data Vital Signs Vital Signs: Vital Signs - 24 hr 02/01/25 12:00 02/01/25 14:00 02/01/25 14:26 Temperature 97.7 F Pulse Rate 90 56 L Respiratory Rate 20 Blood Pressure 132/82 Pulse Oximetry 84 L 94 Oxygen Delivery Nasal Cannula Oxygen Flow Rate 2 Fraction of Inspired Oxygen 02/01/25 14:28 02/01/25 16:00 02/01/25 20:00 Temperature Pulse Rate 85 69 Respiratory Rate 20 Blood Pressure Pulse Oximetry 94 93 Oxygen Delivery Nasal Cannula Oxygen Flow Rate 2 Fraction of Inspired Oxygen 21 02/01/25 20:00 02/01/25 21:31 02/01/25 22:00 Temperature 97.6 F Pulse Rate 99 90 69 Respiratory Rate 20 Blood Pressure 124/72 Pulse Oximetry 93 Oxygen Delivery Oxygen Flow Rate Fraction of Inspired Oxygen 02/02/25 00:00 02/02/25 04:00 02/02/25 06:00 Temperature 97.3 F L Pulse Rate 95 93 100 Respiratory Rate 20 Blood Pressure 113/55 L Pulse Oximetry 92 Oxygen Delivery Oxygen Flow Rate Fraction of Inspired Oxygen 02/02/25 08:31 02/02/25 09:17 02/02/25 09:35 Temperature Pulse Rate 78 Respiratory Rate 22 H Blood Pressure 130/67 Pulse Oximetry 96 70 L 91 Oxygen Delivery Room Air Oxygen Flow Rate Fraction of Inspired Oxygen 02/02/25 09:39 Temperature Pulse Rate 108 H Respiratory Rate Blood Pressure Pulse Oximetry Oxygen Delivery Oxygen Flow Rate Fraction of Inspired Oxygen Intake/Output Intake/Output: Intake & Output 01/30/25 01/31/25 02/01/25 02/02/25 23:59 23:59 23:59 23:59 Intake Total 613 1280 2879 200 Output Total 1600 1425 1250 1550 Balance -987 -145 1629 -1350 Meds/Results Medications: Active Medications Generic Name Dose Route Start Last Admin Trade Name Freq PRN Reason Stop Dose Admin Acetaminophen 650 mg 01/28/25 20:45 01/29/25 12:02 Acetaminophen Elixir 325 Mg/10.15 Ml Udc FEED TUBE 650 mg Q6H PRN Administration Mild Pain (1-3) or Fever Hydrocodone Bitart/Acetaminophen 1 tab 02/01/25 22:35 02/02/25 06:38 Hydrocodone/Acetaminophen (*Crx) 10-325 Mg Tablet PO 1 tab Q6H PRN Administration Pain Rated 7-10 Amiodarone HCl 200 mg 01/29/25 10:00 02/02/25 09:39 Amiodarone Hcl 200 Mg Tablet PO 200 mg Q12HR [facility] Administration Atorvastatin Calcium 80 mg 01/31/25 09:00 02/02/25 09:39 Atorvastatin 40 Mg Tablet PO 80 mg DAILY [facility] Administration Dabigatran 75 mg 02/01/25 21:00 02/02/25 09:39 Dabigatran Etexilate 75 Mg Capsule PO 75 mg Q12HR [facility] Administration Enoxaparin Sodium 40 mg 01/27/25 10:15 02/02/25 09:40 Enoxaparin 40 Mg/0.4 Ml Syringe SUB-Q 40 mg DAILY [facility] Administration Glucagon 1 mg 01/27/25 01:22 Glucagon For Inj 1 Mg Vial IM PRN PRN Hypoglycemia Protocol Meropenem 1 gm/ Sodium 100 mls @ 200 mls/hr 01/31/25 14:00 02/02/25 05:44 Chloride IVPB 100 mls/hr Q8HR [facility] Administration Insulin Aspart 3 - 6 units 01/27/25 12:00 02/02/25 08:11 Insulin Aspart (*Bkc) 100 Units/Ml SUB-Q Not Given Q6HR [facility] Protocol Ketorolac Tromethamine 1 drop 01/27/25 06:00 02/02/25 05:44 Ketorolac 0.5% Op Soln 5 Ml Bottle EACH EYE 1 drop Q6HR [facility] Administration Levothyroxine Sodium 100 mcg 01/30/25 06:30 02/02/25 05:43 Levothyroxine Sodium 100 Mcg Tablet PO 100 mcg DAILY@0630 [facility]CED[facility] Administration Lidocaine 1 patch 01/27/25 01:24 Lidocaine 5% Patch TOPICAL Q24H PRN Pain Pantoprazole Sodium 40 mg 02/01/25 09:00 02/02/25 09:38 Pantoprazole 40 Mg Tablet PO 40 mg QAM [facility] Administration Sacubitril/Valsartan 1 tab 02/01/25 21:00 02/02/25 09:38 Sacubitril/Valsartan 24-26 Mg Tablet PO 1 tab Q12HR [facility]CED[facility] Administration Sodium Chloride 10 ml 01/27/25 14:00 02/02/25 05:44 Central Line Flush IV PUSH 10 ml Q8HR [facility] Administration Sodium Chloride 10 ml 01/27/25 11:07 Central Line Flush IV PUSH PRN PRN with TPN bag changes Sodium Chloride 20 ml 01/27/25 11:07 Central Line Flush IV PUSH PRN PRN after blood draws Sodium Chloride 10 ml 01/27/25 14:00 02/02/25 05:44 Central Line Flush IV PUSH 10 ml Q8HR [facility] Administration Sodium Chloride 10 ml 01/27/25 11:11 Central Line Flush IV PUSH PRN PRN with TPN bag changes Sodium Chloride 20 ml 01/27/25 11:11 Central Line Flush IV PUSH PRN PRN after blood draws Spironolactone 12.5 mg 01/29/25 09:00 02/02/25 09:38 Spironolactone 12.5 Mg Tablet FEED TUBE 12.5 mg DAILY [facility]CEDES Administration Tramadol HCl 50 mg 01/29/25 17:28 02/02/25 09:39 Tramadol Hcl (*Crx) 50 Mg Tablet FEED TUBE 50 mg Q6H PRN Administration Pain Rated 4-6 Vancomycin HCl 500 mg 01/31/25 12:00 02/02/25 05:43 Vancomycin Hcl 250 Mg Oral Capsule PO 500 mg Q6HR [facility]ED[facility] Administration Radiology Results: ITS Impressions Head CT 01/26/25 17:46 Impression: 1.No acute intracranial abnormality. Chest X-Ray 01/27/25 11:19 IMPRESSION: 1. Right PICC placed but tip not identified. 2. Right neck central line unchanged with catheter retrograde into left innominate vein. 3. No cardiopulmonary change. Ankle Brachial Index 01/28/25 13:02 IMPRESSION: 1. Normal right HIREN and decreased right TBI, consistent with right-sided arterial occlusive disease. 2. Borderline-decreased left HIREN and lack of detectable arterial flow in the left great toe, consistent with left-sided arterial occlusive disease. Chest/Abdomen/Pelvis CT 01/28/25 16:08 IMPRESSION: 1. Small pleural effusions. 2. New gallbladder distention, which may be secondary to fasting. Correlate with physical exam to exclude acute cholecystitis. 3. Thickened endometrial complex, which may be secondary to endometrial hyperplasia, polyp, or carcinoma. Consider pelvic ultrasound. 4. Worsened wall thickening of the distal ileum and right colon, consistent with edema versus enterocolitis. 5. Small volume of ascites. Venous Doppler Study 01/28/25 16:08 Impression: Negative for DVT. Pelvis Ultrasound 01/29/25 10:11 IMPRESSION: 1. Uterus and ovaries not visualized. Transvaginal imaging was not performed due to the patient's altered mental status. Labs Labs: Laboratory Results - last 24 hr 02/01/25 02/01/25 02/02/25 11:26 18:06 00:38 WBC RBC Hgb Hct MCV MCH MCHC RDW Plt Count MPV Sodium Potassium Chloride Carbon Dioxide Anion Gap BUN Creatinine Estim Creat Clear Calc Estimated GFR Glucose POC Capillary Glucose 197 H 175 H 198 H Calcium Phosphorus Magnesium Total Bilirubin AST ALT Alkaline Phosphatase Total Protein Albumin 02/02/25 02/02/25 06:47 06:52 WBC 13.7 H RBC 3.06 L Hgb 8.4 L Hct 27.9 L MCV 91.2 MCH 27.5 MCHC 30.1 L RDW 17.5 H Plt Count 284 MPV 9.1 Sodium 131 L Potassium 4.4 Chloride 102 Carbon Dioxide 27 Anion Gap 2 L BUN 31 H Creatinine 0.49 L Estim Creat Clear Calc Not Reportable Estimated GFR > 60 Glucose 203 H POC Capillary Glucose 178 H Calcium 8.2 L Phosphorus 1.9 L Magnesium 1.5 L Total Bilirubin 0.3 AST 20 ALT 14 Alkaline Phosphatase 69 Total Protein 5.6 L Albumin 2.9 L
[2025-02-02 10:29] LABS: Alveolar/Arterial O2 Gradient 119.7 mmHg; Carboxyhemoglobin 0.5 % THb (0-2.0); Fractional Inspired Oxygen 36 %; HCO3 ABG 21.4 mEq/l (22.0-26.0); Liters per Minute 4.0 LPM; Methemoglobin ABG 0.3 %THb (0-1.5); Modified Allen's Test Pass; Oxygen Content ABG 12.8 %vol (16.0-22.0); Oxygen Saturation ABG 98.2 % (95.0-100.0); PCO2 ABG 28.3 mmHg (35.0-45.0); PO2 ABG 104.2 mmHg (80.0-100.0); PO2 FiO2 Ratio Arterial Blood 2.89 %; Reduced Hemoglobin 1.6 %THb (0-5.0); Site Drawn LEFT RADIAL
--- NOTE | 2025-02-02 13:09 | PCNFU ---
Nutrition Follow-Up Complete: Inadequate energy intake related to altered GI function as evidenced by need for supplemental tube feedings Goal:Tolerate tube feedings Oral intake as tolerated, with diet advancement per MD Pt meeting goals, New goal for diet order and po intake Pt current nutrition is NPO, Tube feeding: Jevity 1.5 @ 50ml/hr providing 1650kcals, 70g protein. SHRUTI BID for wound healing. Nutrition recommendation: Add banatrol for c.diff. Advance diet po per family request Last recorded weight is 78.8 kg. Bowel Motility: +BM 02/01 Labs Reviewed: Hgb:8.4, HCT:27.4, Na:131, BUN:31, Cr:0.49, Glu:203 Meds Noted: protonix, novolog, lovenox Skin: Stage III to buttocks Additional Notes: pt currently on tube feedings, at goal rate and tolerating, meeting estimated needs. Nursing reports family is requesting pt have a diet order. MD ok to start a PO diet, will start a soft and bite sized level 6 diabetic diet. Also recommend banatrol BID for c.diff. Noted some elevated blood sugars so may consider switching to Glucerna tube feeds if necessary Monitoring tube feeding orders, diet orders, PO intake, weights, labs, plan of care Follow up in 3 days and then every Wednesday/Wednesday
[2025-02-02] MEDS: FIDAXOMICIN 200 MG TABLET PO ×2 (15:27→20:03)
--- NOTE | 2025-02-02 15:47 | PM.IMPN2 ---
Assessment and Plan Assessment and Plan (1) Septic shock: Code(s): A41.9 - Sepsis, unspecified organism; R65.21 - Severe sepsis with septic shock Status: Resolved Assessment and Plan: 01/26: Patient presented with altered mental status, hypotension, feeling tired and more sleepy at the [facility] -normal lactic acid at 1.4 -in the ER patient was given 1 L IV fluid bolus since she has a history of CHF -right IJ central line was inserted and started on Levophed, -Levophed was turned off earlier this morning -Blood cultures have been obtained: NGTD -continue cefepime and vancomycin (01/26) 01/27: Urine cultures have been obtained: Klebsiella ESBL -will give additional fluid this morning has patient's mucosa membranes are significant and skin turgor is poor - will also give albumin for intravascular volume expansion - Bilateral lower extremity venous Dopplers were negative for DVT 01/28: CT Abdomen repeated: thickened endometrial complex, which may be secondary to endometrial hyperplasia, polyp, or carcinoma; Consider pelvic ultrasound; Worsened wall thickening of the distal ileum and right colon, consistent with edema versus enterocolitis; Small volume of ascites. Pelvic US ordered. Patient also having new onset diarrhea, concerning for C Diff given she has history of same. Testing has been ordered. HIREN positive for PAD of lower extremities. 01/29: C Difficile is positive. Oral vancomycin has been started. Patient is out of shock at this time, BP improving. ID on board and aware. 01/30: IV Vancomycin switched to Meropenem per ID given klebsiella UTI. BCx NGTD. 01/31-: Continuing antibiotics per ID recommendations. Stool remains liquid in rectal tube. 02/02: Vancomycin has been changed to fidaxomicin. ID made aware, will follow their recommendations. (2) Ischemic bowel disease: Code(s): K55.9 - Vascular disorder of intestine, unspecified Status: Ruled-out Assessment and Plan: Some concerns for ischemic bowel disease on CT scan -lactic acid is 1.4, repeat lactic acid was also 1.4 -appreciate surgery evaluation recommendations, poor surgical candidate -currently off Levophed, if patient's condition worsens, will obtain another noncontrast CT abdomen and pelvis per surgeon -CT Abdomen repeated: thickened endometrial complex, which may be secondary to endometrial hyperplasia, polyp, or carcinoma; Consider pelvic ultrasound; Worsened wall thickening of the distal ileum and right colon, consistent with edema versus enterocolitis; Small volume of ascites. -Surgery on board, CT reviewed, no further intervention at this time, not likely ischemic bowel, continue antibiotics and monitor -Can advance tube feeds, increased water intake from 30cc to 75cc qid. Limiting water administration as Na is 129 and want to prevent further worsening of hyponatremia. (3) C. difficile colitis: Code(s): A04.72 - Enterocolitis due to Clostridium difficile, not specified as recurrent Status: Acute Assessment and Plan: C Difficile + Enterocolitis on Ct likely secondary to this. ID is on board. -PO vancomycin 500mg q6h -Contact isolation precautions in place. (4) Acute UTI: Code(s): N39.0 - Urinary tract infection, site not specified Status: Acute Assessment and Plan: UA reflective of UTI, continue antibiotics, cultures have been obtained UCx 01/27: Klebsiella ESBL -IV Vancomycin switched to Meropenem per ID (5) Altered mental status: Code(s): R41.82 - Altered mental status, unspecified Status: Acute Assessment and Plan: Altered mental status seems to have resolved, patient is more awake after volume resuscitation and antibiotics. Likely secondary to sepsis. -Continue monitoring mental status (6) Congestive heart failure: Code(s): I50.9 - Heart failure, unspecified Status: Acute Assessment and Plan: History of heart failure -patient does not know where she gets her treatment -no previous notes or echocardiogram in the chart at [facility] -echocardiogram: EF 55-60% -patient does take aspirin, Farxiga, furosemide, Entresto, Dabigatran at home which are all currently on hold. Hold farxiga during active ESBL UTI. -Amiodarone, atorvastatin and spironolactone resumed. -blood pressure appears to be holding, will resume Entresto -02/01: Increased oxygen requirement today holding steady on 2 L nasal cannula. IV Lasix 20 mg given -02/02: Remains on 2 L nasal cannula, comfortable. (7) Gastrointestinal tube in situ: Code(s): Z93.1 - Gastrostomy status Status: Acute Assessment and Plan: Patient does have a PEG tube, according to the nurses the family states that she does take p.o. diet but the PEG tube is for supplementation (8) Hypothyroidism: Code(s): E03.9 - Hypothyroidism, unspecified Status: Acute Assessment and Plan: Switch to oral levothyroxine via tube - home dose is 125mcg, was getting 62.5 mcg IV, will start with 100mcg oral and titrate up to home dose as tolerated Will need to repeat TFTs 6 weeks after discharge (9) Hypertension: Code(s): I10 - Essential (primary) hypertension Status: Acute Assessment and Plan: Spironolactone resumed. Rest of meds to be resumed as tolerated. (10) DM2 (diabetes mellitus, type 2): Code(s): E11.9 - Type 2 diabetes mellitus without complications Status: Acute Assessment and Plan: Continue sliding scale insulin and Accu-Chek (11) Atrial fibrillation: Code(s): I48.91 - Unspecified atrial fibrillation Status: Acute Assessment and Plan: History of atrial fibrillation on dabigatran 75 mg b.i.d. and amiodarone -appreciate cardiology recommendation, will resume dabigatran and continue amiodarone at this time (12) Ventricular ectopy: Code(s): I49.3 - Ventricular premature depolarization Status: Acute Assessment and Plan: Runs of V-tach noted on monitor. Cardiology was consulted in regards to this and pacemaker management. Pacemaker been interrogated, found to be functioning normally. No further intervention was recommended by Cardiology at this time. She can follow palpation on discharge. Appreciate cardiology recommendations. Plan ID on board for sepsis/C Difficile management. Spoke with patient's daughter today 02/02, had extensive conversation regards to hospital course, active treatment and management, as well as goals of care. She was also updated on the recent events including ventricular ectopy and hypoxia requiring oxygen by nasal cannula. Patient's daughter insists on taking her home on discharge. She is aware of patient's complex medical history however due to prior problems with nursing facilities, she insists on patient going home with her. She does agree on setting up home hospice on discharge however at this time will be actively full code. Advised to discuss with care coordination. DVT prophylaxis: Dabigatran Stress ulcer prophylaxis: Protonix Nutrition: Tube feeds Consultations Consultations: I have discussed the care of this pt with the consulting providers. Subjective Date/time seen: 02/02/25 15:47 Interval history: This is a 79-year-old female patient who is currently in rehab at [facility]. She was recently diagnosed with pneumonia and has been on oral antibiotics. She also has tube feedings that supplements her oral intake. However the patient was found to be more confused and left the were [place] with a low blood pressure at the rehab facility. The patient was complaining of some abdominal pain. Her white count was noted to be 18.4. Her H&H is 10.4 in 33.4. Her sodium was low at 129. Her glucose is 184. Her BNP was noted to be 1910. Her urine is turbid with 1+ protein, 2+ blood, leukocyte esterase 3+, urine wbc's greater than 100, urine bacteria 4+. MRSA was detected in her nares. Chest abdomen pelvis CT was read as a followin. No evidence of pulmonary consolidation are atelectasis. Mild vascular congestion of lungs severe cardiomegaly and postoperative changes as described above. 2. Within the abdomen, there is significant finding of small drops of air in the peripheral portal veins within the left lobe of the liver. This would raise a concern for ischemic bowel disease. 3. Significant Calcific changes at the proximal celiac axis and superior mesenteric artery and right renal artery. 4. Normal bowel obstruction or bowel wall thickening. No evidence of fluid or free air in the peritoneal cavity. Surgery consult was placed per ED provider. The patient was given a dose of zosyn in the er. Head CT was read as no acute and cranial abnormality. Chest x-ray was read as CHF superimposed probable left lower lobe pneumonia. A central line was placed in the emergency room. Repeat chest x-ray shows central line placement. The blood pressures have gotten as low as 70/50 prior to have vasopressors. A Patterson catheter was also placed as well. Surgery has been consulted as well as the veneer department manager. Review of Systems Review of Systems: All systems reviewed & are unremarkable except as noted in HPI and below Exam Narrative: General: Awake, alert, no acute distress. rectal tube placed. HEENT:? Pupils equal and reactive, sclera is clear, dry oral mucosa Neck:? Supple Respiratory:? Decreased air entry at bases, otherwise clear to auscultation bilaterally Cardiac:? Irregularly irregular rhythm, rate controlled Abdomen:? Soft, diffuse mild tenderness, no guarding rigidity, bowel sounds+, obese, nondistended Extremities:? Bilateral upper and lower extremity edema,. Palpable pedal pulse Neuro:? Patient is awake, alert, oriented to place and date of , has history of dementia, follows simple commands in all extremities, able to answer question Skin:? Multiple bruising noted on bilateral upper and lower extremities, Psych:? Depressed affect Objective Data Vital Signs Vital Signs: Vital Signs - 24 hr 02/01/25 16:00 02/01/25 20:00 02/01/25 20:00 Temperature Pulse Rate 85 69 99 Respiratory Rate 20 Blood Pressure Pulse Oximetry 93 Oxygen Delivery Nasal Cannula Oxygen Flow Rate 2 Fraction of Inspired Oxygen 21 02/01/25 21:31 02/01/25 22:00 02/02/25 00:00 Temperature 97.6 F Pulse Rate 90 69 95 Respiratory Rate 20 Blood Pressure 124/72 Pulse Oximetry 93 Oxygen Delivery Oxygen Flow Rate Fraction of Inspired Oxygen 02/02/25 04:00 02/02/25 06:00 02/02/25 08:00 Temperature 97.3 F L Pulse Rate 93 100 85 Respiratory Rate 20 Blood Pressure 113/55 L Pulse Oximetry 92 Oxygen Delivery Oxygen Flow Rate Fraction of Inspired Oxygen 02/02/25 08:31 02/02/25 09:17 02/02/25 09:30 Temperature Pulse Rate 78 Respiratory Rate 22 H Blood Pressure 130/67 Pulse Oximetry 96 70 L 91 Oxygen Delivery Room Air Nasal Cannula Oxygen Flow Rate 4 Fraction of Inspired Oxygen 02/02/25 09:35 02/02/25 09:39 02/02/25 12:00 Temperature Pulse Rate 108 H 93 Respiratory Rate Blood Pressure Pulse Oximetry 91 Oxygen Delivery Oxygen Flow Rate Fraction of Inspired Oxygen 02/02/25 14:25 02/02/25 14:35 Temperature Pulse Rate 108 H Respiratory Rate 16 Blood Pressure 119/74 Pulse Oximetry 91 Oxygen Delivery Oxygen Flow Rate Fraction of Inspired Oxygen Intake/Output Intake/Output: Intake & Output 01/30/25 01/31/25 02/01/25 02/02/25 23:59 23:59 23:59 23:59 Intake Total 613 1280 2879 300 Output Total 1600 1425 1250 1800 Balance -987 145 7255 -5561 Meds/Results Medications: Active Medications Generic Name Dose Route Start Last Admin Trade Name Freq PRN Reason Stop Dose Admin Acetaminophen 650 mg 01/28/25 20:45 01/29/25 12:02 Acetaminophen Elixir 325 Mg/10.15 Ml Udc FEED TUBE 650 mg Q6H PRN Administration Mild Pain (1-3) or Fever Hydrocodone Bitart/Acetaminophen 1 tab 02/01/25 22:35 02/02/25 15:27 Hydrocodone/Acetaminophen (*Crx) 10-325 Mg Tablet PO 1 tab Q6H PRN Administration Pain Rated 7-10 Amiodarone HCl 200 mg 01/29/25 10:00 02/02/25 09:39 Amiodarone Hcl 200 Mg Tablet PO 200 mg Q12HR MERCEDES Administration Atorvastatin Calcium 80 mg 01/31/25 09:00 02/02/25 09:39 Atorvastatin 40 Mg Tablet PO 80 mg DAILY MERCEDES Administration Dabigatran 75 mg 02/01/25 21:00 02/02/25 09:39 Dabigatran Etexilate 75 Mg Capsule PO 75 mg Q12HR MERCEDES Administration Enoxaparin Sodium 40 mg 01/27/25 10:15 02/02/25 09:40 Enoxaparin 40 Mg/0.4 Ml Syringe SUB-Q 40 mg DAILY MERCEDES Administration Fidaxomicin 200 mg 02/02/25 10:15 02/02/25 15:27 Fidaxomicin 200 Mg Tablet PO 02/12/25 10:14 200 mg Q12HR MERCEDES Administration Glucagon 1 mg 01/27/25 01:22 Glucagon For Inj 1 Mg Vial IM PRN PRN Hypoglycemia Protocol Meropenem 1 gm/ Sodium 100 mls @ 200 mls/hr 01/31/25 14:00 02/02/25 15:26 Chloride IVPB 02/05/25 06:29 100 mls/hr Q8HR COUNTS INCLUDE 234 BEDS AT THE [facility] Administration Insulin Aspart 3 - 6 units 01/27/25 12:00 02/02/25 11:47 Insulin Aspart (*Bkc) 100 Units/Ml SUB-Q Not Given Q6HR COUNTS INCLUDE 234 BEDS AT THE [facility] Protocol Ketorolac Tromethamine 1 drop 01/27/25 06:00 02/02/25 15:26 Ketorolac 0.5% Op Soln 5 Ml Bottle EACH EYE 1 drop Q6HR MERCEDES Administration Levothyroxine Sodium 100 mcg 01/30/25 06:30 02/02/25 05:43 Levothyroxine Sodium 100 Mcg Tablet PO 100 mcg DAILY@0630 COUNTS INCLUDE 234 BEDS AT THE [facility] Administration Lidocaine 1 patch 01/27/25 01:24 Lidocaine 5% Patch TOPICAL Q24H PRN Pain Pantoprazole Sodium 40 mg 02/01/25 09:00 12 09:38 Pantoprazole 40 Mg Tablet PO 40 mg QAM MERCEDES Administration Sacubitril/Valsartan 1 tab 02/01/25 21:00 02/02/25 09:38 Sacubitril/Valsartan 24-26 Mg Tablet PO 1 tab Q12HR MERCEDES Administration Sodium Chloride 10 ml 01/27/25 14:00 02/02/25 15:26 Central Line Flush IV PUSH 10 ml Q8HR MERCEDES Administration Sodium Chloride 10 ml 01/27/25 11:07 Central Line Flush IV PUSH PRN PRN with TPN bag changes Sodium Chloride 20 ml 01/27/25 11:07 Central Line Flush IV PUSH PRN PRN after blood draws Sodium Chloride 10 ml 01/27/25 14:00 02/02/25 15:26 Central Line Flush IV PUSH 10 ml Q8HR MERCEDES Administration Sodium Chloride 10 ml 01/27/25 11:11 Central Line Flush IV PUSH PRN PRN with TPN bag changes Sodium Chloride 20 ml 01/27/25 11:11 Central Line Flush IV PUSH PRN PRN after blood draws Spironolactone 12.5 mg 01/29/25 09:00 02/02/25 09:38 Spironolactone 12.5 Mg Tablet FEED TUBE 12.5 mg DAILY MERCEDES Administration Tramadol HCl 50 mg 01/29/25 17:28 02/02/25 09:39 Tramadol Hcl (*Crx) 50 Mg Tablet FEED TUBE 50 mg Q6H PRN Administration Pain Rated 4-6 Radiology Results: ITS Impressions Head CT 01/26/25 17:46 Impression: 1.No acute intracranial abnormality. Chest X-Ray 01/27/25 11:19 IMPRESSION: 1. Right PICC placed but tip not identified. 2. Right neck central line unchanged with catheter retrograde into left innominate vein. 3. No cardiopulmonary change. Ankle Brachial Index 01/28/25 13:02 IMPRESSION: 1. Normal right HIREN and decreased right TBI, consistent with right-sided arterial occlusive disease. 2. Borderline-decreased left HIREN and lack of detectable arterial flow in the left great toe, consistent with left-sided arterial occlusive disease. Chest/Abdomen/Pelvis CT 01/28/25 16:08 IMPRESSION: 1. Small pleural effusions. 2. New gallbladder distention, which may be secondary to fasting. Correlate with physical exam to exclude acute cholecystitis. 3. Thickened endometrial complex, which may be secondary to endometrial hyperplasia, polyp, or carcinoma. Consider pelvic ultrasound. 4. Worsened wall thickening of the distal ileum and right colon, consistent with edema versus enterocolitis. 5. Small volume of ascites. Venous Doppler Study 01/28/25 16:08 Impression: Negative for DVT. Pelvis Ultrasound 01/29/25 10:11 IMPRESSION: 1. Uterus and ovaries not visualized. Transvaginal imaging was not performed due to the patient's altered mental status. Labs Labs: Laboratory Results - last 24 hr 02/01/25 02/02/25 02/02/25 18:06 00:38 06:47 WBC 13.7 H RBC 3.06 L Hgb 8.4 L Hct 27.9 L MCV 91.2 MCH 27.5 MCHC 30.1 L RDW 17.5 H Plt Count 284 MPV 9.1 Puncture Site ABG pH ABG pCO2 ABG pO2 ABG PO2/FiO2 Ratio ABG HCO3 ABG O2 Saturation ABG O2 Content ABG Base Excess A-a Gradient Oxyhemoglobin Carboxyhemoglobin Methemoglobin Reduced Hemoglobin Total Hemoglobin O2 Delivery Device O2 Liters/Min FiO2 Sodium 131 L Potassium 4.4 Chloride 102 Carbon Dioxide 27 Anion Gap 2 L BUN 31 H Creatinine 0.49 L Estim Creat Clear Calc Not Reportable Estimated GFR > 60 Glucose 203 H POC Capillary Glucose 175 H 198 H Calcium 8.2 L Phosphorus 1.9 L Magnesium 1.5 L Total Bilirubin 0.3 AST 20 ALT 14 Alkaline Phosphatase 69 Total Protein 5.6 L Albumin 2.9 L 02/02/25 02/02/25 02/02/25 06:52 10:21 11:37 WBC RBC Hgb Hct MCV MCH MCHC RDW Plt Count MPV Puncture Site Left radial ABG pH 7.497 H ABG pCO2 28.3 L ABG pO2 104.2 H ABG PO2/FiO2 Ratio 2.89 ABG HCO3 21.4 L ABG O2 Saturation 98.2 ABG O2 Content 12.8 L ABG Base Excess -1.2 A-a Gradient 119.7 Oxyhemoglobin 97.6 Carboxyhemoglobin 0.5 Methemoglobin 0.3 Reduced Hemoglobin 1.6 Total Hemoglobin 9.2 L O2 Delivery Device Nasal cannula O2 Liters/Min 4.0 FiO2 36 Sodium Potassium Chloride Carbon Dioxide Anion Gap BUN Creatinine Estim Creat Clear Calc Estimated GFR Glucose POC Capillary Glucose 178 H 189 H Calcium Phosphorus Magnesium Total Bilirubin AST ALT Alkaline Phosphatase Total Protein Albumin Hospitalist MIPS Advance Care Plan I have confirmed that the patient's Advanced Care Plan is present, code status is documented, or surrogate decision maker is listed in patient medical record.: Yes Medication Reconciliation I have utilized all available resources to obtain, update and review the patients current medications (includes all prescriptions, OTC, herbals, cannabis, and nutritional supplements).: Yes
[2025-02-03] VITALS (11 sets, daily range): BP systolic 113–122; BP diastolic 73–87; PULSE 62–107; RESP 16–20; TEMP 35.7–36.6; O2SAT 90–93
[2025-02-03] MEDS: KETOROLAC 0.5% OP SOLN 5 ML BOTTLE 1 DROP EACH EYE ×3 (02:08→13:36)
[2025-02-03 02:19] LABS: Hematocrit 27.0 % (37.0-47.0); Hemoglobin 8.2 g/dL (12.0-15.0); Immature Granulocyte Percent A 1.7 % (0-0.5); Lymphocytes Absolute Auto 1.54 K/mm3 (0.9-3.2); Mean Corpuscular HGB Conc 30.4 g/dl (32-36); Mean Corpuscular Hemoglobin 27.8 pg (26-34); Mean Corpuscular Volume 91.5 fl (80-100); Nucleated Red Blood Cells Absolute Auto 0.040 K/mm3 (0.0-0.012); Nucleated Red Blood Cells Perc 0.3 % (0.0-0.2); Platelet Count Result 274 k/mm3 (150-375); Red Blood Count 2.95 M/mm3 (4.2-5.4); White Blood Count 12.7 K/mm3 (4.5-10.0)
[2025-02-03 02:51] LABS: Alanine Aminotransferase 13 U/L (6-35); Albumin Level 2.9 g/dL (3.5-5.1); Alkaline Phosphatase 73 U/L (38-126); Anion Gap 1 mmol/L (4-12); Aspartate Amino Transferase 37 U/L (14-36); Bilirubin,Total 0.3 mg/dL (0.2-1.3); Blood Urea Nitrogen 27 mg/dL (7-17); Calcium 8.5 mg/dL (8.4-10.2); Carbon Dioxide 27 mmol/L (22-30); Chloride 101 mmol/L (98-107); Estimated Glomerular Filt Rate > 60; Glucose 183 mg/dL (65-110); Potassium 4.6 mmol/L (3.4-5.0); Sodium 129 mmol/L (137-145); Total Protein 5.6 g/dL (6.3-8.2)
[2025-02-03] MEDS: CENTRAL LINE FLUSH 10 ML IV PUSH ×6 (05:59→21:11)
[2025-02-03] MEDS: MEROPENEM 1 GM in SODIUM CHLORIDE 0.9% IV 100 ML IVPB ×3 (05:59→21:03)
[2025-02-03] MEDS: LEVOTHYROXINE SODIUM 100 MCG TABLET PO (06:00)
[2025-02-03] MEDS: HYDROcodone/acetaminophen (*CRX) 10-325 MG TABLET 1 TAB PO ×2 (06:41→13:42)
[2025-02-03] MEDS: ATORVASTATIN 40 MG TABLET 80 MG PO (08:24)
[2025-02-03] MEDS: FIDAXOMICIN 200 MG TABLET PO ×2 (08:25→21:02)
[2025-02-03] MEDS: DABIGATRAN ETEXILATE 75 MG CAPSULE PO ×2 (08:25→21:03)
[2025-02-03] MEDS: AMIODARONE HCL 200 MG TABLET PO ×2 (08:25→21:02)
[2025-02-03] MEDS: SACUBITRIL/VALSARTAN 24-26 MG TABLET 1 TAB PO ×2 (08:25→21:03)
[2025-02-03] MEDS: PANTOPRAZOLE 40 MG TABLET PO (08:25)
[2025-02-03] MEDS: ENOXAPARIN 40 MG/0.4 ML SYRINGE SUB-Q (08:27)
--- NOTE | 2025-02-03 13:29 | P.PNIM_ITS ---
Assessment and Plan Assessment and Plan (1) Septic shock: Code(s): A41.9 - Sepsis, unspecified organism; R65.21 - Severe sepsis with septic shock Status: Resolved Assessment and Plan: 01/26: Patient presented with altered mental status, hypotension, feeling tired and more sleepy at the retirement -normal lactic acid at 1.4 -in the ER patient was given 1 L IV fluid bolus since she has a history of CHF -right IJ central line was inserted and started on Levophed, -Levophed was turned off earlier this morning -Blood cultures have been obtained: NGTD -continue cefepime and vancomycin (01/26) 01/27: Urine cultures have been obtained: Klebsiella ESBL -will give additional fluid this morning has patient's mucosa membranes are significant and skin turgor is poor - will also give albumin for intravascular volume expansion - Bilateral lower extremity venous Dopplers were negative for DVT 01/28: CT Abdomen repeated: thickened endometrial complex, which may be secondary to endometrial hyperplasia, polyp, or carcinoma; Consider pelvic ultrasound; Worsened wall thickening of the distal ileum and right colon, consistent with edema versus enterocolitis; Small volume of ascites. Pelvic US ordered. Patient also having new onset diarrhea, concerning for C Diff given she has history of same. Testing has been ordered. HIREN positive for PAD of lower extremities. 01/29: C Difficile is positive. Oral vancomycin has been started. Patient is out of shock at this time, BP improving. ID on board and aware. 01/30: IV Vancomycin switched to Meropenem per ID given klebsiella UTI. BCx NGTD. 01/31-: Continuing antibiotics per ID recommendations. Stool remains liquid in rectal tube. 02/02: Vancomycin has been changed to fidaxomicin. ID made aware, will follow their recommendations. (2) Ischemic bowel disease: Code(s): K55.9 - Vascular disorder of intestine, unspecified Status: Ruled-out Assessment and Plan: Some concerns for ischemic bowel disease on CT scan -lactic acid is 1.4, repeat lactic acid was also 1.4 -appreciate surgery evaluation recommendations, poor surgical candidate -currently off Levophed, if patient's condition worsens, will obtain another noncontrast CT abdomen and pelvis per surgeon -CT Abdomen repeated: thickened endometrial complex, which may be secondary to endometrial hyperplasia, polyp, or carcinoma; Consider pelvic ultrasound; Worsened wall thickening of the distal ileum and right colon, consistent with edema versus enterocolitis; Small volume of ascites. -Surgery on board, CT reviewed, no further intervention at this time, not likely ischemic bowel, continue antibiotics and monitor -Can advance tube feeds, increased water intake from 30cc to 75cc qid. Limiting water administration as Na is 129 and want to prevent further worsening of hyponatremia. (3) C. difficile colitis: Code(s): A04.72 - Enterocolitis due to Clostridium difficile, not specified as recurrent Status: Acute Assessment and Plan: C Difficile + Enterocolitis on Ct likely secondary to this. ID is on board. Still remains liquid and rectal tube bag. -PO vancomycin 500mg q6h change to fidaxomicin. ID recommends changing back to p.o. vancomycin due to cost likely on discharge -Contact isolation precautions in place. (4) Acute UTI: Code(s): N39.0 - Urinary tract infection, site not specified Status: Acute Assessment and Plan: UA reflective of UTI, continue antibiotics, cultures have been obtained UCx 01/27: Klebsiella ESBL -IV Vancomycin switched to Meropenem per ID. Last dose today 02/03/2025. Can discontinue after. (5) Altered mental status: Code(s): R41.82 - Altered mental status, unspecified Status: Acute Assessment and Plan: Altered mental status seems to have resolved, patient is more awake after volume resuscitation and antibiotics. Likely secondary to sepsis. -Continue monitoring mental status (6) Congestive heart failure: Code(s): I50.9 - Heart failure, unspecified Status: Acute Assessment and Plan: History of heart failure -patient does not know where she gets her treatment -no previous notes or echocardiogram in the chart at [facility] -echocardiogram: EF 55-60% -patient does take aspirin, Farxiga, furosemide, Entresto, Dabigatran at home which are all currently on hold. Hold farxiga during active ESBL UTI. -Amiodarone, atorvastatin and spironolactone resumed. -blood pressure appears to be holding, will resume Entresto -02/01: Increased oxygen requirement today holding steady on 2 L nasal cannula. IV Lasix 20 mg given -02/02: Remains on 2 L nasal cannula, comfortable. (7) Gastrointestinal tube in situ: Code(s): Z93.1 - Gastrostomy status Status: Acute Assessment and Plan: Patient does have a PEG tube, according to the nurses the family states that she does take p.o. diet but the PEG tube is for supplementation (8) Hypothyroidism: Code(s): E03.9 - Hypothyroidism, unspecified Status: Acute Assessment and Plan: Switch to oral levothyroxine via tube - home dose is 125mcg, was getting 62.5 mcg IV, will start with 100mcg oral and titrate up to home dose as tolerated Will need to repeat TFTs 6 weeks after discharge (9) Hypertension: Code(s): I10 - Essential (primary) hypertension Status: Acute Assessment and Plan: Spironolactone resumed. Rest of meds to be resumed as tolerated. (10) DM2 (diabetes mellitus, type 2): Code(s): E11.9 - Type 2 diabetes mellitus without complications Status: Acute Assessment and Plan: Continue sliding scale insulin and Accu-Chek (11) Atrial fibrillation: Code(s): I48.91 - Unspecified atrial fibrillation Status: Acute Assessment and Plan: History of atrial fibrillation on dabigatran 75 mg b.i.d. and amiodarone -appreciate cardiology recommendation, will resume dabigatran and continue amiodarone at this time (12) Ventricular ectopy: Code(s): I49.3 - Ventricular premature depolarization Status: Acute Assessment and Plan: Runs of V-tach noted on monitor. Cardiology was consulted in regards to this and pacemaker management. Pacemaker been interrogated, found to be functioning normally. No further intervention was recommended by Cardiology at this time. She can follow palpation on discharge. Appreciate cardiology recommendations. Plan ID on board for sepsis/C Difficile management. Spoke with patient's daughter 02/02, had extensive conversation regards to hospital course, active treatment and management, as well as goals of care. She was also updated on the recent events including ventricular ectopy and hypoxia requiring oxygen by nasal cannula. Patient's daughter insists on taking her home on discharge. She is aware of patient's complex medical history however due to prior problems with nursing facilities, she insists on patient going home with her. She does agree on setting up home hospice on discharge however at this time will be actively full code. Advised to discuss with care coordination. Can consider discharge planning tomorrow 12/7 as patient has completed antibiotics. If discharging, as above, discharged on p.o. vancomycin instead of fidaxomicin per ID recommendations. DVT prophylaxis: Dabigatran Stress ulcer prophylaxis: Protonix Nutrition: Tube feeds Consultations Consultations: I have discussed the care of this pt with the consulting providers. Subjective Date/time seen: 02/03/25 13:29 Interval history: This is a 79-year-old female patient who is currently in rehab at [facility]. She was recently diagnosed with pneumonia and has been on oral antibiotics. She also has tube feedings that supplements her oral intake. However the patient was found to be more confused and left the were [place] with a low blood pressure at the rehab facility. The patient was complaining of some abdominal pain. Her white count was noted to be 18.4. Her H&H is 10.4 in 33.4. Her sodium was low at 129. Her glucose is 184. Her BNP was noted to be 1910. Her urine is turbid with 1+ protein, 2+ blood, leukocyte esterase 3+, urine wbc's greater than 100, urine bacteria 4+. MRSA was detected in her nares. Chest abdomen pelvis CT was read as a followin. No evidence of pulmonary consolidation are atelectasis. Mild vascular congestion of lungs severe cardiomegaly and postoperative changes as described above. 2. Within the abdomen, there is significant finding of small drops of air in the peripheral portal veins within the left lobe of the liver. This would raise a concern for ischemic bowel disease. 3. Significant Calcific changes at the proximal celiac axis and superior mesenteric artery and right renal artery. 4. Normal bowel obstruction or bowel wall thickening. No evidence of fluid or free air in the peritoneal cavity. Surgery consult was placed per ED provider. The patient was given a dose of zosyn in the er. Head CT was read as no acute and cranial abnormality. Chest x-ray was read as CHF superimposed probable left lower lobe pneumonia. A central line was placed in the emergency room. Repeat chest x-ray shows central line placement. The blood pressures have gotten as low as 70/50 prior to have vasopressors. A Patterson catheter was also placed as well. Surgery has been consulted as well as the dental resident. Review of Systems Review of Systems: All systems reviewed & are unremarkable except as noted in HPI and below Exam Narrative: General: Awake, alert, no acute distress. rectal tube placed. Appears more comfortable today HEENT:? Pupils equal and reactive, sclera is clear, dry oral mucosa Neck:? Supple Respiratory:? Decreased air entry at bases, otherwise clear to auscultation bilaterally Cardiac:? Irregularly irregular rhythm, rate controlled Abdomen:? Soft, diffuse mild tenderness, no guarding rigidity, bowel sounds+, obese, nondistended Extremities:? Bilateral upper and lower extremity edema,. Palpable pedal pulse Neuro:? Patient is awake, alert, oriented to place and date of , has history of dementia, follows simple commands in all extremities, able to answer question Skin:? Multiple bruising noted on bilateral upper and lower extremities, multiple chronic pressure lesions all over body Psych:? Depressed affect Objective Data Vital Signs Vital Signs: Vital Signs - 24 hr 02/02/25 14:25 02/02/25 14:35 02/02/25 16:00 Temperature Pulse Rate 108 H 114 H Respiratory Rate 16 Blood Pressure 119/74 Pulse Oximetry 91 Oxygen Delivery Oxygen Flow Rate Fraction of Inspired Oxygen 02/02/25 20:00 02/02/25 20:00 02/02/25 20:00 Temperature Pulse Rate 83 86 93 Respiratory Rate 16 Blood Pressure Pulse Oximetry 91 Oxygen Delivery Nasal Cannula Oxygen Flow Rate 4 Fraction of Inspired Oxygen 21 02/02/25 21:56 02/03/25 00:00 02/03/25 04:00 Temperature 97.9 F Pulse Rate 86 83 98 Respiratory Rate 16 Blood Pressure 111/65 Pulse Oximetry 91 Oxygen Delivery Oxygen Flow Rate Fraction of Inspired Oxygen 02/03/25 06:00 02/03/25 08:25 02/03/25 08:36 Temperature 97.8 F Pulse Rate 91 105 H Respiratory Rate 18 Blood Pressure 122/79 Pulse Oximetry 93 91 Oxygen Delivery Nasal Cannula Oxygen Flow Rate 4 Fraction of Inspired Oxygen 02/03/25 08:36 02/03/25 12:00 Temperature Pulse Rate 99 90 Respiratory Rate Blood Pressure Pulse Oximetry Oxygen Delivery Oxygen Flow Rate Fraction of Inspired Oxygen Intake/Output Intake/Output: Intake & Output 01/31/25 02/01/25 02/02/25 02/03/25 23:59 23:59 23:59 23:59 Intake Total 1280 2879 2000 150 Output Total 1425 1250 2550 1275 Balance -145 1629 -550 -1125 Meds/Results Medications: Active Medications Generic Name Dose Route Start Last Admin Trade Name Freq PRN Reason Stop Dose Admin Acetaminophen 650 mg 01/28/25 20:45 01/29/25 12:02 Acetaminophen Elixir 325 Mg/10.15 Ml Udc FEED TUBE 650 mg Q6H PRN Administration Mild Pain (1-3) or Fever Hydrocodone Bitart/Acetaminophen 1 tab 02/01/25 22:35 02/03/25 06:41 Hydrocodone/Acetaminophen (*Crx) 10-325 Mg Tablet PO 1 tab Q6H PRN Administration Pain Rated 7-10 Amiodarone HCl 200 mg 01/29/25 10:00 02/03/25 08:25 Amiodarone Hcl 200 Mg Tablet PO 200 mg Q12HR [facility] Administration Atorvastatin Calcium 80 mg 01/31/25 09:00 02/03/25 08:24 Atorvastatin 40 Mg Tablet PO 80 mg DAILY [facility] Administration Dabigatran 75 mg 02/01/25 21:00 02/03/25 08:25 Dabigatran Etexilate 75 Mg Capsule PO 75 mg Q12HR [facility] Administration Enoxaparin Sodium 40 mg 01/27/25 10:15 02/03/25 08:27 Enoxaparin 40 Mg/0.4 Ml Syringe SUB-Q 40 mg DAILY [facility] Administration Fidaxomicin 200 mg 02/02/25 10:15 02/03/25 08:25 Fidaxomicin 200 Mg Tablet PO 02/12/25 10:14 200 mg Q12HR [facility] Administration Glucagon 1 mg 01/27/25 01:22 Glucagon For Inj 1 Mg Vial IM PRN PRN Hypoglycemia Protocol Meropenem 1 gm/ Sodium 100 mls @ 200 mls/hr 01/31/25 14:00 02/03/25 05:59 Chloride IVPB 02/05/25 06:29 100 mls/hr Q8HR [facility] Administration Insulin Aspart 3 - 6 units 01/27/25 12:00 02/03/25 13:22 Insulin Aspart (*Bkc) 100 Units/Ml SUB-Q Not Given Q6HR [facility] Protocol Ketorolac Tromethamine 1 drop 01/27/25 06:00 02/03/25 05:59 Ketorolac 0.5% Op Soln 5 Ml Bottle EACH EYE 1 drop Q6HR [facility] Administration Levothyroxine Sodium 100 mcg 01/30/25 06:30 02/03/25 06:00 Levothyroxine Sodium 100 Mcg Tablet PO 100 mcg DAILY@0630 [facility] Administration Lidocaine 1 patch 01/27/25 01:24 Lidocaine 5% Patch TOPICAL Q24H PRN Pain Pantoprazole Sodium 40 mg 02/01/25 09:00 02/03/25 08:25 Pantoprazole 40 Mg Tablet PO 40 mg QAM [facility] Administration Sacubitril/Valsartan 1 tab 02/01/25 21:00 02/03/25 08:25 Sacubitril/Valsartan 24-26 Mg Tablet PO 1 tab Q12HR [facility] Administration Sodium Chloride 10 ml 01/27/25 14:00 02/03/25 08:27 Central Line Flush IV PUSH 10 ml Q8HR [facility] Administration Sodium Chloride 10 ml 01/27/25 11:07 Central Line Flush IV PUSH PRN PRN with TPN bag changes Sodium Chloride 20 ml 01/27/25 11:07 Central Line Flush IV PUSH PRN PRN after blood draws Sodium Chloride 10 ml 01/27/25 14:00 02/03/25 08:27 Central Line Flush IV PUSH 10 ml Q8HR [facility] Administration Sodium Chloride 10 ml 01/27/25 11:11 Central Line Flush IV PUSH PRN PRN with TPN bag changes Sodium Chloride 20 ml 01/27/25 11:11 Central Line Flush IV PUSH PRN PRN after blood draws Spironolactone 12.5 mg 01/29/25 09:00 02/03/25 08:25 Spironolactone 12.5 Mg Tablet FEED TUBE 12.5 mg DAILY [facility] Administration Tramadol HCl 50 mg 01/29/25 17:28 02/02/25 20:03 Tramadol Hcl (*Crx) 50 Mg Tablet FEED TUBE 50 mg Q6H PRN Administration Pain Rated 4-6 Radiology Results: ITS Impressions Head CT 01/26/25 17:46 Impression: 1.No acute intracranial abnormality. Chest X-Ray 01/27/25 11:19 IMPRESSION: 1. Right PICC placed but tip not identified. 2. Right neck central line unchanged with catheter retrograde into left innominate vein. 3. No cardiopulmonary change. Ankle Brachial Index 01/28/25 13:02 IMPRESSION: 1. Normal right HIREN and decreased right TBI, consistent with right-sided arterial occlusive disease. 2. Borderline-decreased left HIREN and lack of detectable arterial flow in the left great toe, consistent with left-sided arterial occlusive disease. Chest/Abdomen/Pelvis CT 01/28/25 16:08 IMPRESSION: 1. Small pleural effusions. 2. New gallbladder distention, which may be secondary to fasting. Correlate with physical exam to exclude acute cholecystitis. 3. Thickened endometrial complex, which may be secondary to endometrial hyperplasia, polyp, or carcinoma. Consider pelvic ultrasound. 4. Worsened wall thickening of the distal ileum and right colon, consistent with edema versus enterocolitis. 5. Small volume of ascites. Venous Doppler Study 01/28/25 16:08 Impression: Negative for DVT. Pelvis Ultrasound 01/29/25 10:11 IMPRESSION: 1. Uterus and ovaries not visualized. Transvaginal imaging was not performed due to the patient's altered mental status. Labs Labs: Laboratory Results - last 24 hr 02/02/25 02/02/25 02/03/25 17:48 23:36 01:55 WBC RBC Hgb Hct MCV MCH MCHC RDW Plt Count MPV Immature Gran % (Auto) Neut % (Auto) Lymph % (Auto) [place] % (Auto) Eos % (Auto) Baso % (Auto) Lymph # (Auto) [place] # (Auto) Eos # (Auto) Baso # (Auto) Abs Immat Gran (auto) Absolute Neuts (auto) Absolute Nucleated RBC Nucleated RBC % Sodium Potassium Chloride Carbon Dioxide Anion Gap BUN Creatinine Estim Creat Clear Calc Estimated GFR Glucose POC Capillary Glucose 192 H 172 H 181 H Calcium Total Bilirubin AST ALT Alkaline Phosphatase Total Protein Albumin 02/03/25 02/03/25 02/03/25 02:09 05:57 12:05 WBC 12.7 H RBC 2.95 L Hgb 8.2 L Hct 27.0 L MCV 91.5 MCH 27.8 MCHC 30.4 L RDW 17.7 H Plt Count 274 MPV 9.1 Immature Gran % (Auto) 1.7 H Neut % (Auto) 78.5 H Lymph % (Auto) 12.1 L [place] % (Auto) 6.1 Eos % (Auto) 1.3 Baso % (Auto) 0.3 Lymph # (Auto) 1.54 [place] # (Auto) 0.8 H Eos # (Auto) 0.2 Baso # (Auto) 0.0 Abs Immat Gran (auto) 0.22 H Absolute Neuts (auto) 10.0 H Absolute Nucleated RBC 0.040 H Nucleated RBC % 0.3 H Sodium 129 L Potassium 4.6 Chloride 101 Carbon Dioxide 27 Anion Gap 1 L BUN 27 H Creatinine 0.49 L Estim Creat Clear Calc Not Reportable Estimated GFR > 60 Glucose 183 H POC Capillary Glucose 196 H 156 H Calcium 8.5 Total Bilirubin 0.3 AST 37 H ALT 13 Alkaline Phosphatase 73 Total Protein 5.6 L Albumin 2.9 L Hospitalist MIPS Advance Care Plan I have confirmed that the patient's Advanced Care Plan is present, code status is documented, or surrogate decision maker is listed in patient medical record.: Yes Medication Reconciliation I have utilized all available resources to obtain, update and review the jade hollis current medications (includes all prescriptions, OTC, herbals, cannabis, and nutritional supplements).: Yes
[2025-02-03] MEDS: traMADol HCL (*CRX) 50 MG TABLET FEED TUBE (18:50)
[2025-02-04] VITALS (11 sets, daily range): BP systolic 121–132; BP diastolic 77–89; PULSE 62–114; RESP 14–20; TEMP 36.3–36.9; O2SAT 90–99
[2025-02-04] MEDS: MEROPENEM 1 GM in SODIUM CHLORIDE 0.9% IV 100 ML IVPB ×3 (05:47→22:09)
[2025-02-04] MEDS: LEVOTHYROXINE SODIUM 100 MCG TABLET PO (05:48)
[2025-02-04] MEDS: CENTRAL LINE FLUSH 10 ML IV PUSH ×5 (05:48→22:10)
[2025-02-04] MEDS: KETOROLAC 0.5% OP SOLN 5 ML BOTTLE 1 DROP EACH EYE ×3 (05:48→17:09)
[2025-02-04 06:12] LABS: Hematocrit 28.8 % (37.0-47.0); Hemoglobin 8.7 g/dL (12.0-15.0); Immature Granulocyte Percent A 1.6 % (0-0.5); Lymphocytes Absolute Auto 1.60 K/mm3 (0.9-3.2); Mean Corpuscular HGB Conc 30.2 g/dl (32-36); Mean Corpuscular Hemoglobin 27.9 pg (26-34); Mean Corpuscular Volume 92.3 fl (80-100); Nucleated Red Blood Cells Absolute Auto 0.020 K/mm3 (0.0-0.012); Nucleated Red Blood Cells Perc 0.1 % (0.0-0.2); Platelet Count Result 320 k/mm3 (150-375); Red Blood Count 3.12 M/mm3 (4.2-5.4); White Blood Count 13.5 K/mm3 (4.5-10.0)
[2025-02-04 06:33] LABS: Alanine Aminotransferase 14 U/L (6-35); Albumin Level 2.9 g/dL (3.5-5.1); Alkaline Phosphatase 86 U/L (38-126); Anion Gap 3 mmol/L (4-12); Aspartate Amino Transferase 24 U/L (14-36); Bilirubin,Total 0.4 mg/dL (0.2-1.3); Blood Urea Nitrogen 25 mg/dL (7-17); Calcium 8.7 mg/dL (8.4-10.2); Carbon Dioxide 26 mmol/L (22-30); Chloride 101 mmol/L (98-107); Estimated Glomerular Filt Rate > 60; Glucose 210 mg/dL (65-110); Potassium 4.8 mmol/L (3.4-5.0); Sodium 130 mmol/L (137-145); Total Protein 5.8 g/dL (6.3-8.2)
[2025-02-04] MEDS: HYDROcodone/acetaminophen (*CRX) 10-325 MG TABLET 1 TAB PO ×2 (07:22→17:08)
--- NOTE | 2025-02-04 08:24 | P.PNIM_ITS ---
Assessment and Plan Assessment and Plan (1) Septic shock: Code(s): A41.9 - Sepsis, unspecified organism; R65.21 - Severe sepsis with septic shock Status: Resolved Assessment and Plan: 01/26: Patient presented with altered mental status, hypotension, feeling tired and more sleepy at the shelter -normal lactic acid at 1.4 -in the ER patient was given 1 L IV fluid bolus since she has a history of CHF -right IJ central line was inserted and started on Levophed, has been since discontinued -Blood cultures have been obtained: NGTD -cefepime and vancomycin (01/26) 01/27: Urine cultures have been obtained: Klebsiella ESBL -will give additional fluid this morning has patient's mucosa membranes are significant and skin turgor is poor - will also give albumin for intravascular volume expansion - Bilateral lower extremity venous Dopplers were negative for DVT 01/28: CT Abdomen repeated: thickened endometrial complex, which may be secondary to endometrial hyperplasia, polyp, or carcinoma; Consider pelvic ultrasound; Worsened wall thickening of the distal ileum and right colon, consistent with edema versus enterocolitis; Small volume of ascites. Pelvic US ordered. Patient also having new onset diarrhea, concerning for C Diff given she has history of same. Testing has been ordered. HIREN positive for PAD of lower extremities. 01/29: C Difficile is positive. Oral vancomycin has been started. Patient is out of shock at this time, BP improving. ID on board and aware. 01/30: IV Vancomycin switched to Meropenem per ID given klebsiella UTI. BCx NGTD. 01/31-: Continuing antibiotics per ID recommendations. Stool remains liquid in rectal tube. 02/02: Vancomycin has been changed to fidaxomicin. ID made aware, will follow their recommendations. (2) Ischemic bowel disease: Code(s): K55.9 - Vascular disorder of intestine, unspecified Status: Ruled-out Assessment and Plan: Some concerns for ischemic bowel disease on CT scan -lactic acid is 1.4, repeat lactic acid was also 1.4 -appreciate surgery evaluation recommendations, poor surgical candidate -currently off Levophed, if patient's condition worsens, will obtain another noncontrast CT abdomen and pelvis per surgeon -CT Abdomen repeated: thickened endometrial complex, which may be secondary to endometrial hyperplasia, polyp, or carcinoma; Consider pelvic ultrasound; Worsened wall thickening of the distal ileum and right colon, consistent with edema versus enterocolitis; Small volume of ascites. -Surgery on board, CT reviewed, no further intervention at this time, not likely ischemic bowel, continue antibiotics and monitor -Can advance tube feeds, increased water intake from 30cc to 75cc qid. Limiting water administration as Na is 129 and want to prevent further worsening of hyponatremia. (3) C. difficile colitis: Code(s): A04.72 - Enterocolitis due to Clostridium difficile, not specified as recurrent Status: Acute Assessment and Plan: C Difficile + Enterocolitis on Ct likely secondary to this. ID is on board. Still remains liquid and rectal tube bag. -PO vancomycin 500mg q6h change to fidaxomicin. ID recommends changing back to p.o. vancomycin due to cost likely on discharge -Contact isolation precautions in place. (4) Acute UTI: Code(s): N39.0 - Urinary tract infection, site not specified Status: Acute Assessment and Plan: UA reflective of UTI, continue antibiotics, cultures have been obtained UCx 01/27: Klebsiella ESBL -IV Vancomycin switched to Meropenem per ID. Last dose today 02/03/2025. Can discontinue after, ID managing. (5) Altered mental status: Code(s): R41.82 - Altered mental status, unspecified Status: Acute Assessment and Plan: Altered mental status seems to have resolved, patient is more awake after volume resuscitation and antibiotics. Likely secondary to sepsis. -Continue monitoring mental status (6) Congestive heart failure: Code(s): I50.9 - Heart failure, unspecified Status: Acute Assessment and Plan: History of heart failure -patient does not know where she gets her treatment -no previous notes or echocardiogram in the chart at [facility] -echocardiogram: EF 55-60% -patient does take aspirin, Farxiga, furosemide, Entresto, Dabigatran at home which are all currently on hold. Hold farxiga during active ESBL UTI. -Amiodarone, atorvastatin and spironolactone resumed. -blood pressure appears to be holding, will resume Entresto -02/01: Increased oxygen requirement today holding steady on 2 L nasal cannula. IV Lasix 20 mg given -02/02: Remains on 2 L nasal cannula, comfortable. Entresto & Dabigatran have been restarted per cards recs, on discharge, pt will need to continue Lasix 40mg PO daily (7) Gastrointestinal tube in situ: Code(s): Z93.1 - Gastrostomy status Status: Acute Assessment and Plan: Patient does have a PEG tube, according to the nurses the family states that she does take p.o. diet but the PEG tube is for supplementation (8) Hypothyroidism: Code(s): E03.9 - Hypothyroidism, unspecified Status: Acute Assessment and Plan: Switch to oral levothyroxine via tube - home dose is 125mcg, was getting 62.5 mcg IV, will start with 100mcg oral and titrate up to home dose as tolerated Will need to repeat TFTs 6 weeks after discharge (9) Hypertension: Code(s): I10 - Essential (primary) hypertension Status: Acute Assessment and Plan: Spironolactone resumed. Rest of meds to be resumed as tolerated. (10) DM2 (diabetes mellitus, type 2): Code(s): E11.9 - Type 2 diabetes mellitus without complications Status: Acute Assessment and Plan: Continue sliding scale insulin and Accu-Chek Pt on Glargine 25 units HS at home, continue to trend fasting POC BS (11) Atrial fibrillation: Code(s): I48.91 - Unspecified atrial fibrillation Status: Acute Assessment and Plan: History of atrial fibrillation on dabigatran 75 mg b.i.d. and amiodarone, these meds have been resumed -appreciate cardiology recommendation, will resume dabigatran and continue amiodarone at this time (12) Ventricular ectopy: Code(s): I49.3 - Ventricular premature depolarization Status: Acute Assessment and Plan: Runs of V-tach noted on monitor. Cardiology was consulted in regards to this and pacemaker management. Pacemaker been interrogated, found to be functioning normally. No further intervention was recommended by Cardiology at this time. She can follow up on discharge. Appreciate cardiology recommendations. Plan ID on board for sepsis/C Difficile management. Spoke with patient's daughter 02/02, had extensive conversation regards to hospital course, active treatment and management, as well as goals of care. She was also updated on the recent events including ventricular ectopy and hypoxia requiring oxygen by nasal cannula. Patient's daughter insists on taking her home on discharge. She is aware of patient's complex medical history however due to prior problems with nursing facilities, she insists on patient going home with her. She does agree on setting up home hospice on discharge however at this time will be actively full code. Advised to discuss with care coordination. Can consider discharge planning Wednesday as patient has completed antibiotics but still has rectal tube. If discharging, as above, discharged on p.o. vancomycin instead of fidaxomicin per ID recommendations. -->Per CC, pending HH referrals as well as [employer] tube feed company communication. Will likely D/C with O2. DVT prophylaxis: Dabigatran Stress ulcer prophylaxis: Protonix Nutrition: Tube feeds Subjective Date/time seen: 02/04/25 1030 Interval history: Pt resting in bed upon my arrival. Pt denies issues breathing or any CP. A&O x3, unaware of who the president is. Review of Systems Review of Systems: All systems reviewed & are unremarkable except as noted in HPI and below Exam Narrative: General: Awake, alert, no acute distress. rectal tube placed. Appears more comfortable today HEENT:? Pupils equal and reactive, sclera is clear, dry oral mucosa Neck:? Supple Respiratory:? Decreased air entry at bases, otherwise clear to auscultation bilaterally Cardiac:? Irregularly irregular rhythm, rate controlled Abdomen:? Soft, diffuse mild tenderness, no guarding rigidity, bowel sounds+, obese, nondistended Extremities:? Bilateral upper and lower extremity edema, R hand 3+, BLE 2+, Palpable pedal pulse Neuro:? Patient is awake, alert, A&O x3, unaware of who the president is, has history of dementia, follows simple commands in all extremities, able to answer questions Skin:? Multiple bruising noted on bilateral upper and lower extremities, multiple chronic pressure lesions all over body Psych:? Depressed affect Objective Data Vital Signs Vital Signs: Vital Signs - 24 hr 02/03/25 08:25 02/03/25 08:36 02/03/25 08:36 Temperature Pulse Rate 105 H 99 Respiratory Rate Blood Pressure Pulse Oximetry 91 Oxygen Delivery Nasal Cannula Oxygen Flow Rate 4 Fraction of Inspired Oxygen 02/03/25 12:00 02/03/25 15:25 02/03/25 16:00 Temperature 97.1 F L Pulse Rate 90 94 78 Respiratory Rate 16 Blood Pressure 121/73 Pulse Oximetry 90 Oxygen Delivery Oxygen Flow Rate Fraction of Inspired Oxygen 02/03/25 20:00 02/03/25 20:00 02/03/25 20:31 Temperature 96.2 F L Pulse Rate 94 62 Respiratory Rate 20 Blood Pressure 113/87 Pulse Oximetry 92 90 Oxygen Delivery Nasal Cannula Oxygen Flow Rate 4 Fraction of Inspired Oxygen 21 02/03/25 21:02 02/04/25 00:00 02/04/25 04:00 Temperature Pulse Rate 107 H 99 97 Respiratory Rate Blood Pressure Pulse Oximetry Oxygen Delivery Oxygen Flow Rate Fraction of Inspired Oxygen 02/04/25 06:00 Temperature 97.3 F L Pulse Rate 62 Respiratory Rate 20 Blood Pressure 121/77 Pulse Oximetry 90 Oxygen Delivery Oxygen Flow Rate Fraction of Inspired Oxygen Intake/Output Intake/Output: Intake & Output 02/01/25 02/02/25 02/03/25 02/04/25 23:59 23:59 23:59 23:59 Intake Total 2879 2000 450 Output Total 1250 2550 1925 100 Balance 1629 -550 -1475 -100 Meds/Results Medications: Active Medications Generic Name Dose Route Start Last Admin Trade Name Freq PRN Reason Stop Dose Admin Acetaminophen 650 mg 01/28/25 20:45 01/29/25 12:02 Acetaminophen Elixir 325 Mg/10.15 Ml Udc FEED TUBE 650 mg Q6H PRN Administration Mild Pain (1-3) or Fever Hydrocodone Bitart/Acetaminophen 1 tab 02/01/25 22:35 02/04/25 07:22 Hydrocodone/Acetaminophen (*Crx) 10-325 Mg Tablet PO 1 tab Q6H PRN Administration Pain Rated 7-10 Amiodarone HCl 200 mg 01/29/25 10:00 02/03/25 21:02 Amiodarone Hcl 200 Mg Tablet PO 200 mg Q12HR MERCEDES Administration Atorvastatin Calcium 80 mg 01/31/25 09:00 02/03/25 08:24 Atorvastatin 40 Mg Tablet PO 80 mg DAILY MERCEDES Administration Dabigatran 75 mg 02/01/25 21:00 02/03/25 21:03 Dabigatran Etexilate 75 Mg Capsule PO 75 mg Q12HR MERCEDES Administration Enoxaparin Sodium 40 mg 01/27/25 10:15 02/03/25 08:27 Enoxaparin 40 Mg/0.4 Ml Syringe SUB-Q 40 mg On Hold: 02/03/25 22:00 DAILY MERCEDES Administration Comment: DABIGATRAN AND ENOXAPARIN BOTH ORDERED PLEASE CLARIFY WHICH ONE SHOULD BE CONTINUED? HOLD FOR CLARIFICATION IN AM 12-07 PER PHARMACY. Fidaxomicin 200 mg 02/02/25 10:15 02/03/25 21:02 Fidaxomicin 200 Mg Tablet PO 02/12/25 10:14 200 mg Q12HR MERCEDES Administration Glucagon 1 mg 01/27/25 01:22 Glucagon For Inj 1 Mg Vial IM PRN PRN Hypoglycemia Protocol Meropenem 1 gm/ Sodium 100 mls @ 200 mls/hr 01/31/25 14:00 02/04/25 05:47 Chloride IVPB 02/05/25 06:29 100 mls/hr Q8HR MERCEDES Administration Insulin Aspart 3 - 6 units 01/27/25 12:00 02/04/25 06:06 Insulin Aspart (*Bkc) 100 Units/Ml SUB-Q Not Given Q6HR MERCEDES Protocol Ketorolac Tromethamine 1 drop 01/27/25 06:00 02/04/25 05:48 Ketorolac 0.5% Op Soln 5 Ml Bottle EACH EYE 1 drop Q6HR MERCEDES Administration Levothyroxine Sodium 100 mcg 01/30/25 06:30 02/04/25 05:48 Levothyroxine Sodium 100 Mcg Tablet PO 100 mcg DAILY@0630 MERCEDES Administration Lidocaine 1 patch 01/27/25 01:24 Lidocaine 5% Patch TOPICAL Q24H PRN Pain Miscellaneous Information 1 each 02/03/25 00:01 Dabigatran And Enoxaparin Both Ordered Please Clarify Which One Should Be Continued? XX 03/05/25 00:00 CLARIFY MERCEDES Pantoprazole Sodium 40 mg 02/01/25 09:00 02/03/25 08:25 Pantoprazole 40 Mg Tablet PO 40 mg QAM MERCEDES Administration Sacubitril/Valsartan 1 tab 02/01/25 21:00 02/03/25 21:03 Sacubitril/Valsartan 24-26 Mg Tablet PO 1 tab Q12HR MERCEDES Administration Sodium Chloride 10 ml 01/27/25 14:00 02/04/25 05:48 Central Line Flush IV PUSH 10 ml Q8HR MERCEDES Administration Sodium Chloride 10 ml 01/27/25 11:07 Central Line Flush IV PUSH PRN PRN with TPN bag changes Sodium Chloride 20 ml 01/27/25 11:07 Central Line Flush IV PUSH PRN PRN after blood draws Sodium Chloride 10 ml 01/27/25 14:00 02/04/25 05:48 Central Line Flush IV PUSH 10 ml Q8HR MERCEDES Administration Sodium Chloride 10 ml 01/27/25 11:11 Central Line Flush IV PUSH PRN PRN with TPN bag changes Sodium Chloride 20 ml 01/27/25 11:11 Central Line Flush IV PUSH PRN PRN after blood draws Spironolactone 12.5 mg 01/29/25 09:00 02/03/25 08:25 Spironolactone 12.5 Mg Tablet FEED TUBE 12.5 mg DAILY MERCEDES Administration Tramadol HCl 50 mg 01/29/25 17:28 02/03/25 18:50 Tramadol Hcl (*Crx) 50 Mg Tablet FEED TUBE 50 mg Q6H PRN Administration Pain Rated 4-6 Radiology Results: ITS Impressions Head CT 01/26/25 17:46 Impression: 1.No acute intracranial abnormality. Chest X-Ray 01/27/25 11:19 IMPRESSION: 1. Right PICC placed but tip not identified. 2. Right neck central line unchanged with catheter retrograde into left innominate vein. 3. No cardiopulmonary change. Ankle Brachial Index 01/28/25 13:02 IMPRESSION: 1. Normal right HIREN and decreased right TBI, consistent with right-sided arterial occlusive disease. 2. Borderline-decreased left HIREN and lack of detectable arterial flow in the left great toe, consistent with left-sided arterial occlusive disease. Chest/Abdomen/Pelvis CT 01/28/25 16:08 IMPRESSION: 1. Small pleural effusions. 2. New gallbladder distention, which may be secondary to fasting. Correlate with physical exam to exclude acute cholecystitis. 3. Thickened endometrial complex, which may be secondary to endometrial hyperplasia, polyp, or carcinoma. Consider pelvic ultrasound. 4. Worsened wall thickening of the distal ileum and right colon, consistent with edema versus enterocolitis. 5. Small volume of ascites. Venous Doppler Study 01/28/25 16:08 Impression: Negative for DVT. Pelvis Ultrasound 01/29/25 10:11 IMPRESSION: 1. Uterus and ovaries not visualized. Transvaginal imaging was not performed due to the patient's altered mental status. Labs Labs: Laboratory Results - last 24 hr 02/03/25 02/03/25 02/03/25 12:05 17:13 23:50 WBC RBC Hgb Hct MCV MCH MCHC RDW Plt Count MPV Immature Gran % (Auto) Neut % (Auto) Lymph % (Auto) Gonzales % (Auto) Eos % (Auto) Baso % (Auto) Lymph # (Auto) Gonzales # (Auto) Eos # (Auto) Baso # (Auto) Abs Immat Gran (auto) Absolute Neuts (auto) Absolute Nucleated RBC Nucleated RBC % Sodium Potassium Chloride Carbon Dioxide Anion Gap BUN Creatinine Estim Creat Clear Calc Estimated GFR Glucose POC Capillary Glucose 156 H 159 H 139 H Calcium Total Bilirubin AST ALT Alkaline Phosphatase Total Protein Albumin 02/04/25 02/04/25 05:53 06:03 WBC 13.5 H RBC 3.12 L Hgb 8.7 L Hct 28.8 L MCV 92.3 MCH 27.9 MCHC 30.2 L RDW 18.0 H Plt Count 320 MPV 9.1 Immature Gran % (Auto) 1.6 H Neut % (Auto) 79.8 H Lymph % (Auto) 11.9 L Gonzales % (Auto) 5.3 Eos % (Auto) 1.2 Baso % (Auto) 0.2 Lymph # (Auto) 1.60 Gonzales # (Auto) 0.7 H Eos # (Auto) 0.2 Baso # (Auto) 0.0 Abs Immat Gran (auto) 0.21 H Absolute Neuts (auto) 10.8 H Absolute Nucleated RBC 0.020 H Nucleated RBC % 0.1 Sodium 130 L Potassium 4.8 Chloride 101 Carbon Dioxide 26 Anion Gap 3 L BUN 25 H Creatinine 0.50 L Estim Creat Clear Calc Not Reportable Estimated GFR > 60 Glucose 210 H POC Capillary Glucose 142 H Calcium 8.7 Total Bilirubin 0.4 AST 24 ALT 14 Alkaline Phosphatase 86 Total Protein 5.8 L Albumin 2.9 L Quality VTE Prophylaxis VTE prophylaxis: pharmacologic ordered
[2025-02-04] MEDS: AMIODARONE HCL 200 MG TABLET PO ×2 (09:03→22:09)
[2025-02-04] MEDS: DABIGATRAN ETEXILATE 75 MG CAPSULE PO ×2 (09:03→22:10)
[2025-02-04] MEDS: PANTOPRAZOLE 40 MG TABLET PO (09:03)
[2025-02-04] MEDS: SACUBITRIL/VALSARTAN 24-26 MG TABLET 1 TAB PO ×2 (09:03→22:10)
[2025-02-04] MEDS: ATORVASTATIN 40 MG TABLET 80 MG PO (09:04)
[2025-02-04] MEDS: FIDAXOMICIN 200 MG TABLET PO ×2 (09:05→22:09)
[2025-02-04] MEDS: WATER FOR IRRIGATION, STERILE 1,000 ML BOTTLE 1000 ML (09:06)
[2025-02-04] MEDS: traMADol HCL (*CRX) 50 MG TABLET FEED TUBE (22:09)
[2025-02-05] VITALS (12 sets, daily range): BP systolic 100–130; BP diastolic 49–81; PULSE 67–112; RESP 14–20; TEMP 36.1–36.7; O2SAT 91–98
[2025-02-05] MEDS: HYDROcodone/acetaminophen (*CRX) 10-325 MG TABLET 1 TAB PO ×2 (03:26→15:21)
[2025-02-05 04:18] LABS: Hematocrit 29.1 % (37.0-47.0); Hemoglobin 8.9 g/dL (12.0-15.0); Immature Granulocyte Percent A 1.2 % (0-0.5); Lymphocytes Absolute Auto 1.93 K/mm3 (0.9-3.2); Mean Corpuscular HGB Conc 30.6 g/dl (32-36); Mean Corpuscular Hemoglobin 27.9 pg (26-34); Mean Corpuscular Volume 91.2 fl (80-100); Nucleated Red Blood Cells Absolute Auto 0.000 K/mm3 (0.0-0.012); Nucleated Red Blood Cells Perc 0.0 % (0.0-0.2); Platelet Count Result 354 k/mm3 (150-375); Red Blood Count 3.19 M/mm3 (4.2-5.4); White Blood Count 14.5 K/mm3 (4.5-10.0)
[2025-02-05 04:33] LABS: Alanine Aminotransferase 14 U/L (6-35); Albumin Level 3.1 g/dL (3.5-5.1); Alkaline Phosphatase 94 U/L (38-126); Anion Gap 3 mmol/L (4-12); Aspartate Amino Transferase 21 U/L (14-36); Bilirubin,Total 0.3 mg/dL (0.2-1.3); Blood Urea Nitrogen 25 mg/dL (7-17); Calcium 8.8 mg/dL (8.4-10.2); Carbon Dioxide 24 mmol/L (22-30); Chloride 101 mmol/L (98-107); Estimated Glomerular Filt Rate > 60; Glucose 194 mg/dL (65-110); Potassium 4.7 mmol/L (3.4-5.0); Sodium 128 mmol/L (137-145); Total Protein 6.1 g/dL (6.3-8.2)
[2025-02-05] MEDS: LEVOTHYROXINE SODIUM 100 MCG TABLET PO (05:55)
[2025-02-05] MEDS: KETOROLAC 0.5% OP SOLN 5 ML BOTTLE 1 DROP EACH EYE ×3 (05:55→18:27)
[2025-02-05] MEDS: CENTRAL LINE FLUSH 10 ML IV PUSH ×6 (05:56→21:01)
[2025-02-05] MEDS: MEROPENEM 1 GM in SODIUM CHLORIDE 0.9% IV 100 ML IVPB (05:56)
[2025-02-05] MEDS: AMIODARONE HCL 200 MG TABLET PO ×2 (09:46→21:01)
[2025-02-05] MEDS: ATORVASTATIN 40 MG TABLET 80 MG PO (09:46)
[2025-02-05] MEDS: SACUBITRIL/VALSARTAN 24-26 MG TABLET 1 TAB PO ×2 (09:47→21:00)
[2025-02-05] MEDS: PANTOPRAZOLE 40 MG TABLET PO (09:47)
[2025-02-05] MEDS: FIDAXOMICIN 200 MG TABLET PO ×2 (09:47→21:01)
[2025-02-05] MEDS: DABIGATRAN ETEXILATE 75 MG CAPSULE PO ×2 (09:47→21:01)
[2025-02-05] MEDS: INSULIN ASPART (*BKC) 100 UNITS/ML SUB-Q (12:37)
--- NOTE | 2025-02-05 13:26 | PCNFU ---
Nutrition Follow-Up Complete: Inadequate energy intake related to altered GI function as evidenced by need for supplemental tube feedings Goal:Tolerate tube feedings Oral intake as tolerated, with diet advancement per MD Pt meeting goals, continue with same goals. Pt current nutrition is Diabetic diet, Tube feedings: Jevity 1.5 @ 50ml/hr with 75ml flush q 4 hrs to provide 1650kcals, 70g protein, 1286ml free water. Nutrition recommendation: continue with current plan of care Last recorded weight is 81 kg. Bowel Motility:+BM 02/05 Labs Reviewed: Hgb:8.9, HCT:29.1, Alb:3.1, Na:128, BUN:25, Cr:0.48, Glu:194, phos:1.9 Meds Noted: protonix, novolog, lovenox Skin:Stage III to buttocks Additional Notes: Pt on a diabetic diet, minimal intake, daughter encouraging po intake. Tube feedings running and meeting estimated needs. Pt tolerating well. Agree with orders. Monitoring tube feeding orders, diet orders, PO intake, weights, labs, plan of care Follow up Wednesday/Wednesday
--- NOTE | 2025-02-05 15:03 | PM.IMPN2 ---
Assessment and Plan Assessment and Plan (1) Septic shock: Code(s): A41.9 - Sepsis, unspecified organism; R65.21 - Severe sepsis with septic shock Status: Resolved Assessment and Plan: 01/26: Patient presented with altered mental status, hypotension, feeling tired and more sleepy at the skilled nursing -normal lactic acid at 1.4 -in the ER patient was given 1 L IV fluid bolus since she has a history of CHF -right IJ central line was inserted and started on Levophed, has been since discontinued -Blood cultures have been obtained: NGTD -cefepime and vancomycin (01/26) 01/27: Urine cultures have been obtained: Klebsiella ESBL -will give additional fluid this morning has patient's mucosa membranes are significant and skin turgor is poor - will also give albumin for intravascular volume expansion - Bilateral lower extremity venous Dopplers were negative for DVT 01/28: CT Abdomen repeated: thickened endometrial complex, which may be secondary to endometrial hyperplasia, polyp, or carcinoma; Consider pelvic ultrasound; Worsened wall thickening of the distal ileum and right colon, consistent with edema versus enterocolitis; Small volume of ascites. Pelvic US ordered. Patient also having new onset diarrhea, concerning for C Diff given she has history of same. Testing has been ordered. HIREN positive for PAD of lower extremities. 01/29: C Difficile is positive. Oral vancomycin has been started. Patient is out of shock at this time, BP improving. ID on board and aware. 01/30: IV Vancomycin switched to Meropenem per ID given klebsiella UTI. BCx NGTD. 01/31-: Continuing antibiotics per ID recommendations. Stool remains liquid in rectal tube. 02/02: Vancomycin has been changed to fidaxomicin. ID made aware, will follow their recommendations. (2) Ischemic bowel disease: Code(s): K55.9 - Vascular disorder of intestine, unspecified Status: Ruled-out Assessment and Plan: Some concerns for ischemic bowel disease on CT scan -lactic acid is 1.4, repeat lactic acid was also 1.4 -appreciate surgery evaluation recommendations, poor surgical candidate -currently off Levophed, if patient's condition worsens, will obtain another noncontrast CT abdomen and pelvis per surgeon -CT Abdomen repeated: thickened endometrial complex, which may be secondary to endometrial hyperplasia, polyp, or carcinoma; Consider pelvic ultrasound; Worsened wall thickening of the distal ileum and right colon, consistent with edema versus enterocolitis; Small volume of ascites. -Surgery on board, CT reviewed, no further intervention at this time, not likely ischemic bowel, continue antibiotics and monitor -Can advance tube feeds, increased water intake from 30cc to 75cc qid. Limiting water administration as Na is 129 and want to prevent further worsening of hyponatremia. (3) C. difficile colitis: Code(s): A04.72 - Enterocolitis due to Clostridium difficile, not specified as recurrent Status: Acute Assessment and Plan: C Difficile + Enterocolitis on Ct likely secondary to this. ID is on board. Still remains liquid and rectal tube bag. -PO vancomycin 500mg q6h change to fidaxomicin. ID recommends changing back to p.o. vancomycin due to cost likely on discharge -Contact isolation precautions in place. (4) Acute UTI: Code(s): N39.0 - Urinary tract infection, site not specified Status: Acute Assessment and Plan: UA reflective of UTI, continue antibiotics, cultures have been obtained UCx 01/27: Klebsiella ESBL -IV Vancomycin switched to Meropenem per ID. Last dose today 02/03/2025. Can discontinue after, ID managing. (5) Altered mental status: Code(s): R41.82 - Altered mental status, unspecified Status: Acute Assessment and Plan: Altered mental status seems to have resolved, patient is more awake after volume resuscitation and antibiotics. Likely secondary to sepsis. -Continue monitoring mental status (6) Congestive heart failure: Code(s): I50.9 - Heart failure, unspecified Status: Acute Assessment and Plan: History of heart failure -patient does not know where she gets her treatment -no previous notes or echocardiogram in the chart at [facility] -echocardiogram: EF 55-60% -patient does take aspirin, Farxiga, furosemide, Entresto, Dabigatran at home which are all currently on hold. Hold farxiga during active ESBL UTI. -Amiodarone, atorvastatin and spironolactone resumed. -blood pressure appears to be holding, will resume Entresto -02/01: Increased oxygen requirement today holding steady on 2 L nasal cannula. IV Lasix 20 mg given -02/02: Remains on 2 L nasal cannula, comfortable. Entresto & Dabigatran have been restarted per cards recs, on discharge, pt will need to continue Lasix 40mg PO daily (7) Gastrointestinal tube in situ: Code(s): Z93.1 - Gastrostomy status Status: Acute Assessment and Plan: Patient does have a PEG tube, according to the nurses the family states that she does take p.o. diet but the PEG tube is for supplementation (8) Hypothyroidism: Code(s): E03.9 - Hypothyroidism, unspecified Status: Acute Assessment and Plan: Switch to oral levothyroxine via tube - home dose is 125mcg, was getting 62.5 mcg IV, will start with 100mcg oral and titrate up to home dose as tolerated Will need to repeat TFTs 6 weeks after discharge (9) Hypertension: Code(s): I10 - Essential (primary) hypertension Status: Acute Assessment and Plan: Spironolactone resumed. Rest of meds to be resumed as tolerated. (10) DM2 (diabetes mellitus, type 2): Code(s): E11.9 - Type 2 diabetes mellitus without complications Status: Acute Assessment and Plan: Continue sliding scale insulin and Accu-Chek Pt on Glargine 25 units HS at home, continue to trend fasting POC BS (11) Atrial fibrillation: Code(s): I48.91 - Unspecified atrial fibrillation Status: Acute Assessment and Plan: History of atrial fibrillation on dabigatran 75 mg b.i.d. and amiodarone, these meds have been resumed -appreciate cardiology recommendation, will resume dabigatran and continue amiodarone at this time (12) Ventricular ectopy: Code(s): I49.3 - Ventricular premature depolarization Status: Acute Assessment and Plan: Runs of V-tach noted on monitor. Cardiology was consulted in regards to this and pacemaker management. Pacemaker been interrogated, found to be functioning normally. No further intervention was recommended by Cardiology at this time. She can follow up on discharge. Appreciate cardiology recommendations. Plan ID on board for sepsis/C Difficile management. Spoke with patient's daughter 02/02, had extensive conversation regards to hospital course, active treatment and management, as well as goals of care. She was also updated on the recent events including ventricular ectopy and hypoxia requiring oxygen by nasal cannula. Patient's daughter insists on taking her home on discharge. She is aware of patient's complex medical history however due to prior problems with nursing facilities, she insists on patient going home with her. She does agree on setting up home hospice on discharge however at this time will be actively full code. Advised to discuss with care coordination. Can consider discharge planning Wednesday as patient has completed antibiotics but still has rectal tube. If discharging, as above, discharged on p.o. vancomycin instead of fidaxomicin per ID recommendations. -->Per CC, pending HH referrals as well as [employer] tube feed company communication. Will likely D/C with O2. DVT prophylaxis: Dabigatran Stress ulcer prophylaxis: Protonix Nutrition: Tube feeds Subjective Date/time seen: 02/05/25 15:03 Interval history: Pt resting in bed upon my arrival. Pt denies issues breathing or any CP. A&O x3. Accompanied by daughter. WBC slightly up from yesterday, likely from cdiff. Working with care coordination regarding discharged on home health/hospice as daughter mentioned again the possibility of discharging the patient on hospice care. Bloodwork largely unchanged from previous day. Daughter expressed interest in decreasing patient's tube feeding, discussed with her regarding having speech therapy assess bedside swallow evaluation. Review of Systems Review of Systems: All systems reviewed & are unremarkable except as noted in HPI and below ROS unobtainable: Yes unobtainable due to medical condition and unobtainable due to mental status Exam Narrative: General: Awake, alert, no acute distress. rectal tube placed. Appears more comfortable today HEENT:? Pupils equal and reactive, sclera is clear, dry oral mucosa Neck:? Supple Respiratory:? Decreased air entry at bases, otherwise clear to auscultation bilaterally Cardiac:? Irregularly irregular rhythm, rate controlled Abdomen:? Soft, diffuse mild tenderness, no guarding rigidity, bowel sounds+, obese, nondistended Extremities:? Bilateral upper and lower extremity edema, R hand 3+, BLE 2+, Palpable pedal pulse Neuro:? Patient is awake, alert, A&O x3, unaware of who the president is, has history of dementia, follows simple commands in all extremities, able to answer questions Skin:? Multiple bruising noted on bilateral upper and lower extremities, multiple chronic pressure lesions all over body Psych:? Depressed affect Const: General: cooperative, no acute distress, well developed, awake and Physically active Orientation/consciousness: oriented to person HENMT: Head: normal to inspection, No palpable skull fracture present and normocephalic Eyes: General: appearance normal, both eyes and all related structures Alignment and Position: alignment normal Eyelids: eyelids normal Pupils: Equal, round and reactive pupils present Neck: Neck: normal visual inspection, full ROM and no lymphadenopathy Other: Central line to right neck intact. Chest: Chest palpation & inspection: normal inspection of the chest Resp: Effort & Inspection: normal respiratory effort Cardio: Palpation: normal PMI Rate: tachycardic GI: Inspection: normal to inspection Auscultation: normal bowel sounds Rectal Exam: deferred Other: G-tube intact to left upper abdomen Urinary Catheter: Urinary Catheter: urine clear Skin: General skin exam: normal color Hair: brittle Other: The patient has multiple bruising all over her body. She has a bruise to her left chin and multiple bruising to her chest. She has several abraded areas of both arms. She has bruises to her abdomen. She has several abraded areas to her lower extremities and the toes on her right foot. Pressure ulcer noted to her sacrum. Please see wound pictures Neuro: General: oriented to person Cranial nerves: Yes Equal, round and reactive pupils present Extrem: General: normal to inspection Right upper extremity: normal to inspection and shoulder/upper arm Left upper extremity: normal to inspection and shoulder/upper arm Right lower extremity: normal to inspection Left lower extremity: normal to inspection Psych: Appearance: grossly normal Mental Status: mental status grossly normal Speech and movement: Normal speech and movement present Objective Data Vital Signs Vital Signs: Vital Signs - 24 hr 02/04/25 16:00 02/04/25 20:00 02/04/25 20:27 Temperature 97.5 F L Pulse Rate 99 114 H 62 Respiratory Rate 20 Blood Pressure 131/81 Pulse Oximetry 92 Oxygen Delivery Oxygen Flow Rate Fraction of Inspired Oxygen 02/04/25 22:09 02/05/25 00:00 02/05/25 04:00 Temperature Pulse Rate 92 87 108 H Respiratory Rate Blood Pressure Pulse Oximetry Oxygen Delivery Oxygen Flow Rate Fraction of Inspired Oxygen 02/05/25 05:13 02/05/25 08:00 02/05/25 09:45 Temperature 97.4 F L Pulse Rate 100 88 Respiratory Rate 20 Blood Pressure 107/49 L Pulse Oximetry 91 91 Oxygen Delivery Nasal Cannula Oxygen Flow Rate 4 Fraction of Inspired Oxygen 02/05/25 09:46 02/05/25 10:47 02/05/25 12:00 Temperature Pulse Rate 84 112 H Respiratory Rate Blood Pressure Pulse Oximetry 98 Oxygen Delivery Room Air Oxygen Flow Rate Fraction of Inspired Oxygen 21 02/05/25 14:00 Temperature 98.1 F Pulse Rate 106 H Respiratory Rate 14 Blood Pressure 130/81 Pulse Oximetry 95 Oxygen Delivery Oxygen Flow Rate Fraction of Inspired Oxygen Intake/Output Intake/Output: Intake & Output 02/02/25 02/03/25 02/04/25 02/05/25 23:59 23:59 23:59 23:59 Intake Total 1999 494 983 6949 Output Total 2550 2426 697 1193 Balance -550 -1475 770 624 Meds/Results Medications: Active Medications Generic Name Dose Route Start Last Admin Trade Name Freq PRN Reason Stop Dose Admin Acetaminophen 650 mg 01/28/25 20:45 01/29/25 12:02 Acetaminophen Elixir 325 Mg/10.15 Ml Udc FEED TUBE 650 mg Q6H PRN Administration Mild Pain (1-3) or Fever Hydrocodone Bitart/Acetaminophen 1 tab 02/01/25 22:35 02/05/25 03:26 Hydrocodone/Acetaminophen (*Crx) 10-325 Mg Tablet PO 1 tab Q6H PRN Administration Pain Rated 7-10 Amiodarone HCl 200 mg 01/29/25 10:00 02/05/25 09:46 Amiodarone Hcl 200 Mg Tablet PO 200 mg Q12HR MERCEDES Administration Atorvastatin Calcium 80 mg 01/31/25 09:00 02/05/25 09:46 Atorvastatin 40 Mg Tablet PO 80 mg DAILY MERCEDES Administration Dabigatran 75 mg 02/01/25 21:00 02/05/25 09:47 Dabigatran Etexilate 75 Mg Capsule PO 75 mg Q12HR MERCEDES Administration Fidaxomicin 200 mg 02/02/25 10:15 02/05/25 09:47 Fidaxomicin 200 Mg Tablet PO 02/12/25 10:14 200 mg Q12HR MERCEDES Administration Glucagon 1 mg 01/27/25 01:22 Glucagon For Inj 1 Mg Vial IM PRN PRN Hypoglycemia Protocol Insulin Aspart 3 - 6 units 01/27/25 12:00 02/05/25 12:37 Insulin Aspart (*Bkc) 100 Units/Ml SUB-Q 3 units Q6HR MERCEDES Administration Protocol Ketorolac Tromethamine 1 drop 01/27/25 06:00 02/05/25 12:38 Ketorolac 0.5% Op Soln 5 Ml Bottle EACH EYE 1 drop Q6HR MERCEDES Administration Levothyroxine Sodium 100 mcg 01/30/25 06:30 02/05/25 05:55 Levothyroxine Sodium 100 Mcg Tablet PO 100 mcg DAILY@0630 MERCEDES Administration Lidocaine 1 patch 01/27/25 01:24 Lidocaine 5% Patch TOPICAL Q24H PRN Pain Pantoprazole Sodium 40 mg 02/01/25 09:00 02/05/25 09:47 Pantoprazole 40 Mg Tablet PO 40 mg QAM MERCEDES Administration Sacubitril/Valsartan 1 tab 02/01/25 21:00 02/05/25 09:47 Sacubitril/Valsartan 24-26 Mg Tablet PO 1 tab Q12HR MERCEDES Administration Sodium Chloride 10 ml 01/27/25 14:00 02/05/25 05:56 Central Line Flush IV PUSH 10 ml Q8HR MERCEDES Administration Sodium Chloride 10 ml 01/27/25 11:07 Central Line Flush IV PUSH PRN PRN with TPN bag changes Sodium Chloride 20 ml 01/27/25 11:07 Central Line Flush IV PUSH PRN PRN after blood draws Sodium Chloride 10 ml 01/27/25 14:00 02/05/25 05:56 Central Line Flush IV PUSH 10 ml Q8HR MERCEDES Administration Sodium Chloride 10 ml 01/27/25 11:11 Central Line Flush IV PUSH PRN PRN with TPN bag changes Sodium Chloride 20 ml 01/27/25 11:11 Central Line Flush IV PUSH PRN PRN after blood draws Spironolactone 12.5 mg 01/29/25 09:00 02/05/25 09:47 Spironolactone 12.5 Mg Tablet FEED TUBE 12.5 mg DAILY MERCEDES Administration Tramadol HCl 50 mg 01/29/25 17:28 02/04/25 22:09 Tramadol Hcl (*Crx) 50 Mg Tablet FEED TUBE 50 mg Q6H PRN Administration Pain Rated 4-6 Radiology Results: ITS Impressions Head CT 01/26/25 17:46 Impression: 1.No acute intracranial abnormality. Chest X-Ray 01/27/25 11:19 IMPRESSION: 1. Right PICC placed but tip not identified. 2. Right neck central line unchanged with catheter retrograde into left innominate vein. 3. No cardiopulmonary change. Ankle Brachial Index 01/28/25 13:02 IMPRESSION: 1. Normal right HIREN and decreased right TBI, consistent with right-sided arterial occlusive disease. 2. Borderline-decreased left HIREN and lack of detectable arterial flow in the left great toe, consistent with left-sided arterial occlusive disease. Chest/Abdomen/Pelvis CT 01/28/25 16:08 IMPRESSION: 1. Small pleural effusions. 2. New gallbladder distention, which may be secondary to fasting. Correlate with physical exam to exclude acute cholecystitis. 3. Thickened endometrial complex, which may be secondary to endometrial hyperplasia, polyp, or carcinoma. Consider pelvic ultrasound. 4. Worsened wall thickening of the distal ileum and right colon, consistent with edema versus enterocolitis. 5. Small volume of ascites. Venous Doppler Study 01/28/25 16:08 Impression: Negative for DVT. Pelvis Ultrasound 01/29/25 10:11 IMPRESSION: 1. Uterus and ovaries not visualized. Transvaginal imaging was not performed due to the patient's altered mental status. Labs Labs: Laboratory Results - last 24 hr 02/04/25 02/04/25 02/05/25 17:39 23:32 04:00 WBC 14.5 H RBC 3.19 L Hgb 8.9 L Hct 29.1 L MCV 91.2 MCH 27.9 MCHC 30.6 L RDW 17.6 H Plt Count 354 MPV 9.0 Immature Gran % (Auto) 1.2 H Neut % (Auto) 79.4 H Lymph % (Auto) 13.[address] % (Auto) 5.0 Eos % (Auto) 0.8 Baso % (Auto) 0.3 Lymph # (Auto) 1.93 [place] # (Auto) 0.7 H Eos # (Auto) 0.1 Baso # (Auto) 0.1 Abs Immat Gran (auto) 0.17 H Absolute Neuts (auto) 11.5 H Absolute Nucleated RBC 0.000 Nucleated RBC % 0.0 Sodium 128 L Potassium 4.7 Chloride 101 Carbon Dioxide 24 Anion Gap 3 L BUN 25 H Creatinine 0.48 L Estim Creat Clear Calc Not Reportable Estimated GFR > 60 Glucose 194 H POC Capillary Glucose 126 H 182 H Calcium 8.8 Total Bilirubin 0.3 AST 21 ALT 14 Alkaline Phosphatase 94 Total Protein 6.1 L Albumin 3.1 L 12/08/25 12/08/25 05:11 12:04 WBC RBC Hgb Hct MCV MCH MCHC RDW Plt Count MPV Immature Gran % (Auto) Neut % (Auto) Lymph % (Auto) [place] % (Auto) Eos % (Auto) Baso % (Auto) Lymph # (Auto) [place] # (Auto) Eos # (Auto) Baso # (Auto) Abs Immat Gran (auto) Absolute Neuts (auto) Absolute Nucleated RBC Nucleated RBC % Sodium Potassium Chloride Carbon Dioxide Anion Gap BUN Creatinine Estim Creat Clear Calc Estimated GFR Glucose POC Capillary Glucose 181 H 217 H Calcium Total Bilirubin AST ALT Alkaline Phosphatase Total Protein Albumin Quality VTE Prophylaxis VTE prophylaxis: pharmacologic ordered
[2025-02-05] MEDS: traMADol HCL (*CRX) 50 MG TABLET FEED TUBE (21:00)
[2025-02-06] VITALS (11 sets, daily range): BP systolic 102–144; BP diastolic 74–97; PULSE 74–111; RESP 14–20; TEMP 36–36.4; O2SAT 92–100
[2025-02-06] MEDS: LEVOTHYROXINE SODIUM 100 MCG TABLET PO (05:13)
[2025-02-06] MEDS: CENTRAL LINE FLUSH 10 ML IV PUSH ×6 (05:14→21:18)
[2025-02-06] MEDS: KETOROLAC 0.5% OP SOLN 5 ML BOTTLE 1 DROP EACH EYE ×3 (05:14→21:17)
[2025-02-06] MEDS: HYDROcodone/acetaminophen (*CRX) 10-325 MG TABLET 1 TAB PO ×3 (05:16→21:17)
[2025-02-06 05:37] LABS: Hematocrit 27.3 % (37.0-47.0); Hemoglobin 8.3 g/dL (12.0-15.0); Immature Granulocyte Percent A 0.7 % (0-0.5); Lymphocytes Absolute Auto 1.41 K/mm3 (0.9-3.2); Mean Corpuscular HGB Conc 30.4 g/dl (32-36); Mean Corpuscular Hemoglobin 27.9 pg (26-34); Mean Corpuscular Volume 91.6 fl (80-100); Nucleated Red Blood Cells Absolute Auto 0.000 K/mm3 (0.0-0.012); Nucleated Red Blood Cells Perc 0.0 % (0.0-0.2); Platelet Count Result 300 k/mm3 (150-375); Red Blood Count 2.98 M/mm3 (4.2-5.4); White Blood Count 15.0 K/mm3 (4.5-10.0)
[2025-02-06 05:56] LABS: Magnesium 1.6 mg/dL (1.6-2.3)
[2025-02-06 05:58] LABS: Alanine Aminotransferase 13 U/L (6-35); Albumin Level 2.7 g/dL (3.5-5.1); Alkaline Phosphatase 77 U/L (38-126); Anion Gap 1 mmol/L (4-12); Aspartate Amino Transferase 22 U/L (14-36); Bilirubin,Total 0.2 mg/dL (0.2-1.3); Blood Urea Nitrogen 33 mg/dL (7-17); Calcium 8.6 mg/dL (8.4-10.2); Carbon Dioxide 25 mmol/L (22-30); Chloride 102 mmol/L (98-107); Estimated Glomerular Filt Rate > 60; Glucose 195 mg/dL (65-110); Potassium 4.6 mmol/L (3.4-5.0); Sodium 128 mmol/L (137-145); Total Protein 5.6 g/dL (6.3-8.2)
--- NOTE | 2025-02-06 08:54 | P.PNIM_ITS ---
Assessment and Plan Assessment and Plan (1) Septic shock: Code(s): A41.9 - Sepsis, unspecified organism; R65.21 - Severe sepsis with septic shock Status: Resolved Assessment and Plan: 01/26: Patient presented with altered mental status, hypotension, feeling tired and more sleepy at the group home -normal lactic acid at 1.4 -in the ER patient was given 1 L IV fluid bolus since she has a history of CHF -right IJ central line was inserted and started on Levophed, has been since discontinued -Blood cultures have been obtained: NGTD -cefepime and vancomycin (01/26) 01/27: Urine cultures have been obtained: Klebsiella ESBL -will give additional fluid this morning has patient's mucosa membranes are significant and skin turgor is poor - will also give albumin for intravascular volume expansion - Bilateral lower extremity venous Dopplers were negative for DVT 01/28: CT Abdomen repeated: thickened endometrial complex, which may be secondary to endometrial hyperplasia, polyp, or carcinoma; Consider pelvic ultrasound; Worsened wall thickening of the distal ileum and right colon, consistent with edema versus enterocolitis; Small volume of ascites. Pelvic US ordered. Patient also having new onset diarrhea, concerning for C Diff given she has history of same. Testing has been ordered. HIREN positive for PAD of lower extremities. 01/29: C Difficile is positive. Oral vancomycin has been started. Patient is out of shock at this time, BP improving. ID on board and aware. 01/30: IV Vancomycin switched to Meropenem per ID given klebsiella UTI. BCx NGTD. 01/31-: Continuing antibiotics per ID recommendations. Stool remains liquid in rectal tube. 02/02: Vancomycin has been changed to fidaxomicin. ID made aware, will follow their recommendations. (2) Ischemic bowel disease: Code(s): K55.9 - Vascular disorder of intestine, unspecified Status: Ruled-out Assessment and Plan: Some concerns for ischemic bowel disease on CT scan -lactic acid is 1.4, repeat lactic acid was also 1.4 -appreciate surgery evaluation recommendations, poor surgical candidate -currently off Levophed, if patient's condition worsens, will obtain another noncontrast CT abdomen and pelvis per surgeon -CT Abdomen repeated: thickened endometrial complex, which may be secondary to endometrial hyperplasia, polyp, or carcinoma; Consider pelvic ultrasound; Worsened wall thickening of the distal ileum and right colon, consistent with edema versus enterocolitis; Small volume of ascites. -Surgery on board, CT reviewed, no further intervention at this time, not likely ischemic bowel, continue antibiotics and monitor -Can advance tube feeds, increased water intake from 30cc to 75cc qid. Limiting water administration as Na is 129 and want to prevent further worsening of hyponatremia. (3) C. difficile colitis: Code(s): A04.72 - Enterocolitis due to Clostridium difficile, not specified as recurrent Status: Acute Assessment and Plan: C Difficile + Enterocolitis on Ct likely secondary to this. ID is on board. Still remains liquid and rectal tube bag. -PO vancomycin 500mg q6h change to fidaxomicin. ID recommends changing back to p.o. vancomycin due to cost likely on discharge -Contact isolation precautions in place. (4) Acute UTI: Code(s): N39.0 - Urinary tract infection, site not specified Status: Acute Assessment and Plan: UA reflective of UTI, continue antibiotics, cultures have been obtained UCx 01/27: Klebsiella ESBL -IV Vancomycin switched to Meropenem per ID. Last dose 02/03/2025. Can discontinue after, ID managing. (5) Altered mental status: Code(s): R41.82 - Altered mental status, unspecified Status: Acute Assessment and Plan: Altered mental status seems to have resolved, patient is more awake after volume resuscitation and antibiotics. Likely secondary to sepsis. -Continue monitoring mental status (6) Congestive heart failure: Code(s): I50.9 - Heart failure, unspecified Status: Acute Assessment and Plan: History of heart failure -patient does not know where she gets her treatment -no previous notes or echocardiogram in the chart at [facility] -echocardiogram: EF 55-60% -patient does take aspirin, Farxiga, furosemide, Entresto, Dabigatran at home which are all currently on hold. Hold farxiga during active ESBL UTI. -Amiodarone, atorvastatin and spironolactone resumed. -blood pressure appears to be holding, will resume Entresto -02/01: Increased oxygen requirement today holding steady on 2 L nasal cannula. IV Lasix 20 mg given -02/02: Remains on 2 L nasal cannula, comfortable. Entresto & Dabigatran have been restarted per cards recs, on discharge, pt will need to continue Lasix 40mg PO daily (7) Gastrointestinal tube in situ: Code(s): Z93.1 - Gastrostomy status Status: Acute Assessment and Plan: * Patient does have a PEG tube, according to the nurses the family states that she does take p.o. diet but the PEG tube is for supplementation * Will attempt bolus feeding tonight per Nutrition guidelines with tube feeding as needed (8) Hypothyroidism: Code(s): E03.9 - Hypothyroidism, unspecified Status: Acute Assessment and Plan: Switch to oral levothyroxine via tube - home dose is 125mcg, was getting 62.5 mcg IV, will start with 100mcg oral and titrate up to home dose as tolerated Will need to repeat TFTs 6 weeks after discharge (9) Hypertension: Code(s): I10 - Essential (primary) hypertension Status: Acute Assessment and Plan: Spironolactone resumed. Rest of meds to be resumed as tolerated. (10) DM2 (diabetes mellitus, type 2): Code(s): E11.9 - Type 2 diabetes mellitus without complications Status: Acute Assessment and Plan: Continue sliding scale insulin and Accu-Chek Pt on Glargine 25 units HS at home, continue to trend fasting POC BS (11) Atrial fibrillation: Code(s): I48.91 - Unspecified atrial fibrillation Status: Acute Assessment and Plan: History of atrial fibrillation on dabigatran 75 mg b.i.d. and amiodarone, these meds have been resumed -appreciate cardiology recommendation, will resume dabigatran and continue amiodarone at this time (12) Ventricular ectopy: Code(s): I49.3 - Ventricular premature depolarization Status: Acute Assessment and Plan: Runs of V-tach noted on monitor. Cardiology was consulted in regards to this and pacemaker management. Pacemaker been interrogated, found to be functioning normally. No further intervention was recommended by Cardiology at this time. She can follow up on discharge. Appreciate cardiology recommendations. Plan ID on board for sepsis/C Difficile management. Spoke with patient's daughter 02/02, had extensive conversation regards to hospital course, active treatment and management, as well as goals of care. She was also updated on the recent events including ventricular ectopy and hypoxia requiring oxygen by nasal cannula. Patient's daughter insists on taking her home on discharge. She is aware of patient's complex medical history however due to prior problems with nursing facilities, she insists on patient going home with her. She does agree on setting up home hospice on discharge however at this time will be actively full code. Advised to discuss with care coordination. Can consider discharge planning Wednesday as patient has completed antibiotics but still has rectal tube. If discharging, as above, discharged on p.o. vancomycin instead of fidaxomicin per ID recommendations. -->Per CC, pending referrals as well as [facility] tube feed [facility] communication. Will likely D/C with O2. DVT prophylaxis: Dabigatran Stress ulcer prophylaxis: Protonix Nutrition: Tube feeds Subjective Date/time seen: 02/06/25 08:54 Interval history: Patient sitting comfortably in bed at time examination. She does have some slight RUQ abd discomfort but otherwise denies any chest pain, SOB, n/v at this time. The torch solderer discussed the possibility of discontinuing tube feeding with the patient/family, will attempt food bolus trial today with supplemental tube feedings as needed (as was the original purpose of the PEG tube). Infectious disease rounded on patient, cleared for discharge from their standpoint. Will look to discharge tomorrow pending attempt at eating dinner tonight Review of Systems Review of Systems: All systems reviewed & are unremarkable except as noted in HPI and below ROS unobtainable: Yes unobtainable due to medical condition and unobtainable due to mental status Exam Narrative: General: Awake, alert, no acute distress. rectal tube placed. Appears more comfortable today HEENT:? Pupils equal and reactive, sclera is clear, dry oral mucosa Neck:? Supple Respiratory:? Decreased air entry at bases, otherwise clear to auscultation bilaterally Cardiac:? Irregularly irregular rhythm, rate controlled Abdomen:? Soft, diffuse mild tenderness, no guarding rigidity, bowel sounds+, ob musa, nondistended Extremities:? Bilateral upper and lower extremity edema, R hand 3+, BLE 2+, Palpable pedal pulse Neuro:? Patient is awake, alert, A&O x3, unaware of who the president is, has history of dementia, follows simple commands in all extremities, able to answer questions Skin:? Multiple bruising noted on bilateral upper and lower extremities, multiple chronic pressure lesions all over body Psych:? Depressed affect Const: General: cooperative, no acute distress, well developed, awake and Physically active Orientation/consciousness: oriented to person HENMT: Head: normal to inspection, No palpable skull fracture present and normocephalic Eyes: General: appearance normal, both eyes and all related structures Alignment and Position: alignment normal Eyelids: eyelids normal Pupils: Equal, round and reactive pupils present Neck: Neck: normal visual inspection, full ROM and no lymphadenopathy Other: Central line to right neck intact. Chest: Chest palpation & inspection: normal inspection of the chest Resp: Effort & Inspection: normal respiratory effort Cardio: Palpation: normal PMI Rate: tachycardic GI: Inspection: normal to inspection Auscultation: normal bowel sounds Rectal Exam: deferred Other: G-tube intact to left upper abdomen Urinary Catheter: Urinary Catheter: urine clear Skin: General skin exam: normal color Hair: brittle Other: The patient has multiple bruising all over her body. She has a bruise to her left chin and multiple bruising to her chest. She has several abraded areas of both arms. She has bruises to her abdomen. She has several abraded areas to her lower extremities and the toes on her right foot. Pressure ulcer noted to her sacrum. Please see wound pictures Neuro: General: oriented to person Cranial nerves: Yes Equal, round and reactive pupils present Extrem: General: normal to inspection Right upper extremity: normal to inspection and shoulder/upper arm Left upper extremity: normal to inspection and shoulder/upper arm Right lower extremity: normal to inspection Left lower extremity: normal to inspection Psych: Appearance: grossly normal Mental Status: mental status grossly normal Speech and movement: Normal speech and movement present Objective Data Vital Signs Vital Signs: Vital Signs - 24 hr 02/05/25 09:45 02/05/25 09:46 02/05/25 10:47 Temperature Pulse Rate 84 Respiratory Rate Blood Pressure Pulse Oximetry 91 98 Oxygen Delivery Nasal Cannula Room Air Oxygen Flow Rate 4 Fraction of Inspired Oxygen 21 02/05/25 12:00 02/05/25 14:00 02/05/25 16:00 Temperature 98.1 F Pulse Rate 112 H 106 H 94 Respiratory Rate 14 Blood Pressure 130/81 Pulse Oximetry 95 Oxygen Delivery Oxygen Flow Rate Fraction of Inspired Oxygen 02/05/25 20:00 02/05/25 20:00 02/05/25 21:54 Temperature 96.9 F L Pulse Rate 107 H 67 Respiratory Rate 20 Blood Pressure 100/70 Pulse Oximetry 92 93 Oxygen Delivery Nasal Cannula Oxygen Flow Rate 4 Fraction of Inspired Oxygen 02/06/25 00:00 02/06/25 04:00 02/06/25 05:52 Temperature 96.8 F L Pulse Rate 98 107 H 111 H Respiratory Rate 16 Blood Pressure 102/74 Pulse Oximetry 100 Oxygen Delivery Oxygen Flow Rate Fraction of Inspired Oxygen Intake/Output Intake/Output: Intake & Output 02/03/25 02/04/25 02/05/25 02/06/25 23:59 23:59 23:59 23:59 Intake Total 335 572 9883 1436 Output Total 1567 170 8579 Balance -1696 868 3088 1436 Meds/Results Medications: Active Medications Generic Name Dose Route Start Last Admin Trade Name Freq PRN Reason Stop Dose Admin Acetaminophen 650 mg 01/28/25 20:45 01/29/25 12:02 Acetaminophen Elixir 325 Mg/10.15 Ml Udc FEED TUBE 650 mg Q6H PRN Administration Mild Pain (1-3) or Fever Hydrocodone Bitart/Acetaminophen 1 tab 02/01/25 22:35 02/06/25 05:16 Hydrocodone/Acetaminophen (*Crx) 10-325 Mg Tablet PO 1 tab Q6H PRN Administration Pain Rated 7-10 Amiodarone HCl 200 mg 01/29/25 10:00 02/05/25 21:01 Amiodarone Hcl 200 Mg Tablet PO 200 mg Q12HR [facility] Administration Atorvastatin Calcium 80 mg 01/31/25 09:00 02/05/25 09:46 Atorvastatin 40 Mg Tablet PO 80 mg DAILY [facility]CED[facility] Administration Dabigatran 75 mg 02/01/25 21:00 02/05/25 21:01 Dabigatran Etexilate 75 Mg Capsule PO 75 mg Q12HR [facility]CEDES Administration Fidaxomicin 200 mg 02/02/25 10:15 02/05/25 21:01 Fidaxomicin 200 Mg Tablet PO 02/12/25 10:14 200 mg Q12HR [facility]CEDES Administration Glucagon 1 mg 01/27/25 01:22 Glucagon For Inj 1 Mg Vial IM PRN PRN Hypoglycemia Protocol Insulin Aspart 3 - 6 units 01/27/25 12:00 02/06/25 04:14 Insulin Aspart (*Bkc) 100 Units/Ml SUB-Q Not Given Q6HR [facility] Protocol Ketorolac Tromethamine 1 drop 01/27/25 06:00 02/06/25 05:14 Ketorolac 0.5% Op Soln 5 Ml Bottle EACH EYE 1 drop Q6HR [facility]CED[facility] Administration Levothyroxine Sodium 100 mcg 01/30/25 06:30 02/06/25 05:13 Levothyroxine Sodium 100 Mcg Tablet PO 100 mcg DAILY@0630 [facility]CEDES Administration Lidocaine 1 patch 01/27/25 01:24 Lidocaine 5% Patch TOPICAL Q24H PRN Pain Pantoprazole Sodium 40 mg 02/01/25 09:00 02/05/25 09:47 Pantoprazole 40 Mg Tablet PO 40 mg QAM [facility] Administration Sacubitril/Valsartan 1 tab 02/01/25 21:00 02/05/25 21:00 Sacubitril/Valsartan 24-26 Mg Tablet PO 1 tab Q12HR [facility] Administration Sodium Chloride 10 ml 01/27/25 14:00 02/06/25 05:14 Central Line Flush IV PUSH 10 ml Q8HR [facility] Administration Sodium Chloride 10 ml 01/27/25 11:07 Central Line Flush IV PUSH PRN PRN with TPN bag changes Sodium Chloride 20 ml 01/27/25 11:07 Central Line Flush IV PUSH PRN PRN after blood draws Sodium Chloride 10 ml 01/27/25 14:00 02/06/25 05:14 Central Line Flush IV PUSH 10 ml Q8HR [facility] Administration Sodium Chloride 10 ml 01/27/25 11:11 Central Line Flush IV PUSH PRN PRN with TPN bag changes Sodium Chloride 20 ml 01/27/25 11:11 Central Line Flush IV PUSH PRN PRN after blood draws Spironolactone 12.5 mg 01/29/25 09:00 02/05/25 09:47 Spironolactone 12.5 Mg Tablet FEED TUBE 12.5 mg DAILY [facility]EDES Administration Tramadol HCl 50 mg 01/29/25 17:28 02/05/25 21:00 Tramadol Hcl (*Crx) 50 Mg Tablet FEED TUBE 50 mg Q6H PRN Administration Pain Rated 4-6 Radiology Results: ITS Impressions Head CT 01/26/25 17:46 Impression: 1.No acute intracranial abnormality. Chest X-Ray 01/27/25 11:19 IMPRESSION: 1. Right PICC placed but tip not identified. 2. Right neck central line unchanged with catheter retrograde into left innominate vein. 3. No cardiopulmonary change. Ankle Brachial Index 01/28/25 13:02 IMPRESSION: 1. Normal right HIREN and decreased right TBI, consistent with right-sided arterial occlusive disease. 2. Borderline-decreased left HIREN and lack of detectable arterial flow in the left great toe, consistent with left-sided arterial occlusive disease. Chest/Abdomen/Pelvis CT 01/28/25 16:08 IMPRESSION: 1. Small pleural effusions. 2. New gallbladder distention, which may be secondary to fasting. Correlate with physical exam to exclude acute cholecystitis. 3. Thickened endometrial complex, which may be secondary to endometrial hyperplasia, polyp, or carcinoma. Consider pelvic ultrasound. 4. Worsened wall thickening of the distal ileum and right colon, consistent with edema versus enterocolitis. 5. Small volume of ascites. Venous Doppler Study 01/28/25 16:08 Impression: Negative for DVT. Pelvis Ultrasound 01/29/25 10:11 IMPRESSION: 1. Uterus and ovaries not visualized. Transvaginal imaging was not performed due to the patient's altered mental status. Labs Labs: Laboratory Results - last 24 hr 02/05/25 02/05/25 02/06/25 12:04 17:30 00:50 WBC RBC Hgb Hct MCV MCH MCHC RDW Plt Count MPV Immature Gran % (Auto) Neut % (Auto) Lymph % (Auto) [place] % (Auto) Eos % (Auto) Baso % (Auto) Lymph # (Auto) [place] # (Auto) Eos # (Auto) Baso # (Auto) Abs Immat Gran (auto) Absolute Neuts (auto) Absolute Nucleated RBC Nucleated RBC % Sodium Potassium Chloride Carbon Dioxide Anion Gap BUN Creatinine Estim Creat Clear Calc Estimated GFR Glucose POC Capillary Glucose 217 H 157 H 169 H Calcium Magnesium Total Bilirubin AST ALT Alkaline Phosphatase Total Protein Albumin 02/06/25 02/06/25 02/06/25 05:21 05:22 05:51 WBC 15.0 H RBC 2.98 L Hgb 8.3 L Hct 27.3 L MCV 91.6 MCH 27.9 MCHC 30.4 L RDW 17.9 H Plt Count 300 MPV 8.9 Immature Gran % (Auto) 0.7 H Neut % (Auto) 85.2 H Lymph % (Auto) 9.4 L [place] % (Auto) 3.7 Eos % (Auto) 0.7 Baso % (Auto) 0.3 Lymph # (Auto) 1.41 [place] # (Auto) 0.6 Eos # (Auto) 0.1 Baso # (Auto) 0.0 Abs Immat Gran (auto) 0.10 H Absolute Neuts (auto) 12.8 H Absolute Nucleated RBC 0.000 Nucleated RBC % 0.0 Sodium 128 L Potassium 4.6 Chloride 102 Carbon Dioxide 25 Anion Gap 1 L BUN 33 H Creatinine 0.48 L Estim Creat Clear Calc Not Reportable Estimated GFR > 60 Glucose 195 H POC Capillary Glucose 204 H Calcium 8.6 Magnesium 1.6 Total Bilirubin 0.2 AST 22 ALT 13 Alkaline Phosphatase 77 Total Protein 5.6 L Albumin 2.7 L Quality VTE Prophylaxis VTE prophylaxis: pharmacologic ordered
--- NOTE | 2025-02-06 10:11 | WPDINFPN2 ---
Progress Note: A&P Assessment and Plan (1) C. difficile colitis: Code(s): A04.72 - Enterocolitis due to Clostridium difficile, not specified as recurrent Status: Acute Assessment and Plan: ASSESSMENT: 1. Klebsiella ESBL UTI--treated 2. C. diff colitis 3. possible ischemic bowel 4. 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 HTN, hypothyroid, CKD, DM, CAD, RA, stroke, dementia, s/p PEG RECOMMENATIONS: -f/u on blood cxs-->neg and final -dificid day 5 -ok to discharge tomorrow on po vanco 500 mg QID x 9 days; then change to po vanco 500 mg po TID x 1 week, then bid x 1 week, then daily x 1 week then QOD x 2 weeks then stop and monitor -consider FMT as outpatient?? -once C. diff resolved, if patient requires abx in the future, would place on po vanco 125 mg bid prophylactically while on abx to prevent C. diff recurrence d/w pharmacy staff Pt was seen via video telehealth consultation with the assistance of staff. Chart, data and patient info reviewed. Patient was located at [facility] while I was in my [place] office. Pt gave consent. Subjective Date/time seen: 02/06/25 10:11 Interval history: no fevers WBC count creeping up has abd pain sometimes Exam Narrative: on room air, non-toxic, NAD abd firm, tender, guarding per nursing taff LE edema +newman, no flexiseal ecchymoses Objective Data Vital Signs Vital Signs: Vital Signs - 24 hr 02/05/25 10:47 02/05/25 12:00 02/05/25 14:00 Temperature 98.1 F Pulse Rate 112 H 106 H Respiratory Rate 14 Blood Pressure 130/81 Pulse Oximetry 98 95 Oxygen Delivery Room Air Oxygen Flow Rate Fraction of Inspired Oxygen 21 02/05/25 16:00 02/05/25 20:00 02/05/25 20:00 Temperature Pulse Rate 94 107 H Respiratory Rate Blood Pressure Pulse Oximetry 92 Oxygen Delivery Nasal Cannula Oxygen Flow Rate 4 Fraction of Inspired Oxygen 02/05/25 21:54 02/06/25 00:00 02/06/25 04:00 Temperature 96.9 F L Pulse Rate 67 98 107 H Respiratory Rate 20 Blood Pressure 100/70 Pulse Oximetry 93 Oxygen Delivery Oxygen Flow Rate Fraction of Inspired Oxygen 02/06/25 05:52 Temperature 96.8 F L Pulse Rate 111 H Respiratory Rate 16 Blood Pressure 102/74 Pulse Oximetry 100 Oxygen Delivery Oxygen Flow Rate Fraction of Inspired Oxygen Intake/Output Intake/Output: Intake & Output 02/03/25 02/04/25 02/05/25 02/06/25 23:59 23:59 23:59 23:59 Intake Total 474 632 8125 1436 Output Total 1369 021 2924 Balance -9253 688 4272 1436 Meds/Results Medications: Active Medications Generic Name Dose Route Start Last Admin Trade Name Freq PRN Reason Stop Dose Admin Acetaminophen 650 mg 01/28/25 20:45 01/29/25 12:02 Acetaminophen Elixir 325 Mg/10.15 Ml Udc FEED TUBE 650 mg Q6H PRN Administration Mild Pain (1-3) or Fever Hydrocodone Bitart/Acetaminophen 1 tab 02/01/25 22:35 02/06/25 05:16 Hydrocodone/Acetaminophen (*Crx) 10-325 Mg Tablet PO 1 tab Q6H PRN Administration Pain Rated 7-10 Amiodarone HCl 200 mg 01/29/25 10:00 02/05/25 21:01 Amiodarone Hcl 200 Mg Tablet PO 200 mg Q12HR [facility] Administration Atorvastatin Calcium 80 mg 01/31/25 09:00 02/05/25 09:46 Atorvastatin 40 Mg Tablet PO 80 mg DAILY [facility] Administration Dabigatran 75 mg 02/01/25 21:00 02/05/25 21:01 Dabigatran Etexilate 75 Mg Capsule PO 75 mg Q12HR [facility] Administration Fidaxomicin 200 mg 02/02/25 10:15 02/05/25 21:01 Fidaxomicin 200 Mg Tablet PO 02/12/25 10:14 200 mg Q12HR [facility] Administration Glucagon 1 mg 01/27/25 01:22 Glucagon For Inj 1 Mg Vial IM PRN PRN Hypoglycemia Protocol Insulin Aspart 3 - 6 units 01/27/25 12:00 02/06/25 04:14 Insulin Aspart (*Bkc) 100 Units/Ml SUB-Q Not Given Q6HR [facility] Protocol Ketorolac Tromethamine 1 drop 01/27/25 06:00 02/06/25 05:14 Ketorolac 0.5% Op Soln 5 Ml Bottle EACH EYE 1 drop Q6HR [facility] Administration Levothyroxine Sodium 100 mcg 01/30/25 06:30 02/06/25 05:13 Levothyroxine Sodium 100 Mcg Tablet PO 100 mcg DAILY@0630 [facility] Administration Lidocaine 1 patch 01/27/25 01:24 Lidocaine 5% Patch TOPICAL Q24H PRN Pain Pantoprazole Sodium 40 mg 02/01/25 09:00 02/05/25 09:47 Pantoprazole 40 Mg Tablet PO 40 mg QAM [facility] Administration Sacubitril/Valsartan 1 tab 02/01/25 21:00 02/05/25 21:00 Sacubitril/Valsartan 24-26 Mg Tablet PO 1 tab Q12HR [facility] Administration Sodium Chloride 10 ml 01/27/25 14:00 02/06/25 05:14 Central Line Flush IV PUSH 10 ml Q8HR [facility] Administration Sodium Chloride 10 ml 01/27/25 11:07 Central Line Flush IV PUSH PRN PRN with TPN bag changes Sodium Chloride 20 ml 01/27/25 11:07 Central Line Flush IV PUSH PRN PRN after blood draws Sodium Chloride 10 ml 01/27/25 14:00 02/06/25 05:14 Central Line Flush IV PUSH 10 ml Q8HR [facility] Administration Sodium Chloride 10 ml 01/27/25 11:11 Central Line Flush IV PUSH PRN PRN with TPN bag changes Sodium Chloride 20 ml 01/27/25 11:11 Central Line Flush IV PUSH PRN PRN after blood draws Spironolactone 12.5 mg 01/29/25 09:00 02/05/25 09:47 Spironolactone 12.5 Mg Tablet FEED TUBE 12.5 mg DAILY [facility] Administration Tramadol HCl 50 mg 01/29/25 17:28 02/05/25 21:00 Tramadol Hcl (*Crx) 50 Mg Tablet FEED TUBE 50 mg Q6H PRN Administration Pain Rated 4-6 Radiology Results: ITS Impressions Head CT 01/26/25 17:46 Impression: 1.No acute intracranial abnormality. Chest X-Ray 01/27/25 11:19 IMPRESSION: 1. Right PICC placed but tip not identified. 2. Right neck central line unchanged with catheter retrograde into left innominate vein. 3. No cardiopulmonary change. Ankle Brachial Index 01/28/25 13:02 IMPRESSION: 1. Normal right HIREN and decreased right TBI, consistent with right-sided arterial occlusive disease. 2. Borderline-decreased left HIREN and lack of detectable arterial flow in the left great toe, consistent with left-sided arterial occlusive disease. Chest/Abdomen/Pelvis CT 01/28/25 16:08 IMPRESSION: 1. Small pleural effusions. 2. New gallbladder distention, which may be secondary to fasting. Correlate with physical exam to exclude acute cholecystitis. 3. Thickened endometrial complex, which may be secondary to endometrial hyperplasia, polyp, or carcinoma. Consider pelvic ultrasound. 4. Worsened wall thickening of the distal ileum and right colon, consistent with edema versus enterocolitis. 5. Small volume of ascites. Venous Doppler Study 01/28/25 16:08 Impression: Negative for DVT. Pelvis Ultrasound 01/29/25 10:11 IMPRESSION: 1. Uterus and ovaries not visualized. Transvaginal imaging was not performed due to the patient's altered mental status. Labs Labs: Laboratory Results - last 24 hr 02/05/25 02/05/25 02/06/25 12:04 17:30 00:50 WBC RBC Hgb Hct MCV MCH MCHC RDW Plt Count MPV Immature Gran % (Auto) Neut % (Auto) Lymph % (Auto) Bailey % (Auto) Eos % (Auto) Baso % (Auto) Lymph # (Auto) Bailey # (Auto) Eos # (Auto) Baso # (Auto) Abs Immat Gran (auto) Absolute Neuts (auto) Absolute Nucleated RBC Nucleated RBC % Sodium Potassium Chloride Carbon Dioxide Anion Gap BUN Creatinine Estim Creat Clear Calc Estimated GFR Glucose POC Capillary Glucose 217 H 157 H 169 H Calcium Magnesium Total Bilirubin AST ALT Alkaline Phosphatase Total Protein Albumin 02/06/25 02/06/25 02/06/25 05:21 05:22 05:51 WBC 15.0 H RBC 2.98 L Hgb 8.3 L Hct 27.3 L MCV 91.6 MCH 27.9 MCHC 30.4 L RDW 17.9 H Plt Count 300 MPV 8.9 Immature Gran % (Auto) 0.7 H Neut % (Auto) 85.2 H Lymph % (Auto) 9.4 L Bailey % (Auto) 3.7 Eos % (Auto) 0.7 Baso % (Auto) 0.3 Lymph # (Auto) 1.41 Bailey # (Auto) 0.6 Eos # (Auto) 0.1 Baso # (Auto) 0.0 Abs Immat Gran (auto) 0.10 H Absolute Neuts (auto) 12.8 H Absolute Nucleated RBC 0.000 Nucleated RBC % 0.0 Sodium 128 L Potassium 4.6 Chloride 102 Carbon Dioxide 25 Anion Gap 1 L BUN 33 H Creatinine 0.48 L Estim Creat Clear Calc Not Reportable Estimated GFR > 60 Glucose 195 H POC Capillary Glucose 204 H Calcium 8.6 Magnesium 1.6 Total Bilirubin 0.2 AST 22 ALT 13 Alkaline Phosphatase 77 Total Protein 5.6 L Albumin 2.7 L
[2025-02-06] MEDS: AMIODARONE HCL 200 MG TABLET PO ×2 (10:47→21:18)
[2025-02-06] MEDS: FIDAXOMICIN 200 MG TABLET PO ×2 (10:47→21:18)
[2025-02-06] MEDS: DABIGATRAN ETEXILATE 75 MG CAPSULE PO ×2 (10:47→21:17)
[2025-02-06] MEDS: ATORVASTATIN 40 MG TABLET 80 MG PO (10:48)
[2025-02-06] MEDS: SACUBITRIL/VALSARTAN 24-26 MG TABLET 1 TAB PO ×2 (10:48→21:17)
[2025-02-06] MEDS: PANTOPRAZOLE 40 MG TABLET PO (10:48)
[2025-02-06] MEDS: traMADol HCL (*CRX) 50 MG TABLET FEED TUBE (10:49)
--- NOTE | 2025-02-06 12:44 | PCNFU ---
Addendum entered by Blaire Askew, RD, LDN 02/06/25 13:27: Will change formula to Glucerna 1.2 for better glucose control on bolus feeds. Continue with recommendation for 250ml bolus feed if pt eats less than 50% of a meal, Plus a feed HS. This will total 1200kcals, 60g protein. Recommend a 100ml flush (50ml before feed, 50ml after feed) Original Note: Nutrition Follow-Up Complete: Inadequate energy intake related to altered GI function as evidenced by need for supplemental tube feedings Goal:Tolerate tube feedings Oral intake as tolerated, with diet advancement per MD Pt meeting goal Pt current nutrition is Diabetic diet plus Tube feeding: Jevity 1.5 @ 50ml/hr = 1650kcals, 70g protein. SHRUTI BID, banatrol BID. Nutrition recommendation: consider changing feedings to bolus feeds and only administered if po intake is less than 50% of meals Last recorded weight is 78.9 kg. Bowel Motility: +BM 02/05 Labs Reviewed:Hgb:8.9, HCT:29.1, Alb:3.1, Na:128, BUN:25, Cr:0.48, Glu:194, Phos: 1.9 Meds Noted:protonix, novolog, lovenox Skin: Stage III to buttocks Additional Notes: Pt continues on a po diet with minimal po intake, 0% charted intake. Tube feeding continues and is meeting estimated needs, pt tolerating. Noted daughter is wanting pt to consume food PO and reduce tube feedings. Recommend to change tube feedings to bolus feeds and administer post meal if po intake is less than 50%, plus HS. Bolus conversion is 250ml bolus feeds QID of Jevity 1.5 (bolus feed after each meal if PO intake is less than 50%, + HS bolus feed) - this provides 1500kcals, 64g protein, 760ml free water. Monitoring tube feeding orders, diet orders, PO intake, weights, labs, plan of care Follow up Wednesday/Wednesday
--- NOTE | 2025-02-06 13:33 | PCSTNOTE ---
attempted to complete MBS; per xray transporters and RN, pt is refusing due to increased pain. Will attempt again tomorrow.
[2025-02-07] VITALS (15 sets, daily range): BP systolic 100–111; BP diastolic 48–84; PULSE 70–118; RESP 16–20; TEMP 36.4–36.6; O2SAT 92–100
[2025-02-07] MEDS: LEVOTHYROXINE SODIUM 100 MCG TABLET PO (05:47)
[2025-02-07] MEDS: CENTRAL LINE FLUSH 10 ML IV PUSH ×6 (05:48→21:42)
[2025-02-07] MEDS: KETOROLAC 0.5% OP SOLN 5 ML BOTTLE 1 DROP EACH EYE ×3 (05:48→18:17)
[2025-02-07 06:02] LABS: Hematocrit 28.1 % (37.0-47.0); Hemoglobin 8.5 g/dL (12.0-15.0); Immature Granulocyte Percent A 0.7 % (0-0.5); Lymphocytes Absolute Auto 1.56 K/mm3 (0.9-3.2); Mean Corpuscular HGB Conc 30.2 g/dl (32-36); Mean Corpuscular Hemoglobin 27.4 pg (26-34); Mean Corpuscular Volume 90.6 fl (80-100); Nucleated Red Blood Cells Absolute Auto 0.000 K/mm3 (0.0-0.012); Nucleated Red Blood Cells Perc 0.0 % (0.0-0.2); Platelet Count Result 342 k/mm3 (150-375); Red Blood Count 3.10 M/mm3 (4.2-5.4); White Blood Count 16.5 K/mm3 (4.5-10.0)
[2025-02-07 06:26] LABS: Alanine Aminotransferase 23 U/L (6-35); Albumin Level 3.0 g/dL (3.5-5.1); Alkaline Phosphatase 94 U/L (38-126); Anion Gap 3 mmol/L (4-12); Aspartate Amino Transferase 38 U/L (14-36); Bilirubin,Total 0.3 mg/dL (0.2-1.3); Blood Urea Nitrogen 31 mg/dL (7-17); Calcium 9.1 mg/dL (8.4-10.2); Carbon Dioxide 24 mmol/L (22-30); Chloride 102 mmol/L (98-107); Estimated Glomerular Filt Rate > 60; Glucose 113 mg/dL (65-110); Potassium 4.4 mmol/L (3.4-5.0); Sodium 129 mmol/L (137-145); Total Protein 6.0 g/dL (6.3-8.2)
--- NOTE | 2025-02-07 10:12 | PCSTNOTE ---
Please refer to the Modified Barium Swallow Evaluation in the EMR. The above pt with a dx of pneumonia was seen for an MBS. PMH includes CVA with dysphagia, PEG tube, rheumatoid arthritis, anemia, and neck and back surgery. Pt appeared to have difficulty sitting upright in the chair for testing requiring pillows to prop her in place. Vocal quality was clear. Some missing upper and lower teeth noted. Pt was presented with two trials of 5ml of thin liquid barium via spoon, 2 tsp of pudding consistency barium via a spoon, crumbled cracker coated with barium pudding via spoon, and small pieces of cracker coated with barium pudding via spoon, and uncontrolled thin liquid barium. This was presented via a cup & straw. Oral preparatory and oral phase symptoms: none/WFL as no leakage, pocketing, or residue was noted. Mastication was slow but felt to be related to poor dentition. Pharyngeal phase symptoms: within functional limits; trace and very shallow laryngeal penetration occurred (age appropriate) and was promptly cleared. Esophageal stage symptoms: none. Overall, no aspiration occurred. Impressions: Functional swallow Ability Recommendations: level 6 soft and bite size solids; level 0 regular thin. Position pt completely upright with all oral intake as even lying back slightly increases aspiration risk. No further ST is warranted at this time.
[2025-02-07] MEDS: HYDROcodone/acetaminophen (*CRX) 10-325 MG TABLET 1 TAB PO ×2 (11:00→16:31)
[2025-02-07] MEDS: SACUBITRIL/VALSARTAN 24-26 MG TABLET 1 TAB PO ×2 (11:00→21:42)
[2025-02-07] MEDS: ATORVASTATIN 40 MG TABLET 80 MG PO (11:00)
[2025-02-07] MEDS: FIDAXOMICIN 200 MG TABLET PO ×2 (11:00→21:41)
[2025-02-07] MEDS: DABIGATRAN ETEXILATE 75 MG CAPSULE PO ×2 (11:01→21:41)
[2025-02-07] MEDS: PANTOPRAZOLE 40 MG TABLET PO (11:01)
[2025-02-07] MEDS: AMIODARONE HCL 200 MG TABLET PO ×2 (11:01→21:41)
--- NOTE | 2025-02-07 13:49 | P.PNIM_ITS ---
Assessment and Plan Assessment and Plan (1) Septic shock: Code(s): A41.9 - Sepsis, unspecified organism; R65.21 - Severe sepsis with septic shock Status: Resolved Assessment and Plan: 01/26: Patient presented with altered mental status, hypotension, feeling tired and more sleepy at the skilled nursing -normal lactic acid at 1.4 -in the ER patient was given 1 L IV fluid bolus since she has a history of CHF -right IJ central line was inserted and started on Levophed, has been since discontinued -Blood cultures have been obtained: NGTD -cefepime and vancomycin (01/26) 01/27: Urine cultures have been obtained: Klebsiella ESBL -will give additional fluid this morning has patient's mucosa membranes are significant and skin turgor is poor - will also give albumin for intravascular volume expansion - Bilateral lower extremity venous Dopplers were negative for DVT 01/28: CT Abdomen repeated: thickened endometrial complex, which may be secondary to endometrial hyperplasia, polyp, or carcinoma; Consider pelvic ultrasound; Worsened wall thickening of the distal ileum and right colon, consistent with edema versus enterocolitis; Small volume of ascites. Pelvic US ordered. Patient also having new onset diarrhea, concerning for C Diff given she has history of same. Testing has been ordered. HIREN positive for PAD of lower extremities. 01/29: C Difficile is positive. Oral vancomycin has been started. Patient is out of shock at this time, BP improving. ID on board and aware. 01/30: IV Vancomycin switched to Meropenem per ID given klebsiella UTI. BCx NGTD. 01/31-: Continuing antibiotics per ID recommendations. Stool remains liquid in rectal tube. 02/02: Vancomycin has been changed to fidaxomicin. ID made aware, will follow their recommendations. (2) Ischemic bowel disease: Code(s): K55.9 - Vascular disorder of intestine, unspecified Status: Ruled-out Assessment and Plan: Some concerns for ischemic bowel disease on CT scan -lactic acid is 1.4, repeat lactic acid was also 1.4 -appreciate surgery evaluation recommendations, poor surgical candidate -currently off Levophed, if patient's condition worsens, will obtain another noncontrast CT abdomen and pelvis per surgeon -CT Abdomen repeated: thickened endometrial complex, which may be secondary to endometrial hyperplasia, polyp, or carcinoma; Consider pelvic ultrasound; Worsened wall thickening of the distal ileum and right colon, consistent with edema versus enterocolitis; Small volume of ascites. -Surgery on board, CT reviewed, no further intervention at this time, not likely ischemic bowel, continue antibiotics and monitor -Can advance tube feeds, increased water intake from 30cc to 75cc qid. Limiting water administration as Na is 129 and want to prevent further worsening of hyponatremia. (3) C. difficile colitis: Code(s): A04.72 - Enterocolitis due to Clostridium difficile, not specified as recurrent Status: Acute Assessment and Plan: C Difficile + Enterocolitis on Ct likely secondary to this. ID is on board. Still remains liquid and rectal tube bag. -PO vancomycin 500mg q6h change to fidaxomicin. ID recommends changing back to p.o. vancomycin due to cost likely on discharge -Contact isolation precautions in place -per ID recommendations: po vanco 500 mg QID x 9 days; then change to po vanco 500 mg po TID x 1 week, then bid x 1 week, then daily x 1 week then QOD x 2 weeks then stop and monitor (4) Acute UTI: Code(s): N39.0 - Urinary tract infection, site not specified Status: Acute Assessment and Plan: UA reflective of UTI, continue antibiotics, cultures have been obtained UCx 01/27: Klebsiella ESBL -IV Vancomycin switched to Meropenem per ID. Last dose 02/03/2025. Can discontinue after, ID managing. -resolved (5) Altered mental status: Code(s): R41.82 - Altered mental status, unspecified Status: Acute Assessment and Plan: Altered mental status seems to have resolved, patient is more awake after volume resuscitation and antibiotics. Likely secondary to sepsis. -Continue monitoring mental status (6) Congestive heart failure: Code(s): I50.9 - Heart failure, unspecified Status: Acute Assessment and Plan: History of heart failure -patient does not know where she gets her treatment -no previous notes or echocardiogram in the chart at [facility] -echocardiogram: EF 55-60% -patient does take aspirin, Farxiga, furosemide, Entresto, Dabigatran at home which are all currently on hold. Hold farxiga during active ESBL UTI. -Amiodarone, atorvastatin and spironolactone resumed. -blood pressure appears to be holding, will resume Entresto -02/01: Increased oxygen requirement today holding steady on 2 L nasal cannula. IV Lasix 20 mg given -02/02: Remains on 2 L nasal cannula, comfortable. Entresto & Dabigatran have been restarted per cards recs, on discharge, pt will need to continue Lasix 40mg PO daily (7) Gastrointestinal tube in situ: Code(s): Z93.1 - Gastrostomy status Status: Acute Assessment and Plan: * Patient does have a PEG tube, according to the nurses the family states that she does take p.o. diet but the PEG tube is for supplementation * Will attempt bolus feeding tonight per Nutrition guidelines with tube feeding as needed * Modified barium swallow study ordered, recommend well as 6 soft/bite size solid foods with level 0 regularly thin liquids * Working with care coordination regarding management of tube feedings at home (8) Hypothyroidism: Code(s): E03.9 - Hypothyroidism, unspecified Status: Acute Assessment and Plan: Switch to oral levothyroxine via tube - home dose is 125mcg, was getting 62.5 m cg IV, will start with 100mcg oral and titrate up to home dose as tolerated Will need to repeat TFTs 6 weeks after discharge (9) Hypertension: Code(s): I10 - Essential (primary) hypertension Status: Acute Assessment and Plan: Spironolactone resumed. Rest of meds to be resumed as tolerated. Blood pressure has been well managed (10) DM2 (diabetes mellitus, type 2): Code(s): E11.9 - Type 2 diabetes mellitus without complications Status: Acute Assessment and Plan: Continue sliding scale insulin and Accu-Chek Pt on Glargine 25 units HS at home, continue to trend fasting POC BS Glucose is well managed (11) Atrial fibrillation: Code(s): I48.91 - Unspecified atrial fibrillation Status: Acute Assessment and Plan: History of atrial fibrillation on dabigatran 75 mg b.i.d. and amiodarone, these meds have been resumed -appreciate cardiology recommendation, will resume dabigatran and continue amiodarone at this time (12) Ventricular ectopy: Code(s): I49.3 - Ventricular premature depolarization Status: Acute Assessment and Plan: Runs of V-tach noted on monitor. Cardiology was consulted in regards to this and pacemaker management. Pacemaker been interrogated, found to be functioning normally. No further intervention was recommended by Cardiology at this time. She can follow up on discharge. Appreciate cardiology recommendations. Plan ID on board for sepsis/C Difficile management. Spoke with patient's daughter 02/02, had extensive conversation regards to hospital course, active treatment and management, as well as goals of care. She was also updated on the recent events including ventricular ectopy and hypoxia requiring oxygen by nasal cannula. Patient's daughter insists on taking her home on discharge. She is aware of patient's complex medical history however due to prior problems with nursing facilities, she insists on patient going home with her. She does agree on setting up home hospice on discharge however at this time will be actively full code. Advised to discuss with care coordination. Can consider discharge planning Wednesday as patient has completed antibiotics but still has rectal tube. If discharging, as above, discharged on p.o. vancomycin instead of fidaxomicin per ID recommendations. -->Per CC, pending [employer] tube feed [place] communication. Will likely D/C with O2. Patient will be going home under the care of her daughter DVT prophylaxis: Dabigatran Stress ulcer prophylaxis: Protonix Nutrition: Tube feeds Subjective Date/time seen: 02/07/25 13:49 Interval history: Patient sitting comfortably in bed at time of examination. In progress of setting up supplemental tube feedings at. Modified barium swallow study performed today which showed no risk of aspiration, speech therapist recommends level 6 soft and bite size solid foods with level 0 regularly thin liquids. Work with care coordination regarding setting of management up to feedings at home. Likely discharge tomorrow. Infectious Disease has given their taper recommendations for oral antibiotics regarding C diff infection. Patient otherwise hemodynamically stable. Review of Systems Review of Systems: All systems reviewed & are unremarkable except as noted in HPI and below ROS unobtainable: Yes unobtainable due to medical condition and unobtainable due to mental status Exam Narrative: General: Awake, alert, no acute distress. rectal tube placed. Appears more comfortable today HEENT:? Pupils equal and reactive, sclera is clear, dry oral mucosa Neck:? Supple Respiratory:? Decreased air entry at bases, otherwise clear to auscultation bilaterally Cardiac:? Irregularly irregular rhythm, rate controlled Abdomen:? Soft, diffuse mild tenderness, no guarding rigidity, bowel sounds+, obese, nondistended Extremities:? Bilateral upper and lower extremity edema, R hand 3+, BLE 2+, Palpable pedal pulse Neuro:? Patient is awake, alert, A&O x3, unaware of who the president is, has history of dementia, follows simple commands in all extremities, able to answer questions Skin:? Multiple bruising noted on bilateral upper and lower extremities, multiple chronic pressure lesions all over body Psych:? Depressed affect Const: General: cooperative, no acute distress, well developed, awake and Physically active Orientation/consciousness: oriented to person HENMT: Head: normal to inspection, No palpable skull fracture present and normocephalic Eyes: General: appearance normal, both eyes and all related structures Alignment and Position: alignment normal Eyelids: eyelids normal Pupils: Equal, round and reactive pupils present Neck: Neck: normal visual inspection, full ROM and no lymphadenopathy Other: Central line to right neck intact. Chest: Chest palpation & inspection: normal inspection of the chest Resp: Effort & Inspection: normal respiratory effort Cardio: Palpation: normal PMI Rate: tachycardic GI: Inspection: normal to inspection Auscultation: normal bowel sounds Rectal Exam: deferred Other: G-tube intact to left upper abdomen Urinary Catheter: Urinary Catheter: urine clear Skin: General skin exam: normal color Hair: brittle Other: The patient has multiple bruising all over her body. She has a bruise to her left chin and multiple bruising to her chest. She has several abraded areas of both arms. She has bruises to her abdomen. She has several abraded areas to her lower extremities and the toes on her right foot. Pressure ulcer noted to her sacrum. Please see wound pictures Neuro: General: oriented to person Cranial nerves: Yes Equal, round and reactive pupils present Extrem: General: normal to inspection Right upper extremity: normal to inspection and shoulder/upper arm Left upper extremity: normal to inspection and shoulder/upper arm Right lower extremity: normal to inspection Left lower extremity: normal to inspection Psych: Appearance: grossly normal Mental Status: mental status grossly normal Speech and movement: Normal speech and movement present Objective Data Vital Signs Vital Signs: Vital Signs - 24 hr 02/06/25 14:00 02/06/25 16:00 02/06/25 20:00 Temperature 97.4 F L Pulse Rate 87 85 Respiratory Rate 14 Blood Pressure 144/75 H Pulse Oximetry 93 92 Oxygen Delivery Nasal Cannula Oxygen Flow Rate 4 Fraction of Inspired Oxygen 02/06/25 20:00 02/06/25 22:00 02/07/25 00:00 Temperature 97.5 F L Pulse Rate 86 74 91 Respiratory Rate 20 Blood Pressure 122/97 H Pulse Oximetry 98 Oxygen Delivery Oxygen Flow Rate Fraction of Inspired Oxygen 02/07/25 04:00 02/07/25 05:49 02/07/25 07:59 Temperature 97.7 F Pulse Rate 92 90 Respiratory Rate 16 Blood Pressure 102/48 L Pulse Oximetry 100 95 Oxygen Delivery Room Air Oxygen Flow Rate Fraction of Inspired Oxygen 21 02/07/25 08:00 02/07/25 10:15 02/07/25 11:01 Temperature Pulse Rate 100 102 H Respiratory Rate Blood Pressure Pulse Oximetry 95 Oxygen Delivery Nasal Cannula Oxygen Flow Rate 4 Fraction of Inspired Oxygen 02/07/25 12:00 02/07/25 13:35 Temperature Pulse Rate 100 Respiratory Rate Blood Pressure Pulse Oximetry 100 Oxygen Delivery Nasal Cannula Oxygen Flow Rate 4 Fraction of Inspired Oxygen Intake/Output Intake/Output: Intake & Output 02/04/25 02/05/25 02/06/25 02/07/25 23:59 23:59 23:59 23:59 Intake Total 870 2174 1916 0 Output Total 100 1000 Balance 770 1174 1916 0 Meds/Results Medications: Active Medications Generic Name Dose Route Start Last Admin Trade Name Freq PRN Reason Stop Dose Admin Acetaminophen 650 mg 01/28/25 20:45 01/29/25 12:02 Acetaminophen Elixir 325 Mg/10.15 Ml Udc FEED TUBE 650 mg Q6H PRN Administration Mild Pain (1-3) or Fever Hydrocodone Bitart/Acetaminophen 1 tab 02/01/25 22:35 02/07/25 11:00 Hydrocodone/Acetaminophen (*Crx) 10-325 Mg Tablet PO 1 tab Q6H PRN Administration Pain Rated 7-10 Amiodarone HCl 200 mg 01/29/25 10:00 02/07/25 11:01 Amiodarone Hcl 200 Mg Tablet PO 200 mg Q12HR [facility] Administration Atorvastatin Calcium 80 mg 01/31/25 09:00 02/07/25 11:00 Atorvastatin 40 Mg Tablet PO 80 mg DAILY [facility] Administration Dabigatran 75 mg 02/01/25 21:00 02/07/25 11:01 Dabigatran Etexilate 75 Mg Capsule PO 75 mg Q12HR [facility] Administration Fidaxomicin 200 mg 02/02/25 10:15 02/07/25 11:00 Fidaxomicin 200 Mg Tablet PO 02/12/25 10:14 200 mg Q12HR [facility] Administration Glucagon 1 mg 01/27/25 01:22 Glucagon For Inj 1 Mg Vial IM PRN PRN Hypoglycemia Protocol Insulin Aspart 3 - 6 units 01/27/25 12:00 02/07/25 12:10 Insulin Aspart (*Bkc) 100 Units/Ml SUB-Q Not Given Q6HR [facility] Protocol Ketorolac Tromethamine 1 drop 01/27/25 06:00 02/07/25 12:11 Ketorolac 0.5% Op Soln 5 Ml Bottle EACH EYE 1 drop Q6HR [facility] Administration Levothyroxine Sodium 100 mcg 01/30/25 06:30 02/07/25 05:47 Levothyroxine Sodium 100 Mcg Tablet PO 100 mcg DAILY@0630 [facility] Administration Lidocaine 1 patch 01/27/25 01:24 Lidocaine 5% Patch TOPICAL Q24H PRN Pain Pantoprazole Sodium 40 mg 02/01/25 09:00 02/07/25 11:01 Pantoprazole 40 Mg Tablet PO 40 mg QAM [facility] Administration Sacubitril/Valsartan 1 tab 02/01/25 21:00 02/07/25 11:00 Sacubitril/Valsartan 24-26 Mg Tablet PO 1 tab Q12HR [facility] Administration Sodium Chloride 10 ml 01/27/25 14:00 02/07/25 05:48 Central Line Flush IV PUSH 10 ml Q8HR [facility] Administration Sodium Chloride 10 ml 01/27/25 11:07 Central Line Flush IV PUSH PRN PRN with TPN bag changes Sodium Chloride 20 ml 01/27/25 11:07 Central Line Flush IV PUSH PRN PRN after blood draws Sodium Chloride 10 ml 01/27/25 14:00 02/07/25 05:48 Central Line Flush IV PUSH 10 ml Q8HR [facility] Administration Sodium Chloride 10 ml 01/27/25 11:11 Central Line Flush IV PUSH PRN PRN with TPN bag changes Sodium Chloride 20 ml 01/27/25 11:11 Central Line Flush IV PUSH PRN PRN after blood draws Spironolactone 12.5 mg 01/29/25 09:00 02/07/25 11:01 Spironolactone 12.5 Mg Tablet FEED TUBE 12.5 mg DAILY [facility] Administration Tramadol HCl 50 mg 01/29/25 17:28 02/06/25 10:49 Tramadol Hcl (*Crx) 50 Mg Tablet FEED TUBE 50 mg Q6H PRN Administration Pain Rated 4-6 Radiology Results: ITS Impressions Head CT 01/26/25 17:46 Impression: 1.No acute intracranial abnormality. Chest X-Ray 01/27/25 11:19 IMPRESSION: 1. Right PICC placed but tip not identified. 2. Right neck central line unchanged with catheter retrograde into left innominate vein. 3. No cardiopulmonary change. Ankle Brachial Index 01/28/25 13:02 IMPRESSION: 1. Normal right HIREN and decreased right TBI, consistent with right-sided arterial occlusive disease. 2. Borderline-decreased left HIREN and lack of detectable arterial flow in the left great toe, consistent with left-sided arterial occlusive disease. Chest/Abdomen/Pelvis CT 01/28/25 16:08 IMPRESSION: 1. Small pleural effusions. 2. New gallbladder distention, which may be secondary to fasting. Correlate with physical exam to exclude acute cholecystitis. 3. Thickened endometrial complex, which may be secondary to endometrial hyperplasia, polyp, or carcinoma. Consider pelvic ultrasound. 4. Worsened wall thickening of the distal ileum and right colon, consistent with edema versus enterocolitis. 5. Small volume of ascites. Venous Doppler Study 01/28/25 16:08 Impression: Negative for DVT. Pelvis Ultrasound 01/29/25 10:11 IMPRESSION: 1. Uterus and ovaries not visualized. Transvaginal imaging was not performed due to the patient's altered mental status. Modified Barium Swallow 02/07/25 10:51 IMPRESSION: No aspiration observed. See speech therapist's report for complete details. Labs Labs: Laboratory Results - last 24 hr 02/06/25 02/06/25 02/07/25 17:11 23:35 05:40 WBC RBC Hgb Hct MCV MCH MCHC RDW Plt Count MPV Immature Gran % (Auto) Neut % (Auto) Lymph % (Auto) Heard % (Auto) Eos % (Auto) Baso % (Auto) Lymph # (Auto) Heard # (Auto) Eos # (Auto) Baso # (Auto) Abs Immat Gran (auto) Absolute Neuts (auto) Absolute Nucleated RBC Nucleated RBC % Sodium Potassium Chloride Carbon Dioxide Anion Gap BUN Creatinine Estim Creat Clear Calc Estimated GFR Glucose POC Capillary Glucose 125 H 145 H 107 H Calcium Total Bilirubin AST ALT Alkaline Phosphatase Total Protein Albumin 02/07/25 02/07/25 05:49 12:00 WBC 16.5 H RBC 3.10 L Hgb 8.5 L Hct 28.1 L MCV 90.6 MCH 27.4 MCHC 30.2 L RDW 17.9 H Plt Count 342 MPV 9.2 Immature Gran % (Auto) 0.7 H Neut % (Auto) 85.1 H Lymph % (Auto) 9.5 L Heard % (Auto) 3.6 Eos % (Auto) 0.7 Baso % (Auto) 0.4 Lymph # (Auto) 1.56 Heard # (Auto) 0.6 Eos # (Auto) 0.1 Baso # (Auto) 0.1 Abs Immat Gran (auto) 0.12 H Absolute Neuts (auto) 14.0 H Absolute Nucleated RBC 0.000 Nucleated RBC % 0.0 Sodium 129 L Potassium 4.4 Chloride 102 Carbon Dioxide 24 Anion Gap 3 L BUN 31 H Creatinine 0.50 L Estim Creat Clear Calc Not Reportable Estimated GFR > 60 Glucose 113 H POC Capillary Glucose 136 H Calcium 9.1 Total Bilirubin 0.3 AST 38 H ALT 23 Alkaline Phosphatase 94 Total Protein 6.0 L Albumin 3.0 L Quality VTE Prophylaxis VTE prophylaxis: pharmacologic ordered
[2025-02-08] VITALS (7 sets, daily range): BP systolic 109–114; BP diastolic 64–78; PULSE 87–117; RESP 17–20; TEMP 36.2–36.4; O2SAT 100
[2025-02-08] MEDS: HYDROcodone/acetaminophen (*CRX) 10-325 MG TABLET 1 TAB PO ×2 (00:20→09:48)
[2025-02-08] MEDS: traMADol HCL (*CRX) 50 MG TABLET FEED TUBE (02:42)
[2025-02-08] MEDS: LEVOTHYROXINE SODIUM 100 MCG TABLET PO (05:49)
[2025-02-08] MEDS: KETOROLAC 0.5% OP SOLN 5 ML BOTTLE 1 DROP EACH EYE ×3 (05:50→12:09)
[2025-02-08] MEDS: CENTRAL LINE FLUSH 10 ML IV PUSH ×4 (05:50→15:17)
[2025-02-08 06:01] LABS: Hematocrit 26.3 % (37.0-47.0); Hemoglobin 8.1 g/dL (12.0-15.0); Immature Granulocyte Percent A 0.6 % (0-0.5); Lymphocytes Absolute Auto 1.82 K/mm3 (0.9-3.2); Mean Corpuscular HGB Conc 30.8 g/dl (32-36); Mean Corpuscular Hemoglobin 27.7 pg (26-34); Mean Corpuscular Volume 90.1 fl (80-100); Nucleated Red Blood Cells Absolute Auto 0.000 K/mm3 (0.0-0.012); Nucleated Red Blood Cells Perc 0.0 % (0.0-0.2); Platelet Count Result 352 k/mm3 (150-375); Red Blood Count 2.92 M/mm3 (4.2-5.4); White Blood Count 15.4 K/mm3 (4.5-10.0)
[2025-02-08 06:22] LABS: Alanine Aminotransferase 23 U/L (6-35); Albumin Level 2.9 g/dL (3.5-5.1); Alkaline Phosphatase 89 U/L (38-126); Anion Gap 4 mmol/L (4-12); Aspartate Amino Transferase 32 U/L (14-36); Bilirubin,Total 0.3 mg/dL (0.2-1.3); Blood Urea Nitrogen 33 mg/dL (7-17); Calcium 9.0 mg/dL (8.4-10.2); Carbon Dioxide 24 mmol/L (22-30); Chloride 101 mmol/L (98-107); Estimated Glomerular Filt Rate > 60; Glucose 117 mg/dL (65-110); Potassium 4.4 mmol/L (3.4-5.0); Sodium 129 mmol/L (137-145); Total Protein 5.7 g/dL (6.3-8.2)
[2025-02-08] MEDS: DABIGATRAN ETEXILATE 75 MG CAPSULE PO (09:48)
[2025-02-08] MEDS: PANTOPRAZOLE 40 MG TABLET PO (09:48)
[2025-02-08] MEDS: SACUBITRIL/VALSARTAN 24-26 MG TABLET 1 TAB PO (09:48)
[2025-02-08] MEDS: ATORVASTATIN 40 MG TABLET 80 MG PO (09:49)
[2025-02-08] MEDS: AMIODARONE HCL 200 MG TABLET PO (09:49)
[2025-02-08] MEDS: FIDAXOMICIN 200 MG TABLET PO (09:52)
--- NOTE | 2025-02-08 10:15 | WPDINFPN2 ---
Progress Note: A&P Assessment and Plan (1) C. difficile colitis: Code(s): A04.72 - Enterocolitis due to Clostridium difficile, not specified as recurrent Status: Acute Assessment and Plan: ASSESSMENT: 1. Klebsiella ESBL UTI--treated 2. C. diff colitis 3. possible ischemic bowel 4. 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 HTN, hypothyroid, CKD, DM, CAD, RA, stroke, dementia, s/p PEG RECOMMENATIONS: -f/u on blood cxs-->neg and final -dificid day 7 -ok to discharge on po vanco 500 mg QID x 7 days; then change to po vanco 500 mg po TID x 1 week, then bid x 1 week, then daily x 1 week then QOD x 2 weeks then stop and monitor -consider FMT as outpatient?? -once C. diff resolved, if patient requires abx in the future, would place on po vanco 125 mg bid prophylactically while on abx to prevent C. diff recurrence d/w pharmacy staff Pt was seen via video telehealth consultation with the assistance of staff. Chart, data and patient info reviewed. Patient was [facility] while I was in my [place] office. Pt gave consent. Subjective Date/time seen: 02/08/25 10:15 Interval history: no fever Exam Narrative: NAD, non-toxic pale Objective Data Vital Signs Vital Signs: Vital Signs - 24 hr 02/07/25 11:01 02/07/25 12:00 02/07/25 13:35 Temperature Pulse Rate 102 H 100 Respiratory Rate Blood Pressure Pulse Oximetry 100 Oxygen Delivery Nasal Cannula Oxygen Flow Rate 4 02/07/25 13:52 02/07/25 14:00 02/07/25 14:04 Temperature 97.6 F Pulse Rate 70 Respiratory Rate 16 Blood Pressure 111/84 Pulse Oximetry 100 92 Oxygen Delivery Room Air Room Air Oxygen Flow Rate 02/07/25 16:00 02/07/25 20:00 02/07/25 20:00 Temperature Pulse Rate 118 H 91 Respiratory Rate Blood Pressure Pulse Oximetry Oxygen Delivery Room Air Oxygen Flow Rate 02/07/25 20:38 02/07/25 21:41 02/08/25 00:00 Temperature 97.8 F Pulse Rate 96 82 117 H Respiratory Rate 20 Blood Pressure 100/53 L Pulse Oximetry 100 Oxygen Delivery Oxygen Flow Rate 02/08/25 04:00 02/08/25 05:45 02/08/25 09:49 Temperature 97.5 F L Pulse Rate 107 H 87 89 Respiratory Rate 17 Blood Pressure 114/64 Pulse Oximetry 100 Oxygen Delivery Oxygen Flow Rate Intake/Output Intake/Output: Intake & Output 02/05/25 02/06/25 02/07/25 02/08/25 23:59 23:59 23:59 23:59 Intake Total 2174 1916 1450 450 Output Total 1000 Balance 1174 1916 1450 450 Meds/Results Medications: Active Medications Generic Name Dose Route Start Last Admin Trade Name Freq PRN Reason Stop Dose Admin Acetaminophen 650 mg 01/28/25 20:45 01/29/25 12:02 Acetaminophen Elixir 325 Mg/10.15 Ml Udc FEED TUBE 650 mg Q6H PRN Administration Mild Pain (1-3) or Fever Hydrocodone Bitart/Acetaminophen 1 tab 02/01/25 22:35 02/08/25 09:48 Hydrocodone/Acetaminophen (*Crx) 10-325 Mg Tablet PO 1 tab Q6H PRN Administration Pain Rated 7-10 Amiodarone HCl 200 mg 01/29/25 10:00 02/08/25 09:49 Amiodarone Hcl 200 Mg Tablet PO 200 mg Q12HR MERCEDES Administration Atorvastatin Calcium 80 mg 01/31/25 09:00 02/08/25 09:49 Atorvastatin 40 Mg Tablet PO 80 mg DAILY MERCEDES Administration Dabigatran 75 mg 02/01/25 21:00 02/08/25 09:48 Dabigatran Etexilate 75 Mg Capsule PO 75 mg Q12HR MERCEDES Administration Fidaxomicin 200 mg 02/02/25 10:15 02/08/25 09:52 Fidaxomicin 200 Mg Tablet PO 02/12/25 10:14 200 mg Q12HR MERCEDES Administration Glucagon 1 mg 01/27/25 01:22 Glucagon For Inj 1 Mg Vial IM PRN PRN Hypoglycemia Protocol Insulin Aspart 3 - 6 units 01/27/25 12:00 02/08/25 05:50 Insulin Aspart (*Bkc) 100 Units/Ml SUB-Q Not Given Q6HR MERCEDES Protocol Ketorolac Tromethamine 1 drop 01/27/25 06:00 02/08/25 05:50 Ketorolac 0.5% Op Soln 5 Ml Bottle EACH EYE 1 drop Q6HR MERCEDES Administration Levothyroxine Sodium 100 mcg 01/30/25 06:30 02/08/25 05:49 Levothyroxine Sodium 100 Mcg Tablet PO 100 mcg DAILY@0630 MERCEDES Administration Lidocaine 1 patch 01/27/25 01:24 Lidocaine 5% Patch TOPICAL Q24H PRN Pain Pantoprazole Sodium 40 mg 02/01/25 09:00 02/08/25 09:48 Pantoprazole 40 Mg Tablet PO 40 mg QAM MERCEDES Administration Sacubitril/Valsartan 1 tab 02/01/25 21:00 02/08/25 09:48 Sacubitril/Valsartan 24-26 Mg Tablet PO 1 tab Q12HR MERCEDES Administration Sodium Chloride 10 ml 01/27/25 14:00 02/08/25 05:50 Central Line Flush IV PUSH 10 ml Q8HR MERCEDES Administration Sodium Chloride 10 ml 01/27/25 11:07 Central Line Flush IV PUSH PRN PRN with TPN bag changes Sodium Chloride 20 ml 01/27/25 11:07 Central Line Flush IV PUSH PRN PRN after blood draws Sodium Chloride 10 ml 01/27/25 14:00 02/08/25 05:51 Central Line Flush IV PUSH 10 ml Q8HR MERCEDES Administration Sodium Chloride 10 ml 01/27/25 11:11 Central Line Flush IV PUSH PRN PRN with TPN bag changes Sodium Chloride 20 ml 01/27/25 11:11 Central Line Flush IV PUSH PRN PRN after blood draws Spironolactone 12.5 mg 01/29/25 09:00 02/08/25 09:53 Spironolactone 12.5 Mg Tablet FEED TUBE 12.5 mg DAILY MERCEDES Administration Tramadol HCl 50 mg 01/29/25 17:28 02/08/25 02:42 Tramadol Hcl (*Crx) 50 Mg Tablet FEED TUBE 50 mg Q6H PRN Administration Pain Rated 4-6 Radiology Results: ITS Impressions Head CT 01/26/25 17:46 Impression: 1.No acute intracranial abnormality. Chest X-Ray 01/27/25 11:19 IMPRESSION: 1. Right PICC placed but tip not identified. 2. Right neck central line unchanged with catheter retrograde into left innominate vein. 3. No cardiopulmonary change. Ankle Brachial Index 01/28/25 13:02 IMPRESSION: 1. Normal right HIREN and decreased right TBI, consistent with right-sided arterial occlusive disease. 2. Borderline-decreased left HIREN and lack of detectable arterial flow in the left great toe, consistent with left-sided arterial occlusive disease. Chest/Abdomen/Pelvis CT 01/28/25 16:08 IMPRESSION: 1. Small pleural effusions. 2. New gallbladder distention, which may be secondary to fasting. Correlate with physical exam to exclude acute cholecystitis. 3. Thickened endometrial complex, which may be secondary to endometrial hyperplasia, polyp, or carcinoma. Consider pelvic ultrasound. 4. Worsened wall thickening of the distal ileum and right colon, consistent with edema versus enterocolitis. 5. Small volume of ascites. Venous Doppler Study 01/28/25 16:08 Impression: Negative for DVT. Pelvis Ultrasound 01/29/25 10:11 IMPRESSION: 1. Uterus and ovaries not visualized. Transvaginal imaging was not performed due to the patient's altered mental status. Modified Barium Swallow 02/07/25 10:51 IMPRESSION: No aspiration observed. See speech therapist's report for complete details. Labs Labs: Laboratory Results - last 24 hr 02/07/25 02/07/25 02/07/25 12:00 18:07 23:21 WBC RBC Hgb Hct MCV MCH MCHC RDW Plt Count MPV Immature Gran % (Auto) Neut % (Auto) Lymph % (Auto) Boundary % (Auto) Eos % (Auto) Baso % (Auto) Lymph # (Auto) Bound[place] # (Auto) Eos # (Auto) Baso # (Auto) Abs Immat Gran (auto) Absolute Neuts (auto) Absolute Nucleated RBC Nucleated RBC % Sodium Potassium Chloride Carbon Dioxide Anion Gap BUN Creatinine Estim Creat Clear Calc Estimated GFR Glucose POC Capillary Glucose 136 H 154 H 151 H Calcium Total Bilirubin AST ALT Alkaline Phosphatase Total Protein Albumin 02/08/25 02/08/25 05:33 05:47 WBC 15.4 H RBC 2.92 L Hgb 8.1 L Hct 26.3 L MCV 90.1 MCH 27.7 MCHC 30.8 L RDW 17.9 H Plt Count 352 MPV 9.1 Immature Gran % (Auto) 0.6 H Neut % (Auto) 82.5 H Lymph % (Auto) 11.8 L Bound[place] % (Auto) 4.2 Eos % (Auto) 0.6 Baso % (Auto) 0.3 Lymph # (Auto) 1.82 Boundary # (Auto) 0.7 H Eos # (Auto) 0.1 Baso # (Auto) 0.0 Abs Immat Gran (auto) 0.09 H Absolute Neuts (auto) 12.7 H Absolute Nucleated RBC 0.000 Nucleated RBC % 0.0 Sodium 129 L Potassium 4.4 Chloride 101 Carbon Dioxide 24 Anion Gap 4 BUN 33 H Creatinine 0.52 L Estim Creat Clear Calc Not Reportable Estimated GFR > 60 Glucose 117 H POC Capillary Glucose 140 H Calcium 9.0 Total Bilirubin 0.3 AST 32 ALT 23 Alkaline Phosphatase 89 Total Protein 5.7 L Albumin 2.9 L
[2025-02-08] MEDS: NEOMYCIN/POLYMYXIN/BACITRACIN OINTMENT PACKET 1 PACKET (15:17)
--- NOTE | 2025-02-08 15:22 | PM.DS ---
DS: Admitting Diagnosis Discharge Date 02/08/2025 Admitting Diagnosis Septic shock DS: Discharge Diagnosis Discharge Diagnosis (1) Septic shock: Code(s): A41.9 - Sepsis, unspecified organism; R65.21 - Severe sepsis with septic shock Status: Resolved (2) Ischemic bowel disease: Code(s): K55.9 - Vascular disorder of intestine, unspecified Status: Ruled-out (3) C. difficile colitis: Code(s): A04.72 - Enterocolitis due to Clostridium difficile, not specified as recurrent Status: Acute (4) Acute UTI: Code(s): N39.0 - Urinary tract infection, site not specified Status: Acute (5) Altered mental status: Code(s): R41.82 - Altered mental status, unspecified Status: Acute (6) Congestive heart failure: Code(s): I50.9 - Heart failure, unspecified Status: Acute (7) Gastrointestinal tube in situ: Code(s): Z93.1 - Gastrostomy status Status: Acute (8) Hypothyroidism: Code(s): E03.9 - Hypothyroidism, unspecified Status: Acute (9) Hypertension: Code(s): I10 - Essential (primary) hypertension Status: Acute (10) DM2 (diabetes mellitus, type 2): Code(s): E11.9 - Type 2 diabetes mellitus without complications Status: Acute (11) Atrial fibrillation: Code(s): I48.91 - Unspecified atrial fibrillation Status: Acute (12) Ventricular ectopy: Code(s): I49.3 - Ventricular premature depolarization Status: Acute Assessment and Plan: Runs of V-tach noted on monitor. Cardiology was consulted in regards to this and pacemaker management. Pacemaker been interrogated, found to be functioning normally. No further intervention was recommended by Cardiology at this time. She can follow up on discharge. Appreciate cardiology recommendations. 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 She was admitted from a rehab facility with altered mental status, hypotension, and abdominal pain. Initial evaluation revealed septic shock with multi-organ involvement, including acute kidney injury, hyponatremia, leukocytosis, and lactic acid within normal limits. Imaging raised concern for ischemic bowel (portal venous gas), and she was also found to have pneumonia, a UTI (Klebsiella ESBL), and multiple chronic wounds including a sacral ulcer. She was managed in the ICU with vasopressors, broad-spectrum antibiotics (initially vancomycin and Zosyn, later escalated to meropenem per ID for ESBL UTI), and careful fluid resuscitation given her heart failure. Blood and urine cultures were obtained; blood cultures remained negative, while urine grew ESBL Klebsiella. She developed new-onset diarrhea and was diagnosed with C. difficile colitis, confirmed by PCR, and was treated with oral vancomycin, later transitioned to fidaxomicin per ID recommendations. Her mental status improved with treatment of sepsis and volume resuscitation. Serial abdominal imaging showed resolution of portal venous gas, but persistent colonic wall thickening consistent with enterocolitis rather than ischemic bowel; lactic acid remained normal and surgery deemed her a poor operative candidate. Cardiology was consulted for management of her heart failure and atrial fibrillation; amiodarone, dabigatran, spironolactone, and sacubitril/valsartan were resumed as tolerated. She required intermittent supplemental oxygen for mild hypoxia, likely multifactorial from CHF and infection, but remained hemodynamically stable off vasopressors. Her hospital course was further complicated by persistent anemia (Hgb 7.8?8.5), hypoalbuminemia, and ongoing nutritional challenges. A modified barium swallow showed no aspiration, and speech therapy recommended a soft diet with thin liquids; tube feeds were continued for poor oral intake. Wound care was involved for management of multiple pressure injuries. She remained on contact precautions for C. difficile and MRSA colonization. By discharge planning, her sepsis had resolved, mental status was at baseline, and she was stable on oral medications and tube feeds. She was transitioned to a prolonged oral vancomycin taper for C. difficile per ID, with recommendations for prophylactic vancomycin during future antibiotic courses. Her daughter, who is her durable power of deputy commonwealth's attorney, requested discharge home with supplemental oxygen, and tube feeding arrangements. Originally the patient had a PEG tube placed for supplemental food intake, however this point the patient is able to intake solid food without difficulty. MBS was ordered and read patient had low risk aspiration, recommend level 6 food diet and regularly thin liquids. Will continue the PEG tube for supplemental foods if patient does not complete over 50% of her meals. The patient was discharged in stable condition with close outpatient follow-up recommended for her multiple comorbidities. Status at Discharge Overall status at discharge: patient is progressing back to baseline Time Spent with Patient Time attestation: Total time spent providing and/or coordinating discharge services: 37 Exam Narrative: General: Awake, alert, no acute distress. Appears more comfortable today HEENT:? Pupils equal and reactive, sclera is clear, dry oral mucosa Neck:? Supple Respiratory:? Clear to auscultation bilaterally Cardiac:? Irregularly irregular rhythm, rate controlled Abdomen:? Soft, diffuse mild tenderness, no guarding rigidity, bowel sounds+, obese, nondistended Extremities:? Bilateral lower extremity edema, BLE 2+, Palpable pedal pulse Neuro:? Patient is awake, alert, A&O x3, unaware of who the president is, has history of dementia, follows simple commands in all extremities, able to answer questions Skin:? Multiple bruising noted on bilateral upper and lower extremities, multiple chronic pressure lesions all over body Psych:? Depressed affect Const: General: cooperative, no acute distress, well developed, awake and Physically active Orientation/consciousness: oriented to person HENMT: Head: normal to inspection, No palpable skull fracture present and normocephalic Eyes: General: appearance normal, both eyes and all related structures Alignment and Position: alignment normal Eyelids: eyelids normal Pupils: Equal, round and reactive pupils present Neck: Neck: normal visual inspection, full ROM and no lymphadenopathy Chest: Chest palpation & inspection: normal inspection of the chest Resp: Effort & Inspection: normal respiratory effort Cardio: Palpation: normal PMI Rate: tachycardic GI: Inspection: normal to inspection Auscultation: normal bowel sounds Rectal Exam: deferred Other: G-tube intact to left upper abdomen Urinary Catheter: Urinary Catheter: urine clear Skin: General skin exam: normal color Hair: brittle Other: The patient has multiple bruising all over her body. She has a bruise to her left chin and multiple bruising to her chest. She has several abraded areas of both arms. She has bruises to her abdomen. She has several abraded areas to her lower extremities and the toes on her right foot. Pressure ulcer noted to her sacrum. Please see wound pictures Neuro: General: oriented to person Cranial nerves: Yes Equal, round and reactive pupils present Extrem: General: normal to inspection Right upper extremity: normal to inspection and shoulder/upper arm Left upper extremity: normal to inspection and shoulder/upper arm Right lower extremity: normal to inspection Left lower extremity: normal to inspection Psych: Appearance: grossly normal Mental Status: mental status grossly normal Speech and movement: Normal speech and movement present DS: Data Data Completed and Pending Labs on day of discharge: Labs from last 24 hours 02/08/25 02/08/25 02/08/25 12:02 05:47 05:33 WBC 15.4 H RBC 2.92 L Hgb 8.1 L Hct 26.3 L MCV 90.1 MCH 27.7 MCHC 30.8 L RDW 17.9 H Plt Count 352 MPV 9.1 Immature Gran % (Auto) 0.6 H Neut % (Auto) 82.5 H Lymph % (Auto) 11.8 L [place] % (Auto) 4.2 Eos % (Auto) 0.6 Baso % (Auto) 0.3 Lymph # (Auto) 1.82 [place] # (Auto) 0.7 H Eos # (Auto) 0.1 Baso # (Auto) 0.0 Abs Immat Gran (auto) 0.09 H Absolute Neuts (auto) 12.7 H Absolute Nucleated RBC 0.000 Nucleated RBC % 0.0 Sodium 129 L Potassium 4.4 Chloride 101 Carbon Dioxide 24 Anion Gap 4 BUN 33 H Creatinine 0.52 L Estim Creat Clear Calc Not Reportable Estimated GFR > 60 Glucose 117 H POC Capillary Glucose 159 H 140 H Calcium 9.0 Total Bilirubin 0.3 AST 32 ALT 23 Alkaline Phosphatase 89 Total Protein 5.7 L Albumin 2.9 L 02/07/25 02/07/25 23:21 18:07 WBC RBC Hgb Hct MCV MCH MCHC RDW Plt Count MPV Immature Gran % (Auto) Neut % (Auto) Lymph % (Auto) [place] % (Auto) Eos % (Auto) Baso % (Auto) Lymph # (Auto) [place] # (Auto) Eos # (Auto) Baso # (Auto) Abs Immat Gran (auto) Absolute Neuts (auto) Absolute Nucleated RBC Nucleated RBC % Sodium Potassium Chloride Carbon Dioxide Anion Gap BUN Creatinine Estim Creat Clear Calc Estimated GFR Glucose POC Capillary Glucose 151 H 154 H Calcium Total Bilirubin AST ALT Alkaline Phosphatase Total Protein Albumin Discharge Plan Discharge Attending physician on discharge: Serge Conner Consulting providers: Dexter Juares; Tee Knapp; Evelyn Morales; Dayana Martin; Juan A Nelson Discharging Clinician: Juan A Nelson Anticipated Discharge Date/Time: 02/08/25 15:01 Patient Disposition: Home with Home Health Service Activity: as tolerated Diet: regular and tube feeding Discharge Instructions: Care Coordination: Patient to have [facility] for PT/OT eval and treat, and custodial. Their phone number is [phone], if you have any questions; they will contact you to schedule their visits. RN Please fax discharge instructions to [phone]. Discharge disposition: home with home health therapy Take medications as prescribed. You will be prescribed Oral vancomycin to be taken for 6 weeks. The first week you will take oral vancomycin 500mg to be taken 4 times daily (from 02/09 - 02/15). Then you will switch to 500mg three times daily for the week after (from 02/16-02/22). Then switch to twice a day for a week (from 02/23 - 03/01/2025). Then you will take it once daily for a week (from 03/02/2025 - 03/08/2025). Then take the 500mg tablets every other day (from 03/09/2025 through 03/22/2025). Monitor blood pressures Take caution while standing, rising, or moving Change positions slowly taking a break between each position change If you standing feel dizzy sit back down and take a break Encouraged to continue with yearly vaccinations Return to the emergency department if you develop sudden shortness of breath, chest pain, nausea, vomiting, upset stomach or intractable diarrhea Return to the emergency department if you develop fever greater than 101.5 Follow-up with the primary care physician within 1-2 weeks Thank you for choosing [facility] for your healthcare needs Patient Instructions: Antibiotic Form, Dabigatran (By mouth), Pneumonia (GEN), Removal of a Central Line, PICC, or Midline Catheter (GEN), PICC (Peripherally Inserted Central Catheter) (GEN) Patient Language: Swedish Stand Alone Forms: General Discharge Information Follow-up/Referrals: Marquis Ramirez [Other] Discharge Medications: New vancomycin 250 mg capsule 500 mg PO DAILY 7 Days Qty: 14 0RF Rx Instructions: START ON 03/02/24 UNTIL COMPLETION ON 03/08/2024 vancomycin 250 mg capsule 500 mg PO EVERY OTHER DAY 14 Days Qty: 14 0RF Rx Instructions: START ON 03/09/25 UNTIL COMPLETION ON 03/22/2025 vancomycin 250 mg capsule 500 mg PO Q6H 7 Days Qty: 56 0RF vancomycin 250 mg capsule 500 mg PO TID 7 Days Qty: 42 0RF Rx Instructions: START ON 02/16/25 UNTIL COMPLETION ON 02/22/2025 vancomycin 250 mg capsule 500 mg PO BID 7 Days Qty: 28 0RF Rx Instructions: START ON 02/23/25 UNTIL COMPLETION ON 03/01/2024 Continued buspirone 10 mg tablet 5 mg feeding tube TID levofloxacin 500 mg tablet 500 mg feeding tube DAILY Saccharomyces boulardii [Daily Probiotic (S. boulardii)] 250 mg capsule 250 mg PO DAILY Rx Instructions: take for 7 days - end 02/01/2025 sertraline 50 mg tablet 50 mg feeding tube DAILY Boris 7-7-1.5 gram powder in packet 1 ea PO BID Rx Instructions: administer via G-Tube spironolactone 25 mg/5 mL suspension 10 mg feeding tube DAILY Rx Instructions: administer 2.5ml Daily ergocalciferol (vitamin D2) 1,250 mcg (50,000 unit) capsule 50,000 unit feeding tube DAILY gabapentin 100 mg capsule 100 mg feeding tube BID furosemide 40 mg tablet 40 mg PO BID fenofibrate nanocrystallized 48 mg tablet 48 mg PO DAILY dapagliflozin propanediol [Farxiga] 10 mg tablet 10 mg feeding tube DAILY sacubitril-valsartan [Entresto] 97-103 mg tablet 1 tablet PO BID donepezil [Aricept] 5 mg tablet 5 mg PO BID dabigatran etexilate 75 mg capsule 75 mg PO BID Rx Instructions: administer via G-Tube amiodarone 200 mg tablet 200 mg feeding tube BID banana [id number] 5 gram-45 kcal/60 mL liquid in packet 1 ml feeding tube BID Rx Instructions: administer one packet bid docusate sodium [Colace] 100 mg capsule 100 mg PO BID aspirin 81 mg tablet,delayed release (DR/EC) 81 mg feeding tube DAILY omeprazole 20 mg capsule,delayed release(DR/EC) 20 mg PO DAILY levothyroxine 125 mcg tablet 125 mcg feeding tube DAILY famotidine 20 mg tablet 20 mg PO DAILY A and D Diaper Rash Cream 1-10 % cream 1 applic topical QSHIFT PRN (Reason: incontinence) Rx Instructions: apply to vaginal and buttocks area topically every shift after each incontinent episode tramadol 50 mg tablet 50 mg feeding tube Q6H PRN (Reason: pain) nystatin 100,000 unit/gram powder 1 applic TOPICAL BID Rx Instructions: apply to [place] area topically two times a day for fungal infection mirtazapine 7.5 mg tablet 7.5 mg PO HS melatonin 3 mg capsule 6 mg PO HS atorvastatin 80 mg tablet 80 mg PO QPM insulin glargine [Lantus Solostar U-100 Insulin] 100 unit/mL (3 mL) insulin pen 25 unit subcut QPM montelukast 10 mg tablet 10 mg feeding tube QPM Premarin 0.625 mg/gram cream 0.3125 mg vaginal DAILY Rx Instructions: off 1 week; repeat cycle ketorolac [Acular] 0.5 % drops 1 drp EACH EYE Q6H acetaminophen 325 mg capsule 650 mg PO Q8H PRN (Reason: pain) miconazole nitrate [Antifungal (miconazole)] 2 % cream 1 applic topical .hourly PRN (Reason: fungal infection) magnesium hydroxide [Milk of Magnesia] 400 mg/5 mL suspension 400 mg PO DAILY PRN (Reason: constipation) Rx Instructions: give 30ml by mouth every 24 hours as needed for constipation at bedtime if no BM in 3 days bisacodyl 10 mg suppository 10 mg RECTAL DAILY PRN (Reason: constipation) Rx Instructions: insert 1 suppository rectally every 24 hours as needed for constipation if no results for MOM diclofenac sodium 1 % gel 2 g TOPICAL Q6H PRN (Reason: pain) Rx Instructions: APPLY TO AREAS OF PAIN TOPICALLY EVERY 6 HOURS NEEDED FOR PAIN naloxone [Narcan] 4 mg/actuation spray,non-aerosol 1 spray intranasal ONCE PRN (Reason: opioid overdose) lidocaine [Lidoderm] 5 % adhesive patch,medicated 1 patch topical Q24H PRN (Reason: pain) Rx Instructions: leave on most painful area for up to 12 hrs Enema 19-7 gram/118 mL enema 118 ml RECTAL ONCE PRN (Reason: constipation) Rx Instructions: INSERT 1 APPLICATION RECTALLY EVERY 24 HOURS NEEDED FOR CONSTIPATION IF NO RESULTS 1 DAY AFTER SUPPOSITORY magnesium citrate [Citroma] Solution 296 ml PO ONCE PRN (Reason: constipation) Rx Instructions: GIVE BY MOUTH EVERY 24 HOURS NEEDD FOR CONSTIPATION IN am IF NO RESULTS AFTER ENEMA. IF NO RESULTS WITHIN 1 HOUR OF COMPLETION OF BOWEL PROTOCOL, CONTACT MD IMMEDIATELY FOR FURTHER ORDERS calcium carbonate [Calcium Antacid] 200 mg calcium (500 mg) tablet,chewable 200 mg PO Q6H PRN (Reason: indigestion) Date of admission: 01/26/25 19:31 Primary Care Provider: Marquis Ramirez Admitting Provider: Maxx Robb Attending physician on admission: Maxx Robb Condition: Serious Quality VTE Prophylaxis VTE prophylaxis: pharmacologic ordered
== END 2025-02-08 20:07 | disposition home health service (06) | DRG 871 ==
LOC: ANHED 19:25 → ANHICU 20:31 → ANHIMU 01-30 03:51 → ANH2MED 01-30 22:33
PROVIDERS: Internal Medicine; Nurse Practitioner; Student in an Organized Health Care Education/Training Program; Admitting Provider Internal Medicine; Emergency Provider Emergency Medicine; Visit Provider Physician Assistant
DX: A41.9 Sepsis, unspecified organism (principal); J18.9 Pneumonia, unspecified organism; R65.21 Severe sepsis with septic shock; N17.9 Acute kidney failure, unspecified; E87.1 Hypo-osmolality and hyponatremia; N39.0 Urinary tract infection, site not specified; Z16.12 Extended spectrum beta lactamase (ESBL) resistance; A04.72 Enterocolitis due to Clostridium difficile, not specified as recurrent; I48.21 Permanent atrial fibrillation; I13.0 Hypertensive heart and chronic kidney disease with heart failure and stage 1 through stage 4 chronic kidney disease, or unspecified chronic kidney disease; I50.42 Chronic combined systolic (congestive) and diastolic (congestive) heart failure; B96.1 Klebsiella pneumoniae [K. pneumoniae] as the cause of diseases classified elsewhere; D63.1 Anemia in chronic kidney disease; E03.9 Hypothyroidism, unspecified; E11.22 Type 2 diabetes mellitus with diabetic chronic kidney disease; F03.90 Unspecified dementia, unspecified severity, without behavioral disturbance, psychotic disturbance, mood disturbance, and anxiety; F32.A Depression, unspecified; I48.91 Unspecified atrial fibrillation; I25.10 Atherosclerotic heart disease of native coronary artery without angina pectoris; L89.159 Pressure ulcer of sacral region, unspecified stage; R09.02 Hypoxemia; L03.031 Cellulitis of right toe; M06.9 Rheumatoid arthritis, unspecified; N18.9 Chronic kidney disease, unspecified; Z79.82 Long term (current) use of aspirin; Z79.4 Long term (current) use of insulin; Z22.322 Carrier or suspected carrier of Methicillin resistant Staphylococcus aureus; Z93.1 Gastrostomy status; Z95.0 Presence of cardiac pacemaker; Z95.4 Presence of other heart-valve replacement; Z74.01 Bed confinement status; Z86.73 Personal history of transient ischemic attack (TIA), and cerebral infarction without residual deficits
CPT/HCPCS: 36415; 36556; 36569; 36600; 70450; 71045; 71250; 74176; 74230; 76856; 80053; 81001; 82375; 82805; 82948; 83050; 83605; 83690; 83735; 83880; 83935; 84100; 84295; 84300; 85018; 85025; 85027; 85610; 85730; 86140; 87040; 87086; 87186; 87324; 87449; 87493; 87641; 92611; 93005; 93922; 93970; 96365; 96366; 97110; 97162; 97166; 97530; 97535; 99291; A9270; C1751; C8929; J0650; J1650; J1815; J1938; J2003; J2185; J2270; J2405; J2470; J2543; J3373; J3480; J7050; J7120; P9047; Q9957